=== PATIENT | male | born 1945 | race Hispanic/Latino ===

== ENCOUNTER 2022-02-17 22:56 | Inpatient (IN) | payer MEDICARE ==
[2022-02-17] MEDS ORDERED: SODIUM CHLORIDE 0.9% 1000 ML 2,500 ML IV ONE (23:25)
[2022-02-17] MEDS ORDERED: MINERAL OIL/PETROLATUM, WHITE OPHTH OINT 3.5 GM OU PRN (23:25)
[2022-02-17] MEDS ORDERED: VANCOMYCIN 1,500 MG in SODIUM CHLORIDE 0.9% 500 ML 500 ML IV ONE (23:25)
[2022-02-17] MEDS ORDERED: CEFEPIME/NS 2 GM/100 ML 2 GM/100 ML BAG IV ONE (23:25)
[2022-02-17] MEDS ORDERED: LIP THERAPY VASELINE TP PRN (23:25)
--- NOTE | 2022-02-17 23:29 | Emergency Department Report ---
ED General Adult HPI - General Chief complaint: Altered Mental Status Stated complaint: RESP DISTRESS Time Seen by Provider: 02/17/22 23:11 Source: EMS (Verbal report received from emergency medical services. EMS documentation not available at time of chart dictation ), RN notes reviewed Mode of arrival: Stretcher Limitations: Altered Mental Status, Physical Limitation, Other (care home re cords reviewed) - History of Present Illness Initial comments: Primary CARE doctor: Dr. Ramos This is a 76-year-old gentleman who was brought to the hospital by emergency medical services, as an [id number] respiratory distress with altered mental status. Patient is acutely altered and obtunded, and history is obtained from EMS. EMS reports that patient was either found, will became unresponsive at 9:30 PM on February 27, 2022. The patient is not accompanied by friends or family at this time for collateral information or additional information. 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 fib, chronic, CKD stage III, and he is currently a full code. EMS reports that the patient is altered, and requires assisted ventilation. EMS reports normal Accu-Chek in the field. Upon arrival to this emergency room, the patient is breathing agonal he, not protecting his airway, and requires [id number] assisted ventilation. Patient is intubated emergently by myself for acute respiratory failure. He is intubated with rapid sequence induction techniques. Shortly after intubation, the patient lost pulses, and received aggressive high- quality CPR for approximately 2 minutes. Then, pulses are regained. Patient remains comatose, with a GCS of essentially 3T. This hospital does not have a postarrest hypothermia protocol. Given post intubation cardiac arrest with return of spontaneous circulation, concern for sepsis, and hemodynamic instability, a sterile central line is placed with maximum barrier precautions with real-time ultrasound guidance in the right internal jugular vein. At the moment, no additional history is available at this time. Rectal temperature 98 degrees, brown stool on rectal exam. -: unknown - Related Data Allergies Allergy/AdvReac Type Severity Reaction Status Date / Time No Known Allergies Allergy Verified 02/17/22 23:39 ED Review of Systems ROS: Stated complaint: RESP DISTRESS Other details as noted in HPI Comment: Unobtainable due to pts medical conditions ED Physical Exam - General Limitations: Physical Limitation General appearance: obtunded - Head Head exam: Present: atraumatic, normocephalic - Eye Eye exam: Present: normal appearance - ENT ENT exam: Present: mucous membranes dry - Neck Neck exam: Present: normal inspection, full ROM - Respiratory Respiratory exam: Present: respiratory distress, rhonchi - Cardiovascular Cardiovascular Exam: Present: irregular rhythm. Absent: bradycardia, systolic murmur, diastolic murmur, rubs, gallop - GI/Abdominal GI/Abdominal exam: Present: soft. Absent: distended, tenderness, guarding, rebound, rigid, pulsatile mass - Rectal Rectal exam: Present: normal inspection, other (No obvious blood is noted) - exam: Present: normal inspection External exam: Present: normal external exam - Extremities Exam Extremities exam: Present: other (1+ radial pulses noted bilaterally. 1+ femoral pulses noted bilaterally). Absent: normal inspection (Mottled extremit ies) - Back Exam Back exam: Present: normal inspection - Neurological Exam Neurological exam: Present: altered, other (Patient nonverbal. Patient not moving extremities.) - Skin Skin exam: Present: warm, other (Dry mottled extremities) ED Course Vital Signs 02/17/22 02/18/22 02/18/22 23:20 00:40 02:20 Pulse Rate 85 76 Respiratory 0 L 0 L Rate Blood Pressure 85/50 70/43 O2 Sat by Pulse 97 98 87 Oximetry 02/18/22 02/18/22 02/18/22 04:22 04:31 04:53 Pulse Rate 78 78 80 Respiratory 25 H 25 H 0 L Rate Blood Pressure 88/52 89/55 O2 Sat by Pulse 100 100 100 Oximetry - Reevaluation(s) Reevaluation #1: 02/18/22 01:15 Differential diagnosis, including not limited to: Bacteremia, intracranial hemorrhage, pneumonia, UTI, sepsis Assessment and plan: 76-year-old gentleman with acute encephalopathy and respiratory failure, requiring intubation, complicated by cardiac arrest, now with return of spontaneous circulation, intubated, hypotensive, will likely require vasopressor therapy. IV fluids ordered, broad-spectrum antibiotics ordered. X-ray of the chest and appropriate laboratory studies ordered, noncontrast CT scan of the brain ordered. Elevated troponin noted on laboratory studies is likely a type II troponin leak. Have contacted critical care physician on-call, Dr. Fry. Discussed the patient's history, physical and clinical impression. His group will follow in consultation in the intensive care unit. Start patient on fluids and aggressive antibiotics. Currently, blood pressure 87/52, up from 75/50. Should patient not have adequate mean arterial pressure after vigorous fluid resuscitation, start vasopressor therapy. Have verbally communicated to nursing staff that I require a weight, and height, to properly dose this patient's medications 02/18/22 01:19 02/18/22 02:[address] scan of the brain appears to be negative for acute findings on my examination. I do not appreciate a bleed. Still hypotensive. Norepinephrine/Levophed drip ordered. Hospital physician, Dr. Lucia to admit patient to the intensive care unit. Prognosis is poor - Central Line Placement Right IJ Consent Obtained: emergent situation Time Out Performed: Yes Patient Placed on Monitor/Pulse Ox: Yes MD Prep: mask, gown, gloves Central Line Prep: Chlorhexidine scrub, sterile drapes applied Local Anesthesia Used: Lidocaine 1% Amount of Anesthesia Used (mls): 5 Ultrasound Used for Placement: Yes Central Line Lumen Inserted: triple Reason for Insertion: Emergency Venous Access Bloods Obtained for Lab: Yes Central Line Position: good blood return, all ports aspirated, flus, sutured in place with 2-0 Dressing Applied: Tegaderm Post Procedure X-Ray: tip of catheter in good p Patient Tolerated Procedure: well Complications: none Additional Comments: Patient prepped and draped in typical maximal sterile fashion. Using ultrasound guidance, right-sided internal jugular vein is cannulated with an 18-gauge needle, with 3 inch plastic catheter, guidewire, 0.032 x 60 cm, J-tip with a 3 mm radius is then inserted into the guiding catheter, and appropriate luminal placement is confirmed with real-time [id number] ultrasound guidance. A stab incision is made with an 11-gauge blade, and then incision is dilated. The 7 Hungarian triple-lumen catheter has each of the 3 ports flushed with sterile saline in advance of placement. Then, a 7 Hungarian triple-lumen catheter is inserted over the guidewire, and sutured to the skin. Real-time ultrasound guidance confirms appropriate luminal placement. Ports are aspirated easily, and flushed easily. Blue Biopatch is then affixed to the skin, and Tegaderm is applied to the skin. This patient tolerated the procedure well, and without obvious complication. Blood loss estimated at less than 50 cc. - Intubation Time Out Performed: No (Emergency situation) Sedative: Etomidate Mg Given: 20 Paralytic: Rocuronium (100) Mg Given: 100 Laryngoscope: fiberoptic video scope Size: 4 ET Tube Size: 7.5 Tube Secured Depth (cm): 24 Tube Secured Location: teeth Tube Placement Confirmation: visualized tube passing t, equal breath sounds fiona at, no breath sounds over epi Patient Tolerated Procedure: well Intubation Complications: none ED Medical Decision Making - Lab Data Result diagrams: 02/18/22 00:21 02/18/22 00:21 Vital Signs 02/17/22 23:20 Pulse Rate 85 Respiratory 0 L Rate Blood Pressure 85/50 O2 Sat by Pulse 97 Oximetry Lab Results 02/18/22 02/18/22 02/18/22 Range/Units 00:20 00:21 00:21 WBC 6.2 (4.5-11.0) K/mm3 RBC 3.15 L (3.65-5.03) M/mm3 Hgb 9.0 L (11.8-15.2) gm/dl Hct 28.0 L (35.5-45.6) % MCV 89 (84-94) fl MCH 29 (28-32) pg MCHC 32 (32-34) % RDW 20.4 H (13.2-15.2) % Plt Count 233 (140-440) K/mm3 Lymph % (Auto) 19.8 (13.4-35.0) % Noble % (Auto) 5.3 (0.0-7.3) % Eos % (Auto) 2.0 (0.0-4.3) % Baso % (Auto) 1.1 (0.0-1.8) % Lymph # (Auto) 1.2 (1.2-5.4) K/mm3 Noble # (Auto) 0.3 (0.0-0.8) K/mm3 Eos # (Auto) 0.1 (0.0-0.4) K/mm3 Baso # (Auto) 0.1 (0.0-0.1) K/mm3 Seg Neutrophils % 71.8 H (40.0-70.0) % Seg Neutrophils # 4.5 (1.8-7.7) K/mm3 PT 29.4 H (12.2-14.9) Sec. INR 2.41 H (0.87-1.13) APTT 38.3 H (24.2-36.6) Sec. ABG pH 7.148 L (7.320-7.450) POC ABG pCO2 60.4 H (32.0-48.0) mmHg POC ABG pO2 93.0 (83-108) mmHg POC ABG HCO3 20.5 ABG O2 Saturation 96.0 (0-100) POC ABG Base Excess -8.2 ABG Hemoglobin 8.69 L (12.0-17.5) ABG Oxyhemoglobin 93.7 L (94-98) ABG Methemoglobin 0.4 (0.0-1.5) Carboxyhemoglobin 2.1 H (0.5-1.5) FiO2 % 100 Sodium (137-145) mmol/L Potassium (3.6-5.0) mmol/L Chloride (98-107) mmol/L Carbon Dioxide (22-30) mmol/L Anion Gap mmol/L BUN (9-20) mg/dL Creatinine (0.8-1.3) mg/dL Estimated GFR ml/min BUN/Creatinine Ratio % Glucose (75-100) mg/dL Lactic Acid (0.7-2.0) mmol/L Calcium (8.4-10.2) mg/dL Total Bilirubin (0.1-1.2) mg/dL AST (5-40) units/L ALT (7-56) units/L Alkaline Phosphatase (35-129) units/L Total Creatine Kinase (55-170) units/L Troponin T (0.00-0.029) ng/mL Total Protein (6.3-8.2) g/dL Albumin (3.9-5) g/dL Albumin/Globulin Ratio % TSH (0.270-4.200) mlU/mL Urine Color (Yellow) Urine Turbidity (Clear) Urine pH (5.0-7.0) Ur Specific Marcus (1.003-1.030) Urine Protein (Negative) mg/dL Urine Glucose (UA) (Negative) mg/dL Urine Ketones (Negative) mg/dL Urine Blood (Negative) Urine Nitrite (Negative) Urine Bilirubin (Negative) Urine Urobilinogen (<2.0) mg/dL Ur Leukocyte Esterase (Negative) Urine WBC (Auto) (0.0-6.0) /HPF Urine RBC (Auto) (0.0-6.0) /HPF U Epithel Cells (Auto) (0-13.0) /HPF Urine Bacteria (Auto) (Negative) /HPF Urine Mucus /HPF Urine Yeast (Budding) /HPF Salicylates (2.8-20.0) mg/dL Acetaminophen (10.0-30.0) ug/mL Plasma/Serum Alcohol (0-0.07) % Blood Type 02/18/22 02/18/22 02/18/22 Range/Units 00:21 00:21 00:21 WBC (4.5-11.0) K/mm3 RBC (3.65-5.03) M/mm3 Hgb (11.8-15.2) gm/dl Hct (35.5-45.6) % MCV (84-94) fl MCH (28-32) pg MCHC (32-34) % RDW (13.2-15.2) % Plt Count (140-440) K/mm3 Lymph % (Auto) (13.4-35.0) % Noble % (Auto) (0.0-7.3) % Eos % (Auto) (0.0-4.3) % Baso % (Auto) (0.0-1.8) % Lymph # (Auto) (1.2-5.4) K/mm3 Noble # (Auto) (0.0-0.8) K/mm3 Eos # (Auto) (0.0-0.4) K/mm3 Baso # (Auto) (0.0-0.1) K/mm3 Seg Neutrophils % (40.0-70.0) % Seg Neutrophils # (1.8-7.7) K/mm3 PT (12.2-14.9) Sec. INR (0.87-1.13) APTT (24.2-36.6) Sec. ABG pH (7.320-7.450) POC ABG pCO2 (32.0-48.0) mmHg POC ABG pO2 (83-108) mmHg POC ABG HCO3 ABG O2 Saturation (0-100) POC ABG Base Excess ABG Hemoglobin (12.0-17.5) ABG Oxyhemoglobin (94-98) ABG Methemoglobin (0.0-1.5) Carboxyhemoglobin (0.5-1.5) FiO2 % Sodium 144 (137-145) mmol/L Potassium 4.5 (3.6-5.0) mmol/L Chloride 112.6 H (98-107) mmol/L Carbon Dioxide 19 L (22-30) mmol/L Anion Gap 17 mmol/L BUN 55 H (9-20) mg/dL Creatinine 3.0 H (0.8-1.3) mg/dL Estimated GFR 21 ml/min BUN/Creatinine Ratio 18 % Glucose 152 H (75-100) mg/dL Lactic Acid 1.10 (0.7-2.0) mmol/L Calcium 7.4 L (8.4-10.2) mg/dL Total Bilirubin 0.80 (0.1-1.2) mg/dL AST 56 H (5-40) units/L ALT 45 (7-56) units/L Alkaline Phosphatase 268 H (35-129) units/L Total Creatine Kinase 233 H (55-170) units/L Troponin T 0.073 H (0.00-0.029) ng/mL Total Protein 6.5 (6.3-8.2) g/dL Albumin 2.2 L (3.9-5) g/dL Albumin/Globulin Ratio 0.5 % TSH 5.100 H (0.270-4.200) mlU/mL Urine Color (Yellow) Urine Turbidity (Clear) Urine pH (5.0-7.0) Ur Specific Marcus (1.003-1.030) Urine Protein (Negative) mg/dL Urine Glucose (UA) (Negative) mg/dL Urine Ketones (Negative) mg/dL Urine Blood (Negative) Urine Nitrite (Negative) Urine Bilirubin (Negative) Urine Urobilinogen (<2.0) mg/dL Ur Leukocyte Esterase (Negative) Urine WBC (Auto) (0.0-6.0) /HPF Urine RBC (Auto) (0.0-6.0) /HPF U Epithel Cells (Auto) (0-13.0) /HPF Urine Bacteria (Auto) (Negative) /HPF Urine Mucus /HPF Urine Yeast (Budding) /HPF Salicylates (2.8-20.0) mg/dL Acetaminophen (10.0-30.0) ug/mL Plasma/Serum Alcohol (0-0.07) % Blood Type 02/18/22 02/18/22 02/18/22 Range/Units 00:21 00:21 00:21 WBC (4.5-11.0) K/mm3 RBC (3.65-5.03) M/mm3 Hgb (11.8-15.2) gm/dl Hct (35.5-45.6) % MCV (84-94) fl MCH (28-32) pg MCHC (32-34) % RDW (13.2-15.2) % Plt Count (140-440) K/mm3 Lymph % (Auto) (13.4-35.0) % Noble % (Auto) (0.0-7.3) % Eos % (Auto) (0.0-4.3) % Baso % (Auto) (0.0-1.8) % Lymph # (Auto) (1.2-5.4) K/mm3 Noble # (Auto) (0.0-0.8) K/mm3 Eos # (Auto) (0.0-0.4) K/mm3 Baso # (Auto) (0.0-0.1) K/mm3 Seg Neutrophils % (40.0-70.0) % Seg Neutrophils # (1.8-7.7) K/mm3 PT (12.2-14.9) Sec. INR (0.87-1.13) APTT (24.2-36.6) Sec. ABG pH (7.320-7.450) POC ABG pCO2 (32.0-48.0) mmHg POC ABG pO2 (83-108) mmHg POC ABG HCO3 ABG O2 Saturation (0-100) POC ABG Base Excess ABG Hemoglobin (12.0-17.5) ABG Oxyhemoglobin (94-98) ABG Methemoglobin (0.0-1.5) Carboxyhemoglobin (0.5-1.5) FiO2 % Sodium (137-145) mmol/L Potassium (3.6-5.0) mmol/L Chloride (98-107) mmol/L Carbon Dioxide (22-30) mmol/L Anion Gap mmol/L BUN (9-20) mg/dL Creatinine (0.8-1.3) mg/dL Estimated GFR ml/min BUN/Creatinine Ratio % Glucose (75-100) mg/dL Lactic Acid (0.7-2.0) mmol/L Calcium (8.4-10.2) mg/dL Total Bilirubin (0.1-1.2) mg/dL AST (5-40) units/L ALT (7-56) units/L Alkaline Phosphatase (35-129) units/L Total Creatine Kinase (55-170) units/L Troponin T (0.00-0.029) ng/mL Total Protein (6.3-8.2) g/dL Albumin (3.9-5) g/dL Albumin/Globulin Ratio % TSH (0.270-4.200) mlU/mL Urine Color (Yellow) Urine Turbidity (Clear) Urine pH (5.0-7.0) Ur Specific Marcus (1.003-1.030) Urine Protein (Negative) mg/dL Urine Glucose (UA) (Negative) mg/dL Urine Ketones (Negative) mg/dL Urine Blood (Negative) Urine Nitrite (Negative) Urine Bilirubin (Negative) Urine Urobilinogen (<2.0) mg/dL Ur Leukocyte Esterase (Negative) Urine WBC (Auto) (0.0-6.0) /HPF Urine RBC (Auto) (0.0-6.0) /HPF U Epithel Cells (Auto) (0-13.0) /HPF Urine Bacteria (Auto) (Negative) /HPF Urine Mucus /HPF Urine Yeast (Budding) /HPF Salicylates < 0.3 L (2.8-20.0) mg/dL Acetaminophen 5.0 L (10.0-30.0) ug/mL Plasma/Serum Alcohol < 0.01 (0-0.07) % Blood Type 02/18/22 02/18/22 Range/Units 00:21 00:54 WBC (4.5-11.0) K/mm3 RBC (3.65-5.03) M/mm3 Hgb (11.8-15.2) gm/dl Hct (35.5-45.6) % MCV (84-94) fl MCH (28-32) pg MCHC (32-34) % RDW (13.2-15.2) % Plt Count (140-440) K/mm3 Lymph % (Auto) (13.4-35.0) % Noble % (Auto) (0.0-7.3) % Eos % (Auto) (0.0-4.3) % Baso % (Auto) (0.0-1.8) % Lymph # (Auto) (1.2-5.4) K/mm3 Noble # (Auto) (0.0-0.8) K/mm3 Eos # (Auto) (0.0-0.4) K/mm3 Baso # (Auto) (0.0-0.1) K/mm3 Seg Neutrophils % (40.0-70.0) % Seg Neutrophils # (1.8-7.7) K/mm3 PT (12.2-14.9) Sec. INR (0.87-1.13) APTT (24.2-36.6) Sec. ABG pH (7.320-7.450) POC ABG pCO2 (32.0-48.0) mmHg POC ABG pO2 (83-108) mmHg POC ABG HCO3 ABG O2 Saturation (0-100) POC ABG Base Excess ABG Hemoglobin (12.0-17.5) ABG Oxyhemoglobin (94-98) ABG Methemoglobin (0.0-1.5) Carboxyhemoglobin (0.5-1.5) FiO2 % Sodium (137-145) mmol/L Potassium (3.6-5.0) mmol/L Chloride (98-107) mmol/L Carbon Dioxide (22-30) mmol/L Anion Gap mmol/L BUN (9-20) mg/dL Creatinine (0.8-1.3) mg/dL Estimated GFR ml/min BUN/Creatinine Ratio % Glucose (75-100) mg/dL Lactic Acid (0.7-2.0) mmol/L Calcium (8.4-10.2) mg/dL Total Bilirubin (0.1-1.2) mg/dL AST (5-40) units/L ALT (7-56) units/L Alkaline Phosphatase (35-129) units/L Total Creatine Kinase (55-170) units/L Troponin T (0.00-0.029) ng/mL Total Protein (6.3-8.2) g/dL Albumin (3.9-5) g/dL Albumin/Globulin Ratio % TSH (0.270-4.200) mlU/mL Urine Color Yellow (Yellow) Urine Turbidity Slightly-cloudy (Clear) Urine pH 5.0 (5.0-7.0) Ur Specific Marcus 1.016 (1.003-1.030) Urine Protein 100 mg/dl (Negative) mg/dL Urine Glucose (UA) Neg (Negative) mg/dL Urine Ketones Neg (Negative) mg/dL Urine Blood Mod (Negative) Urine Nitrite Neg (Negative) Urine Bilirubin Neg (Negative) Urine Urobilinogen 4.0 (<2.0) mg/dL Ur Leukocyte Esterase Neg (Negative) Urine WBC (Auto) 4.0 (0.0-6.0) /HPF Urine RBC (Auto) 1.0 (0.0-6.0) /HPF U Epithel Cells (Auto) 1.0 (0-13.0) /HPF Urine Bacteria (Auto) 1+ (Negative) /HPF Urine Mucus Few /HPF Urine Yeast (Budding) 1+ /HPF Salicylates (2.8-20.0) mg/dL Acetaminophen (10.0-30.0) ug/mL Plasma/Serum Alcohol (0-0.07) % Blood Type A POSITIVE - EKG Data -: EKG Interpreted by Ut - EKG Data 02/18/22 01:09 The EKG is interpreted at 12: 22 AM A. fib, 85 bpm. Left axis deviation. QTc 501 ms. Intraventricular conduction delay. Motion artifact. Abnormal EKG. Not a STEMI - Radiology Data Radiology results: pending, report reviewed, image reviewed CHEST 1 VIEW INDICATION / CLINICAL INFORMATION: follow up respiratory failure. COMPARISON: None available. FINDINGS: SUPPORT DEVICES: Endotracheal tube is in satisfactory position. Right IJ central venous catheter is overshadowed by posterior fusion hardware not well-visualized. HEART / MEDIASTINUM: Normal size of the cardiomediastinal silhouette. Additional postoperative findings from sternotomy. LUNGS / PLEURA: Scattered opacities mid-lower left lung and right lung base are present. Small left pleural effusion is suggested possibly minimally loculated. BONES: No significant osseous abnormality. ADDITIONAL FINDINGS: No significant additional findings. IMPRESSION: 1. Satisfactory position of endotracheal tube. Right IJ central venous catheter not well-visualized secondary to posterior fusion hardware. 2. Bilateral lung opacities differential considerations to include sequelae of infection and/or possibly asymmetric pulmonary edema. 3. Small dependent left pleural effusion. Signer Name: Tristan Mcmahon II, MD Signed: 02/18/2022 12:10 AM Workstation Name: [facility] CT HEAD WITHOUT CONTRAST INDICATION / CLINICAL INFORMATION: Altered Mental Status. TECHNIQUE: CT head was performed without administration of intravenous contrast. All CT scans at this location are performed using CT dose reduction for ALARA by means of automated exposure control. COMPARISON: None available. FINDINGS: CEREBRAL PARENCHYMA: Generalized cortical and central atrophy. Periventricular regions of white matter hypoattenuation compatible with m icrovascular ischemia. HEMORRHAGE: None. EXTRA-AXIAL SPACES: Normal in size and morphology for the patient's age. VENTRICULAR SYSTEM: Normal in size and morphology for the patient's age. MIDLINE SHIFT / HERNIATION: None. CEREBELLUM / BRAINSTEM: No significant abnormality. ORBITS: Partially calcified small left globe with prosthesis. Right globe demonstrates evidence of prior cataract surgery. SOFT TISSUES: No significant abnormality. SKULL: No significant abnormality. PARANASAL SINUSES / MASTOID AIR CELLS: Mucous retention cyst right maxillary sinus. ADDITIONAL FINDINGS: Mild elongation of the styloid processes bilaterally is not excluded. IMPRESSION: 1. No acute intracranial abnormality. Signer Name: Tristan Mcmahon II, MD Signed: 02/18/2022 1:18 AM Workstation Name: [id number] Critical Care Time: Yes Critical care time in (mins) excluding proc time.: 45 Critical care attestation.: If time is entered above; I have spent that time in minutes in the direct care of this critically ill patient, excluding procedure time. ED Disposition Clinical Impression: Acute respiratory failure, Cardiac arrest, Acute encephalopathy, Renal insufficiency, Atrial fibrillation, Respiratory acidosis Disposition: 09 ADMITTED INPATIENT Is pt being admited?: Yes Condition: Critical
[2022-02-17] MEDS ORDERED: VANCOMYCIN PHARMACY TO DOSE IV SCH (23:45)
[2022-02-17] MEDS ORDERED: fentaNYL DRIP Premix 2,000 MCG/100 ML BAG IV SCH (23:45)
[2022-02-18 00:36] LABS: Basophils # (Auto) 0.1 K/mm3 (0.0-0.1); Basophils % (Auto) 1.1 % (0.0-1.8); Eosinophils # (Auto) 0.1 K/mm3 (0.0-0.4); Lymphocytes # (Auto) 1.2 K/mm3 (1.2-5.4); Lymphocytes % (Auto) 19.8 % (13.4-35.0); Mean Corpuscular HGB Conc 32 % (32-34); Mean Corpuscular Volume 89 fl (84-94); Monocytes # (Auto) 0.3 K/mm3 (0.0-0.8); Monocytes % (Auto) 5.3 % (0.0-7.3); Platelet Count 233 K/mm3 (140-440); Red Blood Count 3.15 M/mm3 (3.65-5.03)
[2022-02-18 00:44] LABS: Red Cell Distribution Width 20.4 % (13.2-15.2)
[2022-02-18 00:47] LABS: INR 2.41 (0.87-1.13)
[2022-02-18 00:48] LABS: Partial Thromboplastin Time 38.3 Sec. (24.2-36.6)
[2022-02-18 00:57] LABS: Albumin 2.2 g/dL (3.9-5); Calcium 7.4 mg/dL (8.4-10.2)
[2022-02-18 01:03] LABS: Bacteria,Urine 1+ /HPF (Negative); Bilirubin,Urine NEG (Negative); Blood,Urine MOD (Negative); Color,Urine Yellow (Yellow); Mucus,Urine FEW /HPF
[2022-02-18 01:34] LABS: Chol/HDL Ratio 3.73 %
--- NOTE | 2022-02-18 02:23 | Cat Scan Report ---
CT HEAD WITHOUT CONTRAST INDICATION / CLINICAL INFORMATION: Altered Mental Status. TECHNIQUE: CT head was performed without administration of intravenous contrast. All CT scans at this location are performed using CT dose reduction for ALARA by means of automated exposure control. COMPARISON: None available. FINDINGS: CEREBRAL PARENCHYMA: Generalized cortical and central atrophy. Periventricular regions of white matte r hypoattenuation compatible with microvascular ischemia. HEMORRHAGE: None. EXTRA-AXIAL SPACES: Normal in size and morphology for the patient's age. VENTRICULAR SYSTEM: Normal in size and morphology for the patient's age. MIDLINE SHIFT / HERNIATION: None. CEREBELLUM / BRAINSTEM: No significant abnormality. ORBITS: Partially calcified small left globe with prosthesis. Right globe demonstrates evidence of pr ior cataract surgery. SOFT TISSUES: No significant abnormality. SKULL: No significant abnormality. PARANASAL SINUSES / MASTOID AIR CELLS: Mucous retention cyst right maxillary sinus. ADDITIONAL FINDINGS: Mild elongation of the styloid processes bilaterally is not excluded. IMPRESSION: 1. No acute intracranial abnormality. Signer Name: Tristan Mcmahon II, MD Signed: 02/18/2022 2:18 AM Workstation Name: [id number]
[2022-02-18] MEDS ORDERED: SODIUM CHLORIDE 0.9% 1000 ML 1,000 ML IV ONE (02:38)
[2022-02-18] MEDS ORDERED: VANCOMYCIN 2,000 MG in SODIUM CHLORIDE 0.9% 500 ML 500 ML IV ONE (03:00)
[2022-02-18] MEDS: fentaNYL 100 MCG/2 ML INJ IV PRN ×2 (03:01→10:37)
[2022-02-18] MEDS ORDERED: traMADol 50 MG TAB PO PRN (03:18)
[2022-02-18] MEDS ORDERED: ACETAMINOPHEN 325 MG TAB PO PRN (03:18)
[2022-02-18] MEDS ORDERED: HYDROmorphone 1 MG/1 ML INJ IV PRN (03:18)
[2022-02-18] MEDS ORDERED: NITROGLYCERIN 0.4 MG TAB SUBL SL PRN (03:18)
[2022-02-18] MEDS ORDERED: ONDANSETRON 4 MG/2 ML INJ IV PRN (03:18)
[2022-02-18] MEDS ORDERED: ALBUTEROL 2.5 MG/3 ML NEBU IH PRN (03:18)
[2022-02-18] MEDS ORDERED: MORPHINE 2 MG/1 ML INJ IV PRN (03:18)
--- NOTE | 2022-02-18 03:28 | History and Physical Report ---
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 fib, chronic, CKD stage III was brought to the hospital by emergency medical services, as an [id number] respiratory distress with altered mental status. Patient is acutely altered and obtunded, and history is obtained from EMS. EMS reports that patient was either found, will became unresponsive at 9:30 PM on February 27, 2022. The patient is not accompanied by friends or family at this time for collateral information or additional information. EMS reports that the patient is altered, and requires assisted ventilation. EMS reports normal Accu-Chek in the field. Upon arrival to this emergency room, the patient is breathing agonal he, not protecting his airway, and requires [id number] assisted ventilation. Patient is intubated emergently by emergency room physician for acute respiratory failure. Shortly after intubation, the patient lost pulses, and received aggressive high-quality CPR for approximately 2 minutes. Then, pulses are regained. Patient remains comatose. In the emergency room patient is found to have acute respiratory failure, cardiac arrest also chest x-ray compatible with pneumonia as per the ER physicians were going to admit the patient. We will put the patient on IV antibiotic week. 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 fib, chronic, CKD stage III, ), renal failure Past Surgical History: Other (Unknown) Social history: other (Unknown) Family history: hypertension Medications and Allergies Allergies Allergy/AdvReac Type Severity Reaction Status Date / Time No Known Allergies Allergy Verified 02/17/22 23:39 Active Meds: Active Medications Famotidine (Famotidine 20 Mg/2 Ml Inj) 20 mg IV DAILY KARAN Fentanyl (Fentanyl 100 Mcg/2 Ml Inj) 50 mcg IV Q10MIN PRN PRN Reason: ANALGESIA Last Admin: 02/18/22 03:01 Dose: 50 mcg Hydrophilic Ointment (Lip Therapy Vaseline) 1 applic TP Q2HR PRN PRN Reason: Dry Lips Fentanyl Citrate (Fentanyl Drip Premix) 2,000 mcg in 100 mls @ 6.849 mls/hr IV TITR KARAN; Protocol Last Admin: 02/18/22 02:50 Dose: 1 mcg/kg/hr, 6.849 mls/hr NORepinephrine/NS 8 MG-250 ML (Norepinephrine/Ns 8 Mg-250 Ml (Double Conc)) 8 mg in 250 mls @ 3.75 mls/hr IV TITRATE KARAN; Protocol Vancomycin HCl 2,000 mg/ (Sodium Chloride) 540 mls @ 250 mls/hr IV ONCE ONE Stop: 02/18/22 05:09 Sodium Chloride (Nacl 0.9% 1000 Ml) 1,000 mls @ 999 mls/hr IV BOLUS ONE Stop: 02/18/22 03:38 Last Admin: 02/18/22 02:49 Dose: 999 mls/hr Multi-Ingred Cream/Lotion/Oil/Oint (Mineral Oil/Petrolatum, White Ophth Oint 3.5 Gm) 1 applic OU Q4HR PRN PRN Reason: Dry Eye(s) Senna/Docusate Sodium (Sennosides/Docusate Sodium 8.6/50 Mg Tab) 1 tab FEEDTUBE BID KARAN Review of Systems All systems: negative Constitutional: malaise, lethargy, other (Unresponsive) Cardiovascular: shortness of breath, dyspnea on exertion Respiratory: shortness of breath, dyspnea on exertion Neurological: change in mentation Exam - Constitutional Vitals: Temp Pulse Resp BP Pulse Ox 76 0 L 70/43 87 02/18/22 02:20 02/18/22 02:20 02/18/22 02:20 02/18/22 02:20 General appearance: Present: severe distress - EENT Eyes: Present: PERRL ENT: hearing intact, clear oral mucosa - Neck Neck: Present: supple, normal ROM - Respiratory Respiratory effort: normal Respiratory: bilateral: diminished - Cardiovascular Heart Sounds: Present: S1 & S2. Absent: rub, click - Extremities Extremities: pulses symmetrical, No edema Peripheral Pulses: within normal limits - Abdominal General gastrointestinal: Present: soft, non-tender, non-distended, normal bowel sounds Male genitourinary: Present: normal - Integumentary Integumentary: Present: clear, warm, dry - Musculoskeletal Musculoskeletal: gait normal, strength equal bilaterally - Psychiatric Psychiatric: other (Patient is unresponsive and patient is on vent) - Neurologic Neurologic: CNII-XII intact, moves all extremities, other (Patient is unresponsive and patient is on vent) HEART Score - HEART Score Troponin: Troponin T 0.073 ng/mL (0.00-0.029) H 02/18/22 00:21 Results - Labs CBC & Chem 7: 02/18/22 00:21 02/18/22 00:21 Labs: Laboratory Last Values WBC 6.2 K/mm3 (4.5-11.0) 02/18/22 00:21 RBC 3.15 M/mm3 (3.65-5.03) L 02/18/22 00:21 Hgb 9.0 gm/dl (11.8-15.2) L 02/18/22 00:21 Hct 28.0 % (35.5-45.6) L 02/18/22 00:21 MCV 89 fl (84-94) 02/18/22 00: MCH 29 pg (28-32) 02/18/22 00: MCHC 32 % (32-34) 02/18/22 00:21 RDW 20.4 % (13.2-15.2) H 02/18/22 00:21 Plt Count 233 K/mm3 (140-440) 02/18/22 00: Lymph % (Auto) 19.8 % (13.4-35.0) 02/18/22 00:21 [place] % (Auto) 5.3 % (0.0-7.3) 02/18/22 00: Eos % (Auto) 2.0 % (0.0-4.3) 02/18/22 00: Baso % (Auto) 1.1 % (0.0-1.8) 02/18/22 00:21 Lymph # (Auto) 1.2 K/mm3 (1.2-5.4) 02/18/22 00: [place] # (Auto) 0.3 K/mm3 (0.0-0.8) 02/18/22 00:21 Eos # (Auto) 0.1 K/mm3 (0.0-0.4) 02/18/22 00:21 Baso # (Auto) 0.1 K/mm3 (0.0-0.1) 02/18/22 00: Seg Neutrophils % 71.8 % (40.0-70.0) H 02/18/22 00: Seg Neutrophils # 4.5 K/mm3 (1.8-7.7) 02/18/22 00: PT 29.4 Sec. (12.2-14.9) H 02/18/22 00: INR 2.41 (0.87-1.13) H 02/18/22 00: APTT 38.3 Sec. (24.2-36.6) H 02/18/22 00:21 ABG pH 7.148 (7.320-7.450) L 02/18/22 00:20 POC ABG pCO2 60.4 mmHg (32.0-48.0) H 02/18/22 00:20 POC ABG pO2 93.0 mmHg (83-108) 02/18/22 00: POC ABG HCO3 20.5 02/18/22 00: ABG O2 Saturation 96.0 (0-100) 02/18/22 00:20 POC ABG Base Excess -8.2 02/18/22 00:20 ABG Hemoglobin 8.69 (12.0-17.5) L 02/18/22 00:20 ABG Oxyhemoglobin 93.7 (94-98) L 02/18/22 00:20 ABG Methemoglobin 0.4 (0.0-1.5) 02/18/22 00: Carboxyhemoglobin 2.1 (0.5-1.5) H 02/18/22 00: FiO2 % 100 02/18/22 00:20 Sodium 144 mmol/L (137-145) 02/18/22 00:21 Potassium 4.5 mmol/L (3.6-5.0) 02/18/22 00: Chloride 112.6 mmol/L (98-107) H 02/18/22 00: Carbon Dioxide 19 mmol/L (22-30) L 02/18/22 00:21 Anion Gap 17 mmol/L 02/18/22 00:21 BUN 55 mg/dL (9-20) H 02/18/22 00:21 Creatinine 3.0 mg/dL (0.8-1.3) H 02/18/22 00:21 Estimated GFR 21 ml/min 02/18/22 00:21 BUN/Creatinine Ratio 18 % 02/18/22 00:21 Glucose 152 mg/dL (75-100) H 02/18/22 00:21 Lactic Acid 0.90 mmol/L (0.7-2.0) 02/18/22 02:18 Calcium 7.4 mg/dL (8.4-10.2) L 02/18/22 00:21 Total Bilirubin 0.80 mg/dL (0.1-1.2) 02/18/22 00:21 AST 56 units/L (5-40) H 02/18/22 00:21 ALT 45 units/L (7-56) 02/18/22 00:21 Alkaline Phosphatase 268 units/L (35-129) H 02/18/22 00:21 Ammonia 38.0 umol/L (25-60) 02/18/22 00:21 Total Creatine Kinase 233 units/L (55-170) H 02/18/22 00:21 Troponin T 0.073 ng/mL (0.00-0.029) H 02/18/22 00:21 Total Protein 6.5 g/dL (6.3-8.2) 02/18/22 00:21 Albumin 2.2 g/dL (3.9-5) L 02/18/22 00: Albumin/Globulin Ratio 0.5 % 02/18/22 00:21 Triglycerides 107 mg/dL (2-149) 02/18/22 00:21 Cholesterol 71 mg/dL (50-199) 02/18/22 00:21 LDL Cholesterol Direct 30 mg/dL (50-130) L 02/18/22 00:21 HDL Cholesterol 19 mg/dL (40-59) L 02/18/22 00:21 Cholesterol/HDL Ratio 3.73 % 02/18/22 00:21 TSH 5.100 mlU/mL (0.270-4.200) H 02/18/22 00:21 Urine Color Yellow (Yellow) 02/18/22 00:54 Urine Turbidity Slightly-cloudy (Clear) 02/18/22 00:54 Urine pH 5.0 (5.0-7.0) 02/18/22 00:54 Ur Specific [place] 1.016 (1.003-1.030) 02/18/22 00:54 Urine Protein 100 mg/dl mg/dL (Negative) 02/18/22 00:54 Urine Glucose (UA) Neg mg/dL (Negative) 02/18/22 00:54 Urine Ketones Neg mg/dL (Negative) 02/18/22 00:54 Urine Blood Mod (Negative) 02/18/22 00:54 Urine Nitrite Neg (Negative) 02/18/22 00:54 Urine Bilirubin Neg (Negative) 02/18/22 00:54 Urine Urobilinogen 4.0 mg/dL (<2.0) 02/18/22 00:54 Ur Leukocyte Esterase Neg (Negative) 02/18/22 00:54 Urine WBC (Auto) 4.0 /HPF (0.0-6.0) 02/18/22 00:54 Urine RBC (Auto) 1.0 /HPF (0.0-6.0) 02/18/22 00:54 U Epithel Cells (Auto) 1.0 /HPF (0-13.0) 02/18/22 00:54 Urine Bacteria (Auto) 1+ /HPF (Negative) 02/18/22 00:54 Urine Mucus Few /HPF 02/18/22 00:54 Urine Yeast (Budding) 1+ /HPF 02/18/22 00:54 Salicylates < 0.3 mg/dL (2.8-20.0) L 02/18/22 00:21 Acetaminophen 5.0 ug/mL (10.0-30.0) L 02/18/22 00:21 Plasma/Serum Alcohol < 0.01 % (0-0.07) 02/18/22 00:21 Blood Type A POSITIVE 02/18/22 00:21 Antibody Screen Negative 02/18/22 00:21 - Imaging and Cardiology Chest x-ray: report reviewed CT Scan - head: report reviewed Assessment and Plan VTE prophylaxis?: Chemical Plan of care discussed with patient/family: Yes - Patient Problems (1) Acute respiratory failure Current Visit: Yes Status: Acute Plan to address problem: Admit the patient to the ICU. Patient is on vent. DuoNeb by nebulizer every 4 hours. Albuterol via nebulizer every 4 hours as needed. Reconsult critical care evaluation. (2) Cardiac arrest Current Visit: Yes Status: Acute Plan to address problem: Aspirin 325 mg p.o. daily. Lipitor 40 mg p.o. daily. Serial cardiac enzymes. Echocardiogram. Cardiology evaluation (3) Acute encephalopathy Current Visit: Yes Status: Acute Plan to address problem: Acute metabolic encephalopathy secondary to acute respiratory failure, cardiac arrest and IGGY and pneumonia. Patient is on vent. DuoNeb by nebulizer every 4 hours. Albuterol via nebulizer every 4 hours as needed. Rocephin 2 g IV daily. Zithromax 500 mg IV daily. Reconsult critical care evaluation. (4) Hypertension Current Visit: Yes Status: Acute Plan to address problem: Hydralazine 10 mg IV every 6 hours as needed. We will continue the home medication (5) Atrial fibrillation Current Visit: Yes Status: Acute Plan to address problem: Stable. We will continue the home medication. Echocardiogram. Cardiology consult (6) Renal insufficiency Current Visit: Yes Status: Acute Plan to address problem: Avoid nephrotoxic drugs. Renally dose medication. D5 half-normal saline at the rate of 100 cc/h. Nephrology consult. Recheck CBC BMP in the morning (7) Respiratory acidosis Current Visit: Yes Status: Acute Plan to address problem: Patient is on vent. DuoNeb by nebulizer every 4 hours. Albuterol via nebulizer every 4 hours as needed. Reconsult critical care evaluation. (8) DVT prophylaxis Current Visit: Yes Status: Acute Plan to address problem: Heparin 5000 units SQ every 12 hours for DVT prophylaxis. Pepcid 20 mg IV every 12 hours for GI prophylaxis. Patient is a full code
[2022-02-18] MEDS ORDERED: hydrALAZINE 20 MG/1 ML INJ IV PRN (03:33)
[2022-02-18] MEDS: NORepinephrine/NS 8 MG-250 ML 8 MG/250 ML INFUS..BTL IV SCH ×4 (03:48→22:19)
[2022-02-18] MEDS ORDERED: D5W/0.45% NACL 1,000 ML IV SCH (04:00)
[2022-02-18] MEDS ORDERED: cefTRIAXone/NS 2 GM/100 ML 2 GM/100 ML BAG IV SCH (04:00)
[2022-02-18 05:19] LABS: ABG Base Excess -11.2 mmol/L (-2.0-3.0); ABG HCO3 17.6 mmol/L (20.0-26.0); ABG Methemoglobin 0.6 % (0.0-1.5); ABG Oxygen Saturation 96.8 % (95.0-99.0); ABG PCO2 53.9 mm Hg; ABG PO2 93.2 mm Hg (80.0-90.0)
[2022-02-18 05:28] LABS: ABG PH 7.131 pH Units (7.350-7.450)
[2022-02-18] MEDS: VASOPRESSIN 20 UNIT in SODIUM CHLORIDE 0.9% 100 ML IV SCH ×2 (06:16→16:58)
[2022-02-18] MEDS: SODIUM BICARBONATE 150 MEQ in DEXTROSE 5% IN WATER 1,000 ML IV SCH ×3 (06:42→22:11)
--- NOTE | 2022-02-18 07:54 | XRay Report ---
CHEST 1 VIEW INDICATION / CLINICAL INFORMATION: follow up respiratory failure. COMPARISON: None available. FINDINGS: SUPPORT DEVICES: Endotracheal tube is in satisfactory position. Right IJ central venous catheter is o vershadowed by posterior fusion hardware not well-visualized. HEART / MEDIASTINUM: Normal size of the cardiomediastinal silhouette. Additional postoperative findin gs from sternotomy. LUNGS / PLEURA: Scattered opacities mid-lower left lung and right lung base are present. Small left p leural effusion is suggested possibly minimally loculated. BONES: No significant osseous abnormality. ADDITIONAL FINDINGS: No significant additional findings. IMPRESSION: 1. Satisfactory position of endotracheal tube. Right IJ central venous catheter not well-visualized s econdary to posterior fusion hardware. 2. Bilateral lung opacities differential considerations to include sequelae of infection and/or possi steven asymmetric pulmonary edema. 3. Small dependent left pleural effusion. Signer Name: Tristan Mcmahon II, MD Signed: 02/18/2022 1:10 AM Workstation Name: [id number]
[2022-02-18] MEDS: IPRATROPIUM/ALBUTEROL SULFATE 3 ML AMPUL.NEB IH SCH ×3 (08:30→20:34)
--- NOTE | 2022-02-18 09:30 | Consultation ---
History of Present Illness - Reason for Consult Consult date: 02/18/22 acute renal failure, chronic renal failure - History of Present Illness The patient is a 76 year old male was admitted for worsening altered mental status, he was found to have hypoxic respiratory failure and underwent intub ation and started on mechanical ventilation. 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 fib, chronic, CKD stage III, ), renal failure Past Surgical History: Other (Unknown) Social history: other (Unknown) Family history: hypertension Medications and Allergies Allergies Allergy/AdvReac Type Severity Reaction Status Date / Time No Known Allergies Allergy Verified 02/17/22 23:39 Active Meds: Active Medications Acetaminophen (Acetaminophen 325 Mg Tab) 650 mg PO Q4H PRN PRN Reason: Pain MILD(1-3)/Fever >100.5/NICOLE Albuterol (Albuterol 2.5 Mg/3 Ml Nebu) 2.5 mg IH Q3HRT PRN PRN Reason: Shortness Of Breath Albuterol/Ipratropium (Ipratropium/Albuterol Sulfate 3 Ml Ampul.Neb) 1 ampul IH Q6HRT KARAN Last Admin: 02/18/22 08:30 Dose: 1 ampul Aspirin (Aspirin 325 Mg Tab) 325 mg PO QDAY [facility] Atorvastatin Calcium (Atorvastatin 40 Mg Tab) 40 mg PO QHS [facility] Azithromycin (Azithromycin 250 Mg Tab) 500 mg PO QDAY [facility]; Protocol Famotidine (Famotidine 20 Mg/2 Ml Inj) 20 mg IV DAILY [facility] Fentanyl (Fentanyl 100 Mcg/2 Ml Inj) 50 mcg IV Q10MIN PRN PRN Reason: ANALGESIA Last Admin: 02/18/22 03:01 Dose: 50 mcg Heparin Sodium (Porcine) (Heparin 5,000 Unit/1 Ml Vial) 5,000 unit SUB-Q Q12HR [facility] Hydralazine HCl (Hydralazine 20 Mg/1 Ml Inj) 10 mg IV Q6H PRN PRN Reason: SBP >/=160; DBP >/=100 Hydrophilic Ointment (Lip Therapy Vaseline) 1 applic TP Q2HR PRN PRN Reason: Dry Lips Fentanyl Citrate (Fentanyl Drip Premix) 2,000 mcg in 100 mls @ 6.849 mls/hr IV TITR KARAN; Protocol Last Titration: 02/18/22 06:00 Dose: 0 mcg/kg/hr, 0 mls/hr NORepinephrine/NS 8 MG-250 ML (Norepinephrine/Ns 8 Mg-250 Ml (Double Conc)) 8 mg in 250 mls @ 3.75 mls/hr IV TITRATE KARAN; Protocol Last Titration: 02/18/22 09:01 Dose: 17 mcg/min, 31.875 mls/hr Dextrose/Sodium Chloride (D5/0.45ns) 1,000 mls @ 100 mls/hr IV DIRECT KARAN Last Admin: 02/18/22 06:17 Dose: 100 mls/hr Ceftriaxone Sodium (Rocephin/Ns 2 Gm/100 Ml) 2 gm in 100 mls @ 200 mls/hr IV Q24H KARAN; Protocol Propofol (Diprivan 10 Mg/Ml) 1,000 mg in 100 mls @ 4.11 mls/hr IV TITR KARAN; Protocol Vasopressin 20 unit/ Sodium (Chloride) 101 mls @ 9.09 mls/hr IV TITR KARAN; Protocol Last Admin: 02/18/22 06:16 Dose: 0.03 units/min, 9.09 mls/hr Sodium Bicarbonate 150 meq/ (Dextrose) 1,150 mls @ 150 mls/hr IV DIRECT KARAN Last Admin: 02/18/22 06:42 Dose: 150 mls/hr Multi-Ingred Cream/Lotion/Oil/Oint (Mineral Oil/Petrolatum, White Ophth Oint 3.5 Gm) 1 applic OU Q4HR PRN PRN Reason: Dry Eye(s) Nitroglycerin (Nitroglycerin 0.4 Mg Tab Subl) 0.4 mg SL Q5M PRN PRN Reason: Chest Pain Ondansetron HCl (Ondansetron 4 Mg/2 Ml Inj) 4 mg IV Q8H PRN PRN Reason: Nausea And Vomiting Senna/Docusate Sodium (Sennosides/Docusate Sodium 8.6/50 Mg Tab) 1 tab FEEDTUBE BID KARAN Sodium Chloride (Sodium Chloride 0.9% 10 Ml Flush Syringe) 10 ml IV BID KARAN Sodium Chloride (Sodium Chloride 0.9% 10 Ml Flush Syringe) 10 ml IV PRN PRN PRN Reason: LINE FLUSH Review of Systems ROS unobtainable: due to endotracheal tube Exam - Vital Signs Vital signs: Vital Signs Pulse Resp BP Pulse Ox 85 0 L 85/50 97 02/17/22 23:20 02/17/22 23:20 02/17/22 23:20 02/17/22 23:20 - General Appearance General appearance: sedated on ventilator, intubated EENT: mucous membranes dry Neck: Present: neck supple Respiratory: Decreased Breath Sounds Heart: tachycardia Gastrointestinal: Absent: tenderness, distended, masses Integumentary: no rash, warm and dry Musculoskeletal: Present: other (no edema in BLE) Results - Lab Results 02/18/22 00:21 02/18/22 00:21 Most recent lab results ABG pH 7.131 pH Units (7.350-7.450) L* 02/18/22 05:02 ABG pCO2 53.9 mm Hg 02/18/22 05:02 ABG pO2 93.2 mm Hg (80.0-90.0) H 02/18/22 05:02 ABG HCO3 17.6 mmol/L (20.0-26.0) L 02/18/22 05:02 ABG O2 Saturation 96.8 % (95.0-99.0) 02/18/22 05:02 Calcium 7.4 mg/dL (8.4-10.2) L 02/18/22 00:21 Assessment and Plan patient with h/o CKD but no available baseline Cr is available IGGY likely 2/2 ATN will check renal US will check UA and urine lytes daily BMP renally dose meds strict I&O daily weight no indication 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
[2022-02-18] MEDS ORDERED: AZITHROMYCIN/NS 500 MG/250 ML 500 MG/250 ML BAG IV SCH (10:00)
[2022-02-18] MEDS ORDERED: FAMOTIDINE 20 MG/2 ML INJ IV SCH ×3 (10:00)
[2022-02-18] MEDS ORDERED: AZITHROMYCIN 250 MG TAB PO SCH (10:00)
[2022-02-18] MEDS ORDERED: ASPIRIN 325 MG TAB PO SCH (10:00)
[2022-02-18] MEDS ORDERED: LACTATED RINGERS 1,000 ML IV SCH (10:15)
[2022-02-18] MEDS ORDERED: VANCOMYCIN 1,500 MG in SODIUM CHLORIDE 0.9% 500 ML 500 ML IV SCH (11:00)
--- NOTE | 2022-02-18 11:22 | XRay Report ---
ABDOMEN 1 VIEW(S) INDICATION / CLINICAL INFORMATION: OG tube placement. COMPARISON: None available. FINDINGS: TUBES / LINES: Esophagogastric tube sidehole projects over the stomach. BOWEL GAS PATTERN: Bowel gas pattern is nonobstructive. Cholecystectomy clips are noted. ADDITIONAL FINDINGS: Fusion hardware of the thoracic spine. IMPRESSION: 1. Esophagogastric tube projects over the stomach. Signer Name: Neri Daniels MD Signed: 02/18/2022 11:17 AM Workstation Name: [id number]
--- NOTE | 2022-02-18 11:34 | Electrocardiograph Report ---
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
[2022-02-18] MEDS: HEPARIN 5,000 UNIT/1 ML VIAL SUB-Q SCH ×2 (11:35→22:09)
[2022-02-18] MEDS: FAMOTIDINE 20 MG/2 ML INJ IV SCH (11:35)
--- NOTE | 2022-02-18 11:35 | Electrocardiograph Report ---
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
--- NOTE | 2022-02-18 11:35 | Electrocardiograph Report ---
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
[2022-02-18] MEDS: ASPIRIN 325 MG TAB FEEDTUBE SCH (11:36)
[2022-02-18] MEDS: SENNOSIDES/DOCUSATE SODIUM 8.6/50 MG TAB FEEDTUBE SCH ×2 (11:36→22:17)
--- NOTE | 2022-02-18 11:59 | Consultation ---
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 REquired intubation in the ED and subsequently coded but achieved rosc after 2 minutes. IN the ICU, sedation has now been turned off and patient is following commands and will nod his head at times. and sister are at bedside who provided Advance directives which state patient to be an AND. ER did not have this information. He is currently on Levophed and vasopressin as well as a bicarb drip. 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 fib, chronic, CKD stage III, ), renal failure Past Surgical History: Other (Unknown) Social history: other (Unknown) Family history: hypertension Medications and Allergies Allergies Allergy/AdvReac Type Severity Reaction Status Date / Time No Known Allergies Allergy Verified 02/17/22 23:39 Active Meds: Active Medications Acetaminophen (Acetaminophen 325 Mg Tab) 650 mg PO Q4H PRN PRN Reason: Pain MILD(1-3)/Fever >100.5/NICOLE Albuterol (Albuterol 2.5 Mg/3 Ml Nebu) 2.5 mg IH Q3HRT PRN PRN Reason: Shortness Of Breath Albuterol/Ipratropium (Ipratropium/Albuterol Sulfate 3 Ml Ampul.Neb) 1 ampul IH Q6HRT [facility] Last Admin: 02/18/22 08:30 Dose: 1 ampul Aspirin (Aspirin 325 Mg Tab) 325 mg FEEDTUBE QDAY [facility] Last Admin: 02/18/22 11:36 Dose: 325 mg Atorvastatin Calcium (Atorvastatin 40 Mg Tab) 40 mg PO QHS [facility] Famotidine (Famotidine 20 Mg/2 Ml Inj) 20 mg IV DAILY [facility] Last Admin: 02/18/22 11:35 Dose: 20 mg Fentanyl (Fentanyl 100 Mcg/2 Ml Inj) 50 mcg IV Q10MIN PRN PRN Reason: ANALGESIA Last Admin: 02/18/22 10:37 Dose: 50 mcg Heparin Sodium (Porcine) (Heparin 5,000 Unit/1 Ml Vial) 5,000 unit SUB-Q Q12HR [facility] Last Admin: 02/18/22 11:35 Dose: 5,000 unit Hydralazine HCl (Hydralazine 20 Mg/1 Ml Inj) 10 mg IV Q6H PRN PRN Reason: SBP >/=160; DBP >/=100 Hydrophilic Ointment (Lip Therapy Vaseline) 1 applic TP Q2HR PRN PRN Reason: Dry Lips Fentanyl Citrate (Fentanyl Drip Premix) 2,000 mcg in 100 mls @ 6.849 mls/hr IV TITR [facility]; Protocol Last Titration: 02/18/22 06:00 Dose: 0 mcg/kg/hr, 0 mls/hr NORepinephrine/NS 8 MG-250 ML (Norepinephrine/Ns 8 Mg-250 Ml (Double Conc)) 8 mg in 250 mls @ 3.75 mls/hr IV TITRATE [facility]; Protocol Last Titration: 02/18/22 11:47 Dose: 10.13 mcg/min, 19 mls/hr Propofol (Diprivan 10 Mg/Ml) 1,000 mg in 100 mls @ 4.11 mls/hr IV TITR [facility]; Protocol Vasopressin 20 unit/ Sodium (Chloride) 101 mls @ 9.09 mls/hr IV TITR [facility]; Protocol Last Admin: 02/18/22 06:16 Dose: 0.03 units/min, 9.09 mls/hr Sodium Bicarbonate 150 meq/ (Dextrose) 1,150 mls @ 150 mls/hr IV DIRECT [facility] Last Admin: 02/18/22 06:42 Dose: 150 mls/hr Cefepime HCl (Cefepime/Ns 2 Gm/100 Ml) 2 gm in 100 mls @ 200 mls/hr IV Q24H [facility]; Protocol Multi-Ingred Cream/Lotion/Oil/Oint (Mineral Oil/Petrolatum, White Ophth Oint 3.5 Gm) 1 applic OU Q4HR PRN PRN Reason: Dry Eye(s) Nitroglycerin (Nitroglycerin 0.4 Mg Tab Subl) 0.4 mg SL Q5M PRN PRN Reason: Chest Pain Ondansetron HCl (Ondansetron 4 Mg/2 Ml Inj) 4 mg IV Q8H PRN PRN Reason: Nausea And Vomiting Senna/Docusate Sodium (Sennosides/Docusate Sodium 8.6/50 Mg Tab) 1 tab FEEDTUBE BID [facility] Last Admin: 02/18/22 11:36 Dose: 1 tab Sodium Chloride (Sodium Chloride 0.9% 10 Ml Flush Syringe) 10 ml IV BID [facility] Last Admin: 02/18/22 11:37 Dose: 10 ml Sodium Chloride (Sodium Chloride 0.9% 10 Ml Flush Syringe) 10 ml IV PRN PRN PRN Reason: LINE FLUSH Review of Systems ROS unobtainable: due to endotracheal tube Physical Examination Vital signs: Vital Signs Pulse Resp BP Pulse Ox 85 0 L 85/50 97 02/17/22 23:20 02/17/22 23:20 02/17/22 23:20 02/17/22 23:20 General appearance: alert, appears uncomfortable Eyes: other (has only one eye, right eye) ENT: other (orally intubated, not on sedation) Neck: supple Effort: mildly labored Ascultation: Bilateral: rhonchi Percussion: Bilateral: not dull Cardiovascular: regular rate and rhythm Gastrointestinal: normoactive bowel sounds, soft Results - Laboratory Findings CBC and BMP: 02/18/22 00:21 02/18/22 00:21 ABG ABG pH 7.131 pH Units (7.350-7.450) L* 02/18/22 05:02 POC ABG pCO2 60.4 mmHg (32.0-48.0) H 02/18/22 00:20 ABG pCO2 53.9 mm Hg 02/18/22 05:02 POC ABG pO2 93.0 mmHg (83-108) 02/18/22 00:20 ABG pO2 93.2 mm Hg (80.0-90.0) H 02/18/22 05:02 POC ABG HCO3 20.5 02/18/22 00:20 ABG O2 Saturation 96.8 % (95.0-99.0) 02/18/22 05:02 PT/INR, D-dimer PT 29.4 Sec. (12.2-14.9) H 02/18/22 00:21 INR 2.41 (0.87-1.13) H 02/18/22 00:21 Abnormal lab findings: Abnormal Labs 02/18/22 02/18/22 02/18/22 00:20 00:21 00:21 RBC 3.15 L Hgb 9.0 L Hct 28.0 L RDW 20.4 H Seg Neutrophils % 71.8 H PT 29.4 H INR 2.41 H APTT 38.3 H ABG pH 7.148 L POC ABG pCO2 60.4 H ABG pO2 ABG HCO3 ABG Base Excess ABG Hemoglobin 8.69 L ABG Oxyhemoglobin 93.7 L Oxyhemoglobin Carboxyhemoglobin 2.1 H Chloride Carbon Dioxide BUN Creatinine Glucose POC Glucose Calcium AST Alkaline Phosphatase Total Creatine Kinase Troponin T Albumin LDL Cholesterol Direct HDL Cholesterol TSH Salicylates Acetaminophen 02/18/22 02/18/22 02/18/22 00:21 00:21 00:21 RBC Hgb Hct RDW Seg Neutrophils % PT INR APTT ABG pH POC ABG pCO2 ABG pO2 ABG HCO3 ABG Base Excess ABG Hemoglobin ABG Oxyhemoglobin Oxyhemoglobin Carboxyhemoglobin Chloride 112.6 H Carbon Dioxide 19 L BUN 55 H Creatinine 3.0 H Glucose 152 H POC Glucose Calcium 7.4 L AST 56 H Alkaline Phosphatase 268 H Total Creatine Kinase 233 H Troponin T 0.073 H Albumin 2.2 L LDL Cholesterol Direct 30 L HDL Cholesterol 19 L TSH 5.100 H Salicylates < 0.3 L Acetaminophen 02/18/22 02/18/22 02/18/22 00:21 05:02 06:22 RBC Hgb Hct RDW Seg Neutrophils % PT INR APTT ABG pH 7.131 L* POC ABG pCO2 ABG pO2 93.2 H ABG HCO3 17.6 L ABG Base Excess -11.2 L ABG Hemoglobin 9.1 L ABG Oxyhemoglobin Oxyhemoglobin 94.6 L Carboxyhemoglobin Chloride Carbon Dioxide BUN Creatinine Glucose POC Glucose 125 H Calcium AST Alkaline Phosphatase Total Creatine Kinase Troponin T Albumin LDL Cholesterol Direct HDL Cholesterol TSH Salicylates Acetaminophen 5.0 L 02/18/22 09:21 RBC Hgb Hct RDW Seg Neutrophils % PT INR APTT ABG pH POC ABG pCO2 ABG pO2 ABG HCO3 ABG Base Excess ABG Hemoglobin ABG Oxyhemoglobin Oxyhemoglobin Carboxyhemoglobin Chloride Carbon Dioxide BUN Creatinine Glucose POC Glucose Calcium AST Alkaline Phosphatase Total Creatine Kinase Troponin T 0.076 H Albumin LDL Cholesterol Direct HDL Cholesterol TSH Salicylates Acetaminophen - Diagnostic Findings Chest x-ray: report reviewed (for some reason, images are not able to be loaded into [employer]) Assessment and Plan 76 y/o male with stage IV adenocarcinoma of lung with mets to spine and one extrathoracic lymph node per admitted with acute respiratory failure and in house cardiac arrest with normal mental state as of right now. Long discussion at bedside with and sister and daughter over the phone. Very good questions asked by them. Daughter mentions patient may have been in contact with COVID 19. Also concerns about code status now. Discussed with them the clinical situation and they will make decisions. 1. Wean fIo2 for sats >88% 2. Leave of continuous sedation, ok with PRN pushes if needed 3. OG tube placement 4. Wean Vasopressors for MAPS >88% 5. broaden abx therapy given immunocompromised state and last place of residence. 6. Family wishes to try to treat through this to see if patient can be ext ubated which is not unreasonable. However he is an AND and they want to stick with this. 7. Guarded to poor prognosis. Patient was in rehab attempting to get stronger to get Palliative chemo therapy. CCT 31 minutes.
[2022-02-18] MEDS ORDERED: HYDROCORTISONE SOD SUCC 100 MG/2 ML VIAL IV SCH (13:00)
[2022-02-18] MEDS ORDERED: SODIUM CHLORIDE 0.9% 1000 ML 1,000 ML IV PRN (13:21)
[2022-02-18] MEDS ORDERED: PHENYLEPHRINE 100 MG in SODIUM CHLORIDE 0.9% 90 ML IV SCH (13:30)
[2022-02-18] MEDS ORDERED: LACTATED RINGERS 1,000 ML IV ONE (15:53)
--- NOTE | 2022-02-18 16:17 | Consultation ---
History of Present Illness Consult date: 02/18/22 Requesting physician: JENNY MCKEON Consult reason: cardiac arrest History of present illness: This is a 76-year-old male, unknown to our practice, but does follow with Dr. 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 fib, CKD stage III, who was brought to [facility] emergency room in severe respiratory distress and altered mental status. He subsequently required intubation for airway protection and soon after, he lost his pulse. ROSC was obtained after approximately 2 minutes. In the emergency room patient was found to have CXR compatible with pneumonia. Family at bedside stated that they notic ed a cough over the last few days prior to this event but no other noticeable symptoms. All information was obtained via review of records and family at bedside. Cardiology was consulted for cardiac arrest. 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 fib, chronic, CKD stage III, ), renal failure Past Surgical History: Other (Unknown) Social history: other (Unknown) Family history: hypertension Medications and Allergies Allergies Allergy/AdvReac Type Severity Reaction Status Date / Time No Known Allergies Allergy Verified 02/17/22 23:39 Active Meds: Active Medications Acetaminophen (Acetaminophen 325 Mg Tab) 650 mg PO Q4H PRN PRN Reason: Pain MILD(1-3)/Fever >100.5/NICOLE Albuterol (Albuterol 2.5 Mg/3 Ml Nebu) 2.5 mg IH Q3HRT PRN PRN Reason: Shortness Of Breath Albuterol/Ipratropium (Ipratropium/Albuterol Sulfate 3 Ml Ampul.Neb) 1 ampul IH Q6HRT [facility] Last Admin: 02/18/22 08:30 Dose: 1 ampul Aspirin (Aspirin 325 Mg Tab) 325 mg FEEDTUBE QDAY [facility] Last Admin: 02/18/22 11:36 Dose: 325 mg Atorvastatin Calcium (Atorvastatin 40 Mg Tab) 40 mg PO QHS [facility] Famotidine (Famotidine 20 Mg/2 Ml Inj) 20 mg IV DAILY [facility] Last Admin: 02/18/22 11:35 Dose: 20 mg Fentanyl (Fentanyl 100 Mcg/2 Ml Inj) 50 mcg IV Q10MIN PRN PRN Reason: ANALGESIA Last Admin: 02/18/22 10:37 Dose: 50 mcg Heparin Sodium (Porcine) (Heparin 5,000 Unit/1 Ml Vial) 5,000 unit SUB-Q Q12HR [facility] Last Admin: 02/18/22 11:35 Dose: 5,000 unit Hydralazine HCl (Hydralazine 20 Mg/1 Ml Inj) 10 mg IV Q6H PRN PRN Reason: SBP >/=160; DBP >/=100 Hydrocortisone Sodium Succinate (Hydrocortisone Sod Succ 100 Mg/2 Ml Vial) 100 mg IV Q8HR [facility] Hydrophilic Ointment (Lip Therapy Vaseline) 1 applic TP Q2HR PRN PRN Reason: Dry Lips Fentanyl Citrate (Fentanyl Drip Premix) 2,000 mcg in 100 mls @ 6.849 mls/hr IV TITR [facility]; Protocol Last Titration: 02/18/22 06:00 Dose: 0 mcg/kg/hr, 0 mls/hr NORepinephrine/NS 8 MG-250 ML (Norepinephrine/Ns 8 Mg-250 Ml (Double Conc)) 8 mg in 250 mls @ 3.75 mls/hr IV TITRATE [facility]; Protocol Last Titration: 02/18/22 14:52 Dose: 16 mcg/min, 30 mls/hr Propofol (Diprivan 10 Mg/Ml) 1,000 mg in 100 mls @ 4.11 mls/hr IV TITR [facility]; Protocol Vasopressin 20 unit/ Sodium (Chloride) 101 mls @ 9.09 mls/hr IV TITR [facility]; Protocol Last Titration: 02/18/22 12:48 Dose: 0.03 units/min, 9.09 mls/hr Sodium Bicarbonate 150 meq/ (Dextrose) 1,150 mls @ 150 mls/hr IV DIRECT [facility] Last Admin: 02/18/22 14:41 Dose: 150 mls/hr Cefepime HCl (Cefepime/Ns 2 Gm/100 Ml) 2 gm in 100 mls @ 200 mls/hr IV Q24H [facility]; Protocol Phenylephrine HCl 100 mg/ (Sodium Chloride) 100 mls @ 3 mls/hr IV TITR [facility]; Protocol Last Titration: 02/18/22 15:41 Dose: 60 mcg/min, 3.6 mls/hr Sodium Chloride (Nacl 0.9% 1000 Ml) 1,000 mls @ 1 mls/hr IV DIRECT PRN PRN Reason: ARTERIAL LINE FLUSH Lactated Ringer's (Lactated Ringers) 1,000 mls @ 999 mls/hr IV BOLUS ONE Stop: 02/18/22 16:53 Lactated Ringer's (Lactated Ringers 1000 Ml Iv Soln) 1,000 ml IV DIRECT [facility] Stop: 02/18/22 17:01 Multi-Ingred Cream/Lotion/Oil/Oint (Mineral Oil/Petrolatum, White Ophth Oint 3.5 Gm) 1 applic OU Q4HR PRN PRN Reason: Dry Eye(s) Nitroglycerin (Nitroglycerin 0.4 Mg Tab Subl) 0.4 mg SL Q5M PRN PRN Reason: Chest Pain Ondansetron HCl (Ondansetron 4 Mg/2 Ml Inj) 4 mg IV Q8H PRN PRN Reason: Nausea And Vomiting Senna/Docusate Sodium (Sennosides/Docusate Sodium 8.6/50 Mg Tab) 1 tab FEEDTUBE BID [facility] Last Admin: 02/18/22 11:36 Dose: 1 tab Sodium Chloride (Sodium Chloride 0.9% 10 Ml Flush Syringe) 10 ml IV BID [facility] Last Admin: 02/18/22 11:37 Dose: 10 ml Sodium Chloride (Sodium Chloride 0.9% 10 Ml Flush Syringe) 10 ml IV PRN PRN PRN Reason: LINE FLUSH Review of Systems ROS unobtainable: due to endotracheal tube, due to mental status Physical Examination Vital Signs Pulse Resp BP Pulse Ox 85 0 L 85/50 97 02/17/22 23:20 02/17/22 23:20 02/17/22 23:20 02/17/22 23:20 General appearance: mild distress HEENT: Positive: Normocephaly, Mucus Membranes Dry Neck: Positive: trachea midline Cardiac: Positive: irregularly irregular Lungs: Positive: Rhonchi, Ventilated Respirations Neuro: Positive: Other (unable to assess) Abdomen: Positive: Active Bowel Sounds Male genitourinary: Positive: deferred Skin: Negative: Rash Extremities: Present: upper extr. pulses (1+), +2 Edema (BLE edema), warm Results 02/18/22 00:21 04/19/22 00:21 Cardiac Enzymes 02/18/22 Range/Units 00:21 AST 56 H (5-40) units/L Coagulation 02/18/22 Range/Units 00:21 PT 29.4 H (12.2-14.9) Sec. INR 2.41 H (0.87-1.13) APTT 38.3 H (24.2-36.6) Sec. Lipids 02/18/22 Range/Units 00:21 Triglycerides 107 (2-149) mg/dL Cholesterol 71 (50-199) mg/dL HDL Cholesterol 19 L (40-59) mg/dL Cholesterol/HDL Ratio 3.73 % CBC 02/18/22 Range/Units 00:21 WBC 6.2 (4.5-11.0) K/mm3 RBC 3.15 L (3.65-5.03) M/mm3 Hgb 9.0 L (11.8-15.2) gm/dl Hct 28.0 L (35.5-45.6) % Plt Count 233 (140-440) K/mm3 Lymph # (Auto) 1.2 (1.2-5.4) K/mm3 Thomas # (Auto) 0.3 (0.0-0.8) K/mm3 Eos # (Auto) 0.1 (0.0-0.4) K/mm3 Baso # (Auto) 0.1 (0.0-0.1) K/mm3 Comprehensive Metabolic Panel 02/18/22 Range/Units 00:21 Sodium 144 (137-145) mmol/L Potassium 4.5 (3.6-5.0) mmol/L Chloride 112.6 H (98-107) mmol/L Carbon Dioxide 19 L (22-30) mmol/L BUN 55 H (9-20) mg/dL Creatinine 3.0 H (0.8-1.3) mg/dL Glucose 152 H (75-100) mg/dL Calcium 7.4 L (8.4-10.2) mg/dL AST 56 H (5-40) units/L ALT 45 (7-56) units/L Alkaline Phosphatase 268 H (35-129) units/L Total Protein 6.5 (6.3-8.2) g/dL Albumin 2.2 L (3.9-5) g/dL - Imaging and Cardiology Echo: pending EKG: image reviewed EKG interpretations - EKG Supraventricular dysrhythmia: atrial fibrillation Ventricular dysrhythmias: ventricular premature com Assessment and Plan Assessment Cardiopulmonary arrest Acute respiratory failure Acute encephalopathy IGGY History of hypertension Pneumonia Malignant neoplasm of lower respiratory tract Malignant neoplasm of vertebral column Chronic A. fib (on Eliquis) Hyperlipidemia History of CABG x2 History venous insufficiency Sleep apnea Cardiographics EKG-atrial fibrillation rate 71, nonspecific ST- t wave changes. No acute ischemia Chest x-ray 02/17/22-bilateral lung opacities differential considerations to include sequelae of infection and/or possibly asymmetric pulmonary edema. Small dependent left pleural effusion Echocardiogram-report pending. previous echo 09/2019- EF 55-60% Recommendations/plan Echocardiogram pending Etiology of cardiopulmonary arrest unknown. However, given severe respiratory distress and malignant neoplasm of lower respiratory tract, cardiac arrest likely secondary to respiratory etiology. Patient requiring multiple pressors, and ventilatory support in the intensive care unit. Wean pressors as tolerated. Continue Eliquis for A. fib Unable to add beta-idalia in the setting of hemodynamic instability No ALEXEY/ARB/ARNI in the setting of IGGY and hemodynamic instability Prognosis is extremely poor/guarded. Recommend strict I&O, daily weights. Fluid and electrolyte management per nephrology in setting of IGGY. We will continue to follow. Patient seen in conjunction with Dr. Hicks who agrees with the assessment and management of this patient. - Patient Problems (1) H/O two vessel coronary artery bypass graft Current Visit: Yes Status: Acute (2) Sleep apnea Current Visit: Yes Status: Acute (3) Acute encephalopathy Current Visit: Yes Status: Acute (4) Acute respiratory failure Current Visit: Yes Status: Acute (5) Atrial fibrillation Current Visit: Yes Status: Acute (6) Cardiac arrest Current Visit: Yes Status: Acute (7) Renal insufficiency Current Visit: Yes Status: Acute (8) Malignant neoplasm Current Visit: Yes Status: Acute
[2022-02-18] MEDS ORDERED: LACTATED RINGERS 1000 ML IV SOLN IV SCH (17:00)
--- NOTE | 2022-02-18 17:28 | Event Note ---
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 fib, HTN, CABG x2, hyperlipidemia, CKD stage III who presented to the hospital on 02/08 with altered mental status and acute respiratory failure via EMS. Upon arrival to the emergency department patient was having agonal breathing and hypotension his airway and required bag valve mask ventilation and was intubated by ED physician. After intubation patient went into cardiac arrest with ROSC achievement in 2 minutes. Patient was admitted to the hospitalist service with consults to CCM, cardiology and nephrology. Hospital course to date: 02/18: Patient was sedated on fentanyl on arrival to ICU which was weaned off, patient was able to follow simple commands. This morning patient was on Levophed and vasopressin and bicarbonate drip. Phenyl epinephrine was added later this afternoon. This evening patient received an roya and was persistently hypotensive. He received 1 L bolus this morning however given persistent hypotension with decreased urine output patient was given additional 1 L of LR. COVID-19 PCR negative. Patient's CODE STATUS changed to AND. 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 fib, CKD stage III admitted with acute hypoxic respiratory failure s/p cardiac arrest. Neuro: Acute metabolic encephalopathy -IV push fentanyl -Avoid delirium -Reorientation as needed -Maintain sleep-wake cycle -As needed analgesia -CT head with no acute intracranial abnormality Cardiac: S/p cardiac arrest, h/o HTN, chronic afib, CABG x2, venous insufficiency -Cardiology consulted, appreciate recommendations -Blood pressure monitoring per protocol -Vasopressor support with Levophed, vasopressin, Tripp-Synephrine -MAP goal greater than 65 -Echocardiogram pending -Cardiology 09/2019 echocardiogram with EF of 55 to 60% -s/p 1L fluid bolus in the a.m. -Repeat 1 LR this pm -May repeat LR bolus overnight if map > 65 after with increasing vasopressor requirements Respiratory: Acute hypoxic respiratory failure -Intubated in the emergency department with 8.00 ETT at 24 the lips on 02/17 -CCM consulted, appreciate recommendations -A.m. vent settings: Assist-control/PRVC rate 25, tidal volume 500, PEEP 8, FiO2 100% -See RT notes for titration -Wean FiO2 as tolerated -A.m. ABG and CXR noted -VAP bundle -SPO2 monitoring GI: Protein calorie malnutrition -PPI -N.p.o. till vasopressor requirements decrease -BR: senakot : Acute kidney injury secondary to acute tubular necrosis, rhabdomyolysis, h/o CKD stage III per family -Nephrology consulted, appreciate recommendations -Strict intake and output -Renally dose medications -Avoid nephrotoxic medications -Daily weights -Urine lites pending -Renal ultrasound pending -Trend BMP -D5 sodium bicarb gtt ID: Possible postobstructive pneumonia, sepsis (POA) -Infectious disease consulted, appreciate recommendation -Antibiotic therapy with vancomycin and cefepime -MRSA PCR negative -Stress dose steroids -Vasopressor support with Levophed, vasopressin and Tripp-Synephrine -COVID-19 PCR negative -f/u blood culture -Monitor WBC and temperature curve Endo: NAD -Avoid hypoglycemia -SSI -Accu-Cheks q6 hr Heme: NAD -Trend CBC -Transfuse hemoglobin less than 7 -Monitor for signs of bleeding -heparin subq -SCDs to BLE while in bed Oncology: Stage IV adenocarcinoma of the lung with mets to spine -Per family patient recently suffered a stress fracture to T7-T8 and was currently in rehab to get stronger to withstand palliative treatment -Continue supportive care The high probability of a clinically significant, sudden or life threatening deterioration of the [multi] system(s) required my full and direct attention, intervention and personal management. The aggregate critical care time was [60] minutes. This time is in addition to time spent performing reported procedures but includes the following: [x] Data Review and interpretation [x] Patient assessment and monitoring of vital signs [x] Documentation [x] Medication orders and management
--- NOTE | 2022-02-18 17:30 | Procedure Note ---
Date of procedure: 02/18/22 Pre-op diagnosis: Septic shock, acute hypoxic respiratory failure,Pna Post-op diagnosis: same Procedure: Harsha test completed. Ulnar pulse intact. Left radial roya inserted using sterile technique. Area prepped with chlorhexidine and the site was infiltrated with 1ml 1% lidocaine. Arterial line was placed using ultrasound; catheter advanced without difficulty. Line was sutured and tegaderm dressing applied. Arm board placed. Arterial waveform observed on bedside monitor. Line flushed and zeroed. RN at bedside. Pt tolerated procedure well. VS remained stable throughout procedure. (time spent placing line not included in daily critical care time) CCT: 60 mins Anesthesia: local Surgeon: GONZALO MCKINNON Estimated blood loss: minimal Condition: critical Disposition: ICU
[2022-02-18] MEDS: D5W/0.45% NACL 1,000 ML IV SCH (19:09)
[2022-02-18] MEDS: HYDROCORTISONE SOD SUCC 100 MG/2 ML VIAL IV SCH (22:09)
[2022-02-18] MEDS: CEFEPIME/NS 2 GM/100 ML 2 GM/100 ML BAG IV SCH (22:15)
[2022-02-19 00:20] LABS: Bilirubin,Urine NEG (Negative); Blood,Urine MOD (Negative); Color,Urine Amber (Yellow); Mucus,Urine FEW /HPF
[2022-02-19 00:43] LABS: Creatinine,Urine 180.9 mg/dL (0.1-20.0)
[2022-02-19 00:57] LABS: Protein/Creatinine Ratio,Urine 2.53
[2022-02-19] MEDS: NORepinephrine/NS 8 MG-250 ML 8 MG/250 ML INFUS..BTL IV SCH ×3 (02:34→18:56)
--- NOTE | 2022-02-19 03:30 | XRay Report ---
CHEST 1 VIEW INDICATION / CLINICAL INFORMATION: follow up respiratory failure. COMPARISON: Chest x-ray 02/18/2022 FINDINGS: SUPPORT DEVICES: Existing tubes and lines demonstrate satisfactory positioning. HEART / MEDIASTINUM: Stable interval appearance of the cardiomediastinal silhouette. Unchanged postop erative findings from sternotomy. LUNGS / PLEURA: No significant interval change. Left pleural effusion has slightly decreased in size. BONES: No significant osseous abnormality. ADDITIONAL FINDINGS: No significant additional findings. IMPRESSION: 1. Decreased size of left pleural effusion. Otherwise no significant change in the chest. Signer Name: Tristan Mcmahon II, MD Signed: 02/19/2022 3:25 AM Workstation Name: [id number]
[2022-02-19] MEDS: VASOPRESSIN 20 UNIT in SODIUM CHLORIDE 0.9% 100 ML IV SCH ×2 (03:36→15:06)
[2022-02-19 04:33] LABS: Hematocrit 27.6 % (35.5-45.6); Hemoglobin 8.9 gm/dl (11.8-15.2); Mean Corpuscular HGB Conc 32 % (32-34); Mean Corpuscular Volume 88 fl (84-94); Platelet Count 242 K/mm3 (140-440); Red Blood Count 3.14 M/mm3 (3.65-5.03); Red Cell Distribution Width 19.6 % (13.2-15.2)
[2022-02-19 04:36] LABS: ABG Base Excess -6.2 mmol/L (-2.0-3.0); ABG HCO3 21.8 mmol/L (20.0-26.0); ABG Methemoglobin 0.7 % (0.0-1.5); ABG Oxygen Saturation 98.5 % (95.0-99.0); ABG PCO2 57.3 mm Hg
[2022-02-19 04:51] LABS: Calcium 6.1 mg/dL (8.4-10.2)
[2022-02-19 05:04] LABS: ABG PH 7.199 pH Units (7.350-7.450)
[2022-02-19] MEDS: SODIUM BICARBONATE 150 MEQ in DEXTROSE 5% IN WATER 1,000 ML IV SCH (05:04)
[2022-02-19 05:36] LABS: Anisocytosis 1+; Basophils % (Manual) 0 % (0.0-1.8); Eosinophils % (Manual) 0 % (0.0-4.3); Total Cells Counted 100
[2022-02-19 05:37] LABS: Ovalocytes 1+; Platelet Estimate Consistent w Auto
[2022-02-19] MEDS: HYDROCORTISONE SOD SUCC 100 MG/2 ML VIAL IV SCH ×3 (05:38→21:59)
[2022-02-19] MEDS: D5W/0.45% NACL 1,000 ML IV SCH (07:34)
[2022-02-19] MEDS: IPRATROPIUM/ALBUTEROL SULFATE 3 ML AMPUL.NEB IH SCH ×3 (08:50→19:55)
[2022-02-19] MEDS: HEPARIN 5,000 UNIT/1 ML VIAL SUB-Q SCH (09:14)
[2022-02-19] MEDS: SENNOSIDES/DOCUSATE SODIUM 8.6/50 MG TAB FEEDTUBE SCH ×2 (09:14→21:59)
[2022-02-19] MEDS: FAMOTIDINE 20 MG/2 ML INJ IV SCH (09:14)
[2022-02-19] MEDS: ASPIRIN 325 MG TAB FEEDTUBE SCH (09:14)
--- NOTE | 2022-02-19 10:52 | Progress Note ---
Assessment and Plan Assessment: Acute Renal Failure on Chronic Kidney Disease Hypotension Afib Cardiac Arrest Acute Respiratory failure Acidosis Hyperkalemia, Mild Anemia Lung cancer with stage IV metastasis Plan: Renal labs reviewed. Serum creatinine 3.5 today, yesterday's was 3.0, UOP recorded 75 ml Acute Renal Failure likely 2/2 ATN Patient has history of CKD but no baseline serum creatinine available On D5 1/2NS@ 75 ml/hr, will stop as patient has edema and Pleural Effusion- can use Lasix as needed CXR- shows decreasing left Pleural Effusion Hypotension-on Levophed drip Renal ultrasound-pending Urine lytes reviewed, has proteinuria Obtain SPEP, SYMONE, ANCA, C3, C4, Hep panel, Anti-GBM Avoid nephrotoxic agents Renally dose medications Strict I&O's daily Obtain daily weights Spoke to in room at bedside and daughter over the phone who is a nurse practitioner in [place]. Discussed with both that since patient's renal function is worsening and he is not producing much urine he may require hemodialysis. Daughter states that the family will have a discussion on if they would want patient to receive hemodialysis. No urgent indication for COOK NIGHT today but may need it soon Monitor renal function closely Plan of care reviewed by Dr. Huynh Subjective Date of service: 02/19/22 Principal diagnosis: ARF Interval history: Patient intubated. at bedside. Spoke to daughter on the phone who is a nurse practitioner in [place]. Objective - Vital Signs Vital signs: Vital Signs - 12hr 02/18/22 02/18/22 02/18/22 23:00 23:16 23:30 Temperature Pulse Rate 83 82 85 Pulse Rate [ Bilateral] Pulse Rate [ From Monitor] Respiratory 25 H 16 19 Rate Respiratory Rate [Bilateral ] Blood Pressure 112/69 98/74 O2 Sat by Pulse 95 95 94 Oximetry 02/18/22 02/18/22 02/19/22 23:45 23:50 00:00 Temperature Pulse Rate 89 82 85 Pulse Rate [ Bilateral] Pulse Rate [ 83 From Monitor] Respiratory 17 26 H Rate Respiratory Rate [Bilateral ] Blood Pressure 120/62 120/62 129/72 O2 Sat by Pulse 97 97 Oximetry 02/19/22 02/19/22 02/19/22 00:06 00:15 00:30 Temperature Pulse Rate 84 89 91 H Pulse Rate [ Bilateral] Pulse Rate [ From Monitor] Respiratory 25 H 25 H 25 H Rate Respiratory Rate [Bilateral ] Blood Pressure 129/72 121/62 107/50 O2 Sat by Pulse 96 96 96 Oximetry 02/19/22 02/19/22 02/19/22 00:45 01:00 01:15 Temperature Pulse Rate 85 88 84 Pulse Rate [ Bilateral] Pulse Rate [ From Monitor] Respiratory 26 H 24 26 H Rate Respiratory Rate [Bilateral ] Blood Pressure 124/37 116/68 117/59 O2 Sat by Pulse 96 96 96 Oximetry 02/19/22 02/19/22 02/19/22 01:30 01:45 02:00 Temperature Pulse Rate 89 86 90 Pulse Rate [ Bilateral] Pulse Rate [ 83 From Monitor] Respiratory 25 H 25 H 25 H Rate Respiratory Rate [Bilateral ] Blood Pressure 112/62 106/55 99/61 O2 Sat by Pulse 97 97 97 Oximetry 02/19/22 02/19/22 02/19/22 02:15 02:30 02:45 Temperature Pulse Rate 85 87 78 Pulse Rate [ Bilateral] Pulse Rate [ From Monitor] Respiratory 18 25 H 24 Rate Respiratory Rate [Bilateral ] Blood Pressure 108/72 102/69 118/66 O2 Sat by Pulse 96 96 97 Oximetry 02/19/22 02/19/22 02/19/22 03:00 03:15 03:30 Temperature Pulse Rate 84 84 84 Pulse Rate [ Bilateral] Pulse Rate [ From Monitor] Respiratory 22 25 H 25 H Rate Respiratory Rate [Bilateral ] Blood Pressure 98/75 99/71 100/64 O2 Sat by Pulse 98 98 97 Oximetry 02/19/22 02/19/22 02/19/22 03:45 03:58 04:00 Temperature Pulse Rate 74 72 84 Pulse Rate [ Bilateral] Pulse Rate [ 83 From Monitor] Respiratory 24 26 H Rate Respiratory Rate [Bilateral ] Blood Pressure 100/50 92/49 92/49 O2 Sat by Pulse 98 99 98 Oximetry 02/19/22 02/19/22 02/19/22 04:15 04:30 04:45 Temperature Pulse Rate 74 87 81 Pulse Rate [ Bilateral] Pulse Rate [ From Monitor] Respiratory 25 H 23 25 H Rate Respiratory Rate [Bilateral ] Blood Pressure 102/54 102/54 99/45 O2 Sat by Pulse 99 91 98 Oximetry 02/19/22 02/19/22 02/19/22 05:00 05:15 05:30 Temperature Pulse Rate 74 81 81 Pulse Rate [ Bilateral] Pulse Rate [ From Monitor] Respiratory 25 H 25 H 24 Rate Respiratory Rate [Bilateral ] Blood Pressure 99/57 95/52 95/52 O2 Sat by Pulse 99 99 94 Oximetry 02/19/22 02/19/22 02/19/22 05:31 05:45 06:00 Temperature Pulse Rate 80 83 Pulse Rate [ Bilateral] Pulse Rate [ 77 From Monitor] Respiratory 25 H 22 Rate Respiratory Rate [Bilateral ] Blood Pressure 106/34 87/58 O2 Sat by Pulse 94 99 100 Oximetry 02/19/22 02/19/22 02/19/22 06:15 06:30 06:46 Temperature Pulse Rate 84 77 79 Pulse Rate [ Bilateral] Pulse Rate [ From Monitor] Respiratory 22 20 23 Rate Respiratory Rate [Bilateral ] Blood Pressure 101/48 101/48 104/54 O2 Sat by Pulse 99 97 98 Oximetry 02/19/22 02/19/22 02/19/22 07:00 07:15 07:30 Temperature 97.9 F Pulse Rate 87 87 81 Pulse Rate [ Bilateral] Pulse Rate [ From Monitor] Respiratory 13 19 12 Rate Respiratory Rate [Bilateral ] Blood Pressure 108/50 90/60 90/60 O2 Sat by Pulse 100 98 98 Oximetry 02/19/22 02/19/22 02/19/22 07:45 08:00 08:15 Temperature Pulse Rate 84 81 76 Pulse Rate [ Bilateral] Pulse Rate [ 75 From Monitor] Respiratory 15 24 Rate Respiratory Rate [Bilateral ] Blood Pressure 102/58 89/54 94/61 O2 Sat by Pulse 100 98 98 Oximetry 02/19/22 02/19/22 02/19/22 08:30 08:45 08:50 Temperature Pulse Rate 79 82 Pulse Rate [ 82 Bilateral] Pulse Rate [ From Monitor] Respiratory 25 H 20 Rate Respiratory 28 H Rate [Bilateral ] Blood Pressure 101/63 87/63 O2 Sat by Pulse 99 97 Oximetry 02/19/22 02/19/22 02/19/22 09:00 09:15 09:30 Temperature Pulse Rate 76 79 81 Pulse Rate [ Bilateral] Pulse Rate [ From Monitor] Respiratory 28 H 22 26 H Rate Respiratory Rate [Bilateral ] Blood Pressure 93/62 91/61 88/70 O2 Sat by Pulse 100 98 99 Oximetry 02/19/22 02/19/22 09:45 10:00 Temperature Pulse Rate 80 75 Pulse Rate [ Bilateral] Pulse Rate [ From Monitor] Respiratory 28 H 25 H Rate Respiratory Rate [Bilateral ] Blood Pressure 102/52 81/56 O2 Sat by Pulse 99 100 Oximetry - General Appearance General appearance: well-developed, intubated EENT: ATNC Neck: no JVD Respiratory: Present: Decreased Breath Sounds, Other (Intubated) Cardiology: S1S2 Gastrointestinal: normoactive bowel sounds Integumentary: warm and dry Neurologic: other (Unresponsive, intubated) Musculoskeletal: joint swelling - Lab 02/19/22 04:12 02/19/22 Unknown Most recent lab results ABG pH 7.199 pH Units (7.350-7.450) L* 02/19/22 04:20 ABG pCO2 57.3 mm Hg 02/19/22 04:20 ABG pO2 147.0 mm Hg (80.0-90.0) H 02/19/22 04:20 ABG HCO3 21.8 mmol/L (20.0-26.0) 02/19/22 04:20 ABG O2 Saturation 98.5 % (95.0-99.0) 02/19/22 04:20 Calcium 6.0 mg/dL (8.4-10.2) L 02/19/22 Unknown Phosphorus 6.70 mg/dL (2.5-4.5) H 02/19/22 Unknown Urine Creatinine 180.0 mg/dL (0.1-20.0) H 02/18/22 23:44 Urine Creatinine 180.9 mg/dL (0.1-20.0) H 02/18/22 23:44 Urine Sodium 30 mmol/L 02/18/22 23:44 Urine Total Protein 457 mg/dL (5-11.8) H 02/18/22 23:44 Medications & Allergies - Medications Allergies/Adverse Reactions: Allergies No Known Allergies Allergy (Verified 02/17/22 23:39) Home Medications: Home Medications Medication Instructions Recorded Confirmed Last Taken Type Apixaban [Eliquis] 5 mg PO BID 02/18/22 02/18/22 Unknown History Crestor 40 mg PO DAILY 02/18/22 02/18/22 Unknown History Irbesartan/Hydrochlorothiazide 1 each PO HS 02/18/22 02/18/22 Unknown History [Irbesartan-Hctz 150-12.5 mg Tb] Loratadine [Claritin] 10 mg PO DAILY 02/18/22 02/18/22 Unknown History Oxycodone HCl [oxyCODONE] 10 mg PO BID 02/18/22 02/18/22 Unknown History Pantoprazole [Protonix] 40 mg PO QDAY 02/18/22 02/18/22 Unknown History Pramipexole [Mirapex] 0.5 mg PO TID 02/18/22 02/18/22 Unknown History Tamsulosin [Flomax] 0.4 mg PO DAILY 02/18/22 02/18/22 Unknown History Torsemide [Demadex] 20 mg PO BID 02/18/22 02/18/22 Unknown History allopurinoL [Zyloprim] 100 mg PO QDAY 02/18/22 02/18/22 Unknown History carvediloL [Coreg] 12.5 mg PO BID 02/18/22 02/18/22 Unknown History Active Medications: Generic Name Dose Route Start Last Admin Trade Name Freq PRN Reason Stop Dose Admin Acetaminophen 650 mg 02/18/22 03:18 Acetaminophen 325 Mg Tab PO Q4H PRN Pain MILD(1-3)/Fever >100.5/NICOLE Albuterol 2.5 mg 02/18/22 03:18 Albuterol 2.5 Mg/3 Ml Nebu IH Q3HRT PRN Shortness Of Breath Albuterol/Ipratropium 1 ampul 02/18/22 20:00 02/19/22 08:50 Ipratropium/Albuterol Sulfate 3 Ml Ampul.Neb IH 1 ampul TIDRT KARAN Administration Aspirin 325 mg 02/18/22 10:00 02/19/22 09:14 Aspirin 325 Mg Tab FEEDTUBE 325 mg QDAY KAARN Administration Atorvastatin Calcium 40 mg 02/18/22 22:00 02/18/22 22:09 Atorvastatin 40 Mg Tab PO 40 mg QHS KARAN Administration Famotidine 20 mg 02/18/22 10:00 02/19/22 09:14 Famotidine 20 Mg/2 Ml Inj IV 20 mg DAILY KARAN Administration Fentanyl 50 mcg 02/17/22 23:25 02/18/22 10:37 Fentanyl 100 Mcg/2 Ml Inj IV 50 mcg Q10MIN PRN Administration ANALGESIA Heparin Sodium (Porcine) 5,000 unit 02/18/22 10:00 02/19/22 09:14 Heparin 5,000 Unit/1 Ml Vial SUB-Q 5,000 unit Q12HR KARAN Administration Hydralazine HCl 10 mg 02/18/22 03:33 Hydralazine 20 Mg/1 Ml Inj IV Q6H PRN SBP >/=160; DBP >/=100 Hydrocortisone Sodium Succinate 100 mg 02/18/22 22:00 02/19/22 05:38 Hydrocortisone Sod Succ 100 Mg/2 Ml Vial IV 100 mg Q8HR KARAN Administration Hydrophilic Ointment 1 applic 02/17/22 23:25 Lip Therapy Vaseline TP Q2HR PRN Dry Lips Fentanyl Citrate 2,000 mcg in 100 mls @ 6.849 mls/hr 02/17/22 23:45 02/18/22 17:06 Fentanyl Drip Premix IV 0 mcg/kg/hr TITR KARAN 0 mls/hr Titration Protocol 1 MCG/KG/HR NORepinephrine/NS 8 MG-250 ML 8 mg in 250 mls @ 3.75 mls/hr 02/18/22 03:00 02/19/22 10:44 Norepinephrine/Ns 8 Mg-250 Ml (Double Conc) IV 12 mcg/min TITRATE KARAN 22.5 mls/hr Titration Protocol 2 MCG/MIN Propofol 1,000 mg in 100 mls @ 4.11 mls/hr 02/18/22 06:00 Diprivan 10 Mg/Ml IV TITR KARAN Protocol 5 MCG/KG/MIN Vasopressin 20 unit/ Sodium 101 mls @ 9.09 mls/hr 02/18/22 06:00 02/19/22 10:48 Chloride IV 0.03 units/min TITR KARAN 9.09 mls/hr Titration Protocol 0.03 UNITS/MIN Cefepime HCl 2 gm in 100 mls @ 200 mls/hr 02/18/22 22:00 02/18/22 22:15 Cefepime/Ns 2 Gm/100 Ml IV 200 mls/hr Q24H KARAN Administration Protocol Phenylephrine HCl 100 mg/ 100 mls @ 3 mls/hr 02/18/22 13:30 02/19/22 02:31 Sodium Chloride IV 0 mcg/min TITR KARAN 0 mls/hr Titration Protocol 50 MCG/MIN Sodium Chloride 1,000 mls @ 1 mls/hr 02/18/22 13:21 Nacl 0.9% 1000 Ml IV DIRECT PRN ARTERIAL LINE FLUSH Dextrose/Sodium Chloride 1,000 mls @ 75 mls/hr 02/18/22 19:00 02/19/22 07:34 D5/0.45ns IV 75 mls/hr DIRECT KARAN Administration Insulin Human Lispro 0 unit 02/19/22 12:00 Insulin Lispro 100 Unit/Ml SUB-Q Q6HR KARAN Protocol Multi-Ingred Cream/Lotion/Oil/Oint 1 applic 02/17/22 23:25 Mineral Oil/Petrolatum, White Ophth Oint 3.5 Gm OU Q4HR PRN Dry Eye(s) Nitroglycerin 0.4 mg 02/18/22 03:18 Nitroglycerin 0.4 Mg Tab Subl SL Q5M PRN Chest Pain Ondansetron HCl 4 mg 02/18/22 03:18 Ondansetron 4 Mg/2 Ml Inj IV Q8H PRN Nausea And Vomiting Senna/Docusate Sodium 1 tab 02/18/22 10:00 02/19/22 09:14 Sennosides/Docusate Sodium 8.6/50 Mg Tab FEEDTUBE 1 tab BID KARAN Administration Sodium Chloride 10 ml 02/18/22 10:00 02/19/22 09:15 Sodium Chloride 0.9% 10 Ml Flush Syringe IV 10 ml BID KARAN Administration Sodium Chloride 10 ml 02/18/22 03:18 Sodium Chloride 0.9% 10 Ml Flush Syringe IV PRN PRN LINE FLUSH
--- NOTE | 2022-02-19 11:15 | Progress Note ---
Assessment and Plan Status post cardiac arrest * Cardiac arrest rhythm was PEA: Atrial fib no shock was required * Currently requiring multiple pressors, remains intubated and sedated Atrial fibrillation with CVR * Recommend continuing home Eliquis * Continue athletic monitor Acute kidney injury * Avoid ALEXEY/ARB in setting of IGGY. Nephrology is following Heart failure reduced ejection fraction * Echocardiogram 02/18/2022: LVEF 40 to 45%. RV SF mildly decreased. RV SF mildly reduced. Right ventricle is dilated. Left atrium moderately dilated. Right atrium dilated. Moderate MR. Moderate TR. RVSP 48 mmHg. * Goal-directed medical therapy as tolerated. No beta-blockers due to soft blood pressure requiring hemodynamic support. No ALEXEY/ARB in setting of IGGY. Continue aspirin, statin. Malignant neoplasm * Patient has known lung cancer with stage IV metastasis. Pulmonology is following Pt is DNR/DNI. We will continue to follow. Patient seen in conjunction with Dr. Hicks who agrees with the assessment and management of this patient. - Patient Problems (1) H/O two vessel coronary artery bypass graft Current Visit: Yes Status: Acute (2) Sleep apnea Current Visit: Yes Status: Acute (3) Acute encephalopathy Current Visit: Yes Status: Acute (4) Acute respiratory failure Current Visit: Yes Status: Acute (5) Atrial fibrillation Current Visit: Yes Status: Acute (6) Cardiac arrest Current Visit: Yes Status: Acute (7) Renal insufficiency Current Visit: Yes Status: Acute (8) Malignant neoplasm Current Visit: Yes Status: Acute Subjective Date of service: 02/19/22 Principal diagnosis: s/p Cardiac Arrest Interval history: Patient is currently intubated and sedated. No change overnight. satellite project site monitor shows atrial fibrillation with CVR heart rate 70s. No events overnight. Objective Last Vital Signs Temp 97.9 F 02/19/22 07:30 Pulse 74 02/19/22 11:00 Resp 25 H 02/19/22 11:00 BP 91/50 02/19/22 11:00 Pulse Ox 99 02/19/22 11:00 - Physical Examination General: Other HEENT: Positive: Normocephaly, Mucus Membranes Dry Neck: Positive: trachea midline Cardiac: Positive: irregularly irregular Lungs: Positive: Other (Coarse breath sounds) Neuro: Positive: Other (unable to assess) Abdomen: Positive: Active Bowel Sounds Skin: Negative: Rash Extremities: Present: upper extr. pulses (1+), +2 Edema (BLE edema), warm - Labs and Meds CBC 02/19/22 Range/Units 04:12 WBC 9.9 (4.5-11.0) K/mm3 RBC 3.14 L (3.65-5.03) M/mm3 Hgb 8.9 L (11.8-15.2) gm/dl Hct 27.6 L (35.5-45.6) % Plt Count 242 (140-440) K/mm3 Comprehensive Metabolic Panel 02/19/22 02/19/22 Range/Units 04:00 Unknown Sodium 141 140 (137-145) mmol/L Potassium 5.0 5.1 H (3.6-5.0) mmol/L Chloride 106.8 106.3 (98-107) mmol/L Carbon Dioxide 21 L 20 L (22-30) mmol/L BUN 56 H 55 H (9-20) mg/dL Creatinine 3.5 H 3.5 H (0.8-1.3) mg/dL Glucose 224 H 221 H (75-100) mg/dL Calcium 6.1 L D 6.0 L (8.4-10.2) mg/dL - Imaging and Cardiology EKG: image reviewed Echo: report reviewed (Echocardiogram 02/18/2022: LVEF 40 to 45%. RV SF mildly decreased. RV SF mildly reduced. Right ventricle is dilated. Left atrium moderately dilated. Right atrium dilated. Moderate MR. Moderate TR. RVSP 48 mmHg.) - Telemetry EKG Rhythm: Atrial Fibrillation - EKG Supraventricular dysrhythmia: atrial fibrillation Ventricular dysrhythmias: ventricular premature com
[2022-02-19] MEDS: INSULIN LISPRO 100 UNIT/ML SUB-Q SCH ×2 (13:14→18:29)
[2022-02-19 13:15] LABS: Hematocrit 25.9 % (35.5-45.6); Hemoglobin 8.4 gm/dl (11.8-15.2); Mean Corpuscular HGB Conc 32 % (32-34); Mean Corpuscular Volume 87 fl (84-94); Platelet Count 239 K/mm3 (140-440); Red Blood Count 2.97 M/mm3 (3.65-5.03); Red Cell Distribution Width 19.7 % (13.2-15.2)
[2022-02-19 13:25] LABS: INR 2.24 (0.87-1.13)
[2022-02-19 13:26] LABS: Partial Thromboplastin Time 46.4 Sec. (24.2-36.6)
--- NOTE | 2022-02-19 14:09 | Progress Note ---
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 02/19/22: Another discussion with , sister and daughter over the phone again today. Explained that he has not improved since admission and has actually gotten worse. Now dealing with multisystem organ failure. Family is now debating on how long to continue and they are going to discuss if they want to pursue dialysis. Will continue supportive measures. Guarded to poor prognosis now with multisystem failure. Long discussion at bedside with and sister and daughter over the phone. Very good questions asked by them. Daughter mentions patient may have been in contact with COVID 19. Also concerns about code status now. Discussed with them the clinical situation and they will make decisions. 1. Wean fIo2 for sats >88% 2. Leave of continuous sedation, ok with PRN pushes if needed 3. OG tube placement 4. Wean Vasopressors for MAPS >88% 5. broaden abx therapy given immunocompromised state and last place of residence. 6. Family wishes to try to treat through this to see if patient can be extubated which is not unreasonable. However he is an AND and they want to stick with this. 7. Guarded to poor prognosis. Patient was in rehab attempting to get stronger to get Palliative chemo therapy. CCT 31 minutes. Subjective Date of service: 02/19/22 Principal diagnosis: ARF Interval history: Had to go up to 3 pressors yesterday but now weaned back to 2. Family elected t o continue AND status. Echo shows an EF of 40%. Now with worsening renal failure and minimal urine output. Objective Vital Signs - 12hr 02/19/22 02/19/22 02/19/22 02:15 02:30 02:45 Temperature Pulse Rate 85 87 78 Pulse Rate [ Bilateral] Pulse Rate [ From Monitor] Respiratory 18 25 H 24 Rate Respiratory Rate [Bilateral ] Blood Pressure 108/72 102/69 118/66 O2 Sat by Pulse 96 96 97 Oximetry 02/19/22 02/19/22 02/19/22 03:00 03:15 03:30 Temperature Pulse Rate 84 84 84 Pulse Rate [ Bilateral] Pulse Rate [ From Monitor] Respiratory 22 25 H 25 H Rate Respiratory Rate [Bilateral ] Blood Pressure 98/75 99/71 100/64 O2 Sat by Pulse 98 98 97 Oximetry 02/19/22 02/19/22 02/19/22 03:45 03:58 04:00 Temperature Pulse Rate 74 72 84 Pulse Rate [ Bilateral] Pulse Rate [ 83 From Monitor] Respiratory 24 26 H Rate Respiratory Rate [Bilateral ] Blood Pressure 100/50 92/49 92/49 O2 Sat by Pulse 98 99 98 Oximetry 02/19/22 02/19/22 02/19/22 04:15 04:30 04:45 Temperature Pulse Rate 74 87 81 Pulse Rate [ Bilateral] Pulse Rate [ From Monitor] Respiratory 25 H 23 25 H Rate Respiratory Rate [Bilateral ] Blood Pressure 102/54 102/54 99/45 O2 Sat by Pulse 99 91 98 Oximetry 02/19/22 02/19/22 02/19/22 05:00 05:15 05:30 Temperature Pulse Rate 74 81 81 Pulse Rate [ Bilateral] Pulse Rate [ From Monitor] Respiratory 25 H 25 H 24 Rate Respiratory Rate [Bilateral ] Blood Pressure 99/57 95/52 95/52 O2 Sat by Pulse 99 99 94 Oximetry 02/19/22 02/19/22 02/19/22 05:31 05:45 06:00 Temperature Pulse Rate 80 83 Pulse Rate [ Bilateral] Pulse Rate [ 77 From Monitor] Respiratory 25 H 22 Rate Respiratory Rate [Bilateral ] Blood Pressure 106/34 87/58 O2 Sat by Pulse 94 99 100 Oximetry 02/19/22 02/19/22 02/19/22 06:15 06:30 06:46 Temperature Pulse Rate 84 77 79 Pulse Rate [ Bilateral] Pulse Rate [ From Monitor] Respiratory 23 Rate Respiratory Rate [Bilateral ] Blood Pressure 101/48 101/48 104/54 O2 Sat by Pulse 99 97 98 Oximetry 02/19/22 02/19/22 02/19/22 07:00 07:15 07:30 Temperature 97.9 F Pulse Rate 87 87 81 Pulse Rate [ Bilateral] Pulse Rate [ From Monitor] Respiratory 13 19 12 Rate Respiratory Rate [Bilateral ] Blood Pressure 108/50 90/60 90/60 O2 Sat by Pulse 100 98 98 Oximetry 02/19/22 02/19/22 02/19/22 07:45 08:00 08:15 Temperature Pulse Rate 84 81 76 Pulse Rate [ Bilateral] Pulse Rate [ 75 From Monitor] Respiratory 15 24 Rate Respiratory Rate [Bilateral ] Blood Pressure 102/58 89/54 94/61 O2 Sat by Pulse 100 98 98 Oximetry 02/19/22 02/19/22 02/19/22 08:30 08:45 08:50 Temperature Pulse Rate 79 82 Pulse Rate [ 82 Bilateral] Pulse Rate [ From Monitor] Respiratory H 20 Rate Respiratory 28 H Rate [Bilateral ] Blood Pressure 101/63 87/63 O2 Sat by Pulse 99 97 Oximetry 02/19/22 02/19/22 02/19/22 09:00 09:15 09:30 Temperature Pulse Rate 76 79 81 Pulse Rate [ Bilateral] Pulse Rate [ From Monitor] Respiratory H 22 26 H Rate Respiratory Rate [Bilateral ] Blood Pressure 93/62 91/61 88/70 O2 Sat by Pulse 100 98 99 Oximetry 02/19/22 02/19/22 02/19/22 09:45 10:00 10:16 Temperature Pulse Rate 80 75 77 Pulse Rate [ Bilateral] Pulse Rate [ From Monitor] Respiratory 28 H 25 H 17 Rate Respiratory Rate [Bilateral ] Blood Pressure 102/52 81/56 94/61 O2 Sat by Pulse 99 100 97 Oximetry 02/19/22 02/19/22 02/19/22 10:30 10:46 11:00 Temperature Pulse Rate 82 86 74 Pulse Rate [ Bilateral] Pulse Rate [ From Monitor] Respiratory 16 27 H 25 H Rate Respiratory Rate [Bilateral ] Blood Pressure 107/76 77/47 91/50 O2 Sat by Pulse 98 98 99 Oximetry 02/19/22 02/19/22 02/19/22 11:15 11:30 11:34 Temperature 96.5 F L Pulse Rate 75 78 Pulse Rate [ Bilateral] Pulse Rate [ From Monitor] Respiratory H 21 Rate Respiratory Rate [Bilateral ] Blood Pressure 85/51 87/61 O2 Sat by Pulse 99 97 Oximetry 02/19/22 02/19/22 02/19/22 11:45 12:00 12:15 Temperature Pulse Rate 81 76 78 Pulse Rate [ Bilateral] Pulse Rate [ 73 From Monitor] Respiratory 28 H 26 H 25 H Rate Respiratory Rate [Bilateral ] Blood Pressure 78/57 78/57 105/57 O2 Sat by Pulse 98 100 97 Oximetry 02/19/22 02/19/22 02/19/22 12:30 12:45 13:00 Temperature Pulse Rate 80 83 80 Pulse Rate [ Bilateral] Pulse Rate [ From Monitor] Respiratory 27 H 21 24 Rate Respiratory Rate [Bilateral ] Blood Pressure 96/54 103/57 100/70 O2 Sat by Pulse 98 99 95 Oximetry Constitutional: alert, appears uncomfortable Eyes: other (has only one eye, right eye) ENT: other (orally intubated, not on sedation) Neck: supple Effort: mildly labored Ascultation: Bilateral: rhonchi Percussion: Bilateral: not dull Cardiovascular: regular rate and rhythm Gastrointestinal: normoactive bowel sounds, soft CBC and BMP: 02/19/22 12:48 02/19/22 Unknown ABG, PT/INR, D-dimer: ABG ABG pH 7.199 pH Units (7.350-7.450) L* 02/19/22 04:20 POC ABG pCO2 60.4 mmHg (32.0-48.0) H 02/18/22 00:20 ABG pCO2 57.3 mm Hg 02/19/22 04:20 POC ABG pO2 93.0 mmHg (83-108) 02/18/22 00:20 ABG pO2 147.0 mm Hg (80.0-90.0) H 02/19/22 04:20 POC ABG HCO3 20.5 02/18/22 00:20 ABG O2 Saturation 98.5 % (95.0-99.0) 02/19/22 04:20 PT/INR, D-dimer PT 27.7 Sec. (12.2-14.9) H 02/19/22 Unknown INR 2.24 (0.87-1.13) H 02/19/22 Unknown Abnormal lab findings: Abnormal Labs 02/18/22 02/18/22 02/18/22 00:20 00:21 00:21 RBC 3.15 L Hgb 9.0 L Hct 28.0 L RDW 20.4 H Seg Neutrophils % 71.8 H Seg Neuts % (Manual) Lymphocytes % (Manual) Seg Neutrophils # Man Lymphocytes # (Manual) PT 29.4 H INR 2.41 H APTT 38.3 H ABG pH 7.148 L POC ABG pCO2 60.4 H ABG pO2 ABG HCO3 ABG Base Excess ABG Hemoglobin 8.69 L ABG Oxyhemoglobin 93.7 L Oxyhemoglobin Carboxyhemoglobin 2.1 H Potassium Chloride Carbon Dioxide BUN Creatinine Glucose POC Glucose Calcium Phosphorus AST Alkaline Phosphatase Total Creatine Kinase Troponin T Albumin LDL Cholesterol Direct HDL Cholesterol TSH Urine Creatinine Urine Total Protein Salicylates Acetaminophen 02/18/22 02/18/22 02/18/22 00:21 00:21 00:21 RBC Hgb Hct RDW Seg Neutrophils % Seg Neuts % (Manual) Lymphocytes % (Manual) Seg Neutrophils # Man Lymphocytes # (Manual) PT INR APTT ABG pH POC ABG pCO2 ABG pO2 ABG HCO3 ABG Base Excess ABG Hemoglobin ABG Oxyhemoglobin Oxyhemoglobin Carboxyhemoglobin Potassium Chloride 112.6 H Carbon Dioxide 19 L BUN 55 H Creatinine 3.0 H Glucose 152 H POC Glucose Calcium 7.4 L Phosphorus AST 56 H Alkaline Phosphatase 268 H Total Creatine Kinase 233 H Troponin T 0.073 H Albumin 2.2 L LDL Cholesterol Direct 30 L HDL Cholesterol 19 L TSH 5.100 H Urine Creatinine Urine Total Protein Salicylates < 0.3 L Acetaminophen 02/18/22 02/18/22 02/18/22 00:21 05:02 06:22 RBC Hgb Hct RDW Seg Neutrophils % Seg Neuts % (Manual) Lymphocytes % (Manual) Seg Neutrophils # Man Lymphocytes # (Manual) PT INR APTT ABG pH 7.131 L* POC ABG pCO2 ABG pO2 93.2 H ABG HCO3 17.6 L ABG Base Excess -11.2 L ABG Hemoglobin 9.1 L ABG Oxyhemoglobin Oxyhemoglobin 94.6 L Carboxyhemoglobin Potassium Chloride Carbon Dioxide BUN Creatinine Glucose POC Glucose 125 H Calcium Phosphorus AST Alkaline Phosphatase Total Creatine Kinase Troponin T Albumin LDL Cholesterol Direct HDL Cholesterol TSH Urine Creatinine Urine Total Protein Salicylates Acetaminophen 5.0 L 02/18/22 02/18/22 02/18/22 09:21 11:30 17:14 RBC Hgb Hct RDW Seg Neutrophils % Seg Neuts % (Manual) Lymphocytes % (Manual) Seg Neutrophils # Man Lymphocytes # (Manual) PT INR APTT ABG pH POC ABG pCO2 ABG pO2 ABG HCO3 ABG Base Excess ABG Hemoglobin ABG Oxyhemoglobin Oxyhemoglobin Carboxyhemoglobin Potassium Chloride Carbon Dioxide BUN Creatinine Glucose POC Glucose 127 H 126 H Calcium Phosphorus AST Alkaline Phosphatase Total Creatine Kinase Troponin T 0.076 H Albumin LDL Cholesterol Direct HDL Cholesterol TSH Urine Creatinine Urine Total Protein Salicylates Acetaminophen 02/18/22 02/18/22 02/19/22 23:44 23:44 04:00 RBC Hgb Hct RDW Seg Neutrophils % Seg Neuts % (Manual) Lymphocytes % (Manual) Seg Neutrophils # Man Lymphocytes # (Manual) PT INR APTT ABG pH POC ABG pCO2 ABG pO2 ABG HCO3 ABG Base Excess ABG Hemoglobin ABG Oxyhemoglobin Oxyhemoglobin Carboxyhemoglobin Potassium Chloride Carbon Dioxide 21 L BUN 56 H Creatinine 3.5 H Glucose 224 H POC Glucose Calcium 6.1 L D Phosphorus AST Alkaline Phosphatase Total Creatine Kinase Troponin T Albumin LDL Cholesterol Direct HDL Cholesterol TSH Urine Creatinine 180.0 H 180.9 H Urine Total Protein 457 H Salicylates Acetaminophen 02/19/22 02/19/22 02/19/22 04:12 04:20 12:48 RBC 3.14 L 2.97 L Hgb 8.9 L 8.4 L Hct 27.6 L 25.9 L RDW 19.6 H 19.7 H Seg Neutrophils % Seg Neuts % (Manual) 96.0 H Lymphocytes % (Manual) 2.0 L Seg Neutrophils # Man 9.5 H Lymphocytes # (Manual) 0.2 L PT INR APTT ABG pH 7.199 L* POC ABG pCO2 ABG pO2 147.0 H ABG HCO3 ABG Base Excess -6.2 L ABG Hemoglobin 9.1 L ABG Oxyhemoglobin Oxyhemoglobin Carboxyhemoglobin Potassium Chloride Carbon Dioxide BUN Creatinine Glucose POC Glucose Calcium Phosphorus AST Alkaline Phosphatase Total Creatine Kinase Troponin T Albumin LDL Cholesterol Direct HDL Cholesterol TSH Urine Creatinine Urine Total Protein Salicylates Acetaminophen 02/19/22 02/19/22 02/19/22 Unknown Unknown Unknown RBC Hgb Hct RDW Seg Neutrophils % Seg Neuts % (Manual) Lymphocytes % (Manual) Seg Neutrophils # Man Lymphocytes # (Manual) PT 27.7 H INR 2.24 H APTT 46.4 H ABG pH POC ABG pCO2 ABG pO2 ABG HCO3 ABG Base Excess ABG Hemoglobin ABG Oxyhemoglobin Oxyhemoglobin Carboxyhemoglobin Potassium 5.1 H Chloride Carbon Dioxide 20 L BUN 55 H Creatinine 3.5 H 4.0 H Glucose 221 H POC Glucose Calcium 6.0 L Phosphorus 6.70 H AST Alkaline Phosphatase Total Creatine Kinase Troponin T Albumin LDL Cholesterol Direct HDL Cholesterol TSH Urine Creatinine Urine Total Protein Salicylates Acetaminophen
--- NOTE | 2022-02-19 14:57 | Progress Note ---
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 fib, CKD stage III admitted with acute hypoxic respiratory failure s/p cardiac arrest. Neuro: Acute metabolic encephalopathy -IV push fentanyl prn -Avoid delirium -Reorientation as needed -Maintain sleep-wake cycle -As needed analgesia -CT head with no acute intracranial abnormality Cardiac: S/p cardiac arrest, h/o HTN, chronic afib, CABG x2, venous insufficiency -Cardiology consulted, appreciate recommendations -Blood pressure monitoring per protocol -Vasopressor support with Levophed, vasopressin -off Tripp-Synephrine -MAP goal greater than 65 -Echocardiogram shows EF 40% -Cardiology 09/2019 echocardiogram with EF of 55 to 60% Respiratory: Acute hypoxic respiratory failure -Intubated in the emergency department with 8.00 ETT at 24 the lips on 02/17 -CCM consulted, appreciate recommendations -A.m. vent settings: Assist-control/PRVC rate 25, tidal volume 500, PEEP 8, FiO2 75% -See RT notes for titration -Wean FiO2 as tolerated and rate increased d/t abg -A.m. ABG and CXR noted -VAP bundle -SPO2 monitoring GI: Protein calorie malnutrition -PPI -Ntr consult for TF -start trickle feeds -BR: [place] : Acute kidney injury secondary to acute tubular necrosis, rhabdomyolysis, h/o CKD stage III per family -Nephrology consulted, appreciate recommendations -awaiting family decision re HD initiation -Strict intake and output -Renally dose medications -Avoid nephrotoxic medications -Daily weights -FeNa 0.35% indicating prerenal cause for renal failure -Renal ultrasound pending -Trend BMP -s/p D5 sodium bicarb gtt -s/p 2L fluid bolus ID: Possible postobstructive pneumonia, sepsis (POA) -Infectious disease consulted, appreciate recommendation -Antibiotic therapy with cefepime -MRSA PCR negative -stopped vanco -Stress dose steroids -Vasopressor support with Levophed, vasopressin -COVID-19 PCR negative -f/u blood culture -Monitor WBC and temperature curve Endo: NAD -Avoid hypoglycemia -SSI -Accu-Cheks q6 hr Heme: NAD -Trend CBC -Transfuse hemoglobin less than 7 -Monitor for signs of bleeding -heparin subq -restart home eliqius for afib -SCDs to BLE while in bed Oncology: Stage IV adenocarcinoma of the lung with mets to spine -Per family patient recently suffered a stress fracture to T7-T8 and was currently in rehab to get stronger to withstand palliative treatment -Continue supportive care The high probability of a clinically significant, sudden or life threatening deterioration of the [multi] system(s) required my full and direct attention, intervention and personal management. The aggregate critical care time was [60] minutes. 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 fib, HTN, CABG x2, hyperlipidemia, CKD stage III who presented to the hospital on 02/08 with altered mental status and acute respi ratory failure via EMS. Upon arrival to the emergency department patient was having agonal breathing and hypotension his airway and required bag valve mask ventilation and was intubated by ED physician. After intubation patient went into cardiac arrest with ROSC achievement in 2 minutes. Patient was admitted to the hospitalist service with consults to [facility], cardiology and nephrology. Hospital course to date: 02/18: Patient was sedated on fentanyl on arrival to ICU which was weaned off, patient was able to follow simple commands. This morning patient was on Levophe d and vasopressin and bicarbonate drip. Phenyl epinephrine was added later this afternoon. This evening patient received an roya and was persistently hypotensive. He received 1 L bolus this morning however given persistent hypotension with decreased urine output patient was given additional 1 L of LR. COVID-19 PCR negative. Patient's CODE STATUS changed to AND. 02/19: Patient has been weaned off of the norepinephrine and remains on vasopressin and Levophed. Renal function worsened. Bicarbonate drip discontinued and nephrology discontinued IVF. Hemodialysis discussed with nephrology. Dr. Fry also had a discussion with family, prognosis of care and goals of care. Patient family will let us know about dialysis. Corrected Ca 7.8 Hospitalist Physical - Constitutional Vitals: Temp Pulse Resp BP Pulse Ox 96.5 F L 78 21 99/63 94 02/19/22 11:34 02/19/22 14:15 02/19/22 14:15 02/19/22 14:15 02/19/22 14:15 General appearance: Present: no acute distress - EENT Eyes: Present: PERRL ENT: hearing intact, clear oral mucosa, dentition normal - Neck Neck: Present: supple - Respiratory Respiratory effort: normal Respiratory: bilateral: CTA, diminished - Cardiovascular Rhythm: regular Heart Sounds: Present: S1 & S2. Absent: systolic murmur, diastolic murmur - Extremities Extremities: no ischemia, pulses intact, pulses symmetrical, No edema, normal temperature, normal color Peripheral Pulses: within normal limits - Abdominal General gastrointestinal: soft, non-tender, non-distended, normal bowel sounds - Integumentary Integumentary: Present: warm, dry - Psychiatric Psychiatric: cooperative - Neurologic Neurologic: no focal deficits, moves all extremities - Allied Health Allied health notes reviewed: nursing, RT, social work HEART Score - HEART Score Troponin: Troponin T 0.076 ng/mL (0.00-0.029) H 02/18/22 09:21 Results - Labs CBC & Chem 7: 02/19/22 12:48 02/19/22 Unknown Labs: Laboratory Last Values WBC 9.4 K/mm3 (4.5-11.0) 02/19/22 12:48 RBC 2.97 M/mm3 (3.65-5.03) L 02/19/22 12:48 Hgb 8.4 gm/dl (11.8-15.2) L 02/19/22 12:48 Hct 25.9 % (35.5-45.6) L 02/19/22 12:48 MCV 87 fl (84-94) 02/19/22 12:48 MCH 28 pg (28-32) 02/19/22 12:48 MCHC 32 % (32-34) 02/19/22 12:48 RDW 19.7 % (13.2-15.2) H 02/19/22 12:48 Plt Count 239 K/mm3 (140-440) 02/19/22 12:48 Lymph % (Auto) 19.8 % (13.4-35.0) 02/18/22 00:21 [place] % (Auto) 5.3 % (0.0-7.3) 02/18/22 00:21 Eos % (Auto) 2.0 % (0.0-4.3) 02/18/22 00:21 Baso % (Auto) 1.1 % (0.0-1.8) 02/18/22 00:21 Lymph # (Auto) 1.2 K/mm3 (1.2-5.4) 02/18/22 00:21 [place] # (Auto) 0.3 K/mm3 (0.0-0.8) 02/18/22 00:21 Eos # (Auto) 0.1 K/mm3 (0.0-0.4) 02/18/22 00:21 Baso # (Auto) 0.1 K/mm3 (0.0-0.1) 02/18/22 00:21 Add Manual Diff Complete 02/19/22 04:12 Total Counted 100 02/19/22 04:12 Seg Neutrophils % 71.8 % (40.0-70.0) H 02/18/22 00:21 Seg Neuts % (Manual) 96.0 % (40.0-70.0) H 02/19/22 04:12 Band Neutrophils % 0 % 02/19/22 04:12 Lymphocytes % (Manual) 2.0 % (13.4-35.0) L 02/19/22 04:12 Reactive Lymphs % (Man) 0 % 02/19/22 04:12 Monocytes % (Manual) 2.0 % (0.0-7.3) 02/19/22 04:12 Eosinophils % (Manual) 0 % (0.0-4.3) 02/19/22 04:12 Basophils % (Manual) 0 % (0.0-1.8) 02/19/22 04:12 Metamyelocytes % 0 % 02/19/22 04:12 Myelocytes % 0 % 02/19/22 04:12 Promyelocytes % 0 % 02/19/22 04:12 Blast Cells % 0 % 02/19/22 04:12 Nucleated RBC % Not Reportable 02/19/22 04:12 Seg Neutrophils # 4.5 K/mm3 (1.8-7.7) 02/18/22 00:21 Seg Neutrophils # Man 9.5 K/mm3 (1.8-7.7) H 02/19/22 04:12 Band Neutrophils # 0.0 K/mm3 02/19/22 04:12 Lymphocytes # (Manual) 0.2 K/mm3 (1.2-5.4) L 02/19/22 04:12 Abs React Lymphs (Man) 0.0 K/mm3 02/19/22 04:12 Monocytes # (Manual) 0.2 K/mm3 (0.0-0.8) 02/19/22 04:12 Eosinophils # (Manual) 0.0 K/mm3 (0.0-0.4) 02/19/22 04:12 Basophils # (Manual) 0.0 K/mm3 (0.0-0.1) 02/19/22 04:12 Metamyelocytes # 0.0 K/mm3 02/19/22 04:12 Myelocytes # 0.0 K/mm3 02/19/22 04:12 Promyelocytes # 0.0 K/mm3 02/19/22 04:12 Blast Cells # 0.0 K/mm3 02/19/22 04:12 WBC Morphology Not Reportable 02/19/22 04:12 Hypersegmented Neuts Not Reportable 02/19/22 04:12 Hyposegmented Neuts Not Reportable 02/19/22 04:12 Hypogranular Neuts Not Reportable 02/19/22 04:12 Smudge Cells Not Reportable 02/19/22 04:12 Toxic Granulation Not Reportable 02/19/22 04:12 Toxic Vacuolation Not Reportable 02/19/22 04:12 Dohle Bodies Not Reportable 02/19/22 04:12 Pelger-Huet Anomaly Not Reportable 02/19/22 04:12 Jensen Rods Not Reportable 02/19/22 04:12 Platelet Estimate Consistent w auto 02/19/22 04:12 Clumped Platelets Not Reportable 02/19/22 04:12 Plt Clumps, EDTA Not Reportable 02/19/22 04:12 Large Platelets Not Reportable 02/19/22 04:12 Giant Platelets Not Reportable 02/19/22 04:12 Platelet Satelliting Not Reportable 02/19/22 04:12 Plt Morphology Comment Not Reportable 02/19/22 04:12 RBC Morphology Not Reportable 02/19/22 04:12 Dimorphic RBCs Not Reportable 02/19/22 04:12 Polychromasia Not Reportable 02/19/22 04:12 Hypochromasia Not Reportable 02/19/22 04:12 Poikilocytosis Not Reportable 02/19/22 04:12 Anisocytosis 1+ 02/19/22 04:12 Microcytosis Not Reportable 02/19/22 04:12 Macrocytosis Not Reportable 02/19/22 04:12 Spherocytes Not Reportable 02/19/22 04:12 Pappenheimer Bodies Not Reportable 02/19/22 04:12 Sickle Cells Not Reportable 02/19/22 04:12 Target Cells Not Reportable 02/19/22 04:12 Tear Drop Cells Not Reportable 02/19/22 04:12 Ovalocytes 1+ 02/19/22 04:12 Helmet Cells Not Reportable 02/19/22 04:12 Pierre-Twin Bodies Not Reportable 02/19/22 04:12 [place] Rings Not Reportable 02/19/22 04:12 [place] Cells Not Reportable 02/19/22 04:12 Bite Cells Not Reportable 02/19/22 04:12 Crenated Cell Not Reportable 02/19/22 04:12 Elliptocytes Not Reportable 02/19/22 04:12 Acanthocytes (Spur) Not Reportable 02/19/22 04:12 Rouleaux Not Reportable 02/19/22 04:12 Hemoglobin C Crystals Not Reportable 02/19/22 04:12 Schistocytes Not Reportable 02/19/22 04:12 Malaria parasites Not Reportable 02/19/22 04:12 [place] Bodies Not Reportable 02/19/22 04:12 Hem Pathologist Commnt No 02/19/22 04:12 PT 27.7 Sec. (12.2-14.9) H 02/19/22 Unknown INR 2.24 (0.87-1.13) H 02/19/22 Unknown APTT 46.4 Sec. (24.2-36.6) H 02/19/22 Unknown ABG pH 7.199 pH Units (7.350-7.450) L* 02/19/22 04:20 POC ABG pCO2 60.4 mmHg (32.0-48.0) H 02/18/22 00:20 ABG pCO2 57.3 mm Hg 02/19/22 04:20 POC ABG pO2 93.0 mmHg (83-108) 02/18/22 00:20 ABG pO2 147.0 mm Hg (80.0-90.0) H 02/19/22 04:20 POC ABG HCO3 20.5 02/18/22 00:20 ABG HCO3 21.8 mmol/L (20.0-26.0) 02/19/22 04:20 ABG O2 Saturation 98.5 % (95.0-99.0) 02/19/22 04:20 ABG O2 Content 12.6 (0.0-44) 02/19/22 04:20 POC ABG Base Excess -8.2 02/18/22 00:20 ABG Base Excess -6.2 mmol/L (-2.0-3.0) L 02/19/22 04:20 ABG Hemoglobin 9.1 gm/dl (14.0-18.0) L 02/19/22 04:20 ABG Oxyhemoglobin 93.7 (94-98) L 02/18/22 00:20 ABG Carboxyhemoglobin 1.1 % (0.0-5.0) 02/19/22 04:20 ABG Methemoglobin 0.7 % (0.0-1.5) 02/19/22 04:20 Oxyhemoglobin 96.7 % (95.0-99.0) 02/19/22 04:20 Carboxyhemoglobin 2.1 (0.5-1.5) H 02/18/22 00:20 FiO2 85 % 02/19/22 04:20 FiO2 % 100 02/18/22 00:20 Sodium 140 mmol/L (137-145) 02/19/22 Unknown Potassium 5.1 mmol/L (3.6-5.0) H 02/19/22 Unknown Chloride 106.3 mmol/L (98-107) 02/19/22 Unknown Carbon Dioxide 20 mmol/L (22-30) L 02/19/22 Unknown Anion Gap 19 mmol/L 02/19/22 Unknown BUN 55 mg/dL (9-20) H 02/19/22 Unknown Creatinine 3.5 mg/dL (0.8-1.3) H 02/19/22 Unknown Creatinine 4.0 mg/dL (0.8-1.3) H 02/19/22 Unknown Estimated GFR 15 ml/min 02/19/22 Unknown Estimated GFR 17 ml/min 02/19/22 Unknown BUN/Creatinine Ratio 16 % 02/19/22 Unknown Glucose 221 mg/dL (75-100) H 02/19/22 Unknown POC Glucose 126 mg/dL (70-105) H 02/18/22 17:14 Lactic Acid 0.90 mmol/L (0.7-2.0) 02/18/22 02:18 Calcium 6.0 mg/dL (8.4-10.2) L 02/19/22 Unknown Phosphorus 6.70 mg/dL (2.5-4.5) H 02/19/22 Unknown Magnesium 1.80 mg/dL (1.7-2.3) 02/19/22 Unknown Total Bilirubin 0.80 mg/dL (0.1-1.2) 02/18/22 00:21 AST 56 units/L (5-40) H 02/18/22 00:21 ALT 45 units/L (7-56) 02/18/22 00:21 Alkaline Phosphatase 268 units/L (35-129) H 02/18/22 00:21 Ammonia 38.0 umol/L (25-60) 02/18/22 00:21 Total Creatine Kinase 233 units/L (55-170) H 02/18/22 00:21 Troponin T 0.076 ng/mL (0.00-0.029) H 02/18/22 09:21 Total Protein 6.5 g/dL (6.3-8.2) 02/18/22 00:21 Albumin 2.2 g/dL (3.9-5) L 02/18/22 00:21 Albumin/Globulin Ratio 0.5 % 02/18/22 00:21 Triglycerides 107 mg/dL (2-149) 02/18/22 00:21 Cholesterol 71 mg/dL (50-199) 02/18/22 00:21 LDL Cholesterol Direct 30 mg/dL (50-130) L 02/18/22 00:21 HDL Cholesterol 19 mg/dL (40-59) L 02/18/22 00:21 Cholesterol/HDL Ratio 3.73 % 02/18/22 00:21 Procalcitonin 2.73 ng/mL (<0.15) 02/18/22 12:48 TSH 5.100 mlU/mL (0.270-4.200) H 02/18/22 00:21 Urine Color Heidi (Yellow) 02/18/22 23:44 Urine Turbidity Slightly-cloudy (Clear) 02/18/22 23:44 Urine pH 5.0 (5.0-7.0) 02/18/22 23:44 Ur Specific [place] 1.020 (1.003-1.030) 02/18/22 23:44 Urine Protein 100 mg/dl mg/dL (Negative) 02/18/22 23:44 Urine Glucose (UA) 50 mg/dL (Negative) 02/18/22 23:44 Urine Ketones Neg mg/dL (Negative) 02/18/22 23:44 Urine Blood Mod (Negative) 02/18/22 23:44 Urine Nitrite Neg (Negative) 02/18/22 23:44 Urine Bilirubin Neg (Negative) 02/18/22 23:44 Urine Urobilinogen 4.0 mg/dL (<2.0) 02/18/22 23:44 Ur Leukocyte Esterase Neg (Negative) 02/18/22 23:44 Urine WBC (Auto) 1.0 /HPF (0.0-6.0) 02/18/22 23:44 Urine RBC (Auto) 4.0 /HPF (0.0-6.0) 02/18/22 23:44 U Epithel Cells (Auto) < 1.0 /HPF (0-13.0) 02/18/22 23:44 Urine Bacteria (Auto) 1+ /HPF (Negative) 02/18/22 00:54 Urine Mucus Few /HPF 02/18/22 23:44 Urine Yeast (Budding) 1+ /HPF 02/18/22 00:54 Urine Creatinine 180.0 mg/dL (0.1-20.0) H 02/18/22 23:44 Urine Creatinine 180.9 mg/dL (0.1-20.0) H 02/18/22 23:44 Protein/Creatinin Ratio 2.53 02/18/22 23:44 Urine Sodium 30 mmol/L 02/18/22 23:44 Urine Total Protein 457 mg/dL (5-11.8) H 04/19/22 23:44 Nasal Screen MRSA (PCR) Negative (Negative) 02/18/22 11:05 Salicylates < 0.3 mg/dL (2.8-20.0) L 02/18/22 00:21 Acetaminophen 5.0 ug/mL (10.0-30.0) L 02/18/22 00:21 Plasma/Serum Alcohol < 0.01 % (0-0.07) 02/18/22 00:21 SARS-CoV-2 (PCR) Negative (Negative) 02/18/22 11:33 Blood Type A POSITIVE 02/18/22 00:21 Antibody Screen Negative 02/18/22 00:21 Microbiology: Microbiology 02/18/22 00:42 Peripheral/Venous Blood Culture - Preliminary NO GROWTH AFTER 24 HOURS 02/18/22 00:21 Peripheral/Venous Blood Culture - Preliminary NO GROWTH AFTER 24 HOURS Cabezas/IV: Voiding Method Indwelling Catheter Active Medications - Current Medications Current Medications: Generic Name Dose Route Start Last Admin Trade Name Freq PRN Reason Stop Dose Admin Acetaminophen 650 mg 02/18/22 03:18 Acetaminophen 325 Mg Tab PO Q4H PRN Pain MILD(1-3)/Fever >100.5/NICOLE Albuterol 2.5 mg 02/18/22 03:18 Albuterol 2.5 Mg/3 Ml Nebu IH Q3HRT PRN Shortness Of Breath Albuterol/Ipratropium 1 ampul 02/18/22 20:00 02/19/22 08:50 Ipratropium/Albuterol Sulfate 3 Ml Ampul.Neb IH 1 ampul TIDRT KARAN Administration Apixaban 2.5 mg 02/19/22 22:00 Apixaban 2.5 Mg Tab FEEDTUBE Q12HR [facility] Protocol Aspirin 325 mg 02/18/22 10:00 02/19/22 09:14 Aspirin 325 Mg Tab FEEDTUBE 325 mg QDAY KARAN Administration Atorvastatin Calcium 40 mg 02/18/22 22:00 02/18/22 22:09 Atorvastatin 40 Mg Tab PO 40 mg QHS KARAN Administration Famotidine 20 mg 02/18/22 10:00 02/19/22 09:14 Famotidine 20 Mg/2 Ml Inj IV 20 mg DAILY KARAN Administration Fentanyl 50 mcg 02/17/22 23:25 02/18/22 10:37 Fentanyl 100 Mcg/2 Ml Inj IV 50 mcg Q10MIN PRN Administration ANALGESIA Hydralazine HCl 10 mg 02/18/22 03:33 Hydralazine 20 Mg/1 Ml Inj IV Q6H PRN SBP >/=160; DBP >/=100 Hydrocortisone Sodium Succinate 100 mg 02/18/22 22:00 02/19/22 13:14 Hydrocortisone Sod Succ 100 Mg/2 Ml Vial IV 100 mg Q8HR KARAN Administration Hydrophilic Ointment 1 applic 02/17/22 23:25 Lip Therapy Vaseline TP Q2HR PRN Dry Lips Fentanyl Citrate 2,000 mcg in 100 mls @ 6.849 mls/hr 02/17/22 23:45 02/18/22 17:06 Fentanyl Drip Premix IV 0 mcg/kg/hr TITR KARAN 0 mls/hr Titration Protocol 1 MCG/KG/HR NORepinephrine/NS 8 MG-250 ML 8 mg in 250 mls @ 3.75 mls/hr 02/18/22 03:00 02/19/22 14:15 Norepinephrine/Ns 8 Mg-250 Ml (Double Conc) IV 10 mcg/min TITRATE KARAN 18.75 mls/hr Titration Protocol 2 MCG/MIN Propofol 1,000 mg in 100 mls @ 4.11 mls/hr 02/18/22 06:00 Diprivan 10 Mg/Ml IV TITR KARAN Protocol 5 MCG/KG/MIN Vasopressin 20 unit/ Sodium 101 mls @ 9.09 mls/hr 02/18/22 06:00 02/19/22 10:48 Chloride IV 0.03 units/min TITR KARAN 9.09 mls/hr Titration Protocol 0.03 UNITS/MIN Cefepime HCl 2 gm in 100 mls @ 200 mls/hr 02/18/22 22:00 02/18/22 22:15 Cefepime/Ns 2 Gm/100 Ml IV 200 mls/hr Q24H KARAN Administration Protocol Phenylephrine HCl 100 mg/ 100 mls @ 3 mls/hr 02/18/22 13:30 02/19/22 02:31 Sodium Chloride IV 0 mcg/min TITR KARAN 0 mls/hr Titration Protocol 50 MCG/MIN Sodium Chloride 1,000 mls @ 1 mls/hr 02/18/22 13:21 Nacl 0.9% 1000 Ml IV DIRECT PRN ARTERIAL LINE FLUSH Insulin Human Lispro 0 unit 02/19/22 12:00 02/19/22 13:14 Insulin Lispro 100 Unit/Ml SUB-Q 2 unit Q6HR KARAN Administration Protocol Multi-Ingred Cream/Lotion/Oil/Oint 1 applic 02/17/22 23:25 Mineral Oil/Petrolatum, White Ophth Oint 3.5 Gm OU Q4HR PRN Dry Eye(s) Nitroglycerin 0.4 mg 02/18/22 03:18 Nitroglycerin 0.4 Mg Tab Subl SL Q5M PRN Chest Pain Ondansetron HCl 4 mg 02/18/22 03:18 Ondansetron 4 Mg/2 Ml Inj IV Q8H PRN Nausea And Vomiting Senna/Docusate Sodium 1 tab 02/18/22 10:00 02/19/22 09:14 Sennosides/Docusate Sodium 8.6/50 Mg Tab FEEDTUBE 1 tab BID KARAN Administration Sodium Chloride 10 ml 02/18/22 10:00 02/19/22 09:15 Sodium Chloride 0.9% 10 Ml Flush Syringe IV 10 ml BID KARAN Administration Sodium Chloride 10 ml 02/18/22 03:18 Sodium Chloride 0.9% 10 Ml Flush Syringe IV PRN PRN LINE FLUSH Nutrition/Malnutrition Assess - Dietary Evaluation Nutrition/Malnutrition Findings: Nutrition Notes Start: 02/18/22 11:48 Freq: Status: Active Protocol: Document 02/19/22 11:05 HILARIA (Rec: 02/19/22 11:40 HILARIA [id number]) Nutrition Notes Initial or Follow up Brief Note Current Diet TF-Nepro w/CARBSTEADY @ 50 ml/ hr (since L 02/19). Height 5 ft 11 in Weight 143.8 kg [place] Body Weight (kg) 78.18 BMI 44.1 Weight change and time frame Discrepancy of 19.3 Kg gain in 1 day reported (136.3 Kg). I spoke over the phone and RN corroborate actual Body Weight , and yet another discrepancy found; 143.8 Kg. I will update all calculations to this Body Weight. Weight Status Morbidly Obese Subjective/Other Information RD consult for write/manage TF . TF adjusted to new Body Weight , prescribed and ordered. Pt continues on Mechanical Ventilation, O2 saturation @ 98%, according to Physical Assessment History notes. Percent of energy/protein needs met: Prescribed TF-Nepro w/ CARBSTEADY @ 50 ml/hr provides for energy/protein needs (2, 157 Kcal/97 g) during LOS, 100 % Kcal; 100% AA. #1 Nutrition Diagnosis Inadequate oral intake Diagnosis Progress(for reassessment Continues documentation) Is patient on ventilator? Yes Is Patient Ambulatory and/or Out of Bed No REE-([place]-confined to bed) 2645.532 Kcal/Kg value to use for calculation 15 Approximate Energy Requirements Using 2157 kcal/Kg Calculation Used for Recommendations Kcal/kg Additional Notes Protein: 0.8-1.2 g/Kg AdjBW; 89-133 g/day. Fluids: 1 ml/Kcal, or as per MD. Nutrition Intervention Nutrition Support: Start Nepro w/CARBSTEADY @ 50 ml/hr. Flush: 200 ml water Q 4 hr, or as per MD. Kcal 2,157 Protein (gm) 97 Carbohydrates (gm) 193 Fat (gm) 115 Fluid (mL) 871 Fiber (gm) 15 % RDI: 100% Kcal; 100% AA. Goal #1 Provide at least 75% of energy /protein needs through Enteral Feeding during LOS. Goal #2 Maintain body weight within +/ -3% of admission body weight during LOS. Follow-Up By: 02/21/22 Additional Comments Start monitoring TF tolerance and BM.
[2022-02-19] MEDS: fentaNYL 100 MCG/2 ML INJ IV PRN (21:58)
[2022-02-19] MEDS: APIXABAN 2.5 MG TAB FEEDTUBE SCH (21:59)
[2022-02-19] MEDS: CEFEPIME/NS 2 GM/100 ML 2 GM/100 ML BAG IV SCH (22:00)
[2022-02-20] MEDS: INSULIN LISPRO 100 UNIT/ML SUB-Q SCH ×4 (00:05→18:23)
[2022-02-20] MEDS: VASOPRESSIN 20 UNIT in SODIUM CHLORIDE 0.9% 100 ML IV SCH (03:35)
--- NOTE | 2022-02-20 04:57 | XRay Report ---
CHEST 1 VIEW INDICATION / CLINICAL INFORMATION: follow up respiratory failure. COMPARISON: Chest x-ray 02/20/2020 FINDINGS: SUPPORT DEVICES: Existing tubes and lines demonstrate satisfactory positioning. HEART / MEDIASTINUM: Stable interval appearance of the cardiomediastinal silhouette. LUNGS / PLEURA: Bilateral perihilar opacities and multifocal airspace opacities left lung base. BONES: No significant osseous abnormality. ADDITIONAL FINDINGS: Stable thoracic fusion hardware. IMPRESSION: 1. Stable bilateral lung opacities remain more prevalent within the lung base on the left. 2. Stable tubes and lines. Signer Name: Tristan Mcmahon II, MD Signed: 02/20/2022 4:53 AM Workstation Name: [email or web address][id number]
[2022-02-20 05:33] LABS: Hematocrit 22.8 % (35.5-45.6); Hemoglobin 7.5 gm/dl (11.8-15.2); Mean Corpuscular HGB Conc 33 % (32-34); Mean Corpuscular Volume 87 fl (84-94); Platelet Count 196 K/mm3 (140-440); Red Blood Count 2.62 M/mm3 (3.65-5.03); Red Cell Distribution Width 19.9 % (13.2-15.2)
[2022-02-20 05:47] LABS: ABG Base Excess -5.8 mmol/L (-2.0-3.0); ABG HCO3 19.8 mmol/L (20.0-26.0); ABG Methemoglobin 0.4 % (0.0-1.5); ABG Oxygen Saturation 98.8 % (95.0-99.0); ABG PCO2 39.3 mm Hg; ABG PH 7.319 pH Units (7.350-7.450); ABG PO2 149.9 mm Hg (80.0-90.0)
[2022-02-20] MEDS: HYDROCORTISONE SOD SUCC 100 MG/2 ML VIAL IV SCH ×3 (06:06→21:13)
[2022-02-20 06:09] LABS: Hepatitis B Surface Antigen Non-Reactive (Negative); Hepatitis C Virus Antibody Non-Reactive (NonReactive)
[2022-02-20 06:18] LABS: Calcium 5.9 mg/dL (8.4-10.2)
--- NOTE | 2022-02-20 07:14 | Ultrasound Report ---
ULTRASOUND RENAL INDICATION / CLINICAL INFORMATION: renal failure. COMPARISON: None available. FINDINGS: RIGHT KIDNEY: Length = 11.4 cm. - Echogenicity: Increased echotexture. - Cortical Thickness: 1.4 cm - Hydronephrosis: None. - Cyst / Mass: Multiple hypoechoic cortical lesions. Reflects cyst. The largest measuring 2.2 x 2.2 x 2.2 cm mid to lower renal cortex. - Stones: None seen. LEFT KIDNEY: Length = 11.1 cm. - Echogenicity: Increased - Cortical Thickness: 1.6 cm - Hydronephrosis: None. - Cyst / Mass: Complex cyst mid to lower left kidney measures 1.7 x 1.6 x 1.9 cm. Internal septation is present possible calcification. - Stones: None seen. URINARY BLADDER: Decompressed by Cabezas catheter. FREE FLUID: None. ADDITIONAL FINDINGS: None. IMPRESSION: 1. Complex cyst mid to lower left kidney as detailed. Bosniak IIF cystic renal mass(es). The large ma jority of Bosniak IIF masses are benign. When malignant, nearly all are indolent. Generally, Bosniak IIF masses are followed by imaging at 6 months and 12 months, then annually for a total of 5 years to assess for morphologic change. 2. Additional bilateral renal cysts. 3. Hyperechoic appearance of the kidneys. This finding is nonspecific and may reflect sequelae of med ical renal disease. Signer Name: Tristan Mcmahon II, MD Signed: 02/20/2022 7:10 AM Workstation Name: [id number]
--- NOTE | 2022-02-20 09:02 | Progress Note ---
Assessment and Plan Acute Renal Failure on Chronic Kidney Disease Hypotension Afib Cardiac Arrest Acute Respiratory failure Acidosis Hyperkalemia, Mild Anemia Lung cancer with stage IV metastasis Plan: within rising Cr and BUN, minimal UOP no indication for HD today, very likely tomorrow if cont to get worse Acute Renal Failure likely 2/2 ATN Patient has history of CKD but no baseline serum creatinine available can use Lasix as needed CXR- shows decreasing left Pleural Effusion Avoid nephrotoxic agents Renally dose medications Strict I&O's daily Obtain daily weights Daughter stated that the family will have a discussion on if they would want patient to receive hemodialysis. Monitor renal function closely Subjective Date of service: 02/20/22 Principal diagnosis: ARF Interval history: In ICU, minimal UOP Objective - Vital Signs Vital signs: Vital Signs - 12hr 02/19/22 02/19/22 02/19/22 21:15 21:30 21:45 Temperature Pulse Rate 86 86 77 Pulse Rate [ From Monitor] Respiratory 24 12 11 L Rate Blood Pressure 106/85 98/56 93/56 O2 Sat by Pulse 99 100 100 Oximetry 02/19/22 02/19/22 02/19/22 22:00 22:15 22:30 Temperature Pulse Rate 80 82 82 Pulse Rate [ From Monitor] Respiratory 25 H 25 H 24 Rate Blood Pressure 102/59 103/60 112/64 O2 Sat by Pulse 100 100 99 Oximetry 02/19/22 02/19/22 02/19/22 22:45 23:00 23:15 Temperature Pulse Rate 84 86 83 Pulse Rate [ From Monitor] Respiratory 29 H 28 H 26 H Rate Blood Pressure 102/69 109/68 108/67 O2 Sat by Pulse 98 97 100 Oximetry 02/19/22 02/19/22 02/19/22 23:31 23:39 23:45 Temperature Pulse Rate 86 85 88 Pulse Rate [ From Monitor] Respiratory 23 20 Rate Blood Pressure O2 Sat by Pulse 100 99 99 Oximetry 02/20/22 02/20/22 02/20/22 00:00 00:01 00:15 Temperature Pulse Rate 77 87 84 Pulse Rate [ 80 From Monitor] Respiratory 32 H 22 24 Rate Blood Pressure 119/52 O2 Sat by Pulse 90 99 100 Oximetry 02/20/22 02/20/22 02/20/22 00:30 00:45 01:01 Temperature Pulse Rate 85 84 87 Pulse Rate [ From Monitor] Respiratory 27 H 22 23 Rate Blood Pressure 118/67 127/67 64/39 O2 Sat by Pulse 100 100 100 Oximetry 02/20/22 02/20/22 02/20/22 01:15 01:31 01:45 Temperature Pulse Rate 79 82 85 Pulse Rate [ From Monitor] Respiratory 18 14 28 H Rate Blood Pressure 64/39 122/77 120/100 O2 Sat by Pulse 100 100 100 Oximetry 02/20/22 02/20/22 02/20/22 02:00 02:15 02:30 Temperature Pulse Rate 81 86 77 Pulse Rate [ From Monitor] Respiratory 28 H 28 H 22 Rate Blood Pressure 115/72 123/77 110/69 O2 Sat by Pulse 100 100 100 Oximetry 02/20/22 02/20/22 02/20/22 02:45 03:00 03:15 Temperature Pulse Rate 81 84 81 Pulse Rate [ From Monitor] Respiratory 12 21 28 H Rate Blood Pressure 122/75 125/65 116/68 O2 Sat by Pulse 100 97 99 Oximetry 02/20/22 02/20/22 02/20/22 03:30 03:45 04:00 Temperature Pulse Rate 83 84 76 Pulse Rate [ 80 From Monitor] Respiratory 22 23 32 H Rate Blood Pressure 105/78 116/73 107/71 O2 Sat by Pulse 97 100 100 Oximetry 02/20/22 02/20/22 02/20/22 04:01 04:15 04:31 Temperature Pulse Rate 78 82 87 Pulse Rate [ From Monitor] Respiratory 27 H 21 28 H Rate Blood Pressure 116/73 116/73 107/64 O2 Sat by Pulse 99 99 99 Oximetry 02/20/22 02/20/22 02/20/22 04:45 05:00 05:15 Temperature Pulse Rate 78 89 75 Pulse Rate [ From Monitor] Respiratory 28 H 22 29 H Rate Blood Pressure 110/62 123/74 107/71 O2 Sat by Pulse 100 97 100 Oximetry 02/20/22 02/20/22 02/20/22 05:30 05:45 06:00 Temperature Pulse Rate 78 85 85 Pulse Rate [ From Monitor] Respiratory 28 H 25 H 23 Rate Blood Pressure 104/65 99/75 115/59 O2 Sat by Pulse 100 100 99 Oximetry 02/20/22 08:00 Temperature 97.3 F L Pulse Rate Pulse Rate [ From Monitor] Respiratory Rate Blood Pressure O2 Sat by Pulse Oximetry - Lab 02/20/22 04:30 04/21/22 04:30 Most recent lab results ABG pH 7.319 pH Units (7.350-7.450) L 02/20/22 05:03 ABG pCO2 39.3 mm Hg 02/20/22 05:03 ABG pO2 149.9 mm Hg (80.0-90.0) H 02/20/22 05:03 ABG HCO3 19.8 mmol/L (20.0-26.0) L 02/20/22 05:03 ABG O2 Saturation 98.8 % (95.0-99.0) 02/20/22 05:03 Calcium 5.9 mg/dL (8.4-10.2) L* 02/20/22 04:30 Phosphorus 6.70 mg/dL (2.5-4.5) H 02/19/22 Unknown Magnesium 1.80 mg/dL (1.7-2.3) 02/19/22 Unknown Urine Creatinine 180.0 mg/dL (0.1-20.0) H 02/18/22 23:44 Urine Creatinine 180.9 mg/dL (0.1-20.0) H 02/18/22 23:44 Urine Sodium 30 mmol/L 02/18/22 23:44 Urine Total Protein 457 mg/dL (5-11.8) H 02/18/22 23:44 Medications & Allergies - Medications Allergies/Adverse Reactions: Allergies No Known Allergies Allergy (Verified 02/17/22 23:39) Home Medications: Home Medications Medication Instructions Recorded Confirmed Last Taken Type Apixaban [Eliquis] 5 mg PO BID 02/18/22 02/18/22 Unknown History Crestor 40 mg PO DAILY 02/18/22 02/18/22 Unknown History Irbesartan/Hydrochlorothiazide 1 each PO HS 02/18/22 02/18/22 Unknown History [Irbesartan-Hctz 150-12.5 mg Tb] Loratadine [Claritin] 10 mg PO DAILY 02/18/22 02/18/22 Unknown History Oxycodone HCl [oxyCODONE] 10 mg PO BID 02/18/22 02/18/22 Unknown History Pantoprazole [Protonix] 40 mg PO QDAY 02/18/22 02/18/22 Unknown History Pramipexole [Mirapex] 0.5 mg PO TID 02/18/22 02/18/22 Unknown History Tamsulosin [Flomax] 0.4 mg PO DAILY 02/18/22 02/18/22 Unknown History Torsemide [Demadex] 20 mg PO BID 02/18/22 02/18/22 Unknown History allopurinoL [Zyloprim] 100 mg PO QDAY 02/18/22 02/18/22 Unknown History carvediloL [Coreg] 12.5 mg PO BID 02/18/22 02/18/22 Unknown History Active Medications: Generic Name Dose Route Start Last Admin Trade Name Freq PRN Reason Stop Dose Admin Acetaminophen 650 mg 02/18/22 03:18 Acetaminophen 325 Mg Tab PO Q4H PRN Pain MILD(1-3)/Fever >100.5/NICOLE Albuterol 2.5 mg 02/18/22 03:18 Albuterol 2.5 Mg/3 Ml Nebu IH Q3HRT PRN Shortness Of Breath Albuterol/Ipratropium 1 ampul 02/18/22 20:00 02/19/22 19:55 Ipratropium/Albuterol Sulfate 3 Ml Ampul.Neb IH 1 ampul TIDRT KARAN Administration Apixaban 2.5 mg 02/19/22 22:00 02/19/22 21:59 Apixaban 2.5 Mg Tab FEEDTUBE 2.5 mg Q12HR KARAN Administration Protocol Aspirin 325 mg 02/18/22 10:00 02/19/22 09:14 Aspirin 325 Mg Tab FEEDTUBE 325 mg QDAY KARAN Administration Atorvastatin Calcium 40 mg 02/18/22 22:00 02/19/22 21:59 Atorvastatin 40 Mg Tab PO 40 mg QHS KARAN Administration Famotidine 20 mg 02/18/22 10:00 02/19/22 09:14 Famotidine 20 Mg/2 Ml Inj IV 20 mg DAILY KARAN Administration Fentanyl 50 mcg 02/17/22 23:25 02/19/22 21:58 Fentanyl 100 Mcg/2 Ml Inj IV 50 mcg Q10MIN PRN Administration ANALGESIA Hydralazine HCl 10 mg 02/18/22 03:33 Hydralazine 20 Mg/1 Ml Inj IV Q6H PRN SBP >/=160; DBP >/=100 Hydrocortisone Sodium Succinate 100 mg 02/18/22 22:00 02/20/22 06:06 Hydrocortisone Sod Succ 100 Mg/2 Ml Vial IV 100 mg Q8HR KARAN Administration Hydrophilic Ointment 1 applic 02/17/22 23:25 Lip Therapy Vaseline TP Q2HR PRN Dry Lips Fentanyl Citrate 2,000 mcg in 100 mls @ 6.849 mls/hr 02/17/22 23:45 02/18/22 17:06 Fentanyl Drip Premix IV 0 mcg/kg/hr TITR KARAN 0 mls/hr Titration Protocol 1 MCG/KG/HR NORepinephrine/NS 8 MG-250 ML 8 mg in 250 mls @ 3.75 mls/hr 02/18/22 03:00 02/19/22 18:56 Norepinephrine/Ns 8 Mg-250 Ml (Double Conc) IV 4 mcg/min TITRATE KARAN 7.5 mls/hr Administration Protocol 2 MCG/MIN Propofol 1,000 mg in 100 mls @ 4.11 mls/hr 02/18/22 06:00 Diprivan 10 Mg/Ml IV TITR KARAN Protocol 5 MCG/KG/MIN Vasopressin 20 unit/ Sodium 101 mls @ 9.09 mls/hr 02/18/22 06:00 02/20/22 03:35 Chloride IV 0.03 units/min TITR KARAN 9.09 mls/hr Administration Protocol 0.03 UNITS/MIN Cefepime HCl 2 gm in 100 mls @ 200 mls/hr 02/18/22 22:00 02/19/22 22:00 Cefepime/Ns 2 Gm/100 Ml IV 200 mls/hr Q24H KARAN Administration Protocol Phenylephrine HCl 100 mg/ 100 mls @ 3 mls/hr 02/18/22 13:30 02/19/22 02:31 Sodium Chloride IV 0 mcg/min TITR KARAN 0 mls/hr Titration Protocol 50 MCG/MIN Sodium Chloride 1,000 mls @ 1 mls/hr 02/18/22 13:21 Nacl 0.9% 1000 Ml IV DIRECT PRN ARTERIAL LINE FLUSH Insulin Human Lispro 0 unit 02/19/22 12:00 02/20/22 06:06 Insulin Lispro 100 Unit/Ml SUB-Q Not Given Q6HR KARAN Protocol Multi-Ingred Cream/Lotion/Oil/Oint 1 applic 02/17/22 23:25 Mineral Oil/Petrolatum, White Ophth Oint 3.5 Gm OU Q4HR PRN Dry Eye(s) Nitroglycerin 0.4 mg 02/18/22 03:18 Nitroglycerin 0.4 Mg Tab Subl SL Q5M PRN Chest Pain Ondansetron HCl 4 mg 02/18/22 03:18 Ondansetron 4 Mg/2 Ml Inj IV Q8H PRN Nausea And Vomiting Senna/Docusate Sodium 1 tab 02/18/22 10:00 02/19/22 21:59 Sennosides/Docusate Sodium 8.6/50 Mg Tab FEEDTUBE 1 tab BID KARAN Administration Sodium Chloride 10 ml 02/18/22 10:00 02/19/22 22:00 Sodium Chloride 0.9% 10 Ml Flush Syringe IV 10 ml BID KARAN Administration Sodium Chloride 10 ml 02/18/22 03:18 Sodium Chloride 0.9% 10 Ml Flush Syringe IV PRN PRN LINE FLUSH
[2022-02-20 09:35] LABS: Band Neutrophils # (Manual) 0.9 K/mm3; Basophils % (Manual) 0 % (0.0-1.8); Monocytes % (Manual) 0 % (0.0-7.3); Myelocytes # (Manual) 0.2 K/mm3; Total Cells Counted 100
[2022-02-20 09:36] LABS: Poikilocytosis 1+
[2022-02-20 09:37] LABS: Hypochromasia 1+; Ovalocytes 1+; Platelet Estimate Consistent w Auto; Spherocytes Few
[2022-02-20] MEDS: IPRATROPIUM/ALBUTEROL SULFATE 3 ML AMPUL.NEB IH SCH ×3 (09:45→20:13)
[2022-02-20] MEDS: SENNOSIDES/DOCUSATE SODIUM 8.6/50 MG TAB FEEDTUBE SCH ×2 (09:46→21:13)
[2022-02-20] MEDS: fentaNYL 100 MCG/2 ML INJ IV PRN ×2 (09:46→22:40)
[2022-02-20] MEDS: APIXABAN 2.5 MG TAB FEEDTUBE SCH ×2 (09:46→21:13)
[2022-02-20] MEDS: ASPIRIN 325 MG TAB FEEDTUBE SCH (09:46)
[2022-02-20] MEDS: FAMOTIDINE 20 MG/2 ML INJ IV SCH (09:46)
--- NOTE | 2022-02-20 10:23 | Progress Note ---
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 02/20/22: Continue to wean Vasopression for MAPs 65 and greater. Wean FiO2 for sats >88%. Hopeful PSV and possible extubation soon. Will continue cefepime for 7 days. Await speciation of Staph. Random vanc level checked. Guarded to poor prognosis as urine output continues to dwindle. Family has not made a dec ision about HD yet. 02/19/22: Another discussion with , sister and daughter over the phone again today. Explained that he has not improved since admission and has actually gotten worse. Now dealing with multisystem organ failure. Family is now debating on how long to continue and they are going to discuss if they want to pursue dialysis. Will continue supportive measures. Guarded to poor prognosis now with multisystem failure. Long discussion at bedside with and sister and daughter over the phone. Very good questions asked by them. Daughter mentions patient may have been in c ontact with COVID 19. Also concerns about code status now. Discussed with them the clinical situation and they will make decisions. 1. Wean fIo2 for sats >88% 2. Leave off continuous sedation, ok with PRN pushes if needed 3. OG tube placement 4. Wean Vasopressors for MAPS >88% 5. broaden abx therapy given immunocompromised state and last place of residence. 6. Family wishes to try to treat through this to see if patient can be extubated which is not unreasonable. However he is an AND and they want to stick with this. 7. Guarded to poor prognosis. Patient was in rehab attempting to get stronger to get Palliative chemo therapy. CCT 31 minutes. Subjective Date of service: 02/20/22 Principal diagnosis: ARF Interval history: Down to 45%. Sat is 99%. Down to levophed of 4. Family not at bedside today. Objective Vital Signs - 12hr 02/19/22 02/19/22 02/19/22 22:30 22:45 23:00 Temperature Pulse Rate 82 84 86 Pulse Rate [ Bilateral] Pulse Rate [ From Monitor] Respiratory 24 29 H 28 H Rate Respiratory Rate [Bilateral ] Blood Pressure 112/64 102/69 109/68 O2 Sat by Pulse 99 98 97 Oximetry 02/19/22 02/19/22 02/19/22 23:15 23:31 23:39 Temperature Pulse Rate 83 86 85 Pulse Rate [ Bilateral] Pulse Rate [ From Monitor] Respiratory 26 H 23 Rate Respiratory Rate [Bilateral ] Blood Pressure 108/67 O2 Sat by Pulse 100 100 99 Oximetry 02/19/22 02/20/22 02/20/22 23:45 00:00 00:01 Temperature Pulse Rate 88 77 87 Pulse Rate [ Bilateral] Pulse Rate [ 80 From Monitor] Respiratory 20 32 H 22 Rate Respiratory Rate [Bilateral ] Blood Pressure O2 Sat by Pulse 99 90 99 Oximetry 02/20/22 02/20/22 02/20/22 00:15 00:30 00:45 Temperature Pulse Rate 84 85 84 Pulse Rate [ Bilateral] Pulse Rate [ From Monitor] Respiratory 24 27 H 22 Rate Respiratory Rate [Bilateral ] Blood Pressure 119/52 118/67 127/67 O2 Sat by Pulse 100 100 100 Oximetry 02/20/22 02/20/22 02/20/22 01:01 01:15 01:31 Temperature Pulse Rate 87 79 82 Pulse Rate [ Bilateral] Pulse Rate [ From Monitor] Respiratory 23 18 14 Rate Respiratory Rate [Bilateral ] Blood Pressure 64/39 64/39 122/77 O2 Sat by Pulse 100 100 100 Oximetry 02/20/22 02/20/22 02/20/22 01:45 02:00 02:15 Temperature Pulse Rate 85 81 86 Pulse Rate [ Bilateral] Pulse Rate [ From Monitor] Respiratory 28 H 28 H 28 H Rate Respiratory Rate [Bilateral ] Blood Pressure 120/100 115/72 123/77 O2 Sat by Pulse 100 100 100 Oximetry 02/20/22 02/20/22 02/20/22 02:30 02:45 03:00 Temperature Pulse Rate 77 81 84 Pulse Rate [ Bilateral] Pulse Rate [ From Monitor] Respiratory 22 12 21 Rate Respiratory Rate [Bilateral ] Blood Pressure 110/69 122/75 125/65 O2 Sat by Pulse 100 100 97 Oximetry 02/20/22 02/20/22 02/20/22 03:15 03:30 03:45 Temperature Pulse Rate 81 83 84 Pulse Rate [ Bilateral] Pulse Rate [ From Monitor] Respiratory 28 H 22 23 Rate Respiratory Rate [Bilateral ] Blood Pressure 116/68 105/78 116/73 O2 Sat by Pulse 99 97 100 Oximetry 02/20/22 02/20/2202/20/22 04:00 04:01 04:15 Temperature Pulse Rate 76 78 82 Pulse Rate [ Bilateral] Pulse Rate [ 80 From Monitor] Respiratory 32 H 27 H 21 Rate Respiratory Rate [Bilateral ] Blood Pressure 107/71 116/73 116/73 O2 Sat by Pulse 100 99 99 Oximetry 02/20/22 02/20/22 02/20/22 04:31 04:45 05:00 Temperature Pulse Rate 87 78 89 Pulse Rate [ Bilateral] Pulse Rate [ From Monitor] Respiratory 28 H 28 H 22 Rate Respiratory Rate [Bilateral ] Blood Pressure 107/64 110/62 123/74 O2 Sat by Pulse 99 100 97 Oximetry 02/20/22 02/20/22 02/20/22 05:15 05:30 05:45 Temperature Pulse Rate 75 78 85 Pulse Rate [ Bilateral] Pulse Rate [ From Monitor] Respiratory 29 H 28 H 25 H Rate Respiratory Rate [Bilateral ] Blood Pressure 107/71 104/65 99/75 O2 Sat by Pulse 100 100 100 Oximetry 02/20/22 02/20/22 02/20/22 06:00 08:00 09:45 Temperature 97.3 F L Pulse Rate 85 77 Pulse Rate [ Bilateral] Pulse Rate [ From Monitor] Respiratory 23 Rate Respiratory Rate [Bilateral ] Blood Pressure 115/59 117/73 O2 Sat by Pulse 99 100 Oximetry 02/20/22 09:50 Temperature Pulse Rate Pulse Rate [ 80 Bilateral] Pulse Rate [ From Monitor] Respiratory Rate Respiratory 28 H Rate [Bilateral ] Blood Pressure O2 Sat by Pulse Oximetry Constitutional: alert, appears uncomfortable Eyes: other (has only one eye, right eye) ENT: other (orally intubated, not on sedation) Neck: supple Effort: mildly labored Ascultation: Bilateral: rhonchi Percussion: Bilateral: not dull Cardiovascular: regular rate and rhythm Gastrointestinal: normoactive bowel sounds, soft CBC and BMP: 02/20/22 04:30 02/20/22 04:30 ABG, PT/INR, D-dimer: ABG ABG pH 7.319 pH Units (7.350-7.450) L 02/20/22 05:03 POC ABG pCO2 60.4 mmHg (32.0-48.0) H 02/18/22 00:20 ABG pCO2 39.3 mm Hg 02/20/22 05:03 POC ABG pO2 93.0 mmHg (83-108) 02/18/22 00:20 ABG pO2 149.9 mm Hg (80.0-90.0) H 02/20/22 05:03 POC ABG HCO3 20.5 02/18/22 00:20 ABG O2 Saturation 98.8 % (95.0-99.0) 02/20/22 05:03 PT/INR, D-dimer PT 27.7 Sec. (12.2-14.9) H 02/19/22 Unknown INR 2.24 (0.87-1.13) H 02/19/22 Unknown Abnormal lab findings: Abnormal Labs 02/18/22 02/18/22 02/18/22 00:20 00:21 00:21 RBC 3.15 L Hgb 9.0 L Hct 28.0 L RDW 20.4 H Seg Neutrophils % 71.8 H Seg Neuts % (Manual) Lymphocytes % (Manual) Nucleated RBC % Seg Neutrophils # Man Lymphocytes # (Manual) PT 29.4 H INR 2.41 H APTT 38.3 H ABG pH 7.148 L POC ABG pCO2 60.4 H ABG pO2 ABG HCO3 ABG Base Excess ABG Hemoglobin 8.69 L ABG Oxyhemoglobin 93.7 L Oxyhemoglobin Carboxyhemoglobin 2.1 H Sodium Potassium Chloride Carbon Dioxide BUN Creatinine Glucose POC Glucose Calcium Phosphorus AST Alkaline Phosphatase Total Creatine Kinase Troponin T Albumin LDL Cholesterol Direct HDL Cholesterol TSH Urine Creatinine Urine Total Protein Salicylates Acetaminophen 02/18/22 02/18/22 02/18/22 00:21 00:21 00:21 RBC Hgb Hct RDW Seg Neutrophils % Seg Neuts % (Manual) Lymphocytes % (Manual) Nucleated RBC % Seg Neutrophils # Man Lymphocytes # (Manual) PT INR APTT ABG pH POC ABG pCO2 ABG pO2 ABG HCO3 ABG Base Excess ABG Hemoglobin ABG Oxyhemoglobin Oxyhemoglobin Carboxyhemoglobin Sodium Potassium Chloride 112.6 H Carbon Dioxide 19 L BUN 55 H Creatinine 3.0 H Glucose 152 H POC Glucose Calcium 7.4 L Phosphorus AST 56 H Alkaline Phosphatase 268 H Total Creatine Kinase 233 H Troponin T 0.073 H Albumin 2.2 L LDL Cholesterol Direct 30 L HDL Cholesterol 19 L TSH 5.100 H Urine Creatinine Urine Total Protein Salicylates < 0.3 L Acetaminophen 0402/18/22 02/18/22 00:21 05:02 06:22 RBC Hgb Hct RDW Seg Neutrophils % Seg Neuts % (Manual) Lymphocytes % (Manual) Nucleated RBC % Seg Neutrophils # Man Lymphocytes # (Manual) PT INR APTT ABG pH 7.131 L* POC ABG pCO2 ABG pO2 93.2 H ABG HCO3 17.6 L ABG Base Excess -11.2 L ABG Hemoglobin 9.1 L ABG Oxyhemoglobin Oxyhemoglobin 94.6 L Carboxyhemoglobin Sodium Potassium Chloride Carbon Dioxide BUN Creatinine Glucose POC Glucose 125 H Calcium Phosphorus AST Alkaline Phosphatase Total Creatine Kinase Troponin T Albumin LDL Cholesterol Direct HDL Cholesterol TSH Urine Creatinine Urine Total Protein Salicylates Acetaminophen 5.0 L 02/18/22 02/18/22 02/18/22 09:21 11:30 17:14 RBC Hgb Hct RDW Seg Neutrophils % Seg Neuts % (Manual) Lymphocytes % (Manual) Nucleated RBC % Seg Neutrophils # Man Lymphocytes # (Manual) PT INR APTT ABG pH POC ABG pCO2 ABG pO2 ABG HCO3 ABG Base Excess ABG Hemoglobin ABG Oxyhemoglobin Oxyhemoglobin Carboxyhemoglobin Sodium Potassium Chloride Carbon Dioxide BUN Creatinine Glucose POC Glucose 127 H 126 H Calcium Phosphorus AST Alkaline Phosphatase Total Creatine Kinase Troponin T 0.076 H Albumin LDL Cholesterol Direct HDL Cholesterol TSH Urine Creatinine Urine Total Protein Salicylates Acetaminophen 02/18/22 02/18/22 02/19/22 23:44 23:44 04:00 RBC Hgb Hct RDW Seg Neutrophils % Seg Neuts % (Manual) Lymphocytes % (Manual) Nucleated RBC % Seg Neutrophils # Man Lymphocytes # (Manual) PT INR APTT ABG pH POC ABG pCO2 ABG pO2 ABG HCO3 ABG Base Excess ABG Hemoglobin ABG Oxyhemoglobin Oxyhemoglobin Carboxyhemoglobin Sodium Potassium Chloride Carbon Dioxide 21 L BUN 56 H Creatinine 3.5 H Glucose 224 H POC Glucose Calcium 6.1 L D Phosphorus AST Alkaline Phosphatase Total Creatine Kinase Troponin T Albumin LDL Cholesterol Direct HDL Cholesterol TSH Urine Creatinine 180.0 H 180.9 H Urine Total Protein 457 H Salicylates Acetaminophen 02/19/22 02/19/22 02/19/22 04:12 04:20 11:46 RBC 3.14 L Hgb 8.9 L Hct 27.6 L RDW 19.6 H Seg Neutrophils % Seg Neuts % (Manual) 96.0 H Lymphocytes % (Manual) 2.0 L Nucleated RBC % Seg Neutrophils # Man 9.5 H Lymphocytes # (Manual) 0.2 L PT INR APTT ABG pH 7.199 L* POC ABG pCO2 ABG pO2 147.0 H ABG HCO3 ABG Base Excess -6.2 L ABG Hemoglobin 9.1 L ABG Oxyhemoglobin Oxyhemoglobin Carboxyhemoglobin Sodium Potassium Chloride Carbon Dioxide BUN Creatinine Glucose POC Glucose 152 H Calcium Phosphorus AST Alkaline Phosphatase Total Creatine Kinase Troponin T Albumin LDL Cholesterol Direct HDL Cholesterol TSH Urine Creatinine Urine Total Protein Salicylates Acetaminophen 02/19/22 02/19/22 02/19/22 12:48 18:29 Unknown RBC 2.97 L Hgb 8.4 L Hct 25.9 L RDW 19.7 H Seg Neutrophils % Seg Neuts % (Manual) Lymphocytes % (Manual) Nucleated RBC % Seg Neutrophils # Man Lymphocytes # (Manual) PT INR APTT ABG pH POC ABG pCO2 ABG pO2 ABG HCO3 ABG Base Excess ABG Hemoglobin ABG Oxyhemoglobin Oxyhemoglobin Carboxyhemoglobin Sodium Potassium 5.1 H Chloride Carbon Dioxide 20 L BUN 55 H Creatinine 3.5 H Glucose 221 H POC Glucose 126 H Calcium 6.0 L Phosphorus 6.70 H AST Alkaline Phosphatase Total Creatine Kinase Troponin T Albumin LDL Cholesterol Direct HDL Cholesterol TSH Urine Creatinine Urine Total Protein Salicylates Acetaminophen 02/19/22 02/19/22 02/20/22 Unknown Unknown 00:29 RBC Hgb Hct RDW Seg Neutrophils % Seg Neuts % (Manual) Lymphocytes % (Manual) Nucleated RBC % Seg Neutrophils # Man Lymphocytes # (Manual) PT 27.7 H INR 2.24 H APTT 46.4 H ABG pH POC ABG pCO2 ABG pO2 ABG HCO3 ABG Base Excess ABG Hemoglobin ABG Oxyhemoglobin Oxyhemoglobin Carboxyhemoglobin Sodium Potassium Chloride Carbon Dioxide BUN Creatinine 4.0 H Glucose POC Glucose 129 H Calcium Phosphorus AST Alkaline Phosphatase Total Creatine Kinase Troponin T Albumin LDL Cholesterol Direct HDL Cholesterol TSH Urine Creatinine Urine Total Protein Salicylates Acetaminophen 02/20/22 02/20/22 02/20/22 04:30 04:30 05:03 RBC 2.62 L Hgb 7.5 L Hct 22.8 L RDW 19.9 H Seg Neutrophils % Seg Neuts % (Manual) 79.0 H Lymphocytes % (Manual) 5.0 L Nucleated RBC % 1.0 H Seg Neutrophils # Man Lymphocytes # (Manual) 0.4 L PT INR APTT ABG pH 7.319 L POC ABG pCO2 ABG pO2 149.9 H ABG HCO3 19.8 L ABG Base Excess -5.8 L ABG Hemoglobin 7.3 L ABG Oxyhemoglobin Oxyhemoglobin Carboxyhemoglobin Sodium 136 L Potassium Chloride Carbon Dioxide 19 L BUN 70 H Creatinine 4.4 H Glucose 148 H POC Glucose Calcium 5.9 L* Phosphorus AST Alkaline Phosphatase Total Creatine Kinase Troponin T Albumin LDL Cholesterol Direct HDL Cholesterol TSH Urine Creatinine Urine Total Protein Salicylates Acetaminophen
--- NOTE | 2022-02-20 11:30 | Progress Note ---
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 fib (on Eliquis) Hyperlipidemia History of CABG x2 History venous insufficiency Sleep apnea Cardiographics EKG-atrial fibrillation rate 71, nonspecific ST- t wave changes. No acute ischemia Chest x-ray 02/17/22-bilateral lung opacities differential considerations to include sequelae of infection and/or possibly asymmetric pulmonary edema. Small dependent left pleural effusion Echocardiogram-02/18/2022: LVEF 40 to 45%. RV SF mildly decreased. RV SF mildly reduced. Right ventricle is dilated. Left atrium moderately dilated. Right atrium dilated. Moderate MR. Moderate TR. RVSP 48 mmHg. Recommendations/plan S/p Cardiac arrest. Etiology unclear. Malignant neoplasm of lower respiratory tract. - Pulmonology following Patient still requiring multiple pressors, and ventilatory support Continue Eliquis for A. fib Goal-directed medical therapy as tolerated. No beta-blockers due to soft blood pressure requiring hemodynamic support. No ALEXEY/ARB in setting of IGGY. Continue aspirin, statin Fluid and electrolyte management per nephrology Prognosis is extremely poor/guarded. Patient seen in conjunction with Dr. Hicks who agrees with the assessment and management of this patient. - Patient Problems (1) H/O two vessel coronary artery bypass graft Current Visit: Yes Status: Acute (2) Sleep apnea Current Visit: Yes Status: Acute (3) Acute encephalopathy Current Visit: Yes Status: Acute (4) Acute respiratory failure Current Visit: Yes Status: Acute (5) Atrial fibrillation Current Visit: Yes Status: Acute (6) Cardiac arrest Current Visit: Yes Status: Acute (7) Renal insufficiency Current Visit: Yes Status: Acute (8) Malignant neoplasm Current Visit: Yes Status: Acute Subjective Date of service: 02/20/22 Principal diagnosis: ARF Interval history: Patient seen and examined today in the intensive care unit. He is still intubated requiring pressor support. Telemetry: Atrial fibrillation Intake & Output 02/19/22 02/20/22 02/20/22 23:59 07:59 15:59 Intake Total 41.875 101 Output Total 15 15 25 Balance 26.875 86 -25 Objective Vital Signs Temp Pulse Pulse Pulse Resp Resp BP 02/20/22 10:15 72 28 H 101/66 02/20/22 10:00 78 28 H 101/64 02/20/22 09:50 80 28 H 02/20/22 09:45 90 21 118/69 02/20/22 09:30 84 14 118/69 02/20/22 09:15 87 23 113/69 02/20/22 09:00 88 28 H 111/72 02/20/22 08:45 78 28 H 118/73 02/20/22 08:30 80 29 H 100/70 02/20/22 08:15 88 19 113/74 02/20/22 08:00 97.3 F L 85 73 24 117/67 02/20/22 07:45 80 13 112/55 02/20/22 07:30 85 21 119/72 02/20/22 07:15 85 16 129/66 02/20/22 07:01 83 28 H 119/40 02/20/22 06:45 84 22 53/26 02/20/22 06:31 82 22 125/99 02/20/22 06:15 79 14 115/59 02/20/22 06:00 85 23 115/59 02/20/22 05:45 85 25 H 99/75 02/20/22 05:30 78 28 H 104/65 02/20/22 05:15 75 29 H 107/71 02/20/22 05:00 89 22 123/74 02/20/22 04:45 78 28 H 110/62 02/20/22 04:31 87 28 H 107/64 02/20/22 04:15 82 21 116/73 02/20/22 04:01 78 27 H 116/73 02/20/22 04:00 76 80 32 H 107/71 02/20/22 03:45 84 23 116/73 02/20/22 03:30 83 22 105/78 02/20/22 03:15 81 28 H 116/68 02/20/22 03:00 84 21 125/65 02/20/22 02:45 81 12 122/75 02/20/22 02:30 77 22 110/69 02/20/22 02:15 86 28 H 123/77 02/20/22 02:00 81 28 H 115/72 02/20/22 01:45 85 28 H 120/100 02/20/22 01:31 82 14 122/77 02/20/22 01:15 79 18 64/39 02/20/22 01:01 87 23 64/39 02/20/22 00:45 84 22 127/67 02/20/22 00:30 85 27 H 118/67 02/20/22 00:15 84 24 119/52 02/20/22 00:01 87 22 02/20/22 00:00 77 80 32 H 02/19/22 23:45 88 20 02/19/22 23:39 85 02/19/22 23:31 86 23 02/19/22 23:15 83 26 H 108/67 02/19/22 23:00 86 28 H 109/68 02/19/22 22:45 84 29 H 102/69 02/19/22 22:30 82 24 112/64 02/19/22 22:15 82 25 H 103/60 02/19/22 22:00 80 25 H 102/59 02/19/22 21:45 77 11 L 93/56 02/19/22 21:30 86 12 98/56 02/19/22 21:15 86 24 106/85 02/19/22 21:01 93 H 22 101/84 02/19/22 20:45 87 26 H 105/58 02/19/22 20:30 74 22 105/58 02/19/22 20:15 84 28 H 100/60 02/19/22 20:01 81 24 106/59 02/19/22 20:00 76 88 80 32 H 228 H 02/19/22 19:57 84 21 97/64 02/19/22 19:55 83 97/64 02/19/22 19:45 79 21 97/64 02/19/22 19:31 83 27 H 90/60 02/19/22 19:16 77 29 H 90/63 02/19/22 19:00 86 14 114/94 02/19/22 18:46 81 16 114/94 02/19/22 18:39 99.5 F 02/19/22 18:30 84 19 82/64 02/19/22 18:16 84 28 H 82/64 02/19/22 18:00 81 24 88/67 02/19/22 17:45 81 31 H 93/65 02/19/22 17:30 79 20 101/46 02/19/22 17:16 82 16 102/59 02/19/22 17:00 82 28 H 99/55 04/20/22 16:45 76 27 H 99/55 02/19/22 16:30 80 30 H 116/55 02/19/22 16:15 80 28 H 97/64 02/19/22 16:00 87 80 25 H 98/62 02/19/22 15:46 79 21 86/68 02/19/22 15:30 80 20 96/72 02/19/22 15:16 79 23 136/105 02/19/22 15:00 86 30 H 117/64 02/19/22 14:46 74 26 H 117/64 02/19/22 14:30 68 28 H 92/53 02/19/22 14:15 78 87 21 30 H 99/63 02/19/22 14:00 81 29 H 80/53 02/19/22 13:46 80 25 H 80/53 02/19/22 13:30 85 20 91/69 02/19/22 13:16 82 18 91/69 02/19/22 13:00 80 24 100/70 02/19/22 12:45 83 21 103/57 02/19/22 12:30 80 27 H 96/54 02/19/22 12:15 78 25 H 105/57 02/19/22 12:10 77 96/54 02/19/22 12:00 76 73 26 H 78/57 02/19/22 11:45 81 28 H 78/57 02/19/22 11:34 96.5 F L 02/19/22 11:30 78 21 87/61 Pulse Ox 02/20/22 10:15 97 02/20/22 10:00 99 02/20/22 09:50 02/20/22 09:45 96 02/20/22 09:30 94 02/20/22 09:15 100 02/20/22 09:00 100 02/20/22 08:45 100 02/20/22 08:30 100 02/20/22 08:15 95 02/20/22 08:00 100 02/20/22 07:45 100 02/20/22 07:30 100 02/20/22 07:15 94 02/20/22 07:01 100 02/20/22 06:45 95 02/20/22 06:31 98 02/20/22 06:15 95 02/20/22 06:00 99 02/20/22 05:45 100 02/20/22 05:30 100 02/20/22 05:15 100 02/20/22 05:00 97 02/20/22 04:45 100 02/20/22 04:31 99 02/20/22 04:15 99 02/20/22 04:01 99 02/20/22 04:00 100 02/20/22 03:45 100 02/20/22 03:30 97 02/20/22 03:15 99 02/20/22 03:00 97 02/20/22 02:45 100 02/20/22 02:30 100 02/20/22 02:15 100 02/20/22 02:00 100 02/20/22 01:45 100 02/20/22 01:31 100 02/20/22 01:15 100 02/20/22 01:01 100 02/20/22 00:45 100 02/20/22 00:30 100 02/20/22 00:15 100 02/20/22 00:01 99 02/20/22 00:00 90 02/19/22 23:45 99 02/19/22 23:39 99 02/19/22 23:31 100 02/19/22 23:15 100 02/19/22 23:00 97 02/19/22 22:45 98 02/19/22 22:30 99 02/19/22 22:15 100 02/19/22 22:00 100 02/19/22 21:45 100 02/19/22 21:30 100 02/19/22 21:15 99 02/19/22 21:01 93 02/19/22 20:45 91 02/19/22 20:30 100 02/19/22 20:15 100 02/19/22 20:01 02/19/22 20:00 90 02/19/22 19:57 02/19/22 19:55 94 02/19/22 19:45 02/19/22 19:31 100 02/19/22 19:16 02/19/22 19:00 02/19/22 18:46 02/19/22 18:39 02/19/22 18:30 80 L 02/19/22 18:16 100 02/19/22 18:00 95 02/19/22 17:45 88 02/19/22 17:30 93 02/19/22 17:16 88 02/19/22 17:00 91 02/19/22 16:45 89 02/19/22 16:30 91 02/19/22 16:15 02/19/22 16:00 90 02/19/22 15:46 95 02/19/22 15:30 89 02/19/22 15:16 84 02/19/22 15:00 86 02/19/22 14:46 90 02/19/22 14:30 100 02/19/22 14:15 94 02/19/22 14:00 90 02/19/22 13:46 100 02/19/22 13:30 95 02/19/22 13:16 95 02/19/22 13:00 95 02/19/22 12:45 99 02/19/22 12:30 98 02/19/22 12:15 97 02/19/22 12:10 99 02/19/22 12:00 100 02/19/22 11:45 98 02/19/22 11:34 02/19/22 11:30 97 - Physical Examination General: No Apparent Distress, Other (Intubated sedated) HEENT: Positive: Normocephaly, Mucus Membranes Dry Neck: Positive: trachea midline Cardiac: Positive: irregularly irregular, S1/S2 Lungs: Positive: Rhonchi, Ventilated Respirations Neuro: Positive: Other (unable to assess) Abdomen: Positive: Active Bowel Sounds Skin: Negative: Rash Extremities: Present: upper extr. pulses (1+), +2 Edema (BLE edema), warm - Labs and Meds Coagulation 02/19/22 Range/Units Unknown PT 27.7 H (12.2-14.9) Sec. INR 2.24 H (0.87-1.13) APTT 46.4 H (24.2-36.6) Sec. CBC 02/19/22 02/20/22 Range/Units 12:48 04:30 WBC 9.4 7.5 (4.5-11.0) K/mm3 RBC 2.97 L 2.62 L (3.65-5.03) M/mm3 Hgb 8.4 L 7.5 L (11.8-15.2) gm/dl Hct 25.9 L 22.8 L (35.5-45.6) % Plt Count 239 196 (140-440) K/mm3 Comprehensive Metabolic Panel 02/19/22 02/20/22 Range/Units Unknown 04:30 Sodium 136 L (137-145) mmol/L Potassium 4.8 (3.6-5.0) mmol/L Chloride 102.0 (98-107) mmol/L Carbon Dioxide 19 L (22-30) mmol/L BUN 70 H (9-20) mg/dL Creatinine 4.0 H 4.4 H (0.8-1.3) mg/dL Glucose 148 H (75-100) mg/dL Calcium 5.9 L* (8.4-10.2) mg/dL - Imaging and Cardiology EKG: image reviewed Echo: report reviewed (Echocardiogram 02/18/2022: LVEF 40 to 45%. RV SF mildly decreased. RV SF mildly reduced. Right ventricle is dilated. Left atrium moderately dilated. Right atrium dilated. Moderate MR. Moderate TR. RVSP 48 mmHg.) - Telemetry EKG Rhythm: Atrial Fibrillation - EKG Ventricular dysrhythmias: ventricular premature com
--- NOTE | 2022-02-20 15:10 | Progress Note ---
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 fib, CKD stage III admitted with acute hypoxic respiratory failure s/p cardiac arrest. Neuro: Acute metabolic encephalopathy -IV push fentanyl prn -Avoid delirium -Reorientation as needed -Maintain sleep-wake cycle -As needed analgesia -CT head with no acute intracranial abnormality Cardiac: S/p cardiac arrest, h/o HTN, chronic afib, CABG x2, venous insufficiency -Cardiology consulted, appreciate recommendations -Blood pressure monitoring per protocol -Vasopressor support with Levophed, vasopressin -s/p Tripp-Synephrine -MAP goal greater than 65 -Echocardiogram shows EF 40% -Cardiology 09/2019 echocardiogram with EF of 55 to 60% Respiratory: Acute hypoxic respiratory failure -Intubated in the emergency department with 8.00 ETT at 24 the lips on 02/17 -CCM consulted, appreciate recommendations -A.m. vent settings: Assist-control/PRVC rate 28, tidal volume 500, PEEP 8, FiO2 45% -See RT notes for titration -A.m. ABG and CXR noted -VAP bundle -SPO2 monitoring GI: Protein calorie malnutrition -PPI -Ntr consult for TF -24-hour +3800 mL -BR: [place]ot : Acute kidney injury secondary to acute tubular necrosis, rhabdomyolysis, h/o CKD stage III per family -Nephrology consulted, appreciate recommendations -Family would like to proceed with hemodialysis -Per nephrology no acute indication, can hold off till tomorrow if renal function worsens -Strict intake and output -Renally dose medications -Avoid nephrotoxic medications -Daily weights -FeNa 0.35% indicating prerenal cause for renal failure -Renal ultrasound shows complex cyst in the mid to lower left kidney, additional bilateral renal cysts, hyperechogenic appearance of kidneys which may reflect sequelae of medical renal disease -Trend BMP -s/p D5 sodium bicarb gtt -s/p 2L fluid bolus ID: Possible postobstructive pneumonia, sepsis (POA) -Infectious disease consulted, appreciate recommendation -Antibiotic therapy with cefepime -MRSA PCR negative -stopped vanco -Stress dose steroids -Vasopressor support with Levophed, vasopressin -COVID-19 PCR negative -f/u blood culture -Monitor WBC and temperature curve Endo: NAD -Avoid hypoglycemia -SSI -Accu-Cheks q6 hr Heme: NAD -Trend CBC -Transfuse hemoglobin less than 7 -Monitor for signs of bleeding -heparin subq -restart home eliqius for afib -SCDs to BLE while in bed Oncology: Stage IV adenocarcinoma of the lung with mets to spine -Per family patient recently suffered a stress fracture to T7-T8 and was currently in rehab to get stronger to withstand palliative treatment -Continue supportive care The high probability of a clinically significant, sudden or life threatening det erioration of the [multi] system(s) required my full and direct attention, intervention and personal management. The aggregate critical care time was [60] minutes. 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 fib, HTN, CABG x2, hyperlipidemia, CKD stage III who presented to the hospital on 02/08 with altered mental status and acute respiratory failure via EMS. Upon arrival to the emergency department patient was having agonal breathing and hypotension his airway and required bag valve mask ventilation and was intubated by ED physician. After intubation patient went into cardiac arrest with ROSC achievement in 2 minutes. Patient was admitted to the hospitalist service with consults to [facility], cardiology and nephrology. Hospital course to date: 02/18: Patient was sedated on fentanyl on arrival to ICU which was weaned off, patient was able to follow simple commands. This morning patient was on Le vophed and vasopressin and bicarbonate drip. Phenyl epinephrine was added later this afternoon. This evening patient received an roya and was persistently hypotensive. He received 1 L bolus this morning however given persistent hypotension with decreased urine output patient was given additional 1 L of LR. COVID-19 PCR negative. Patient's CODE STATUS changed to AND. 02/19: Patient has been weaned off of the norepinephrine and remains on vasopressin and Levophed. Renal function worsened. Bicarbonate drip discontinued and nephrology discontinued IVF. Hemodialysis discussed with nephrology. Dr. Fry also had a discussion with family, prognosis of care and goals of care. Patient family will let us know about dialysis. Corrected Ca 7.8 02/20: Family would like to proceed with hemodialysis however renal will need to assess for 1 more day. Still remains on vasopressors however they are being weaned. Patient is edematous. Weaning FiO2 as tolerated. Possible PSV in the a.m. And will continue cefepime for 7 days. Discontinue vancomycin as MRSA is negative Hospitalist Physical - Constitutional Vitals: Temp Pulse Resp BP Pulse Ox 97.3 F L 79 28 H 120/63 100 02/20/22 08:00 02/20/22 14:10 02/20/22 14:10 02/20/22 13:00 02/20/22 13:00 General appearance: Present: no acute distress - EENT Eyes: Present: EOM intact. Absent: PERRL (left eye enucleation) ENT: clear oral mucosa, dentition normal - Neck Neck: Present: normal ROM - Respiratory Respiratory effort: normal Respiratory: bilateral: diminished - Cardiovascular Rhythm: regular Heart Sounds: Present: S1 & S2. Absent: systolic murmur, diastolic murmur - Extremities Extremities: no ischemia, pulses intact, pulses symmetrical, No edema, normal temperature, normal color Peripheral Pulses: within normal limits - Abdominal General gastrointestinal: soft, non-tender, non-distended, normal bowel sounds - Integumentary Integumentary: Present: warm, dry - Psychiatric Psychiatric: cooperative - Neurologic Neurologic: CNII-XII intact, moves all extremities - Allied Health Allied health notes reviewed: nursing, RT, social work HEART Score - HEART Score Troponin: Troponin T 0.076 ng/mL (0.00-0.029) H 02/18/22 09:21 Results - Labs CBC & Chem 7: 02/20/22 04:30 02/20/22 04:30 Labs: Laboratory Last Values WBC 7.5 K/mm3 (4.5-11.0) 02/20/22 04:30 RBC 2.62 M/mm3 (3.65-5.03) L 02/20/22 04:30 Hgb 7.5 gm/dl (11.8-15.2) L 02/20/22 04:30 Hct 22.8 % (35.5-45.6) L 02/20/22 04:30 MCV 87 fl (84-94) 02/20/22 04:30 MCH 29 pg (28-32) 02/20/22 04:30 MCHC 33 % (32-34) 02/20/22 04:30 RDW 19.9 % (13.2-15.2) H 02/20/22 04:30 Plt Count 196 K/mm3 (140-440) 02/20/22 04:30 Lymph % (Auto) 19.8 % (13.4-35.0) 02/18/22 00:21 [place] % (Auto) 5.3 % (0.0-7.3) 02/18/22 00:21 Eos % (Auto) 2.0 % (0.0-4.3) 02/18/22 00:21 Baso % (Auto) 1.1 % (0.0-1.8) 02/18/22 00:21 Lymph # (Auto) 1.2 K/mm3 (1.2-5.4) 02/18/22 00:21 [place] # (Auto) 0.3 K/mm3 (0.0-0.8) 02/18/22 00:21 Eos # (Auto) 0.1 K/mm3 (0.0-0.4) 02/18/22 00:21 Baso # (Auto) 0.1 K/mm3 (0.0-0.1) 02/18/22 00:21 Add Manual Diff Complete 02/20/22 04:30 Total Counted 100 02/20/22 04:30 Seg Neutrophils % 71.8 % (40.0-70.0) H 02/18/22 00:21 Seg Neuts % (Manual) 79.0 % (40.0-70.0) H 02/20/22 04:30 Band Neutrophils % 12.0 % 02/20/22 04:30 Lymphocytes % (Manual) 5.0 % (13.4-35.0) L 02/20/22 04:30 Reactive Lymphs % (Man) 0 % 02/20/22 04:30 Monocytes % (Manual) 0 % (0.0-7.3) 02/20/22 04:30 Eosinophils % (Manual) 1.0 % (0.0-4.3) 02/20/22 04:30 Basophils % (Manual) 0 % (0.0-1.8) 02/20/22 04:30 Metamyelocytes % 0 % 02/20/22 04:30 Myelocytes % 3.0 % 02/20/22 04:30 Promyelocytes % 0 % 02/20/22 04:30 Blast Cells % 0 % 02/20/22 04:30 Nucleated RBC % 1.0 % (0.0-0.9) H 02/20/22 04:30 Seg Neutrophils # 4.5 K/mm3 (1.8-7.7) 02/18/22 00:21 Seg Neutrophils # Man 5.9 K/mm3 (1.8-7.7) 02/20/22 04:30 Band Neutrophils # 0.9 K/mm3 02/20/22 04:30 Lymphocytes # (Manual) 0.4 K/mm3 (1.2-5.4) L 02/20/22 04:30 Abs React Lymphs (Man) 0.0 K/mm3 02/20/22 04:30 Monocytes # (Manual) 0.0 K/mm3 (0.0-0.8) 02/20/22 04:30 Eosinophils # (Manual) 0.1 K/mm3 (0.0-0.4) 02/20/22 04:30 Basophils # (Manual) 0.0 K/mm3 (0.0-0.1) 02/20/22 04:30 Metamyelocytes # 0.0 K/mm3 02/20/22 04:30 Myelocytes # 0.2 K/mm3 02/20/22 04:30 Promyelocytes # 0.0 K/mm3 02/20/22 04:30 Blast Cells # 0.0 K/mm3 02/20/22 04:30 WBC Morphology Not Reportable 02/20/22 04:30 Hypersegmented Neuts Not Reportable 02/20/22 04:30 Hyposegmented Neuts Not Reportable 02/20/22 04:30 Hypogranular Neuts Not Reportable 02/20/22 04:30 Smudge Cells Not Reportable 02/20/22 04:30 Toxic Granulation Not Reportable 02/20/22 04:30 Toxic Vacuolation Not Reportable 02/20/22 04:30 Dohle Bodies Not Reportable 02/20/22 04:30 Pelger-Huet Anomaly Not Reportable 02/20/22 04:30 Jensen Rods Not Reportable 02/20/22 04:30 Platelet Estimate Consistent w auto 02/20/22 04:30 Clumped Platelets Not Reportable 02/20/22 04:30 Plt Clumps, EDTA Not Reportable 02/20/22 04:30 Large Platelets Not Reportable 02/20/22 04:30 Giant Platelets Not Reportable 02/20/22 04:30 Platelet Satelliting Not Reportable 02/20/22 04:30 Plt Morphology Comment Not Reportable 02/20/22 04:30 RBC Morphology Not Reportable 02/20/22 04:30 Dimorphic RBCs Not Reportable 02/20/22 04:30 Polychromasia Not Reportable 02/20/22 04:30 Hypochromasia 1+ 02/20/22 04:30 Poikilocytosis 1+ 02/20/22 04:30 Anisocytosis Not Reportable 02/20/22 04:30 Microcytosis Not Reportable 02/20/22 04:30 Macrocytosis Not Reportable 02/20/22 04:30 Spherocytes Few 02/20/22 04:30 Pappenheimer Bodies Not Reportable 02/20/22 04:30 Sickle Cells Not Reportable 02/20/22 04:30 Target Cells Not Reportable 02/20/22 04:30 Tear Drop Cells Not Reportable 02/20/22 04:30 Ovalocytes 1+ 02/20/22 04:30 Helmet Cells Not Reportable 02/20/22 04:30 [place] Bodies Not Reportable 02/20/22 04:30 [place] Rings Not Reportable 02/20/22 04:30 [place] Cells Not Reportable 02/20/22 04:30 Bite Cells Not Reportable 02/20/22 04:30 Crenated Cell Not Reportable 02/20/22 04:30 Elliptocytes Not Reportable 02/20/22 04:30 Acanthocytes (Spur) Not Reportable 02/20/22 04:30 Rouleaux Not Reportable 02/20/22 04:30 Hemoglobin C Crystals Not Reportable 02/20/22 04:30 Schistocytes Not Reportable 02/20/22 04:30 Malaria parasites Not Reportable 02/20/22 04:30 [place] Bodies Not Reportable 02/20/22 04:30 Hem Pathologist Commnt No 02/20/22 04:30 PT 27.7 Sec. (12.2-14.9) H 02/19/22 Unknown INR 2.24 (0.87-1.13) H 02/19/22 Unknown APTT 46.4 Sec. (24.2-36.6) H 02/19/22 Unknown ABG pH 7.319 pH Units (7.350-7.450) L 02/20/22 05:03 POC ABG pCO2 60.4 mmHg (32.0-48.0) H 02/18/22 00:20 ABG pCO2 39.3 mm Hg 02/20/22 05:03 POC ABG pO2 93.0 mmHg (83-108) 02/18/22 00:20 ABG pO2 149.9 mm Hg (80.0-90.0) H 02/20/22 05:03 POC ABG HCO3 20.5 02/18/22 00:20 ABG HCO3 19.8 mmol/L (20.0-26.0) L 02/20/22 05:03 ABG O2 Saturation 98.8 % (95.0-99.0) 02/20/22 05:03 ABG O2 Content 10.4 (0.0-44) 02/20/22 05:03 POC ABG Base Excess -8.2 02/18/22 00:20 ABG Base Excess -5.8 mmol/L (-2.0-3.0) L 02/20/22 05:03 ABG Hemoglobin 7.3 gm/dl (14.0-18.0) L 02/20/22 05:03 ABG Oxyhemoglobin 93.7 (94-98) L 02/18/22 00:20 ABG Carboxyhemoglobin 1.2 % (0.0-5.0) 02/20/22 05:03 ABG Methemoglobin 0.4 % (0.0-1.5) 02/20/22 05:03 Oxyhemoglobin 97.1 % (95.0-99.0) 02/20/22 05:03 Carboxyhemoglobin 2.1 (0.5-1.5) H 02/18/22 00:20 FiO2 65 % 02/20/22 05:03 FiO2 % 100 02/18/22 00:20 Sodium 136 mmol/L (137-145) L 02/20/22 04:30 Potassium 4.8 mmol/L (3.6-5.0) 02/20/22 04:30 Chloride 102.0 mmol/L (98-107) 02/20/22 04:30 Carbon Dioxide 19 mmol/L (22-30) L 02/20/22 04:30 Anion Gap 20 mmol/L 02/20/22 04:30 BUN 70 mg/dL (9-20) H 02/20/22 04:30 Creatinine 4.4 mg/dL (0.8-1.3) H 02/20/22 04:30 Estimated GFR 13 ml/min 02/20/22 04:30 BUN/Creatinine Ratio 16 % 02/20/22 04:30 Glucose 148 mg/dL (75-100) H 02/20/22 04:30 POC Glucose 129 mg/dL (70-105) H 02/20/22 00:29 Lactic Acid 0.90 mmol/L (0.7-2.0) 02/18/22 02:18 Calcium 5.9 mg/dL (8.4-10.2) L* 02/20/22 04:30 Phosphorus 6.70 mg/dL (2.5-4.5) H 02/19/22 Unknown Magnesium 1.80 mg/dL (1.7-2.3) 02/19/22 Unknown Total Bilirubin 0.80 mg/dL (0.1-1.2) 02/18/22 00:21 AST 56 units/L (5-40) H 02/18/22 00:21 ALT 45 units/L (7-56) 02/18/22 00:21 Alkaline Phosphatase 268 units/L (35-129) H 02/18/22 00:21 Ammonia 38.0 umol/L (25-60) 02/18/22 00:21 Total Creatine Kinase 233 units/L (55-170) H 02/18/22 00:21 Troponin T 0.076 ng/mL (0.00-0.029) H 02/18/22 09:21 Total Protein 6.5 g/dL (6.3-8.2) 02/18/22 00:21 Albumin 2.2 g/dL (3.9-5) L 02/18/22 00:21 Albumin/Globulin Ratio 0.5 % 02/18/22 00:21 Triglycerides 107 mg/dL (2-149) 02/18/22 00:21 Cholesterol 71 mg/dL (50-199) 02/18/22 00:21 LDL Cholesterol Direct 30 mg/dL (50-130) L 02/18/22 00:21 HDL Cholesterol 19 mg/dL (40-59) L 02/18/22 00:21 Cholesterol/HDL Ratio 3.73 % 02/18/22 00:21 Procalcitonin 2.73 ng/mL (<0.15) 02/18/22 12:48 TSH 5.100 mlU/mL (0.270-4.200) H 02/18/22 00:21 Urine Color Heidi (Yellow) 02/18/22 23:44 Urine Turbidity Slightly-cloudy (Clear) 02/18/22 23:44 Urine pH 5.0 (5.0-7.0) 02/18/22 23:44 Ur Specific [place] 1.020 (1.003-1.030) 02/18/22 23:44 Urine Protein 100 mg/dl mg/dL (Negative) 02/18/22 23:44 Urine Glucose (UA) 50 mg/dL (Negative) 02/18/22 23:44 Urine Ketones Neg mg/dL (Negative) 02/18/22 23:44 Urine Blood Mod (Negative) 02/18/22 23:44 Urine Nitrite Neg (Negative) 02/18/22 23:44 Urine Bilirubin Neg (Negative) 02/18/22 23:44 Urine Urobilinogen 4.0 mg/dL (<2.0) 02/18/22 23:44 Ur Leukocyte Esterase Neg (Negative) 02/18/22 23:44 Urine WBC (Auto) 1.0 /HPF (0.0-6.0) 02/18/22 23:44 Urine RBC (Auto) 4.0 /HPF (0.0-6.0) 02/18/22 23:44 U Epithel Cells (Auto) < 1.0 /HPF (0-13.0) 02/18/22 23:44 Urine Bacteria (Auto) 1+ /HPF (Negative) 02/18/22 00:54 Urine Mucus Few /HPF 02/18/22 23:44 Urine Yeast (Budding) 1+ /HPF 02/18/22 00:54 Urine Creatinine 180.0 mg/dL (0.1-20.0) H 02/18/22 23:44 Urine Creatinine 180.9 mg/dL (0.1-20.0) H 02/18/22 23:44 Protein/Creatinin Ratio 2.53 02/18/22 23:44 Urine Sodium 30 mmol/L 02/18/22 23:44 Urine Total Protein 457 mg/dL (5-11.8) H 02/18/22 23:44 Nasal Screen MRSA (PCR) Negative (Negative) 02/18/22 11:05 Random Vancomycin 10.6 ug/mL (0-40.0) 02/20/22 07:51 Salicylates < 0.3 mg/dL (2.8-20.0) L 02/18/22 00:21 Acetaminophen 5.0 ug/mL (10.0-30.0) L 02/18/22 00:21 Plasma/Serum Alcohol < 0.01 % (0-0.07) 02/18/22 00:21 SARS-CoV-2 (PCR) Negative (Negative) 02/18/22 11:33 Hepatitis A IgM Ab Non-reactive (NonReactive) 02/20/22 04:30 Hep Bs Antigen Non-reactive (Negative) 02/20/22 04:30 Hep B Core IgM Ab Non-reactive (NonReactive) 02/20/22 04:30 Hepatitis C Antibody Non-reactive (NonReactive) 02/20/22 04:30 Blood Type A POSITIVE 02/18/22 00:21 Antibody Screen Negative 02/18/22 00:21 Microbiology: Microbiology 02/18/22 05:30 Tracheal Aspirate Sputum Culture - Preliminary Staphylococcus Aureus 02/17/22 Unknown Urine,Catheterized - Straight Catheter Urine Culture - Preliminary NO GROWTH AFTER 24 HOURS 02/18/22 00:42 Peripheral/Venous Blood Culture - Preliminary NO GROWTH AFTER 48 HOURS 02/18/22 00:21 Peripheral/Venous Blood Culture - Preliminary NO GROWTH AFTER 48 HOURS Cabezas/IV: Voiding Method Indwelling Catheter Active Medications - Current Medications Current Medications: Generic Name Dose Route Start Last Admin Trade Name Freq PRN Reason Stop Dose Admin Acetaminophen 650 mg 02/18/22 03:18 Acetaminophen 325 Mg Tab PO Q4H PRN Pain MILD(1-3)/Fever >100.5/NICOLE Albuterol 2.5 mg 02/18/22 03:18 Albuterol 2.5 Mg/3 Ml Nebu IH Q3HRT PRN Shortness Of Breath Albuterol/Ipratropium 1 ampul 02/18/22 20:00 02/20/22 14:10 Ipratropium/Albuterol Sulfate 3 Ml Ampul.Neb IH 1 ampul TIDRT KARAN Administration Apixaban 2.5 mg 02/19/22 22:00 02/20/22 09:46 Apixaban 2.5 Mg Tab FEEDTUBE 2.5 mg Q12HR KARAN Administration Protocol Aspirin 325 mg 02/18/22 10:00 02/20/22 09:46 Aspirin 325 Mg Tab FEEDTUBE 325 mg QDAY KARAN Administration Atorvastatin Calcium 40 mg 02/18/22 22:00 02/19/22 21:59 Atorvastatin 40 Mg Tab PO 40 mg QHS KARAN Administration Famotidine 20 mg 02/18/22 10:00 02/20/22 09:46 Famotidine 20 Mg/2 Ml Inj IV 20 mg DAILY KARAN Administration Fentanyl 50 mcg 02/17/22 23:25 02/20/22 09:46 Fentanyl 100 Mcg/2 Ml Inj IV 50 mcg Q10MIN PRN Administration ANALGESIA Hydralazine HCl 10 mg 02/18/22 03:33 Hydralazine 20 Mg/1 Ml Inj IV Q6H PRN SBP >/=160; DBP >/=100 Hydrocortisone Sodium Succinate 100 mg 02/18/22 22:00 02/20/22 06:06 Hydrocortisone Sod Succ 100 Mg/2 Ml Vial IV 100 mg Q8HR KARAN Administration Hydrophilic Ointment 1 applic 02/17/22 23:25 Lip Therapy Vaseline TP Q2HR PRN Dry Lips Fentanyl Citrate 2,000 mcg in 100 mls @ 6.849 mls/hr 02/17/22 23:45 02/18/22 17:06 Fentanyl Drip Premix IV 0 mcg/kg/hr TITR KARAN 0 mls/hr Titration Protocol 1 MCG/KG/HR NORepinephrine/NS 8 MG-250 ML 8 mg in 250 mls @ 3.75 mls/hr 02/18/22 03:00 02/20/22 14:35 Norepinephrine/Ns 8 Mg-250 Ml (Double Conc) IV 5 mcg/min TITRATE KARAN 9.375 mls/hr Titration Protocol 2 MCG/MIN Propofol 1,000 mg in 100 mls @ 4.11 mls/hr 02/18/22 06:00 Diprivan 10 Mg/Ml IV TITR KARAN Protocol 5 MCG/KG/MIN Vasopressin 20 unit/ Sodium 101 mls @ 9.09 mls/hr 02/18/22 06:00 02/20/22 11:54 Chloride IV 0 units/min TITR KARAN 0 mls/hr Titration Protocol 0.03 UNITS/MIN Cefepime HCl 2 gm in 100 mls @ 200 mls/hr 02/18/22 22:00 02/19/22 22:00 Cefepime/Ns 2 Gm/100 Ml IV 02/24/22 22:29 200 mls/hr Q24H KARAN Administration Protocol Phenylephrine HCl 100 mg/ 100 mls @ 3 mls/hr 02/18/22 13:30 02/19/22 02:31 Sodium Chloride IV 0 mcg/min TITR KARAN 0 mls/hr Titration Protocol 50 MCG/MIN Sodium Chloride 1,000 mls @ 1 mls/hr 02/18/22 13:21 Nacl 0.9% 1000 Ml IV DIRECT PRN ARTERIAL LINE FLUSH Insulin Human Lispro 0 unit 02/19/22 12:00 02/20/22 13:06 Insulin Lispro 100 Unit/Ml SUB-Q 2 unit Q6HR KARAN Administration Protocol Multi-Ingred Cream/Lotion/Oil/Oint 1 applic 02/17/22 23:25 Mineral Oil/Petrolatum, White Ophth Oint 3.5 Gm OU Q4HR PRN Dry Eye(s) Nitroglycerin 0.4 mg 02/18/22 03:18 Nitroglycerin 0.4 Mg Tab Subl SL Q5M PRN Chest Pain Ondansetron HCl 4 mg 02/18/22 03:18 Ondansetron 4 Mg/2 Ml Inj IV Q8H PRN Nausea And Vomiting Senna/Docusate Sodium 1 tab 02/18/22 10:00 02/20/22 09:46 Sennosides/Docusate Sodium 8.6/50 Mg Tab FEEDTUBE 1 tab BID KARAN Administration Sodium Chloride 10 ml 02/18/22 10:00 02/20/22 09:46 Sodium Chloride 0.9% 10 Ml Flush Syringe IV 10 ml BID KARAN Administration Sodium Chloride 10 ml 02/18/22 03:18 Sodium Chloride 0.9% 10 Ml Flush Syringe IV PRN PRN LINE FLUSH Nutrition/Malnutrition Assess - Dietary Evaluation Nutrition/Malnutrition Findings: Nutrition Notes Start: 02/18/22 11:48 Freq: Status: Active Protocol: Document 02/19/22 11:05 HILARIA (Rec: 02/19/22 11:40 HILARIA [id number]) Nutrition Notes Initial or Follow up Brief Note Current Diet TF-Nepro w/CARBSTEADY @ 50 ml/ hr (since L 02/19). Height 5 ft 11 in Weight 143.8 kg [place] Body Weight (kg) 78.18 BMI 44.1 Weight change and time frame Discrepancy of 19.3 Kg gain in 1 day reported (136.3 Kg). I spoke over the phone and RN corroborate actual Body Weight , and yet another discrepancy found; 143.8 Kg. I will update all calculations to this Body Weight. Weight Status Morbidly Obese Subjective/Other Information RD consult for write/manage TF . TF adjusted to new Body Weight , prescribed and ordered. Pt continues on Mechanical Ventilation, O2 saturation @ 98%, according to Physical Assessment History notes. Percent of energy/protein needs met: Prescribed TF-Nepro w/ CARBSTEADY @ 50 ml/hr provides for energy/protein needs (2, 157 Kcal/97 g) during LOS, 100 % Kcal; 100% AA. #1 Nutrition Diagnosis Inadequate oral intake Diagnosis Progress(for reassessment Continues documentation) Is patient on ventilator? Yes Is Patient Ambulatory and/or Out of Bed No REE-([facility] [place]-confined to bed) 2645.532 Kcal/Kg value to use for calculation 15 Approximate Energy Requirements Using 2157 kcal/Kg Calculation Used for Recommendations Kcal/kg Additional Notes Protein: 0.8-1.2 g/Kg AdjBW; 89-133 g/day. Fluids: 1 ml/Kcal, or as per MD. Nutrition Intervention Nutrition Support: Start Nepro w/CARBSTEADY @ 50 ml/hr. Flush: 200 ml water Q 4 hr, or as per MD. Kcal 2,157 Protein (gm) 97 Carbohydrates (gm) 193 Fat (gm) 115 Fluid (mL) 871 Fiber (gm) 15 % RDI: 100% Kcal; 100% AA. Goal #1 Provide at least 75% of energy /protein needs through Enteral Feeding during LOS. Goal #2 Maintain body weight within +/ -3% of admission body weight during LOS. Follow-Up By: 02/21/22 Additional Comments Start monitoring TF tolerance and BM.
[2022-02-20] MEDS: CEFEPIME/NS 2 GM/100 ML 2 GM/100 ML BAG IV SCH (21:14)
[2022-02-21] MEDS: INSULIN LISPRO 100 UNIT/ML SUB-Q SCH ×4 (00:30→17:20)
--- NOTE | 2022-02-21 04:14 | XRay Report ---
CHEST 1 VIEW INDICATION / CLINICAL INFORMATION: follow up respiratory failure. COMPARISON: Chest x-ray 02/20/2022 FINDINGS: SUPPORT DEVICES: Existing tubes and lines demonstrate satisfactory positioning. HEART / MEDIASTINUM: Stable interval appearance of the cardiomediastinal silhouette. Unchanged postop erative findings from sternotomy. LUNGS / PLEURA: Lungs bilaterally demonstrate improved lung volumes. Improving lung opacities noted b ilaterally. BONES: Spinal hardware stable. ADDITIONAL FINDINGS: No significant additional findings. IMPRESSION: 1. Improving lung volumes and interval partial clearing of lung opacities. Signer Name: Tristan Mcmahon II, MD Signed: 02/21/2022 4:09 AM Workstation Name: [email or web address][id number]
[2022-02-21 04:57] LABS: ABG Base Excess -7.9 mmol/L (-2.0-3.0); ABG Methemoglobin 0.5 % (0.0-1.5); ABG Oxygen Saturation 99.1 % (95.0-99.0); ABG PCO2 37.9 mm Hg; ABG PH 7.293 pH Units (7.350-7.450); ABG PO2 180.1 mm Hg (80.0-90.0)
[2022-02-21] MEDS: HYDROCORTISONE SOD SUCC 100 MG/2 ML VIAL IV SCH (05:45)
[2022-02-21 06:53] LABS: Hematocrit 23.1 % (35.5-45.6); Hemoglobin 7.5 gm/dl (11.8-15.2); Mean Corpuscular HGB Conc 32 % (32-34); Mean Corpuscular Volume 87 fl (84-94); Platelet Count 232 K/mm3 (140-440); Red Blood Count 2.64 M/mm3 (3.65-5.03)
[2022-02-21 06:56] LABS: Red Cell Distribution Width 20.3 % (13.2-15.2)
[2022-02-21 07:42] LABS: Calcium 5.7 mg/dL (8.4-10.2)
[2022-02-21] MEDS: IPRATROPIUM/ALBUTEROL SULFATE 3 ML AMPUL.NEB IH SCH ×3 (07:56→19:52)
--- NOTE | 2022-02-21 09:38 | Progress Note ---
Assessment and Plan Acute Renal Failure on Chronic Kidney Disease Hypotension Afib Cardiac Arrest Acute Respiratory failure Acidosis Hyperkalemia, Mild Anemia Lung cancer with stage IV metastasis Plan: remains to have worsening kidney function and anuria Discussed with ICU team, family are agreeable with HD, he is on Eliquis, vascath to be placed to day or tomorrow HD ordered after vascath placement Acute Renal Failure likely 2/2 ATN Patient has history of CKD but no baseline serum creatinine available CXR- shows decreasing left Pleural Effusion Avoid nephrotoxic agents Renally dose medications Strict I&O's daily Obtain daily weights Monitor renal function closely Subjective Date of service: 02/21/22 Principal diagnosis: ARF Interval history: in ICU, off levo Objective - Vital Signs Vital signs: Vital Signs - 12hr 02/20/22 02/20/22 02/20/22 21:46 22:00 22:15 Temperature Pulse Rate 89 84 88 Pulse Rate [ Bilateral] Pulse Rate [ From Monitor] Respiratory 23 25 H 28 H Rate Respiratory Rate [Bilateral ] Blood Pressure 142/71 142/71 152/71 O2 Sat by Pulse 94 94 93 Oximetry 02/20/22 02/20/22 02/20/22 22:30 22:40 22:45 Temperature Pulse Rate 92 H 86 Pulse Rate [ Bilateral] Pulse Rate [ From Monitor] Respiratory 28 H 31 H 28 H Rate Respiratory Rate [Bilateral ] Blood Pressure 138/68 144/63 O2 Sat by Pulse 92 100 Oximetry 02/20/22 02/20/22 02/20/22 23:00 23:15 23:24 Temperature Pulse Rate 86 79 81 Pulse Rate [ Bilateral] Pulse Rate [ From Monitor] Respiratory 25 H 28 H 21 Rate Respiratory Rate [Bilateral ] Blood Pressure 144/63 132/52 132/52 O2 Sat by Pulse 100 100 100 Oximetry 02/20/22 02/20/22 02/20/22 23:30 23:40 23:45 Temperature Pulse Rate 79 88 Pulse Rate [ Bilateral] Pulse Rate [ From Monitor] Respiratory 28 H 28 H 26 H Rate Respiratory Rate [Bilateral ] Blood Pressure 112/55 104/57 O2 Sat by Pulse 100 100 Oximetry 02/21/22 02/21/22 02/21/22 00:00 00:07 00:16 Temperature Pulse Rate 85 82 86 Pulse Rate [ Bilateral] Pulse Rate [ 85 From Monitor] Respiratory 29 H 19 Rate Respiratory Rate [Bilateral ] Blood Pressure 124/70 112/55 132/70 O2 Sat by Pulse 100 100 100 Oximetry 02/21/22 02/21/22 02/21/22 00:30 00:45 01:00 Temperature Pulse Rate 87 84 80 Pulse Rate [ Bilateral] Pulse Rate [ From Monitor] Respiratory 29 H 28 H 28 H Rate Respiratory Rate [Bilateral ] Blood Pressure 132/69 137/66 150/60 O2 Sat by Pulse 100 100 100 Oximetry 02/21/22 02/21/22 02/21/22 01:15 01:30 01:45 Temperature Pulse Rate 83 84 89 Pulse Rate [ Bilateral] Pulse Rate [ From Monitor] Respiratory 24 28 H 28 H Rate Respiratory Rate [Bilateral ] Blood Pressure 141/68 127/69 141/74 O2 Sat by Pulse 100 100 100 Oximetry 02/21/22 02/21/22 02/21/22 02:00 02:15 02:30 Temperature Pulse Rate 86 78 77 Pulse Rate [ Bilateral] Pulse Rate [ From Monitor] Respiratory 28 H 28 H 11 L Rate Respiratory Rate [Bilateral ] Blood Pressure 128/68 126/65 126/74 O2 Sat by Pulse 100 100 94 Oximetry 02/21/22 02/21/22 02/21/22 02:45 03:00 03:15 Temperature Pulse Rate 89 89 84 Pulse Rate [ Bilateral] Pulse Rate [ From Monitor] Respiratory 27 H 28 H 28 H Rate Respiratory Rate [Bilateral ] Blood Pressure 114/69 132/65 120/57 O2 Sat by Pulse 100 100 100 Oximetry 02/21/22 02/21/22 02/21/22 03:30 03:45 04:00 Temperature Pulse Rate 76 81 Pulse Rate [ Bilateral] Pulse Rate [ 81 From Monitor] Respiratory 28 H 27 H Rate Respiratory Rate [Bilateral ] Blood Pressure 124/62 129/57 123/58 O2 Sat by Pulse 100 98 100 Oximetry 02/21/22 02/21/22 02/21/22 04:15 04:19 04:30 Temperature Pulse Rate 76 81 89 Pulse Rate [ Bilateral] Pulse Rate [ From Monitor] Respiratory 16 28 H Rate Respiratory Rate [Bilateral ] Blood Pressure 139/61 139/61 141/56 O2 Sat by Pulse 100 100 100 Oximetry 02/21/22 02/21/22 02/21/22 04:46 05:00 05:15 Temperature Pulse Rate 83 85 89 Pulse Rate [ Bilateral] Pulse Rate [ From Monitor] Respiratory 16 10 L 24 Rate Respiratory Rate [Bilateral ] Blood Pressure 137/58 119/71 123/73 O2 Sat by Pulse 100 100 100 Oximetry 02/21/22 02/21/22 02/21/22 05:30 05:45 06:00 Temperature Pulse Rate 88 79 87 Pulse Rate [ Bilateral] Pulse Rate [ From Monitor] Respiratory 19 13 24 Rate Respiratory Rate [Bilateral ] Blood Pressure 123/73 128/57 137/70 O2 Sat by Pulse 94 98 93 Oximetry 02/21/22 02/21/22 02/21/22 06:15 06:30 06:45 Temperature Pulse Rate 89 89 81 Pulse Rate [ Bilateral] Pulse Rate [ From Monitor] Respiratory 28 H 28 H 27 H Rate Respiratory Rate [Bilateral ] Blood Pressure 124/66 134/59 128/79 O2 Sat by Pulse 94 96 95 Oximetry 02/21/22 02/21/22 02/21/22 07:00 07:15 07:30 Temperature Pulse Rate 86 81 87 Pulse Rate [ Bilateral] Pulse Rate [ From Monitor] Respiratory 29 H 29 H 29 H Rate Respiratory Rate [Bilateral ] Blood Pressure 148/65 139/74 136/77 O2 Sat by Pulse 95 94 95 Oximetry 02/21/22 02/21/22 02/21/22 07:45 07:52 07:56 Temperature 98.5 F Pulse Rate 89 81 Pulse Rate [ 81 Bilateral] Pulse Rate [ From Monitor] Respiratory 30 H Rate Respiratory 28 H Rate [Bilateral ] Blood Pressure 150/85 159/71 O2 Sat by Pulse 95 95 Oximetry 02/21/22 02/21/22 02/21/22 08:00 08:15 08:28 Temperature Pulse Rate 86 93 H 79 Pulse Rate [ Bilateral] Pulse Rate [ 85 From Monitor] Respiratory 28 H 26 H 33 H Rate Respiratory Rate [Bilateral ] Blood Pressure 159/71 143/87 140/75 O2 Sat by Pulse 96 95 98 Oximetry 02/21/22 02/21/22 02/21/22 08:30 08:46 09:00 Temperature Pulse Rate 94 H 92 H 86 Pulse Rate [ Bilateral] Pulse Rate [ From Monitor] Respiratory 32 H 32 H 34 H Rate Respiratory Rate [Bilateral ] Blood Pressure 148/71 140/75 140/75 O2 Sat by Pulse 98 98 95 Oximetry - Lab 02/21/22 06:45 02/21/22 06:45 Most recent lab results ABG pH 7.293 pH Units (7.350-7.450) L 02/21/22 04:20 ABG pCO2 37.9 mm Hg 02/21/22 04:20 ABG pO2 180.1 mm Hg (80.0-90.0) H 02/21/22 04:20 ABG HCO3 18.0 mmol/L (20.0-26.0) L 02/21/22 04:20 ABG O2 Saturation 99.1 % (95.0-99.0) H 02/21/22 04:20 Calcium 5.7 mg/dL (8.4-10.2) L* 02/21/22 06:45 Phosphorus 5.70 mg/dL (2.5-4.5) H 02/21/22 06:45 Magnesium 2.10 mg/dL (1.7-2.3) 02/21/22 06:45 Urine Creatinine 180.0 mg/dL (0.1-20.0) H 02/18/22 23:44 Urine Creatinine 180.9 mg/dL (0.1-20.0) H 02/18/22 23:44 Urine Sodium 30 mmol/L 02/18/22 23:44 Urine Total Protein 457 mg/dL (5-11.8) H 02/18/22 23:44 Medications & Allergies - Medications Allergies/Adverse Reactions: Allergies No Known Allergies Allergy (Verified 02/17/22 23:39) Home Medications: Home Medications Medication Instructions Recorded Confirmed Last Taken Type Apixaban [Eliquis] 5 mg PO BID 02/18/22 02/18/22 Unknown History Crestor 40 mg PO DAILY 02/18/22 02/18/22 Unknown History Irbesartan/Hydrochlorothiazide 1 each PO HS 02/18/22 02/18/22 Unknown History [Irbesartan-Hctz 150-12.5 mg Tb] Loratadine [Claritin] 10 mg PO DAILY 02/18/22 02/18/22 Unknown History Oxycodone HCl [oxyCODONE] 10 mg PO BID 02/18/22 02/18/22 Unknown History Pantoprazole [Protonix] 40 mg PO QDAY 02/18/22 02/18/22 Unknown History Pramipexole [Mirapex] 0.5 mg PO TID 02/18/22 02/18/22 Unknown History Tamsulosin [Flomax] 0.4 mg PO DAILY 02/18/22 02/18/22 Unknown History Torsemide [Demadex] 20 mg PO BID 02/18/22 02/18/22 Unknown History allopurinoL [Zyloprim] 100 mg PO QDAY 02/18/22 02/18/22 Unknown History carvediloL [Coreg] 12.5 mg PO BID 02/18/22 02/18/22 Unknown History Active Medications: Generic Name Dose Route Start Last Admin Trade Name Freq PRN Reason Stop Dose Admin Acetaminophen 650 mg 02/18/22 03:18 Acetaminophen 325 Mg Tab PO Q4H PRN Pain MILD(1-3)/Fever >100.5/NICOLE Albuterol 2.5 mg 02/18/22 03:18 Albuterol 2.5 Mg/3 Ml Nebu IH Q3HRT PRN Shortness Of Breath Albuterol/Ipratropium 1 ampul 02/18/22 20:00 02/21/22 07:56 Ipratropium/Albuterol Sulfate 3 Ml Ampul.Neb IH 1 ampul TIDRT KARAN Administration Aspirin 325 mg 02/18/22 10:00 02/20/22 09:46 Aspirin 325 Mg Tab FEEDTUBE 325 mg QDAY KARAN Administration Atorvastatin Calcium 40 mg 02/18/22 22:00 02/20/22 21:13 Atorvastatin 40 Mg Tab PO 40 mg QHS KARAN Administration Famotidine 20 mg 02/18/22 10:00 02/20/22 09:46 Famotidine 20 Mg/2 Ml Inj IV 20 mg DAILY KARAN Administration Hydralazine HCl 10 mg 02/18/22 03:33 Hydralazine 20 Mg/1 Ml Inj IV Q6H PRN SBP >/=160; DBP >/=100 Hydrocortisone Sodium Succinate 100 mg 02/18/22 22:00 02/21/22 05:45 Hydrocortisone Sod Succ 100 Mg/2 Ml Vial IV 100 mg Q8HR KARAN Administration Hydrophilic Ointment 1 applic 02/17/22 23:25 Lip Therapy Vaseline TP Q2HR PRN Dry Lips Fentanyl Citrate 2,000 mcg in 100 mls @ 6.849 mls/hr 02/17/22 23:45 02/18/22 17:06 Fentanyl Drip Premix IV 0 mcg/kg/hr TITR KARAN 0 mls/hr Titration Protocol 1 MCG/KG/HR NORepinephrine/NS 8 MG-250 ML 8 mg in 250 mls @ 3.75 mls/hr 02/18/22 03:00 02/20/22 22:21 Norepinephrine/Ns 8 Mg-250 Ml (Double Conc) IV 0 mcg/min TITRATE KARAN 0 mls/hr Titration Protocol 2 MCG/MIN Propofol 1,000 mg in 100 mls @ 4.11 mls/hr 02/18/22 06:00 Diprivan 10 Mg/Ml IV TITR KARAN Protocol 5 MCG/KG/MIN Vasopressin 20 unit/ Sodium 101 mls @ 9.09 mls/hr 02/18/22 06:00 02/20/22 11:54 Chloride IV 0 units/min TITR KARAN 0 mls/hr Titration Protocol 0.03 UNITS/MIN Cefepime HCl 2 gm in 100 mls @ 200 mls/hr 02/18/22 22:00 02/20/22 21:14 Cefepime/Ns 2 Gm/100 Ml IV 02/24/22 22:29 200 mls/hr Q24H KARAN Administration Protocol Phenylephrine HCl 100 mg/ 100 mls @ 3 mls/hr 02/18/22 13:30 02/19/22 02:31 Sodium Chloride IV 0 mcg/min TITR KRAAN 0 mls/hr Titration Protocol 50 MCG/MIN Sodium Chloride 1,000 mls @ 1 mls/hr 02/18/22 13:21 Nacl 0.9% 1000 Ml IV DIRECT PRN ARTERIAL LINE FLUSH Insulin Human Lispro 0 unit 02/19/22 12:00 02/21/22 05:46 Insulin Lispro 100 Unit/Ml SUB-Q 2 unit Q6HR KARAN Administration Protocol Multi-Ingred Cream/Lotion/Oil/Oint 1 applic 02/17/22 23:25 Mineral Oil/Petrolatum, White Ophth Oint 3.5 Gm OU Q4HR PRN Dry Eye(s) Nitroglycerin 0.4 mg 02/18/22 03:18 Nitroglycerin 0.4 Mg Tab Subl SL Q5M PRN Chest Pain Ondansetron HCl 4 mg 02/18/22 03:18 Ondansetron 4 Mg/2 Ml Inj IV Q8H PRN Nausea And Vomiting Senna/Docusate Sodium 1 tab 02/18/22 10:00 02/20/22 21:13 Sennosides/Docusate Sodium 8.6/50 Mg Tab FEEDTUBE 1 tab BID KARAN Administration Sodium Chloride 10 ml 02/18/22 10:00 02/20/22 21:14 Sodium Chloride 0.9% 10 Ml Flush Syringe IV 10 ml BID KARAN Administration Sodium Chloride 10 ml 02/18/22 03:18 Sodium Chloride 0.9% 10 Ml Flush Syringe IV PRN PRN LINE FLUSH
[2022-02-21] MEDS: SENNOSIDES/DOCUSATE SODIUM 8.6/50 MG TAB FEEDTUBE SCH ×2 (10:01→21:09)
[2022-02-21] MEDS: FAMOTIDINE 20 MG TAB FEEDTUBE SCH (10:01)
[2022-02-21] MEDS: ASPIRIN 325 MG TAB FEEDTUBE SCH (10:01)
[2022-02-21 11:42] LABS: Band Neutrophils # (Manual) 0.1 K/mm3; Basophils % (Manual) 0 % (0.0-1.8); Eosinophils % (Manual) 0 % (0.0-4.3); Total Cells Counted 100
[2022-02-21 11:43] LABS: Anisocytosis 1+; Ovalocytes 1+; Platelet Estimate Consistent w Auto; Poikilocytosis 1+; Spherocytes Few; Target Cells Few
--- NOTE | 2022-02-21 11:43 | Progress Note ---
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 02/21/22: Unable to extubate today. Worsening renal function. stopped oral anticoagulation in preparation for placement of vascath. 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 Precedex for the times when he does become uncomfortable and tachypnic but hold on narcs. Very very guarded to poor prognosis. This has been discussed with the family. Changed Cefepime to Ancef given MSSA. Stopping steroids. 02/20/22: Continue to wean Vasopression for MAPs 65 and greater. Wean FiO2 for sats >88%. Hopeful PSV and possible extubation soon. Will continue cefepime for 7 days. Await speciation of Staph. Random vanc level checked. Guarded to poor prognosis as urine output continues to dwindle. Family has not made a decision about HD yet. 02/19/22: Another discussion with , sister and daughter over the phone again today. Explained that he has not improved since admission and has actually gotten worse. Now dealing with multisystem organ failure. Family is now debating on how long to continue and they are going to discuss if they want to pursue dialysis. Will continue supportive measures. Guarded to poor prognosis now with multisystem failure. Long discussion at bedside with and sister and daughter over the phone. Very good questions asked by them. Daughter mentions patient may have been in contact with COVID 19. Also concerns about code status now. Discussed with them the clinical situation and they will make decisions. 1. Wean fIo2 for sats >88% 2. Leave off continuous sedation, ok with PRN pushes if needed 3. OG tube placement 4. Wean Vasopressors for MAPS >88% 5. broaden abx therapy given immunocompromised state and last place of residence. 6. Family wishes to try to treat through this to see if patient can be extubated which is not unreasonable. However he is an AND and they want to stick with this. 7. Guarded to poor prognosis. Patient was in rehab attempting to get stronger to get Palliative chemo therapy. CCT 31 minutes. Subjective Date of service: 02/21/22 Principal diagnosis: ARF Interval history: No acute events. Mental status is worse today compared to yesterday. Off all pressors but failed PSV this am. Urine output is worse and so is renal function. decided on yesterday to do HD. Objective Vital Signs - 12hr 02/20/22 02/21/22 02/21/22 23:45 00:00 00:07 Temperature Pulse Rate 88 85 82 Pulse Rate [ Bilateral] Pulse Rate [ 85 From Monitor] Respiratory 26 H 29 H Rate Respiratory Rate [Bilateral ] Blood Pressure 104/57 124/70 112/55 O2 Sat by Pulse 100 100 100 Oximetry 02/21/22 02/21/22 02/21/22 00:16 00:30 00:45 Temperature Pulse Rate 86 87 84 Pulse Rate [ Bilateral] Pulse Rate [ From Monitor] Respiratory 19 29 H 28 H Rate Respiratory Rate [Bilateral ] Blood Pressure 132/70 132/69 137/66 O2 Sat by Pulse 100 100 100 Oximetry 02/21/22 02/21/22 02/21/22 01:00 01:15 01:30 Temperature Pulse Rate 80 83 84 Pulse Rate [ Bilateral] Pulse Rate [ From Monitor] Respiratory 28 H 24 28 H Rate Respiratory Rate [Bilateral ] Blood Pressure 150/60 141/68 127/69 O2 Sat by Pulse 100 100 100 Oximetry 02/21/22 02/21/22 02/21/22 01:45 02:00 02:15 Temperature Pulse Rate 89 86 78 Pulse Rate [ Bilateral] Pulse Rate [ From Monitor] Respiratory 28 H 28 H 28 H Rate Respiratory Rate [Bilateral ] Blood Pressure 141/74 128/68 126/65 O2 Sat by Pulse 100 100 100 Oximetry 02/21/22 02/21/22 02/21/22 02:30 02:45 03:00 Temperature Pulse Rate 77 89 89 Pulse Rate [ Bilateral] Pulse Rate [ From Monitor] Respiratory 11 L 27 H 28 H Rate Respiratory Rate [Bilateral ] Blood Pressure 126/74 114/69 132/65 O2 Sat by Pulse 94 100 100 Oximetry 02/21/22 02/21/22 02/21/22 03:15 03:30 03:45 Temperature Pulse Rate 84 76 Pulse Rate [ Bilateral] Pulse Rate [ From Monitor] Respiratory 28 H 28 H Rate Respiratory Rate [Bilateral ] Blood Pressure 120/57 124/62 129/57 O2 Sat by Pulse 100 100 98 Oximetry 02/21/22 02/21/22 02/21/22 04:00 04:15 04:19 Temperature Pulse Rate 81 76 81 Pulse Rate [ Bilateral] Pulse Rate [ 81 From Monitor] Respiratory 27 H 16 Rate Respiratory Rate [Bilateral ] Blood Pressure 123/58 139/61 139/61 O2 Sat by Pulse 100 100 100 Oximetry 02/21/22 02/21/22 02/21/22 04:30 04:46 05:00 Temperature Pulse Rate 89 83 85 Pulse Rate [ Bilateral] Pulse Rate [ From Monitor] Respiratory 28 H 16 10 L Rate Respiratory Rate [Bilateral ] Blood Pressure 141/56 137/58 119/71 O2 Sat by Pulse 100 100 100 Oximetry 02/21/22 02/21/22 02/21/22 05:15 05:30 05:45 Temperature Pulse Rate 89 88 79 Pulse Rate [ Bilateral] Pulse Rate [ From Monitor] Respiratory 24 19 13 Rate Respiratory Rate [Bilateral ] Blood Pressure 123/73 123/73 128/57 O2 Sat by Pulse 100 94 98 Oximetry 02/21/22 02/21/22 02/21/22 06:00 06:15 06:30 Temperature Pulse Rate 87 89 89 Pulse Rate [ Bilateral] Pulse Rate [ From Monitor] Respiratory 24 28 H 28 H Rate Respiratory Rate [Bilateral ] Blood Pressure 137/70 124/66 134/59 O2 Sat by Pulse 93 94 96 Oximetry 02/21/22 02/21/22 02/21/22 06:45 07:00 07:15 Temperature Pulse Rate 81 86 81 Pulse Rate [ Bilateral] Pulse Rate [ From Monitor] Respiratory 27 H 29 H 29 H Rate Respiratory Rate [Bilateral ] Blood Pressure 128/79 148/65 139/74 O2 Sat by Pulse 95 95 94 Oximetry 02/21/22 02/21/22 02/21/22 07:30 07:45 07:52 Temperature 98.5 F Pulse Rate 87 89 Pulse Rate [ Bilateral] Pulse Rate [ From Monitor] Respiratory 29 H 30 H Rate Respiratory Rate [Bilateral ] Blood Pressure 136/77 150/85 O2 Sat by Pulse 95 95 Oximetry 02/21/22 02/21/22 02/21/22 07:56 08:00 08:15 Temperature Pulse Rate 81 86 93 H Pulse Rate [ 81 Bilateral] Pulse Rate [ 85 From Monitor] Respiratory 28 H 26 H Rate Respiratory 28 H Rate [Bilateral ] Blood Pressure 159/71 159/71 143/87 O2 Sat by Pulse 95 96 95 Oximetry 02/21/22 02/21/22 02/21/22 08:28 08:30 08:46 Temperature Pulse Rate 79 94 H 92 H Pulse Rate [ Bilateral] Pulse Rate [ From Monitor] Respiratory 33 H 32 H 32 H Rate Respiratory Rate [Bilateral ] Blood Pressure 140/75 148/71 140/75 O2 Sat by Pulse 98 98 98 Oximetry 02/21/22 02/21/22 02/21/22 09:00 09:15 09:30 Temperature Pulse Rate 86 89 92 H Pulse Rate [ Bilateral] Pulse Rate [ From Monitor] Respiratory 34 H 32 H 27 H Rate Respiratory Rate [Bilateral ] Blood Pressure 140/75 146/76 139/82 O2 Sat by Pulse 95 94 95 Oximetry 02/21/22 02/21/22 02/21/22 09:45 10:00 10:15 Temperature Pulse Rate 87 89 83 Pulse Rate [ Bilateral] Pulse Rate [ From Monitor] Respiratory 31 H 27 H 28 H Rate Respiratory Rate [Bilateral ] Blood Pressure 145/76 133/73 149/71 O2 Sat by Pulse 94 94 95 Oximetry 02/21/22 02/21/22 02/21/22 10:30 10:46 11:00 Temperature Pulse Rate 90 89 87 Pulse Rate [ Bilateral] Pulse Rate [ From Monitor] Respiratory 32 H 31 H 27 H Rate Respiratory Rate [Bilateral ] Blood Pressure 157/55 149/57 153/66 O2 Sat by Pulse 94 94 94 Oximetry 02/21/22 02/21/22 11:31 11:32 Temperature Pulse Rate 86 Pulse Rate [ Bilateral] Pulse Rate [ 86 From Monitor] Respiratory 26 H Rate Respiratory Rate [Bilateral ] Blood Pressure O2 Sat by Pulse 94 Oximetry Constitutional: alert, appears uncomfortable Eyes: other (has only one eye, right eye) ENT: other (orally intubated, not on sedation) Neck: supple Effort: mildly labored Ascultation: Bilateral: rhonchi Percussion: Bilateral: not dull Cardiovascular: regular rate and rhythm Gastrointestinal: normoactive bowel sounds, soft CBC and BMP: 02/21/22 06:45 02/21/22 06:45 ABG, PT/INR, D-dimer: ABG ABG pH 7.293 pH Units (7.350-7.450) L 02/21/22 04:20 POC ABG pCO2 60.4 mmHg (32.0-48.0) H 02/18/22 00:20 ABG pCO2 37.9 mm Hg 02/21/22 04:20 POC ABG pO2 93.0 mmHg (83-108) 02/18/22 00:20 ABG pO2 180.1 mm Hg (80.0-90.0) H 02/21/22 04:20 POC ABG HCO3 20.5 02/18/22 00:20 ABG O2 Saturation 99.1 % (95.0-99.0) H 02/21/22 04:20 PT/INR, D-dimer PT 27.7 Sec. (12.2-14.9) H 02/19/22 Unknown INR 2.24 (0.87-1.13) H 02/19/22 Unknown Abnormal lab findings: Abnormal Labs 02/18/22 02/18/22 02/18/22 00:20 00:21 00:21 RBC 3.15 L Hgb 9.0 L Hct 28.0 L RDW 20.4 H Seg Neutrophils % 71.8 H Seg Neuts % (Manual) Lymphocytes % (Manual) Nucleated RBC % Seg Neutrophils # Man Lymphocytes # (Manual) PT 29.4 H INR 2.41 H APTT 38.3 H ABG pH 7.148 L POC ABG pCO2 60.4 H ABG pO2 ABG HCO3 ABG O2 Saturation ABG Base Excess ABG Hemoglobin 8.69 L ABG Oxyhemoglobin 93.7 L Oxyhemoglobin Carboxyhemoglobin 2.1 H Sodium Potassium Chloride Carbon Dioxide BUN Creatinine Glucose POC Glucose Calcium Phosphorus AST Alkaline Phosphatase Total Creatine Kinase Troponin T Albumin LDL Cholesterol Direct HDL Cholesterol TSH Urine Creatinine Urine Total Protein Salicylates Acetaminophen 02/18/22 02/18/22 02/18/22 00:21 00:21 00:21 RBC Hgb Hct RDW Seg Neutrophils % Seg Neuts % (Manual) Lymphocytes % (Manual) Nucleated RBC % Seg Neutrophils # Man Lymphocytes # (Manual) PT INR APTT ABG pH POC ABG pCO2 ABG pO2 ABG HCO3 ABG O2 Saturation ABG Base Excess ABG Hemoglobin ABG Oxyhemoglobin Oxyhemoglobin Carboxyhemoglobin Sodium Potassium Chloride 112.6 H Carbon Dioxide 19 L BUN 55 H Creatinine 3.0 H Glucose 152 H POC Glucose Calcium 7.4 L Phosphorus AST 56 H Alkaline Phosphatase 268 H Total Creatine Kinase 233 H Troponin T 0.073 H Albumin 2.2 L LDL Cholesterol Direct 30 L HDL Cholesterol 19 L TSH 5.100 H Urine Creatinine Urine Total Protein Salicylates < 0.3 L Acetaminophen 02/18/22 02/18/22 02/18/22 00:21 05:02 06:22 RBC Hgb Hct RDW Seg Neutrophils % Seg Neuts % (Manual) Lymphocytes % (Manual) Nucleated RBC % Seg Neutrophils # Man Lymphocytes # (Manual) PT INR APTT ABG pH 7.131 L* POC ABG pCO2 ABG pO2 93.2 H ABG HCO3 17.6 L ABG O2 Saturation ABG Base Excess -11.2 L ABG Hemoglobin 9.1 L ABG Oxyhemoglobin Oxyhemoglobin 94.6 L Carboxyhemoglobin Sodium Potassium Chloride Carbon Dioxide BUN Creatinine Glucose POC Glucose 125 H Calcium Phosphorus AST Alkaline Phosphatase Total Creatine Kinase Troponin T Albumin LDL Cholesterol Direct HDL Cholesterol TSH Urine Creatinine Urine Total Protein Salicylates Acetaminophen 5.0 L 02/18/22 02/18/22 02/18/22 09:21 11:30 17:14 RBC Hgb Hct RDW Seg Neutrophils % Seg Neuts % (Manual) Lymphocytes % (Manual) Nucleated RBC % Seg Neutrophils # Man Lymphocytes # (Manual) PT INR APTT ABG pH POC ABG pCO2 ABG pO2 ABG HCO3 ABG O2 Saturation ABG Base Excess ABG Hemoglobin ABG Oxyhemoglobin Oxyhemoglobin Carboxyhemoglobin Sodium Potassium Chloride Carbon Dioxide BUN Creatinine Glucose POC Glucose 127 H 126 H Calcium Phosphorus AST Alkaline Phosphatase Total Creatine Kinase Troponin T 0.076 H Albumin LDL Cholesterol Direct HDL Cholesterol TSH Urine Creatinine Urine Total Protein Salicylates Acetaminophen 02/18/22 02/18/22 02/19/22 23:44 23:44 04:00 RBC Hgb Hct RDW Seg Neutrophils % Seg Neuts % (Manual) Lymphocytes % (Manual) Nucleated RBC % Seg Neutrophils # Man Lymphocytes # (Manual) PT INR APTT ABG pH POC ABG pCO2 ABG pO2 ABG HCO3 ABG O2 Saturation ABG Base Excess ABG Hemoglobin ABG Oxyhemoglobin Oxyhemoglobin Carboxyhemoglobin Sodium Potassium Chloride Carbon Dioxide 21 L BUN 56 H Creatinine 3.5 H Glucose 224 H POC Glucose Calcium 6.1 L D Phosphorus AST Alkaline Phosphatase Total Creatine Kinase Troponin T Albumin LDL Cholesterol Direct HDL Cholesterol TSH Urine Creatinine 180.0 H 180.9 H Urine Total Protein 457 H Salicylates Acetaminophen 02/19/22 02/19/22 02/19/22 04:12 04:20 11:46 RBC 3.14 L Hgb 8.9 L Hct 27.6 L RDW 19.6 H Seg Neutrophils % Seg Neuts % (Manual) 96.0 H Lymphocytes % (Manual) 2.0 L Nucleated RBC % Seg Neutrophils # Man 9.5 H Lymphocytes # (Manual) 0.2 L PT INR APTT ABG pH 7.199 L* POC ABG pCO2 ABG pO2 147.0 H ABG HCO3 ABG O2 Saturation ABG Base Excess -6.2 L ABG Hemoglobin 9.1 L ABG Oxyhemoglobin Oxyhemoglobin Carboxyhemoglobin Sodium Potassium Chloride Carbon Dioxide BUN Creatinine Glucose POC Glucose 152 H Calcium Phosphorus AST Alkaline Phosphatase Total Creatine Kinase Troponin T Albumin LDL Cholesterol Direct HDL Cholesterol TSH Urine Creatinine Urine Total Protein Salicylates Acetaminophen 02/19/22 02/19/22 02/19/22 12:48 18:29 Unknown RBC 2.97 L Hgb 8.4 L Hct 25.9 L RDW 19.7 H Seg Neutrophils % Seg Neuts % (Manual) Lymphocytes % (Manual) Nucleated RBC % Seg Neutrophils # Man Lymphocytes # (Manual) PT INR APTT ABG pH POC ABG pCO2 ABG pO2 ABG HCO3 ABG O2 Saturation ABG Base Excess ABG Hemoglobin ABG Oxyhemoglobin Oxyhemoglobin Carboxyhemoglobin Sodium Potassium 5.1 H Chloride Carbon Dioxide 20 L BUN 55 H Creatinine 3.5 H Glucose 221 H POC Glucose 126 H Calcium 6.0 L Phosphorus 6.70 H AST Alkaline Phosphatase Total Creatine Kinase Troponin T Albumin LDL Cholesterol Direct HDL Cholesterol TSH Urine Creatinine Urine Total Protein Salicylates Acetaminophen 02/19/22 02/19/22 02/20/22 Unknown Unknown 00:29 RBC Hgb Hct RDW Seg Neutrophils % Seg Neuts % (Manual) Lymphocytes % (Manual) Nucleated RBC % Seg Neutrophils # Man Lymphocytes # (Manual) PT 27.7 H INR 2.24 H APTT 46.4 H ABG pH POC ABG pCO2 ABG pO2 ABG HCO3 ABG O2 Saturation ABG Base Excess ABG Hemoglobin ABG Oxyhemoglobin Oxyhemoglobin Carboxyhemoglobin Sodium Potassium Chloride Carbon Dioxide BUN Creatinine 4.0 H Glucose POC Glucose 129 H Calcium Phosphorus AST Alkaline Phosphatase Total Creatine Kinase Troponin T Albumin LDL Cholesterol Direct HDL Cholesterol TSH Urine Creatinine Urine Total Protein Salicylates Acetaminophen 02/20/22 02/20/22 02/20/22 04:30 04:30 05:03 RBC 2.62 L Hgb 7.5 L Hct 22.8 L RDW 19.9 H Seg Neutrophils % Seg Neuts % (Manual) 79.0 H Lymphocytes % (Manual) 5.0 L Nucleated RBC % 1.0 H Seg Neutrophils # Man Lymphocytes # (Manual) 0.4 L PT INR APTT ABG pH 7.319 L POC ABG pCO2 ABG pO2 149.9 H ABG HCO3 19.8 L ABG O2 Saturation ABG Base Excess -5.8 L ABG Hemoglobin 7.3 L ABG Oxyhemoglobin Oxyhemoglobin Carboxyhemoglobin Sodium 136 L Potassium Chloride Carbon Dioxide 19 L BUN 70 H Creatinine 4.4 H Glucose 148 H POC Glucose Calcium 5.9 L* Phosphorus AST Alkaline Phosphatase Total Creatine Kinase Troponin T Albumin LDL Cholesterol Direct HDL Cholesterol TSH Urine Creatinine Urine Total Protein Salicylates Acetaminophen 02/20/22 02/20/22 02/21/22 13:03 17:31 04:20 RBC Hgb Hct RDW Seg Neutrophils % Seg Neuts % (Manual) Lymphocytes % (Manual) Nucleated RBC % Seg Neutrophils # Man Lymphocytes # (Manual) PT INR APTT ABG pH 7.293 L POC ABG pCO2 ABG pO2 180.1 H ABG HCO3 18.0 L ABG O2 Saturation 99.1 H ABG Base Excess -7.9 L ABG Hemoglobin 7.0 L ABG Oxyhemoglobin Oxyhemoglobin Carboxyhemoglobin Sodium Potassium Chloride Carbon Dioxide BUN Creatinine Glucose POC Glucose 151 H 138 H Calcium Phosphorus AST Alkaline Phosphatase Total Creatine Kinase Troponin T Albumin LDL Cholesterol Direct HDL Cholesterol TSH Urine Creatinine Urine Total Protein Salicylates Acetaminophen 02/21/22 02/21/22 06:45 06:45 RBC 2.64 L Hgb 7.5 L Hct 23.1 L RDW 20.3 H Seg Neutrophils % Seg Neuts % (Manual) Lymphocytes % (Manual) Nucleated RBC % Seg Neutrophils # Man Lymphocytes # (Manual) PT INR APTT ABG pH POC ABG pCO2 ABG pO2 ABG HCO3 ABG O2 Saturation ABG Base Excess ABG Hemoglobin ABG Oxyhemoglobin Oxyhemoglobin Carboxyhemoglobin Sodium Potassium Chloride Carbon Dioxide 17 L BUN 89 H Creatinine 5.4 H Glucose 164 H POC Glucose Calcium 5.7 L* Phosphorus 5.70 H AST Alkaline Phosphatase Total Creatine Kinase Troponin T Albumin LDL Cholesterol Direct HDL Cholesterol TSH Urine Creatinine Urine Total Protein Salicylates Acetaminophen
--- NOTE | 2022-02-21 11:44 | Progress Note ---
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 fib (on Eliquis) Hyperlipidemia History of CABG x2 History venous insufficiency Sleep apnea Cardiographics EKG-atrial fibrillation rate 71, nonspecific ST- t wave changes. No acute ischemia Chest x-ray 02/17/22-bilateral lung opacities differential considerations to include sequelae of infection and/or possibly asymmetric pulmonary edema. Small dependent left pleural effusion Echocardiogram-02/18/2022: LVEF 40 to 45%. RV SF mildly decreased. RV SF mildly reduced. Right ventricle is dilated. Left atrium moderately dilated. Right atrium dilated. Moderate MR. Moderate TR. RVSP 48 mmHg. Recommendations/plan S/p Cardiac arrest. Etiology unclear. Malignant neoplasm of lower respiratory tract. - Pulm following Patient now off pressor support. Worsening kidney function today. Family agreed to HD. -- Nephrology Following Continue Eliquis for A. fib after vascath placement. (on hold for procedure). Up-titrate GDMT as tolerated by kidney function and hemodynamic status On Metoprolol 5mg IV Q6h. No ALEXEY/ARB in setting of IGGY. Continue aspirin, statin Fluid and electrolyte management per nephrology Prognosis is poor to very guarded. Patient is AND/DNR Will see 1x over weekend. Please call if needed. Patient seen in conjunction with Dr. Hicks who agrees with the assessment and management of this patient. - Patient Problems (1) H/O two vessel coronary artery bypass graft Current Visit: Yes Status: Acute (2) Sleep apnea Current Visit: Yes Status: Acute (3) Acute encephalopathy Current Visit: Yes Status: Acute (4) Acute respiratory failure Current Visit: Yes Status: Acute (5) Atrial fibrillation Current Visit: Yes Status: Acute (6) Cardiac arrest Current Visit: Yes Status: Acute (7) Renal insufficiency Current Visit: Yes Status: Acute (8) Malignant neoplasm Current Visit: Yes Status: Acute Subjective Date of service: 02/21/22 Principal diagnosis: ARF Interval history: Patient seen and examined today in the intensive care unit. He is still intubated. Pressor support currently off. Patient opening eyes to verbal commands. Telemetry: Atrial fibrillation Intake & Output 02/20/22 02/21/22 02/21/22 23:59 07:59 15:59 Intake Total 910.812 800 400 Output Total 85 65 15 Balance 825.812 735 385 Weight 139.8 kg Objective Vital Signs Temp Pulse Pulse Pulse Resp Resp BP 02/21/22 11:32 86 26 H 02/21/22 11:31 86 02/21/22 11:00 87 27 H 153/66 02/21/22 10:46 89 31 H 149/57 02/21/22 10:30 90 32 H 157/55 02/21/22 10:15 83 28 H 149/71 02/21/22 10:00 89 27 H 133/73 02/21/22 09:45 87 31 H 145/76 02/21/22 09:30 92 H 27 H 139/82 02/21/22 09:15 89 32 H 146/76 02/21/22 09:00 86 34 H 140/75 02/21/22 08:46 92 H 32 H 140/75 02/21/22 08:30 94 H 32 H 148/71 02/21/22 08:28 79 33 H 140/75 02/21/22 08:15 93 H 26 H 143/87 02/21/22 08:00 86 85 28 H 159/71 02/21/22 07:56 81 81 28 H 159/71 02/21/22 07:52 98.5 F 02/21/22 07:45 89 30 H 150/85 02/21/22 07:30 87 29 H 136/77 02/21/22 07:15 81 29 H 139/74 02/21/22 07:00 86 29 H 148/65 02/21/22 06:45 81 27 H 128/79 02/21/22 06:30 89 28 H 134/59 02/21/22 06:15 89 28 H 124/66 02/21/22 06:00 87 24 137/70 02/21/22 05:45 79 13 128/57 02/21/22 05:30 88 19 123/73 02/21/22 05:15 89 24 123/73 02/21/22 05:00 85 10 L 119/71 02/21/22 04:46 83 16 137/58 02/21/22 04:30 89 28 H 141/56 02/21/22 04:19 81 139/61 02/21/22 04:15 76 16 139/61 02/21/22 04:00 81 81 27 H 123/58 02/21/22 03:45 129/57 02/21/22 03:30 76 28 H 124/62 02/21/22 03:15 84 28 H 120/57 02/21/22 03:00 89 28 H 132/65 02/21/22 02:45 89 27 H 114/69 02/21/22 02:30 77 11 L 126/74 02/21/22 02:15 78 28 H 126/65 02/21/22 02:00 86 28 H 128/68 02/21/22 01:45 89 28 H 141/74 02/21/22 01:30 84 28 H 127/69 02/21/22 01:15 83 24 141/68 02/21/22 01:00 80 28 H 150/60 02/21/22 00:45 84 28 H 137/66 02/21/22 00:30 87 29 H 132/69 02/21/22 00:16 86 19 132/70 02/21/22 00:07 82 112/55 02/21/22 00:00 85 85 29 H 124/70 02/20/22 23:45 88 26 H 104/57 02/20/22 23:40 28 H 02/20/22 23:30 79 28 H 112/55 02/20/22 23:24 81 21 132/52 02/20/22 23:15 79 28 H 132/52 02/20/22 23:00 86 25 H 144/63 02/20/22 22:45 86 28 H 144/63 02/20/22 22:40 31 H 02/20/22 22:30 92 H 28 H 138/68 02/20/22 22:15 88 28 H 152/71 02/20/22 22:00 84 25 H 142/71 02/20/22 21:46 89 23 142/71 02/20/22 21:30 93 H 25 H 138/113 02/20/22 21:16 92 H 28 H 138/78 02/20/22 21:00 86 29 H 142/78 02/20/22 20:45 85 29 H 120/69 02/20/22 20:30 81 28 H 124/54 02/20/22 20:17 90 28 H 02/20/22 20:15 84 20 155/71 02/20/22 20:13 88 138/51 02/20/22 20:00 92 H 92 H 28 H 143/75 02/20/22 19:45 86 30 H 143/75 02/20/22 19:30 86 28 H 140/66 02/20/22 19:15 92 H 29 H 155/72 02/20/22 19:00 90 28 H 155/66 02/20/22 18:48 96 H 30 H 02/20/22 18:30 84 28 H 158/69 02/20/22 18:15 85 21 161/62 02/20/22 18:00 97 H 16 140/67 02/20/22 17:45 88 17 123/70 02/20/22 17:31 90 16 132/85 02/20/22 17:15 87 20 118/73 02/20/22 17:00 88 24 133/66 02/20/22 16:45 87 13 111/89 02/20/22 16:30 84 20 111/89 02/20/22 16:25 88 02/20/22 16:15 87 15 123/66 02/20/22 16:00 90 91 H 10 L 139/61 02/20/22 15:45 91 H 16 133/52 02/20/22 15:31 88 18 133/52 02/20/22 15:15 90 14 135/58 02/20/22 15:00 98.9 F 94 H 18 125/57 02/20/22 14:45 94 H 12 144/65 02/20/22 14:31 96 H 15 70/46 02/20/22 14:15 89 27 H 103/61 02/20/22 14:10 79 28 H 02/20/22 14:01 84 25 H 65/43 02/20/22 13:45 87 25 H 118/67 02/20/22 13:30 83 29 H 128/64 02/20/22 13:15 90 26 H 119/69 02/20/22 13:00 95 H 30 H 120/63 02/20/22 12:45 90 28 H 106/67 02/20/22 12:30 91 H 28 H 106/67 02/20/22 12:25 92 H 103/61 02/20/22 12:15 88 27 H 115/76 02/20/22 12:01 91 H 30 H 114/76 02/20/22 12:00 92 H 93 H 22 02/20/22 11:45 87 22 126/77 Pulse Ox 02/21/22 11:32 94 02/21/22 11:31 02/21/22 11:00 94 02/21/22 10:46 94 02/21/22 10:30 94 02/21/22 10:15 95 02/21/22 10:00 94 02/21/22 09:45 94 02/21/22 09:30 95 02/21/22 09:15 94 02/21/22 09:00 95 02/21/22 08:46 98 02/21/22 08:30 98 02/21/22 08:28 98 02/21/22 08:15 95 02/21/22 08:00 96 02/21/22 07:56 95 02/21/22 07:52 02/21/22 07:45 95 02/21/22 07:30 95 02/21/22 07:15 94 02/21/22 07:00 95 02/21/22 06:45 95 02/21/22 06:30 96 02/21/22 06:15 94 02/21/22 06:00 93 02/21/22 05:45 98 02/21/22 05:30 94 02/21/22 05:15 100 02/21/22 05:00 100 02/21/22 04:46 100 02/21/22 04:30 100 02/21/22 04:19 100 02/21/22 04:15 100 02/21/22 04:00 100 02/21/22 03:45 98 02/21/22 03:30 100 02/21/22 03:15 100 02/21/22 03:00 100 02/21/22 02:45 100 02/21/22 02:30 94 02/21/22 02:15 100 02/21/22 02:00 100 02/21/22 01:45 100 02/21/22 01:30 100 02/21/22 01:15 100 02/21/22 01:00 100 02/21/22 00:45 100 02/21/22 00:30 100 02/21/22 00:16 100 02/21/22 00:07 100 02/21/22 00:00 100 02/20/22 23:45 100 02/20/22 23:40 02/20/22 23:30 100 02/20/22 23:24 100 02/20/22 23:15 100 02/20/22 23:00 100 02/20/22 22:45 100 02/20/22 22:40 02/20/22 22:30 92 02/20/22 22:15 93 02/20/22 22:00 94 02/20/22 21:46 94 02/20/22 21:30 90 02/20/22 21:16 95 02/20/22 21:00 99 02/20/22 20:45 98 02/20/22 20:30 99 02/20/22 20:17 02/20/22 20:15 97 02/20/22 20:13 99 02/20/22 20:00 89 02/20/22 19:45 93 02/20/22 19:30 98 02/20/22 19:15 99 02/20/22 19:00 98 02/20/22 18:48 93 02/20/22 18:30 98 02/20/22 18:15 100 02/20/22 18:00 97 02/20/22 17:45 98 02/20/22 17:31 98 02/20/22 17:15 99 02/20/22 17:00 98 02/20/22 16:45 98 02/20/22 16:30 100 02/20/22 16:25 99 02/20/22 16:15 100 02/20/22 16:00 99 02/20/22 15:45 99 02/20/22 15:31 100 02/20/22 15:15 99 02/20/22 15:00 98 02/20/22 14:45 97 02/20/22 14:31 99 02/20/22 14:15 100 02/20/22 14:10 02/20/22 14:01 99 02/20/22 13:45 100 02/20/22 13:30 100 02/20/22 13:15 99 02/20/22 13:00 100 02/20/22 12:45 99 02/20/22 12:30 100 02/20/22 12:25 98 02/20/22 12:15 97 02/20/22 12:01 93 02/20/22 12:00 90 02/20/22 11:45 90 - Physical Examination General: No Apparent Distress, Other (Intubated) HEENT: Positive: Normocephaly, Mucus Membranes Dry Neck: Positive: trachea midline Cardiac: Positive: irregularly irregular, S1/S2 Lungs: Positive: Rhonchi, Ventilated Respirations Neuro: Positive: Other (opening eyes to verbal commands) Abdomen: Positive: Active Bowel Sounds Skin: Negative: Rash Extremities: Present: upper extr. pulses (1+), +2 Edema (BLE edema), warm - Labs and Meds CBC 02/21/22 Range/Units 06:45 WBC 10.9 (4.5-11.0) K/mm3 RBC 2.64 L (3.65-5.03) M/mm3 Hgb 7.5 L (11.8-15.2) gm/dl Hct 23.1 L (35.5-45.6) % Plt Count 232 (140-440) K/mm3 Comprehensive Metabolic Panel 02/21/22 Range/Units 06:45 Sodium 137 (137-145) mmol/L Potassium 4.5 (3.6-5.0) mmol/L Chloride 103.0 (98-107) mmol/L Carbon Dioxide 17 L (22-30) mmol/L BUN 89 H (9-20) mg/dL Creatinine 5.4 H (0.8-1.3) mg/dL Glucose 164 H (75-100) mg/dL Calcium 5.7 L* (8.4-10.2) mg/dL - Imaging and Cardiology EKG: image reviewed Echo: report reviewed (Echocardiogram 02/18/2022: LVEF 40 to 45%. RV SF mildly decreased. RV SF mildly reduced. Right ventricle is dilated. Left atrium moderately dilated. Right atrium dilated. Moderate MR. Moderate TR. RVSP 48 mmHg.) - Telemetry EKG Rhythm: Atrial Fibrillation - EKG Ventricular dysrhythmias: ventricular premature com
[2022-02-21] MEDS: METOPROLOL TARTRATE 5 MG/5 ML INJ IV SCH ×3 (11:54→23:56)
--- NOTE | 2022-02-21 14:12 | Progress Note ---
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 fib, CKD stage III admitted with acute hypoxic respiratory failure s/p cardiac arrest. Neuro: Acute metabolic encephalopathy -IV push fentanyl prn and precedex gtt -Avoid delirium -Reorientation as needed -Maintain sleep-wake cycle -As needed analgesia -CT head with no acute intracranial abnormality Cardiac: S/p cardiac arrest, h/o HTN, chronic afib, CABG x2, venous insufficiency -Cardiology consulted, appreciate recommendations -Blood pressure monitoring per protocol -Vasopressor support with Levophed, vasopressin -s/p Tripp-Synephrine -MAP goal greater than 65 -low dose BB IV for arrthymia -Echocardiogram shows EF 40% -Cardiology 09/2019 echocardiogram with EF of 55 to 60% Respiratory: Acute hypoxic respiratory failure -Intubated in the emergency department with 8.00 ETT at 24 the lips on 02/17 -CCM consulted, appreciate recommendations -A.m. vent settings: Assist-control/PRVC rate 28, tidal volume 500, PEEP 8, FiO2 28% -See RT notes for titration -A.m. ABG and CXR noted -VAP bundle -SPO2 monitoring GI: Protein calorie malnutrition -PPI -Ntr consult for TF -24-hour +1104 mL -BR: [place] : Acute kidney injury secondary to acute tubular necrosis, rhabdomyolysis, h/o CKD stage III per family -Nephrology consulted, appreciate recommendations -Family would like to proceed with hemodialysis -Per nephrology no acute indication, can hold off till tomorrow -eliquis on hold -Strict intake and output -Renally dose medications -Avoid nephrotoxic medications -Daily weights -FeNa 0.35% indicating prerenal cause for renal failure -Renal ultrasound shows complex cyst in the mid to lower left kidney, additional bilateral renal cysts, hyperechogenic appearance of kidneys which may reflect sequelae of medical renal disease -Trend BMP -s/p D5 sodium bicarb gtt -s/p 2L fluid bolus ID: Possible postobstructive pneumonia, Sepsis (POA), MSSA PNA -Antibiotic therapy with changed to ancef -MRSA PCR negative -stopped vanco -Stress dose steroids -stopped today -s/p vasopressor support with Levophed, vasopressin -COVID-19 PCR negative -f/u blood culture -Monitor WBC and temperature curve Endo: NAD -Avoid hypoglycemia -SSI -Accu-Cheks q6 hr Heme: NAD -Trend CBC -Transfuse hemoglobin less than 7 -Monitor for signs of bleeding -heparin subq -restart home eliqius for afib -on hold for procedure -SCDs to BLE while in bed Oncology: Stage IV adenocarcinoma of the lung with mets to spine -Per family patient recently suffered a stress fracture to T7-T8 and was currently in rehab to get stronger to withstand palliative treatment -Continue supportive care The high probability of a clinically significant, sudden or life threatening deterioration of the [multi] system(s) required my full and direct attention, intervention and personal management. The aggregate critical care time was [60] minutes. 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 fib, HTN, CABG x2, hyperlipidemia, CKD stage III who presented to the hospital on 02/08 with altered mental status and acute respiratory failure via EMS. Upon arrival to the emergency department patient was having agonal breathing and hypotension his airway and required bag valve mask ventilation and was intubated by ED physician. After intubation patient went into cardiac arrest with ROSC achievement in 2 minutes. Patient was admitted to the hospitalist service with consults to [facility], cardiology and nephrology. Hospital course to date: 02/18: Patient was sedated on fentanyl on arrival to ICU which was weaned off, patient was able to follow simple commands. This morning patient was on Levophed and vasopressin and bicarbonate drip. Phenyl epinephrine was added later this afternoon. This evening patient received an roya and was persis tently hypotensive. He received 1 L bolus this morning however given persistent hypotension with decreased urine output patient was given additional 1 L of LR. COVID-19 PCR negative. Patient's CODE STATUS changed to AND. 02/19: Patient has been weaned off of the norepinephrine and remains on vas opressin and Levophed. Renal function worsened. Bicarbonate drip discontinued and nephrology discontinued IVF. Hemodialysis discussed with nephrology. Dr. Fry also had a discussion with family, prognosis of care and goals of care. Patient family will let us know about dialysis. Corrected Ca 7.8 02/20: Family would like to proceed with hemodialysis however renal will need to assess for 1 more day. Still remains on vasopressors however they are being weaned. Patient is edematous. Weaning FiO2 as tolerated. Possible PSV in the a.m. And will continue cefepime for 7 days. Discontinue vancomycin as MRSA is negative 02/21: Eliquis on hold for pending procedure, metoprolol 5 mg IV every 6 started due to brief period of V. tach. Will hold off extubation and Precedex ordered for tachypnea. Cefepime changed to Ancef for MSSA and will stop stress dose steroids. Awaiting family decision regarding hemodialysis. Hospitalist Physical - Constitutional Vitals: Temp Pulse Resp BP Pulse Ox 99.4 F 78 30 H 115/58 95 02/21/22 12:24 02/21/22 13:09 02/21/22 13:09 02/21/22 13:00 02/21/22 13:00 General appearance: Present: no acute distress - EENT Eyes: Absent: PERRL ENT: dentition normal, hearing decreased - Neck Neck: Present: normal ROM - Respiratory Respiratory effort: normal Respiratory: bilateral: diminished - Cardiovascular Rhythm: regular Heart Sounds: Present: S1 & S2. Absent: systolic murmur, diastolic murmur - Extremities Extremities: no ischemia, pulses intact, pulses symmetrical, normal temperature, normal color Extremity abnormal: edema Peripheral Pulses: within normal limits - Abdominal General gastrointestinal: soft, non-tender, non-distended, normal bowel sounds - Integumentary Integumentary: Present: warm, dry - Psychiatric Psychiatric: cooperative - Neurologic Neurologic: CNII-XII intact, no focal deficits, moves all extremities - Allied Health Allied health notes reviewed: nursing, RT, social work HEART Score - HEART Score Troponin: Troponin T 0.076 ng/mL (0.00-0.029) H 02/18/22 09:21 Results - Labs CBC & Chem 7: 02/21/22 06:45 02/21/22 06:45 Labs: Laboratory Last Values WBC 10.9 K/mm3 (4.5-11.0) 02/21/22 06:45 RBC 2.64 M/mm3 (3.65-5.03) L 02/21/22 06:45 Hgb 7.5 gm/dl (11.8-15.2) L 02/21/22 06:45 Hct 23.1 % (35.5-45.6) L 02/21/22 06:45 MCV 87 fl (84-94) 02/21/22 06:45 MCH 28 pg (28-32) 02/21/22 06:45 MCHC 32 % (32-34) 02/21/22 06:45 RDW 20.3 % (13.2-15.2) H 02/21/22 06:45 Plt Count 232 K/mm3 (140-440) 02/21/22 06:45 Lymph % (Auto) 19.8 % (13.4-35.0) 02/18/22 00:21 [place] % (Auto) 5.3 % (0.0-7.3) 02/18/22 00:21 Eos % (Auto) 2.0 % (0.0-4.3) 02/18/22 00:21 Baso % (Auto) 1.1 % (0.0-1.8) 02/18/22 00:21 Lymph # (Auto) 1.2 K/mm3 (1.2-5.4) 02/18/22 00:21 [place] # (Auto) 0.3 K/mm3 (0.0-0.8) 02/18/22 00:21 Eos # (Auto) 0.1 K/mm3 (0.0-0.4) 02/18/22 00:21 Baso # (Auto) 0.1 K/mm3 (0.0-0.1) 02/18/22 00:21 Add Manual Diff Complete 02/21/22 06:45 Total Counted 100 02/21/22 06:45 Seg Neutrophils % Customer Care Associate 02/21/22 06:45 Seg Neuts % (Manual) 89.0 % (40.0-70.0) H 02/21/22 06:45 Band Neutrophils % 1.0 % 02/21/22 06:45 Lymphocytes % (Manual) 7.0 % (13.4-35.0) L 02/21/22 06:45 Reactive Lymphs % (Man) 0 % 02/21/22 06:45 Monocytes % (Manual) 2.0 % (0.0-7.3) 02/21/22 06:45 Eosinophils % (Manual) 0 % (0.0-4.3) 02/21/22 06:45 Basophils % (Manual) 0 % (0.0-1.8) 02/21/22 06:45 Metamyelocytes % 1.0 % 02/21/22 06:45 Myelocytes % 0 % 02/21/22 06:45 Promyelocytes % 0 % 02/21/22 06:45 Blast Cells % 0 % 02/21/22 06:45 Nucleated RBC % Not Reportable 02/21/22 06:45 Seg Neutrophils # 4.5 K/mm3 (1.8-7.7) 02/18/22 00:21 Seg Neutrophils # Man 9.7 K/mm3 (1.8-7.7) H 02/21/22 06:45 Band Neutrophils # 0.1 K/mm3 02/21/22 06:45 Lymphocytes # (Manual) 0.8 K/mm3 (1.2-5.4) L 02/21/22 06:45 Abs React Lymphs (Man) 0.0 K/mm3 02/21/22 06:45 Monocytes # (Manual) 0.2 K/mm3 (0.0-0.8) 02/21/22 06:45 Eosinophils # (Manual) 0.0 K/mm3 (0.0-0.4) 02/21/22 06:45 Basophils # (Manual) 0.0 K/mm3 (0.0-0.1) 02/21/22 06:45 Metamyelocytes # 0.1 K/mm3 02/21/22 06:45 Myelocytes # 0.0 K/mm3 02/21/22 06:45 Promyelocytes # 0.0 K/mm3 02/21/22 06:45 Blast Cells # 0.0 K/mm3 02/21/22 06:45 WBC Morphology Not Reportable 02/21/22 06:45 Hypersegmented Neuts Not Reportable 02/21/22 06:45 Hyposegmented Neuts Not Reportable 02/21/22 06:45 Hypogranular Neuts Not Reportable 02/21/22 06:45 Smudge Cells Not Reportable 02/21/22 06:45 Toxic Granulation Not Reportable 02/21/22 06:45 Toxic Vacuolation Not Reportable 02/21/22 06:45 Dohle Bodies Not Reportable 02/21/22 06:45 Pelger-Huet Anomaly Not Reportable 02/21/22 06:45 [place] Rods Not Reportable 02/21/22 06:45 Platelet Estimate Consistent w auto 02/21/22 06:45 Clumped Platelets Not Reportable 02/21/22 06:45 Plt Clumps, EDTA Not Reportable 02/21/22 06:45 Large Platelets Not Reportable 02/21/22 06:45 Giant Platelets Not Reportable 02/21/22 06:45 Platelet Satelliting Not Reportable 02/21/22 06:45 Plt Morphology Comment Not Reportable 02/21/22 06:45 RBC Morphology Not Reportable 02/21/22 06:45 Dimorphic RBCs Not Reportable 02/21/22 06:45 Polychromasia Not Reportable 02/21/22 06:45 Hypochromasia Not Reportable 02/21/22 06:45 Poikilocytosis 1+ 02/21/22 06:45 Anisocytosis 1+ 02/21/22 06:45 Microcytosis Not Reportable 02/21/22 06:45 Macrocytosis Not Reportable 02/21/22 06:45 Spherocytes Few 02/21/22 06:45 Pappenheimer Bodies Not Reportable 02/21/22 06:45 Sickle Cells Not Reportable 02/21/22 06:45 Target Cells Few 02/21/22 06:45 Tear Drop Cells Not Reportable 02/21/22 06:45 Ovalocytes 1+ 02/21/22 06:45 Helmet Cells Not Reportable 02/21/22 06:45 [place] Bodies Not Reportable 02/21/22 06:45 [place] Rings Not Reportable 02/21/22 06:45 [place] Cells Not Reportable 02/21/22 06:45 Bite Cells Not Reportable 02/21/22 06:45 Crenated Cell Not Reportable 02/21/22 06:45 Elliptocytes Not Reportable 02/21/22 06:45 Acanthocytes (Spur) Not Reportable 02/21/22 06:45 Rouleaux Not Reportable 02/21/22 06:45 Hemoglobin C Crystals Not Reportable 02/21/22 06:45 Schistocytes Not Reportable 02/21/22 06:45 Malaria parasites Not Reportable 02/21/22 06:45 [place] Bodies Not Reportable 02/21/22 06:45 Hem Pathologist Commnt No 02/21/22 06:45 PT 27.7 Sec. (12.2-14.9) H 02/19/22 Unknown INR 2.24 (0.87-1.13) H 02/19/22 Unknown APTT 46.4 Sec. (24.2-36.6) H 02/19/22 Unknown ABG pH 7.293 pH Units (7.350-7.450) L 02/21/22 04:20 POC ABG pCO2 60.4 mmHg (32.0-48.0) H 02/18/22 00:20 ABG pCO2 37.9 mm Hg 02/21/22 04:20 POC ABG pO2 93.0 mmHg (83-108) 02/18/22 00:20 ABG pO2 180.1 mm Hg (80.0-90.0) H 02/21/22 04:20 POC ABG HCO3 20.5 02/18/22 00:20 ABG HCO3 18.0 mmol/L (20.0-26.0) L 02/21/22 04:20 ABG O2 Saturation 99.1 % (95.0-99.0) H 02/21/22 04:20 ABG O2 Content 10.1 (0.0-44) 02/21/22 04:20 POC ABG Base Excess -8.2 02/18/22 00:20 ABG Base Excess -7.9 mmol/L (-2.0-3.0) L 02/21/22 04:20 ABG Hemoglobin 7.0 gm/dl (14.0-18.0) L 02/21/22 04:20 ABG Oxyhemoglobin 93.7 (94-98) L 02/18/22 00:20 ABG Carboxyhemoglobin 1.3 % (0.0-5.0) 02/21/22 04:20 ABG Methemoglobin 0.5 % (0.0-1.5) 02/21/22 04:20 Oxyhemoglobin 97.3 % (95.0-99.0) 02/21/22 04:20 Carboxyhemoglobin 2.1 (0.5-1.5) H 02/18/22 00:20 FiO2 40 % 02/21/22 04:20 FiO2 % 100 02/18/22 00:20 Sodium 137 mmol/L (137-145) 02/21/22 06:45 Potassium 4.5 mmol/L (3.6-5.0) 02/21/22 06:45 Chloride 103.0 mmol/L (98-107) 02/21/22 06:45 Carbon Dioxide 17 mmol/L (22-30) L 02/21/22 06:45 Anion Gap 22 mmol/L 02/21/22 06:45 BUN 89 mg/dL (9-20) H 02/21/22 06:45 Creatinine 5.4 mg/dL (0.8-1.3) H 02/21/22 06:45 Estimated GFR 10 ml/min 02/21/22 06:45 BUN/Creatinine Ratio 16 % 02/21/22 06:45 Glucose 164 mg/dL (75-100) H 02/21/22 06:45 POC Glucose 165 mg/dL (70-105) H 02/21/22 11:19 Lactic Acid 0.90 mmol/L (0.7-2.0) 02/18/22 02:18 Calcium 5.7 mg/dL (8.4-10.2) L* 02/21/22 06:45 Phosphorus 5.70 mg/dL (2.5-4.5) H 02/21/22 06:45 Magnesium 2.10 mg/dL (1.7-2.3) 02/21/22 06:45 Total Bilirubin 0.80 mg/dL (0.1-1.2) 02/18/22 00:21 AST 56 units/L (5-40) H 02/18/22 00:21 ALT 45 units/L (7-56) 02/18/22 00:21 Alkaline Phosphatase 268 units/L (35-129) H 02/18/22 00:21 Ammonia 38.0 umol/L (25-60) 02/18/22 00:21 Total Creatine Kinase 233 units/L (55-170) H 02/18/22 00:21 Troponin T 0.076 ng/mL (0.00-0.029) H 02/18/22 09:21 Total Protein 6.5 g/dL (6.3-8.2) 02/18/22 00:21 Albumin 2.2 g/dL (3.9-5) L 02/18/22 00:21 Albumin/Globulin Ratio 0.5 % 02/18/22 00:21 Triglycerides 107 mg/dL (2-149) 02/18/22 00:21 Cholesterol 71 mg/dL (50-199) 02/18/22 00:21 LDL Cholesterol Direct 30 mg/dL (50-130) L 02/18/22 00:21 HDL Cholesterol 19 mg/dL (40-59) L 02/18/22 00:21 Cholesterol/HDL Ratio 3.73 % 02/18/22 00:21 Procalcitonin 2.73 ng/mL (<0.15) 02/18/22 12:48 TSH 5.100 mlU/mL (0.270-4.200) H 02/18/22 00:21 Urine Color Heidi (Yellow) 02/18/22 23:44 Urine Turbidity Slightly-cloudy (Clear) 02/18/22 23:44 Urine pH 5.0 (5.0-7.0) 02/18/22 23:44 Ur Specific [place] 1.020 (1.003-1.030) 02/18/22 23:44 Urine Protein 100 mg/dl mg/dL (Negative) 02/18/22 23:44 Urine Glucose (UA) 50 mg/dL (Negative) 02/18/22 23:44 Urine Ketones Neg mg/dL (Negative) 02/18/22 23:44 Urine Blood Mod (Negative) 02/18/22 23:44 Urine Nitrite Neg (Negative) 02/18/22 23:44 Urine Bilirubin Neg (Negative) 02/18/22 23:44 Urine Urobilinogen 4.0 mg/dL (<2.0) 02/18/22 23:44 Ur Leukocyte Esterase Neg (Negative) 02/18/22 23:44 Urine WBC (Auto) 1.0 /HPF (0.0-6.0) 02/18/22 23:44 Urine RBC (Auto) 4.0 /HPF (0.0-6.0) 02/18/22 23:44 U Epithel Cells (Auto) < 1.0 /HPF (0-13.0) 02/18/22 23:44 Urine Bacteria (Auto) 1+ /HPF (Negative) 02/18/22 00:54 Urine Mucus Few /HPF 02/18/22 23:44 Urine Yeast (Budding) 1+ /HPF 02/18/22 00:54 Urine Creatinine 180.0 mg/dL (0.1-20.0) H 02/18/22 23:44 Urine Creatinine 180.9 mg/dL (0.1-20.0) H 02/18/22 23:44 Protein/Creatinin Ratio 2.53 02/18/22 23:44 Urine Sodium 30 mmol/L 02/18/22 23:44 Urine Total Protein 457 mg/dL (5-11.8) H 02/18/22 23:44 Nasal Screen MRSA (PCR) Negative (Negative) 02/18/22 11:05 Random Vancomycin 10.6 ug/mL (0-40.0) 02/20/22 07:51 Salicylates < 0.3 mg/dL (2.8-20.0) L 02/18/22 00:21 Acetaminophen 5.0 ug/mL (10.0-30.0) L 02/18/22 00:21 Plasma/Serum Alcohol < 0.01 % (0-0.07) 02/18/22 00:21 SARS-CoV-2 (PCR) Negative (Negative) 02/18/22 11:33 Hepatitis A IgM Ab Non-reactive (NonReactive) 02/20/22 04:30 Hep Bs Antigen Non-reactive (Negative) 02/20/22 04:30 Hep B Core IgM Ab Non-reactive (NonReactive) 02/20/22 04:30 Hepatitis C Antibody Non-reactive (NonReactive) 02/20/22 04:30 Blood Type A POSITIVE 02/18/22 00:21 Antibody Screen Negative 02/18/22 00:21 Microbiology: Microbiology 02/17/22 Unknown Urine,Catheterized - Straight Catheter Urine Culture - Final NO GROWTH AFTER 48 HOURS 02/18/22 00:42 Peripheral/Venous Blood Culture - Preliminary NO GROWTH AFTER 72 HOURS 02/18/22 00:21 Peripheral/Venous Blood Culture - Preliminary NO GROWTH AFTER 72 HOURS 02/18/22 05:30 Tracheal Aspirate Sputum Culture - Preliminary Staphylococcus Aureus Cabezas/IV: Voiding Method Indwelling Catheter Active Medications - Current Medications Current Medications: Generic Name Dose Route Start Last Admin Trade Name Freq PRN Reason Stop Dose Admin Acetaminophen 650 mg 02/18/22 03:18 Acetaminophen 325 Mg Tab PO Q4H PRN Pain MILD(1-3)/Fever >100.5/NICOLE Albuterol 2.5 mg 02/18/22 03:18 Albuterol 2.5 Mg/3 Ml Nebu IH Q3HRT PRN Shortness Of Breath Albuterol/Ipratropium 1 ampul 02/18/22 20:00 02/21/22 13:09 Ipratropium/Albuterol Sulfate 3 Ml Ampul.Neb IH 1 ampul TIDRT KARAN Administration Aspirin 325 mg 02/18/22 10:00 02/21/22 10:01 Aspirin 325 Mg Tab FEEDTUBE 325 mg QDAY KARAN Administration Atorvastatin Calcium 40 mg 02/18/22 22:00 02/20/22 21:13 Atorvastatin 40 Mg Tab PO 40 mg QHS KARAN Administration Famotidine 20 mg 02/21/22 10:00 02/21/22 10:01 Famotidine 20 Mg Tab FEEDTUBE 20 mg DAILY KARAN Administration Hydralazine HCl 10 mg 02/18/22 03:33 Hydralazine 20 Mg/1 Ml Inj IV Q6H PRN SBP >/=160; DBP >/=100 Hydrophilic Ointment 1 applic 02/17/22 23:25 Lip Therapy Vaseline TP Q2HR PRN Dry Lips NORepinephrine/NS 8 MG-250 ML 8 mg in 250 mls @ 3.75 mls/hr 02/18/22 03:00 02/20/22 22:21 Norepinephrine/Ns 8 Mg-250 Ml (Double Conc) IV 0 mcg/min TITRATE KARAN 0 mls/hr Titration Protocol 2 MCG/MIN Cefazolin Sodium 2 gm/ Sodium 100 mls @ 200 mls/hr 02/21/22 18:00 Chloride IV 02/28/22 17:59 Q24H KARAN Protocol Dexmedetomidine HCl 200 mcg/ 50 mls @ 6.99 mls/hr 02/21/22 11:00 02/21/22 11:54 Sodium Chloride IV 0.2 mcg/kg/hr TITRATE KARAN 6.99 mls/hr Administration Protocol 0.2 MCG/KG/HR Insulin Human Lispro 0 unit 04/20/22 12:00 02/21/22 11:55 Insulin Lispro 100 Unit/Ml SUB-Q 2 unit Q6HR KARAN Administration Protocol Metoprolol Tartrate 5 mg 02/21/22 12:00 02/21/22 11:54 Metoprolol Tartrate 5 Mg/5 Ml Inj IV 5 mg Q6HR KARAN Administration Multi-Ingred Cream/Lotion/Oil/Oint 1 applic 02/17/22 23:25 Mineral Oil/Petrolatum, White Ophth Oint 3.5 Gm OU Q4HR PRN Dry Eye(s) Nitroglycerin 0.4 mg 02/18/22 03:18 Nitroglycerin 0.4 Mg Tab Subl SL Q5M PRN Chest Pain Ondansetron HCl 4 mg 02/18/22 03:18 Ondansetron 4 Mg/2 Ml Inj IV Q8H PRN Nausea And Vomiting Senna/Docusate Sodium 1 tab 02/18/22 10:00 02/21/22 10:01 Sennosides/Docusate Sodium 8.6/50 Mg Tab FEEDTUBE 1 tab BID KARAN Administration Sodium Chloride 10 ml 02/18/22 10:00 02/21/22 10:01 Sodium Chloride 0.9% 10 Ml Flush Syringe IV 10 ml BID KARAN Administration Sodium Chloride 10 ml 02/18/22 03:18 Sodium Chloride 0.9% 10 Ml Flush Syringe IV PRN PRN LINE FLUSH Nutrition/Malnutrition Assess - Dietary Evaluation Nutrition/Malnutrition Findings: Nutrition Notes Start: 02/18/22 11:48 Freq: Status: Active Protocol: Document 02/19/22 11:05 HILARIA (Rec: 02/19/22 11:40 HILARIA [email or web address]) Nutrition Notes Initial or Follow up Brief Note Current Diet TF-Nepro w/CARBSTEADY @ 50 ml/ hr (since L 02/19). Height 5 ft 11 in Weight 143.8 kg [place] Body Weight (kg) 78.18 BMI 44.1 Weight change and time frame Discrepancy of 19.3 Kg gain in 1 day reported (136.3 Kg). I spoke over the phone and RN corroborate actual Body Weight , and yet another discrepancy found; 143.8 Kg. I will update all calculations to this Body Weight. Weight Status Morbidly Obese Subjective/Other Information RD consult for write/manage TF . TF adjusted to new Body Weight , prescribed and ordered. Pt continues on Mechanical Ventilation, O2 saturation @ 98%, according to Physical Assessment History notes. Percent of energy/protein needs met: Prescribed TF-Nepro w/ CARBSTEADY @ 50 ml/hr provides for energy/protein needs (2, 157 Kcal/97 g) during LOS, 100 % Kcal; 100% AA. #1 Nutrition Diagnosis Inadequate oral intake Diagnosis Progress(for reassessment Continues documentation) Is patient on ventilator? Yes Is Patient Ambulatory and/or Out of Bed No REE-([place]-confined to bed) 2645.532 Kcal/Kg value to use for calculation 15 Approximate Energy Requirements Using 2157 kcal/Kg Calculation Used for Recommendations Kcal/kg Additional Notes Protein: 0.8-1.2 g/Kg AdjBW; 89-133 g/day. Fluids: 1 ml/Kcal, or as per MD. Nutrition Intervention Nutrition Support: Start Nepro w/CARBSTEADY @ 50 ml/hr. Flush: 200 ml water Q 4 hr, or as per MD. Kcal 2,157 Protein (gm) 97 Carbohydrates (gm) 193 Fat (gm) 115 Fluid (mL) 871 Fiber (gm) 15 % RDI: 100% Kcal; 100% AA. Goal #1 Provide at least 75% of energy /protein needs through Enteral Feeding during LOS. Goal #2 Maintain body weight within +/ -3% of admission body weight during LOS. Follow-Up By: 02/21/22 Additional Comments Start monitoring TF tolerance and BM.
[2022-02-21] MEDS: ACETAMINOPHEN 325 MG TAB PO PRN ×2 (17:33→23:55)
--- NOTE | 2022-02-22 04:29 | XRay Report ---
CHEST 1 VIEW 02/22/2022 3:29 AM INDICATION / CLINICAL INFORMATION: follow up respiratory failure. COMPARISON: One view chest from 02/21/2022. FINDINGS: SUPPORT DEVICES: Unchanged. HEART / MEDIASTINUM: Stable. LUNGS / PLEURA: Left pulmonary opacities have worsened. There are similar right basilar opacities. No significant pleural effusion. No pneumothorax. ADDITIONAL FINDINGS: No significant additional findings. IMPRESSION: 1. Interval worsening of left pulmonary opacities, possibly representing atelectasis or other acute i nfectious/inflammatory infiltrates. 2. No other significant interval changes. Signer Name: David Ruiz MD Signed: 02/22/2022 4:24 AM Workstation Name: [id number]
[2022-02-22 04:47] LABS: Hematocrit 23.6 % (35.5-45.6); Hemoglobin 7.4 gm/dl (11.8-15.2); Mean Corpuscular HGB Conc 31 % (32-34); Mean Corpuscular Volume 88 fl (84-94); Platelet Count 239 K/mm3 (140-440); Red Blood Count 2.69 M/mm3 (3.65-5.03)
[2022-02-22 04:51] LABS: Red Cell Distribution Width 20.5 % (13.2-15.2)
[2022-02-22 05:08] LABS: ABG Base Excess -10.3 mmol/L (-2.0-3.0); ABG HCO3 15.9 mmol/L (20.0-26.0); ABG Methemoglobin 0.5 % (0.0-1.5); ABG Oxygen Saturation 80.6 % (95.0-99.0); ABG PCO2 36.1 mm Hg; ABG PH 7.261 pH Units (7.350-7.450); ABG PO2 51.1 mm Hg (80.0-90.0)
[2022-02-22 05:20] LABS: Calcium 5.3 mg/dL (8.4-10.2)
[2022-02-22] MEDS: METOPROLOL TARTRATE 5 MG/5 ML INJ IV SCH ×4 (05:34→23:29)
[2022-02-22 05:37] LABS: ABG Base Excess -10.5 mmol/L (-2.0-3.0); ABG HCO3 15.5 mmol/L (20.0-26.0); ABG Methemoglobin 0.6 % (0.0-1.5); ABG Oxygen Saturation 87.4 % (95.0-99.0); ABG PCO2 34.7 mm Hg; ABG PH 7.268 pH Units (7.350-7.450); ABG PO2 54.8 mm Hg (80.0-90.0)
[2022-02-22 05:46] LABS: Band Neutrophils # (Manual) 0.3 K/mm3; Basophils % (Manual) 0 % (0.0-1.8); Eosinophils % (Manual) 0 % (0.0-4.3); Total Cells Counted 100
[2022-02-22 05:47] LABS: Anisocytosis 1+; Hypochromasia 1+; Ovalocytes 1+; Platelet Clumps Few; Platelet Estimate Consistent w Auto; Poikilocytosis 1+; Spherocytes Few
[2022-02-22] MEDS: INSULIN LISPRO 100 UNIT/ML SUB-Q SCH ×4 (06:19→17:25)
[2022-02-22] MEDS ORDERED: CALCIUM GLUCONATE 1,000 MG/NS 100 ML PREMIX IV STA (06:33)
[2022-02-22] MEDS: IPRATROPIUM/ALBUTEROL SULFATE 3 ML AMPUL.NEB IH SCH ×3 (07:40→19:39)
[2022-02-22] MEDS: FAMOTIDINE 20 MG TAB FEEDTUBE SCH (09:24)
[2022-02-22] MEDS: ASPIRIN 325 MG TAB FEEDTUBE SCH (09:24)
[2022-02-22] MEDS: ACETAMINOPHEN 325 MG TAB PO PRN (09:25)
[2022-02-22] MEDS: SENNOSIDES/DOCUSATE SODIUM 8.6/50 MG TAB FEEDTUBE SCH ×2 (09:31→23:13)
--- NOTE | 2022-02-22 10:37 | Progress Note ---
Assessment and Plan Assessment and Plan Acute Renal Failure on Chronic Kidney Disease Hypotension Afib Cardiac Arrest Acute Respiratory failure Acidosis Hyperkalemia, Mild Anemia Lung cancer with stage IV metastasis Plan: remains to have worsening kidney function and anuria Discussed with ICU team, family are agreeable with HD, s/p vascath today, HD today. Replace Ca Acute Renal Failure likely 2/2 ATN Patient has history of CKD but no baseline serum creatinine available CXR- shows decreasing left Pleural Effusion Intubated on Vent, on levophed. In ICU Avoid nephrotoxic agents Renally dose medications Strict I&O's daily Obtain daily weights Monitor renal function closely Critical Care time: 35 minutes Subjective Date of service: 02/22/22 Principal diagnosis: ARF Interval history: Intubated. On Levophed. Objective - Exam Narrative Exam: l appearance: Present: no acute distress - EENT Eyes: Absent: PERRL, EOM intact (missing left eye) ENT: dentition normal - Neck Neck: Present: normal ROM - Respiratory Respiratory effort: normal Respiratory: bilateral: diminished, rhonchi - Cardiovascular Rhythm: regular Heart Sounds: Present: S1 & S2. Absent: systolic murmur, diastolic murmur - Extremities Extremities: no ischemia, pulses intact, pulses symmetrical, normal temperature, normal color Extremity abnormal: edema Peripheral Pulses: within normal limits - Abdominal General gastrointestinal: soft, non-tender, non-distended, normal bowel sounds - Integumentary Integumentary: Present: warm, dry - Neurologic Neurologic: focal deficits, other (not following commands today, intact cough/gag) - Allied Health Allied health notes reviewed: nursing, RT - Vital Signs Vital signs: Vital Signs - 12hr 02/21/22 02/21/22 02/21/22 22:45 23:00 23:15 Temperature Pulse Rate 77 71 77 Pulse Rate [ Anterior Bilateral Throughout] Pulse Rate [ From Monitor] Respiratory 30 H 30 H 28 H Rate Respiratory Rate [Anterior Bilateral Throughout] Blood Pressure 147/69 143/64 143/64 O2 Sat by Pulse 93 91 94 Oximetry 02/21/22 02/21/22 02/21/22 23:30 23:31 23:45 Temperature Pulse Rate 77 74 69 Pulse Rate [ Anterior Bilateral Throughout] Pulse Rate [ From Monitor] Respiratory 28 H 28 H Rate Respiratory Rate [Anterior Bilateral Throughout] Blood Pressure 143/64 143/64 143/64 O2 Sat by Pulse 95 92 96 Oximetry 02/21/22 02/22/22 02/22/22 23:56 00:00 00:15 Temperature 102 F H Pulse Rate 75 73 77 Pulse Rate [ Anterior Bilateral Throughout] Pulse Rate [ 73 From Monitor] Respiratory 29 H 29 H Rate Respiratory Rate [Anterior Bilateral Throughout] Blood Pressure 143/64 142/74 142/74 O2 Sat by Pulse 95 89 Oximetry 02/22/22 02/22/22 02/22/22 00:31 00:45 01:00 Temperature Pulse Rate 75 75 76 Pulse Rate [ Anterior Bilateral Throughout] Pulse Rate [ From Monitor] Respiratory 24 22 20 Rate Respiratory Rate [Anterior Bilateral Throughout] Blood Pressure 142/74 142/74 140/64 O2 Sat by Pulse 93 92 91 Oximetry 02/22/22 02/22/22 02/22/22 01:15 01:31 01:45 Temperature Pulse Rate 72 67 69 Pulse Rate [ Anterior Bilateral Throughout] Pulse Rate [ From Monitor] Respiratory 28 H 28 H 28 H Rate Respiratory Rate [Anterior Bilateral Throughout] Blood Pressure 140/64 140/64 140/64 O2 Sat by Pulse 91 91 91 Oximetry 02/22/22 02/22/22 02/22/22 02:00 02:15 02:31 Temperature Pulse Rate 74 76 71 Pulse Rate [ Anterior Bilateral Throughout] Pulse Rate [ From Monitor] Respiratory 22 32 H 30 H Rate Respiratory Rate [Anterior Bilateral Throughout] Blood Pressure 151/77 151/77 151/77 O2 Sat by Pulse 91 94 93 Oximetry 02/22/22 02/22/22 02/22/22 02:45 03:00 03:15 Temperature Pulse Rate 75 80 73 Pulse Rate [ Anterior Bilateral Throughout] Pulse Rate [ From Monitor] Respiratory 29 H 36 H 32 H Rate Respiratory Rate [Anterior Bilateral Throughout] Blood Pressure 151/77 144/69 144/69 O2 Sat by Pulse 95 94 95 Oximetry 02/22/22 02/22/22 02/22/22 03:31 03:45 04:00 Temperature 102.6 F H Pulse Rate 77 72 72 Pulse Rate [ Anterior Bilateral Throughout] Pulse Rate [ 69 From Monitor] Respiratory 38 H 33 H 28 H Rate Respiratory Rate [Anterior Bilateral Throughout] Blood Pressure 144/69 144/69 139/78 O2 Sat by Pulse 96 96 100 Oximetry 02/22/22 02/22/22 02/22/22 04:15 04:19 04:31 Temperature Pulse Rate 74 81 74 Pulse Rate [ Anterior Bilateral Throughout] Pulse Rate [ From Monitor] Respiratory 36 H 34 H Rate Respiratory Rate [Anterior Bilateral Throughout] Blood Pressure 139/78 139/78 139/78 O2 Sat by Pulse 88 92 91 Oximetry 02/22/22 02/22/22 02/22/22 04:45 05:01 05:15 Temperature Pulse Rate 69 73 80 Pulse Rate [ Anterior Bilateral Throughout] Pulse Rate [ From Monitor] Respiratory 28 H 12 34 H Rate Respiratory Rate [Anterior Bilateral Throughout] Blood Pressure 139/78 182/41 182/41 O2 Sat by Pulse 93 92 91 Oximetry 02/22/22 02/22/22 02/22/22 05:31 05:34 05:45 Temperature Pulse Rate 76 77 79 Pulse Rate [ Anterior Bilateral Throughout] Pulse Rate [ From Monitor] Respiratory 23 33 H Rate Respiratory Rate [Anterior Bilateral Throughout] Blood Pressure 182/41 182/41 O2 Sat by Pulse 92 92 Oximetry 02/22/22 02/22/22 02/22/22 06:00 06:15 06:31 Temperature Pulse Rate 71 75 74 Pulse Rate [ Anterior Bilateral Throughout] Pulse Rate [ From Monitor] Respiratory 29 H 30 H 32 H Rate Respiratory Rate [Anterior Bilateral Throughout] Blood Pressure 131/55 131/55 131/55 O2 Sat by Pulse 100 100 100 Oximetry 02/22/22 02/22/22 02/22/22 06:45 07:00 07:15 Temperature Pulse Rate 75 68 68 Pulse Rate [ Anterior Bilateral Throughout] Pulse Rate [ From Monitor] Respiratory 31 H 28 H 28 H Rate Respiratory Rate [Anterior Bilateral Throughout] Blood Pressure 131/55 122/63 122/63 O2 Sat by Pulse 100 100 100 Oximetry 02/22/22 02/22/22 02/22/22 07:31 07:40 07:45 Temperature Pulse Rate 68 70 70 Pulse Rate [ 67 Anterior Bilateral Throughout] Pulse Rate [ From Monitor] Respiratory 27 H 29 H Rate Respiratory 28 H Rate [Anterior Bilateral Throughout] Blood Pressure 122/63 122/63 122/63 O2 Sat by Pulse 100 100 100 Oximetry 02/22/22 02/22/22 02/22/22 08:00 08:15 08:31 Temperature 101.8 F H Pulse Rate 72 66 68 Pulse Rate [ Anterior Bilateral Throughout] Pulse Rate [ From Monitor] Respiratory 26 H 20 27 H Rate Respiratory Rate [Anterior Bilateral Throughout] Blood Pressure 130/74 130/74 130/74 O2 Sat by Pulse 100 100 100 Oximetry 02/22/22 02/22/22 02/22/22 08:45 09:00 09:15 Temperature Pulse Rate 69 63 71 Pulse Rate [ Anterior Bilateral Throughout] Pulse Rate [ From Monitor] Respiratory 22 26 H 29 H Rate Respiratory Rate [Anterior Bilateral Throughout] Blood Pressure 130/74 135/64 135/64 O2 Sat by Pulse 100 100 100 Oximetry 02/22/22 02/22/22 02/22/22 09:31 09:45 10:00 Temperature Pulse Rate 71 74 69 Pulse Rate [ Anterior Bilateral Throughout] Pulse Rate [ From Monitor] Respiratory 28 H 31 H 26 H Rate Respiratory Rate [Anterior Bilateral Throughout] Blood Pressure 135/64 135/64 115/50 O2 Sat by Pulse 100 96 100 Oximetry 02/22/22 10:15 Temperature Pulse Rate 69 Pulse Rate [ Anterior Bilateral Throughout] Pulse Rate [ From Monitor] Respiratory 28 H Rate Respiratory Rate [Anterior Bilateral Throughout] Blood Pressure 115/50 O2 Sat by Pulse 100 Oximetry - Lab 02/22/22 04:20 02/22/22 04:20 Most recent lab results ABG pH 7.268 pH Units (7.350-7.450) L 02/22/22 05:27 ABG pCO2 34.7 mm Hg 02/22/22 05:27 ABG pO2 54.8 mm Hg (80.0-90.0) L 02/22/22 05:27 ABG HCO3 15.5 mmol/L (20.0-26.0) L 02/22/22 05:27 ABG O2 Saturation 87.4 % (95.0-99.0) L 02/22/22 05:27 Calcium 5.3 mg/dL (8.4-10.2) L* 02/22/22 04:20 Phosphorus 5.70 mg/dL (2.5-4.5) H 02/21/22 06:45 Magnesium 2.10 mg/dL (1.7-2.3) 02/21/22 06:45 Urine Creatinine 180.0 mg/dL (0.1-20.0) H 02/18/22 23:44 Urine Creatinine 180.9 mg/dL (0.1-20.0) H 02/18/22 23:44 Urine Sodium 30 mmol/L 02/18/22 23:44 Urine Total Protein 457 mg/dL (5-11.8) H 02/18/22 23:44 Medications & Allergies - Medications Allergies/Adverse Reactions: Allergies No Known Allergies Allergy (Verified 02/17/22 23:39) Home Medications: Home Medications Medication Instructions Recorded Confirmed Last Taken Type Apixaban [Eliquis] 5 mg PO BID 02/18/22 02/18/22 Unknown History Crestor 40 mg PO DAILY 02/18/22 02/18/22 Unknown History Irbesartan/Hydrochlorothiazide 1 each PO HS 02/18/22 02/18/22 Unknown History [Irbesartan-Hctz 150-12.5 mg Tb] Loratadine [Claritin] 10 mg PO DAILY 02/18/22 02/18/22 Unknown History Oxycodone HCl [oxyCODONE] 10 mg PO BID 02/18/22 02/18/22 Unknown History Pantoprazole [Protonix] 40 mg PO QDAY 02/18/22 02/18/22 Unknown History Pramipexole [Mirapex] 0.5 mg PO TID 02/18/22 02/18/22 Unknown History Tamsulosin [Flomax] 0.4 mg PO DAILY 02/18/22 02/18/22 Unknown History Torsemide [Demadex] 20 mg PO BID 02/18/22 02/18/22 Unknown History allopurinoL [Zyloprim] 100 mg PO QDAY 02/18/22 02/18/22 Unknown History carvediloL [Coreg] 12.5 mg PO BID 02/18/22 02/18/22 Unknown History Active Medications: Generic Name Dose Route Start Last Admin Trade Name Freq PRN Reason Stop Dose Admin Acetaminophen 650 mg 02/18/22 03:18 02/22/22 09:25 Acetaminophen 325 Mg Tab PO 650 mg Q4H PRN Administration Pain MILD(1-3)/Fever >100.5/NICOLE Albuterol 2.5 mg 02/18/22 03:18 Albuterol 2.5 Mg/3 Ml Nebu IH Q3HRT PRN Shortness Of Breath Albuterol/Ipratropium 1 ampul 02/18/22 20:00 02/22/22 07:40 Ipratropium/Albuterol Sulfate 3 Ml Ampul.Neb IH 1 ampul TIDRT KARAN Administration Aspirin 325 mg 02/18/22 10:00 02/22/22 09:24 Aspirin 325 Mg Tab FEEDTUBE 325 mg QDAY KARAN Administration Atorvastatin Calcium 40 mg 02/18/22 22:00 02/21/22 21:09 Atorvastatin 40 Mg Tab PO 40 mg QHS KARAN Administration Famotidine 20 mg 02/21/22 10:00 02/22/22 09:24 Famotidine 20 Mg Tab FEEDTUBE 20 mg DAILY KARAN Administration Hydralazine HCl 10 mg 02/18/22 03:33 Hydralazine 20 Mg/1 Ml Inj IV Q6H PRN SBP >/=160; DBP >/=100 Hydrophilic Ointment 1 applic 02/17/22 23:25 Lip Therapy Vaseline TP Q2HR PRN Dry Lips NORepinephrine/NS 8 MG-250 ML 8 mg in 250 mls @ 3.75 mls/hr 02/18/22 03:00 02/20/22 22:21 Norepinephrine/Ns 8 Mg-250 Ml (Double Conc) IV 0 mcg/min TITRATE KARAN 0 mls/hr Titration Protocol 2 MCG/MIN Cefazolin Sodium 2 gm/ Sodium 100 mls @ 200 mls/hr 02/21/22 18:00 02/21/22 17:33 Chloride IV 02/28/22 17:59 200 mls/hr Q24H KARAN Administration Protocol Dexmedetomidine HCl 200 mcg/ 50 mls @ 6.99 mls/hr 02/21/22 11:00 02/22/22 09:24 Sodium Chloride IV 0.5 mcg/kg/hr TITRATE KARAN 17.475 mls/hr Administration Protocol 0.2 MCG/KG/HR Insulin Human Lispro 0 unit 02/19/22 12:00 02/22/22 06:19 Insulin Lispro 100 Unit/Ml SUB-Q Not Given Q6HR [facility] Protocol Metoprolol Tartrate 5 mg 02/21/22 12:00 02/22/22 05:34 Metoprolol Tartrate 5 Mg/5 Ml Inj IV 5 mg Q6HR KARAN Administration Multi-Ingred Cream/Lotion/Oil/Oint 1 applic 02/17/22 23:25 Mineral Oil/Petrolatum, White Ophth Oint 3.5 Gm OU Q4HR PRN Dry Eye(s) Nitroglycerin 0.4 mg 02/18/22 03:18 Nitroglycerin 0.4 Mg Tab Subl SL Q5M PRN Chest Pain Ondansetron HCl 4 mg 02/18/22 03:18 Ondansetron 4 Mg/2 Ml Inj IV Q8H PRN Nausea And Vomiting Senna/Docusate Sodium 1 tab 02/18/22 10:00 02/22/22 09:31 Sennosides/Docusate Sodium 8.6/50 Mg Tab FEEDTUBE Not Given BID KARAN Sodium Chloride 10 ml 02/18/22 10:00 02/22/22 09:24 Sodium Chloride 0.9% 10 Ml Flush Syringe IV 10 ml BID KARAN Administration Sodium Chloride 10 ml 02/18/22 03:18 Sodium Chloride 0.9% 10 Ml Flush Syringe IV PRN PRN LINE FLUSH
--- NOTE | 2022-02-22 10:51 | Progress Note ---
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 fib, CKD stage III admitted with acute hypoxic respiratory failure s/p cardiac arrest. Neuro: Acute metabolic encephalopathy -IV push fentanyl prn and precedex gtt -Avoid delirium -Reorientation as needed -Maintain sleep-wake cycle -As needed analgesia -CT head with no acute intracranial abnormality Cardiac: S/p cardiac arrest, h/o HTN, chronic afib, CABG x2, venous insufficiency -Cardiology consulted, appreciate recommendations -Blood pressure monitoring per protocol -s/p Vasopressor support with Levophed, vasopressin and Tripp-Synephrine -MAP goal greater than 65 -low dose BB IV for arrthymia -Echocardiogram shows EF 40% -Cardiology 09/2019 echocardiogram with EF of 55 to 60% Respiratory: Acute hypoxic respiratory failure -Intubated in the emergency department with 8.00 ETT at 24 the lips on 02/17 -CCM consulted, appreciate recommendations -A.m. vent settings: Assist-control/PRVC rate 28, tidal volume 500, PEEP 6, FiO2 45% -See RT notes for titration -A.m. ABG and CXR noted -VAP bundle -SPO2 monitoring GI: Protein calorie malnutrition -PPI -Ntr consult for TF -24-hour +2036 mL -BR: senakot : Acute kidney injury secondary to acute tubular necrosis, rhabdomyolysis, metabolic acidosis, uremia, h/o CKD stage III per family -Nephrology consulted, appreciate recommendations -Family would like to proceed with hemodialysis -Vascath placed 02/22 -HD per Nephro -Strict intake and output -Renally dose medications -Avoid nephrotoxic medications -Daily weights -FeNa 0.35% indicating prerenal cause for renal failure -Renal ultrasound shows complex cyst in the mid to lower left kidney, additional bilateral renal cysts, hyperechogenic appearance of kidneys which may reflect sequelae of medical renal disease -Trend BMP -s/p D5 sodium bicarb gtt -s/p 2L fluid bolus ID: Possible postobstructive pneumonia, Sepsis (POA), MSSA PNA -Antibiotic therapy with changed to ancef -MRSA PCR negative -stopped vanco -s/p Stress dose steroids and vasopressor support with Levophed, vasopressin -COVID-19 PCR negative -f/u blood culture -Monitor WBC and temperature curve Endo: NAD -Avoid hypoglycemia -SSI -Accu-Cheks q6 hr Heme: NAD -Trend CBC -Transfuse hemoglobin less than 7 -Monitor for signs of bleeding -heparin subq -restart 2.5 eliqius BID for afib -SCDs to BLE while in bed Oncology: Stage IV adenocarcinoma of the lung with mets to spine -Per family patient recently suffered a stress fracture to T7-T8 and was currently in rehab to get stronger to withstand palliative treatment -Continue supportive care The high probability of a clinically significant, sudden or life threatening deterioration of the [multi] system(s) required my full and direct attention, intervention and personal management. The aggregate critical care time was [60] minutes. 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 fib, HTN, CABG x2, hyperlipidemia, CKD stage III who presented to the hospital on 02/08 with altered mental status and acute respirato ry failure via EMS. Upon arrival to the emergency department patient was having agonal breathing and hypotension his airway and required bag valve mask ventilation and was intubated by ED physician. After intubation patient went into cardiac arrest with ROSC achievement in 2 minutes. Patient was admitted to the hospitalist service with consults to [facility], cardiology and nephrology. Hospital course to date: 02/18: Patient was sedated on fentanyl on arrival to ICU which was weaned off, patient was able to follow simple commands. This morning patient was on Levophed and vasopressin and bicarbonate drip. Phenyl epinephrine was added later this afternoon. This evening patient received an roya and was persistently hypotensive. He received 1 L bolus this morning however given persistent hypotension with decreased urine output patient was given additional 1 L of LR. COVID-19 PCR negative. Patient's CODE STATUS changed to AND. 02/19: Patient has been weaned off of the norepinephrine and remains on vasopressin and Levophed. Renal function worsened. Bicarbonate drip discontinued and nephrology discontinued IVF. Hemodialysis discussed with nephrology. Dr. Fry also had a discussion with family, prognosis of care and goals of care. Patient family will let us know about dialysis. Corrected Ca 7.8 02/20: Family would like to proceed with hemodialysis however renal will need to assess for 1 more day. Still remains on vasopressors however they are being weaned. Patient is edematous. Weaning FiO2 as tolerated. Possible PSV in the a.m. And will continue cefepime for 7 days. Discontinue vancomycin as MRSA is negative 02/21: Eliquis on hold for pending procedure, metoprolol 5 mg IV every 6 started due to brief period of V. tach. Will hold off extubation and Precedex ordered for tachypnea. Cefepime changed to Ancef for MSSA and will stop stress dose steroids. Awaiting family decision regarding hemodialysis. 02/22: Reviewed patient remains sedated on Precedex, no further episodes of arrhythmia noted, increasing FiO2 repeat ABG, patient is febrile today 202.6 and tracheal aspirate is growing strep various but he is on antibiotics. We will send blood cultures due to spike. Received 1 g of calcium overnight. Renal function worsening. Will change CVL over wire or place Vas-Cath today. Hospitalist Physical - Constitutional Vitals: Temp Pulse Resp BP Pulse Ox 101.8 F H 69 28 H 115/50 100 02/22/22 08:00 02/22/22 10:15 02/22/22 10:15 02/22/22 10:15 02/22/22 10:15 General appearance: Present: no acute distress - EENT Eyes: Absent: PERRL, EOM intact (missing left eye) ENT: dentition normal - Neck Neck: Present: normal ROM - Respiratory Respiratory effort: normal Respiratory: bilateral: diminished, rhonchi - Cardiovascular Rhythm: regular Heart Sounds: Present: S1 & S2. Absent: systolic murmur, diastolic murmur - Extremities Extremities: no ischemia, pulses intact, pulses symmetrical, normal temperature, normal color Extremity abnormal: edema Peripheral Pulses: within normal limits - Abdominal General gastrointestinal: soft, non-tender, non-distended, normal bowel sounds - Integumentary Integumentary: Present: warm, dry - Neurologic Neurologic: focal deficits, other (not following commands today, intact cough/gag) - Allied Health Allied health notes reviewed: nursing, RT HEART Score - HEART Score Troponin: Troponin T 0.076 ng/mL (0.00-0.029) H 02/18/22 09:21 Results - Labs CBC & Chem 7: 02/22/22 04:20 02/22/22 04:20 Labs: Laboratory Last Values WBC 12.9 K/mm3 (4.5-11.0) H 02/22/22 04:20 RBC 2.69 M/mm3 (3.65-5.03) L 02/22/22 04:20 Hgb 7.4 gm/dl (11.8-15.2) L 02/22/22 04:20 Hct 23.6 % (35.5-45.6) L 02/22/22 04:20 MCV 88 fl (84-94) 02/22/22 04:20 MCH 28 pg (28-32) 02/22/22 04:20 MCHC 31 % (32-34) L 02/22/22 04:20 RDW 20.5 % (13.2-15.2) H 02/22/22 04:20 Plt Count 239 K/mm3 (140-440) 02/22/22 04:20 Lymph % (Auto) 19.8 % (13.4-35.0) 02/18/22 00:21 [place] % (Auto) 5.3 % (0.0-7.3) 02/18/22 00:21 Eos % (Auto) 2.0 % (0.0-4.3) 02/18/22 00:21 Baso % (Auto) 1.1 % (0.0-1.8) 02/18/22 00:21 Lymph # (Auto) 1.2 K/mm3 (1.2-5.4) 02/18/22 00:21 [place] # (Auto) 0.3 K/mm3 (0.0-0.8) 02/18/22 00:21 Eos # (Auto) 0.1 K/mm3 (0.0-0.4) 02/18/22 00:21 Baso # (Auto) 0.1 K/mm3 (0.0-0.1) 02/18/22 00:21 Add Manual Diff Complete 02/22/22 04:20 Total Counted 100 02/22/22 04:20 Seg Neutrophils % Chemistry Tutor 02/21/22 06:45 Seg Neuts % (Manual) 89.0 % (40.0-70.0) H 02/22/22 04:20 Band Neutrophils % 2.0 % 02/22/22 04:20 Lymphocytes % (Manual) 6.0 % (13.4-35.0) L 02/22/22 04:20 Reactive Lymphs % (Man) 0 % 02/22/22 04:20 Monocytes % (Manual) 2.0 % (0.0-7.3) 02/22/22 04:20 Eosinophils % (Manual) 0 % (0.0-4.3) 02/22/22 04:20 Basophils % (Manual) 0 % (0.0-1.8) 02/22/22 04:20 Metamyelocytes % 1.0 % 02/22/22 04:20 Myelocytes % 0 % 02/22/22 04:20 Promyelocytes % 0 % 02/22/22 04:20 Blast Cells % 0 % 02/22/22 04:20 Nucleated RBC % Not Reportable 02/22/22 04:20 Seg Neutrophils # 4.5 K/mm3 (1.8-7.7) 02/18/22 00:21 Seg Neutrophils # Man 11.5 K/mm3 (1.8-7.7) H 02/22/22 04:20 Band Neutrophils # 0.3 K/mm3 02/22/22 04:20 Lymphocytes # (Manual) 0.8 K/mm3 (1.2-5.4) L 02/22/22 04:20 Abs React Lymphs (Man) 0.0 K/mm3 02/22/22 04:20 Monocytes # (Manual) 0.3 K/mm3 (0.0-0.8) 02/22/22 04:20 Eosinophils # (Manual) 0.0 K/mm3 (0.0-0.4) 02/22/22 04:20 Basophils # (Manual) 0.0 K/mm3 (0.0-0.1) 02/22/22 04:20 Metamyelocytes # 0.1 K/mm3 02/22/22 04:20 Myelocytes # 0.0 K/mm3 02/22/22 04:20 Promyelocytes # 0.0 K/mm3 02/22/22 04:20 Blast Cells # 0.0 K/mm3 02/22/22 04:20 WBC Morphology Not Reportable 02/22/22 04:20 Hypersegmented Neuts Not Reportable 02/22/22 04:20 Hyposegmented Neuts Not Reportable 02/22/22 04:20 Hypogranular Neuts Not Reportable 02/22/22 04:20 Smudge Cells Not Reportable 02/22/22 04:20 Toxic Granulation Not Reportable 02/22/22 04:20 Toxic Vacuolation Not Reportable 02/22/22 04:20 Dohle Bodies Not Reportable 02/22/22 04:20 Pelger-Huet Anomaly Not Reportable 02/22/22 04:20 Jensen Rods Not Reportable 02/22/22 04:20 Platelet Estimate Consistent w auto 02/22/22 04:20 Clumped Platelets Few 02/22/22 04:20 Plt Clumps, EDTA Not Reportable 02/22/22 04:20 Large Platelets Not Reportable 02/22/22 04:20 Giant Platelets Not Reportable 02/22/22 04:20 Platelet Satelliting Not Reportable 02/22/22 04:20 Plt Morphology Comment Not Reportable 02/22/22 04:20 RBC Morphology Not Reportable 02/22/22 04:20 Dimorphic RBCs Not Reportable 02/22/22 04:20 Polychromasia Not Reportable 02/22/22 04:20 Hypochromasia 1+ 02/22/22 04:20 Poikilocytosis 1+ 02/22/22 04:20 Anisocytosis 1+ 02/22/22 04:20 Microcytosis Not Reportable 02/22/22 04:20 Macrocytosis Not Reportable 02/22/22 04:20 Spherocytes Few 02/22/22 04:20 Pappenheimer Bodies Not Reportable 02/22/22 04:20 Sickle Cells Not Reportable 02/22/22 04:20 Target Cells Not Reportable 02/22/22 04:20 Tear Drop Cells Not Reportable 02/22/22 04:20 Ovalocytes 1+ 02/22/22 04:20 Helmet Cells Not Reportable 02/22/22 04:20 [place] Bodies Not Reportable 02/22/22 04:20 [place] Rings Not Reportable 02/22/22 04:20 Alysha Cells Not Reportable 02/22/22 04:20 Bite Cells Not Reportable 02/22/22 04:20 Crenated Cell Not Reportable 02/22/22 04:20 Elliptocytes Not Reportable 02/22/22 04:20 Acanthocytes (Spur) Not Reportable 02/22/22 04:20 Rouleaux Not Reportable 02/22/22 04:20 Hemoglobin C Crystals Not Reportable 02/22/22 04:20 Schistocytes Not Reportable 02/22/22 04:20 Malaria parasites Not Reportable 02/22/22 04:20 [place] Bodies Not Reportable 02/22/22 04:20 Hem Pathologist Commnt No 02/22/22 04:20 PT 27.7 Sec. (12.2-14.9) H 02/19/22 Unknown INR 2.24 (0.87-1.13) H 02/19/22 Unknown APTT 46.4 Sec. (24.2-36.6) H 02/19/22 Unknown ABG pH 7.268 pH Units (7.350-7.450) L 02/22/22 05:27 POC ABG pCO2 60.4 mmHg (32.0-48.0) H 02/18/22 00:20 ABG pCO2 34.7 mm Hg 02/22/22 05:27 POC ABG pO2 93.0 mmHg (83-108) 02/18/22 00:20 ABG pO2 54.8 mm Hg (80.0-90.0) L 02/22/22 05:27 POC ABG HCO3 20.5 02/18/22 00:20 ABG HCO3 15.5 mmol/L (20.0-26.0) L 02/22/22 05:27 ABG O2 Saturation 87.4 % (95.0-99.0) L 02/22/22 05:27 ABG O2 Content 9.0 (0.0-44) 02/22/22 05:27 POC ABG Base Excess -8.2 02/18/22 00:20 ABG Base Excess -10.5 mmol/L (-2.0-3.0) L 02/22/22 05:27 ABG Hemoglobin 7.4 gm/dl (14.0-18.0) L 02/22/22 05:27 ABG Oxyhemoglobin 93.7 (94-98) L 02/18/22 00:20 ABG Carboxyhemoglobin 1.4 % (0.0-5.0) 02/22/22 05:27 ABG Methemoglobin 0.6 % (0.0-1.5) 02/22/22 05:27 Oxyhemoglobin 85.7 % (95.0-99.0) L 02/22/22 05:27 Carboxyhemoglobin 2.1 (0.5-1.5) H 02/18/22 00:20 FiO2 30 % 02/22/22 05:27 FiO2 % 100 02/18/22 00:20 Sodium 134 mmol/L (137-145) L 02/22/22 04:20 Potassium 5.0 mmol/L (3.6-5.0) 02/22/22 04:20 Chloride 98.6 mmol/L (98-107) 02/22/22 04:20 Carbon Dioxide 15 mmol/L (22-30) L 02/22/22 04:20 Anion Gap 25 mmol/L 02/22/22 04:20 BUN 109 mg/dL (9-20) H 02/22/22 04:20 Creatinine 6.1 mg/dL (0.8-1.3) H 02/22/22 04:20 Estimated GFR 9 ml/min 02/22/22 04:20 BUN/Creatinine Ratio 18 % 02/22/22 04:20 Glucose 142 mg/dL (75-100) H 02/22/22 04:20 POC Glucose 120 mg/dL (70-105) H 02/22/22 09:21 Lactic Acid 0.90 mmol/L (0.7-2.0) 02/18/22 02:18 Calcium 5.3 mg/dL (8.4-10.2) L* 02/22/22 04:20 Phosphorus 5.70 mg/dL (2.5-4.5) H 02/21/22 06:45 Magnesium 2.10 mg/dL (1.7-2.3) 02/21/22 06:45 Total Bilirubin 0.80 mg/dL (0.1-1.2) 02/18/22 00:21 AST 56 units/L (5-40) H 02/18/22 00:21 ALT 45 units/L (7-56) 02/18/22 00:21 Alkaline Phosphatase 268 units/L (35-129) H 02/18/22 00:21 Ammonia 38.0 umol/L (25-60) 02/18/22 00:21 Total Creatine Kinase 233 units/L (55-170) H 02/18/22 00:21 Troponin T 0.076 ng/mL (0.00-0.029) H 02/18/22 09:21 Total Protein 6.5 g/dL (6.3-8.2) 02/18/22 00:21 Albumin 2.2 g/dL (3.9-5) L 02/18/22 00:21 Albumin/Globulin Ratio 0.5 % 02/18/22 00:21 Triglycerides 107 mg/dL (2-149) 02/18/22 00:21 Cholesterol 71 mg/dL (50-199) 02/18/22 00:21 LDL Cholesterol Direct 30 mg/dL (50-130) L 02/18/22 00:21 HDL Cholesterol 19 mg/dL (40-59) L 02/18/22 00:21 Cholesterol/HDL Ratio 3.73 % 02/18/22 00:21 Procalcitonin 2.73 ng/mL (<0.15) 02/18/22 12:48 TSH 5.100 mlU/mL (0.270-4.200) H 02/18/22 00:21 Urine Color Heidi (Yellow) 02/18/22 23:44 Urine Turbidity Slightly-cloudy (Clear) 02/18/22 23:44 Urine pH 5.0 (5.0-7.0) 02/18/22 23:44 Ur Specific [place] 1.020 (1.003-1.030) 02/18/22 23:44 Urine Protein 100 mg/dl mg/dL (Negative) 02/18/22 23:44 Urine Glucose (UA) 50 mg/dL (Negative) 02/18/22 23:44 Urine Ketones Neg mg/dL (Negative) 02/18/22 23:44 Urine Blood Mod (Negative) 02/18/22 23:44 Urine Nitrite Neg (Negative) 02/18/22 23:44 Urine Bilirubin Neg (Negative) 02/18/22 23:44 Urine Urobilinogen 4.0 mg/dL (<2.0) 02/18/22 23:44 Ur Leukocyte Esterase Neg (Negative) 02/18/22 23:44 Urine WBC (Auto) 1.0 /HPF (0.0-6.0) 02/18/22 23:44 Urine RBC (Auto) 4.0 /HPF (0.0-6.0) 02/18/22 23:44 U Epithel Cells (Auto) < 1.0 /HPF (0-13.0) 02/18/22 23:44 Urine Bacteria (Auto) 1+ /HPF (Negative) 02/18/22 00:54 Urine Mucus Few /HPF 02/18/22 23:44 Urine Yeast (Budding) 1+ /HPF 02/18/22 00:54 Urine Creatinine 180.0 mg/dL (0.1-20.0) H 02/18/22 23:44 Urine Creatinine 180.9 mg/dL (0.1-20.0) H 02/18/22 23:44 Protein/Creatinin Ratio 2.53 02/18/22 23:44 Urine Sodium 30 mmol/L 02/18/22 23:44 Urine Total Protein 457 mg/dL (5-11.8) H 02/18/22 23:44 Nasal Screen MRSA (PCR) Negative (Negative) 02/18/22 11:05 Random Vancomycin 10.6 ug/mL (0-40.0) 02/20/22 07:51 Salicylates < 0.3 mg/dL (2.8-20.0) L 02/18/22 00:21 Acetaminophen 5.0 ug/mL (10.0-30.0) L 02/18/22 00:21 Plasma/Serum Alcohol < 0.01 % (0-0.07) 02/18/22 00:21 SARS-CoV-2 (PCR) Negative (Negative) 02/18/22 11:33 Hepatitis A IgM Ab Non-reactive (NonReactive) 02/20/22 04:30 Hep Bs Antigen Non-reactive (Negative) 02/20/22 04:30 Hep B Core IgM Ab Non-reactive (NonReactive) 02/20/22 04:30 Hepatitis C Antibody Non-reactive (NonReactive) 02/20/22 04:30 Blood Type A POSITIVE 02/18/22 00:21 Antibody Screen Negative 02/18/22 00:21 Microbiology: Microbiology 02/18/22 00:42 Peripheral/Venous Blood Culture - Preliminary NO GROWTH AFTER 4 DAYS 02/18/22 00:21 Peripheral/Venous Blood Culture - Preliminary NO GROWTH AFTER 4 DAYS 02/17/22 Unknown Urine,Catheterized - Straight Catheter Urine Culture - Final NO GROWTH AFTER 48 HOURS Cabezas/IV: Voiding Method Indwelling Catheter Active Medications - Current Medications Current Medications: Generic Name Dose Route Start Last Admin Trade Name Freq PRN Reason Stop Dose Admin Acetaminophen 650 mg 02/18/22 03:18 02/22/22 09:25 Acetaminophen 325 Mg Tab PO 650 mg Q4H PRN Administration Pain MILD(1-3)/Fever >100.5/NICOLE Albuterol 2.5 mg 02/18/22 03:18 Albuterol 2.5 Mg/3 Ml Nebu IH Q3HRT PRN Shortness Of Breath Albuterol/Ipratropium 1 ampul 02/18/22 20:00 02/22/22 07:40 Ipratropium/Albuterol Sulfate 3 Ml Ampul.Neb IH 1 ampul TIDRT KARAN Administration Aspirin 325 mg 02/18/22 10:00 02/22/22 09:24 Aspirin 325 Mg Tab FEEDTUBE 325 mg QDAY KARAN Administration Atorvastatin Calcium 40 mg 02/18/22 22:00 02/21/22 21:09 Atorvastatin 40 Mg Tab PO 40 mg QHS KARAN Administration Famotidine 20 mg 02/21/22 10:00 02/22/22 09:24 Famotidine 20 Mg Tab FEEDTUBE 20 mg DAILY KARAN Administration Hydralazine HCl 10 mg 02/18/22 03:33 Hydralazine 20 Mg/1 Ml Inj IV Q6H PRN SBP >/=160; DBP >/=100 Hydrophilic Ointment 1 applic 02/17/22 23:25 Lip Therapy Vaseline TP Q2HR PRN Dry Lips NORepinephrine/NS 8 MG-250 ML 8 mg in 250 mls @ 3.75 mls/hr 02/18/22 03:00 02/20/22 22:21 Norepinephrine/Ns 8 Mg-250 Ml (Double Conc) IV 0 mcg/min TITRATE KARAN 0 mls/hr Titration Protocol 2 MCG/MIN Cefazolin Sodium 2 gm/ Sodium 100 mls @ 200 mls/hr 02/21/22 18:00 02/21/22 17:33 Chloride IV 02/28/22 17:59 200 mls/hr Q24H KARAN Administration Protocol Dexmedetomidine HCl 200 mcg/ 50 mls @ 6.99 mls/hr 02/21/22 11:00 02/22/22 09:24 Sodium Chloride IV 0.5 mcg/kg/hr TITRATE KARAN 17.475 mls/hr Administration Protocol 0.2 MCG/KG/HR Insulin Human Lispro 0 unit 02/19/22 12:00 02/22/22 06:19 Insulin Lispro 100 Unit/Ml SUB-Q Not Given Q6HR [facility] Protocol Metoprolol Tartrate 5 mg 02/21/22 12:00 02/22/22 05:34 Metoprolol Tartrate 5 Mg/5 Ml Inj IV 5 mg Q6HR KARAN Administration Multi-Ingred Cream/Lotion/Oil/Oint 1 applic 02/17/22 23:25 Mineral Oil/Petrolatum, White Ophth Oint 3.5 Gm OU Q4HR PRN Dry Eye(s) Nitroglycerin 0.4 mg 02/18/22 03:18 Nitroglycerin 0.4 Mg Tab Subl SL Q5M PRN Chest Pain Ondansetron HCl 4 mg 02/18/22 03:18 Ondansetron 4 Mg/2 Ml Inj IV Q8H PRN Nausea And Vomiting Senna/Docusate Sodium 1 tab 02/18/22 10:00 02/22/22 09:31 Sennosides/Docusate Sodium 8.6/50 Mg Tab FEEDTUBE Not Given BID KARAN Sodium Chloride 10 ml 02/18/22 10:00 02/22/22 09:24 Sodium Chloride 0.9% 10 Ml Flush Syringe IV 10 ml BID KARAN Administration Sodium Chloride 10 ml 02/18/22 03:18 Sodium Chloride 0.9% 10 Ml Flush Syringe IV PRN PRN LINE FLUSH Nutrition/Malnutrition Assess - Dietary Evaluation Nutrition/Malnutrition Findings: Nutrition Notes Start: 02/18/22 11:48 Freq: Status: Active Protocol: Document 02/21/22 14:31 ADITYA (Rec: 02/21/22 15:27 ADITYA [id number]) Nutrition Notes Initial or Follow up Reassessment Current Diagnosis Hypertension,Respiratory Failure,Hyperlipidemia Other Pertinent Diagnosis s/p cardiac arrest, metastatic lung CA, afib Current Diet TF - Nepro at 50ml/hr Labs/Tests BUN 89 Cr 5.4 BG 164 Ca 5.7 Phos 5.7 Pertinent Medications Solu-Cortef, D5 1/2NS at 5ml/ hr Height 5 ft 11 in Weight 139.8 kg [place] Body Weight (kg) 78.18 BMI 43.0 Weight Status Morbidly Obese Subjective/Other Information Pt tolerating TF at goal rate. Pt no longer on pressor support, but remains on vent support. Pt with worsening renal function and anemia. Possible VasCath placement today; HD to start afterwards. Percent of energy/protein needs met: 83% energy 74% pro Burn Absent Trauma Absent Minimum of two criteria No #1 Nutrition Diagnosis Inadequate oral intake Diagnosis Progress(for reassessment Continues documentation) Is patient on ventilator? Yes Is Patient Ambulatory and/or Out of Bed No REE-([place]-confined to bed) 2597.580 Kcal/Kg value to use for calculation 13 Approximate Energy Requirements Using 1817 kcal/Kg Additional Notes Pro needs >1.2g/kg adjBW: > 131g/day Fluid needs 1-1.5L/day Nutrition Intervention Nutrition Support: Continue Nepro at 50ml/hr with 200ml water flush q4h. Kcal 2,160 Protein (gm) 97 Carbohydrates (gm) 193 Fat (gm) 115 Fluid (mL) 872 Fiber (gm) 15 Goal #1 TF tolerance Goal #2 TF to meet at least 75% energy and pro needs Follow-Up By: 02/28/22 Additional Comments F/U: stable TF, vent status, renal function, wt
[2022-02-22] MEDS: fentaNYL 100 MCG/2 ML INJ IV ONE ×2 (12:06→12:51)
--- NOTE | 2022-02-22 13:33 | XRay Report ---
XR chest 1V ap INDICATION / CLINICAL INFORMATION: AMS with renal failure, right IJ vascath placed. COMPARISON: Radiograph from earlier same day. FINDINGS: SUPPORT DEVICES: Right IJ CVC is kinked in the region of the SVC with distal portion projecting cepha lad along the catheter. Other support devices are stable. HEART /PULMONARY VASCULATURE: Unchanged. LUNGS / PLEURA: Lung parenchyma is not significantly changed. No pneumothorax. IMPRESSION: Right IJ CVC is kinked in the region of the SVC with distal portion projecting cephalad along the pro ximal catheter. Recommend repositioning. Signer Name: Harjeet Wilkinson MD Signed: 02/22/2022 1:29 PM Workstation Name: [id number]
[2022-02-22] MEDS ORDERED: ALTEPLASE 2 MG INJ IV ONE (13:36)
--- NOTE | 2022-02-22 13:52 | Procedure Note ---
<CED LEONG - Last Filed: 02/22/22 15:18> Date of procedure: 02/22/22 Pre-op diagnosis: Acute hypoxic respiratory failure, IGGY requiring HD, sepsis Post-op diagnosis: same Procedure: Verbal consent obtained from Lisa Baird at bedside. Trialysis catheter was placed in right internal jugular. Sterile technique was utilized. Patient prepped and placed in trendelenburg position. Area prepped with chlorhexidine/ full body drape utilized. Target vessel visualized with ultrasound. Using seldinger technique, a finder needle was used to puncture target vessel. Wire was threaded through the needle, skin was nicked and needle was withdrawn over wire. A dilator was passed over the wire and tract was dilated. A trialysis catheter was threaded over a wire. Two HD ports withdrew blood and flushed without difficulty with saline. Pigtail port flushed and was able to draw blood but when reflushed it was difficult and eventually did not draw back or flush forward. Line sutured in place, biopatch not placed (not available) and dressed with tegaderm. Cathflow to pigtail ordered Chest x-ray to confirm placement. CXR read as catheter bent and recommended repositioning. Catheter to be removed by RNDaniel. Femoral vascath placed for immediate HD (see procedure note). Pt tolerated procedure well. VS remained stable throughout procedure. (time spent placing line not included in daily critical care time) CCT: 60 mins Anesthesia: local Surgeon: CED LEONG Estimated blood loss: minimal Pathology: none Condition: critical Disposition: ICU <GONZALO MCKINNON - Last Filed: 02/23/22 09:19> Procedure: I was present during the entirety of this procedure. I saw and evaluated the patient. Discussed with the nurse practitioner and agree with their findings and plan as documented in this note.
[2022-02-22] MEDS: NORepinephrine/NS 8 MG-250 ML 8 MG/250 ML INFUS..BTL IV SCH (14:44)
--- NOTE | 2022-02-22 15:06 | Progress Note ---
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 02/22/22: Clinically, status is worsening. Spoke with family again today. They are still agreement about HD but wanted to know how many treatments to do, or how many treatments would it take to see improvement. Unfortunately, I am not able to answer a question like that. Plan is to do HD today, not sure if he darren l get it again on Thursday. Will add vasopressors as BP is lower today. May not tolerate HD. Guarded prognosis, now with persistent fevers. 02/21/22: Unable to extubate today. Worsening renal function. stopped oral anticoagulation in preparation for placement of vascath. 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 Precedex for the times when he does become uncomfortable and tachypnic but hold on narcs. Very very guarded to poor prognosis. This has been discussed with the family. Changed Cefepime to Ancef given MSSA. Stopping steroids. 02/20/22: Continue to wean Vasopression for MAPs 65 and greater. Wean FiO2 for sats >88%. Hopeful PSV and possible extubation soon. Will continue cefepime for 7 days. Await speciation of Staph. Random vanc level checked. Guarded to poor prognosis as urine output continues to dwindle. Family has not made a decision about HD yet. 02/19/22: Another discussion with , sister and daughter over the phone again today. Explained that he has not improved since admission and has actually gotten worse. Now dealing with multisystem organ failure. Family is now debating on how long to continue and they are going to discuss if they want to pursue dialysis. Will continue supportive measures. Guarded to poor prognosis now with multisystem failure. Long discussion at bedside with and sister and daughter over the phone. Very good questions asked by them. Daughter mentions patient may have been in contact with COVID 19. Also concerns about code status now. Discussed with them the clinical situation and they will make decisions. 1. Wean fIo2 for sats >88% 2. Leave off continuous sedation, ok with PRN pushes if needed 3. OG tube placement 4. Wean Vasopressors for MAPS >88% 5. broaden abx therapy given immunocompromised state and last place of residence. 6. Family wishes to try to treat through this to see if patient can be extubated which is not unreasonable. However he is an AND and they want to stick with this. 7. Guarded to poor prognosis. Patient was in rehab attempting to get stronger to get Palliative chemo therapy. CCT 31 minutes. Subjective Date of service: 02/22/22 Principal diagnosis: ARF Interval history: HD catheter placed Objective Vital Signs - 12hr 02/22/22 02/22/22 02/22/22 03:15 03:31 03:45 Temperature Pulse Rate 73 77 72 Pulse Rate [ Anterior Bilateral Throughout] Pulse Rate [ From Monitor] Respiratory 32 H 38 H 33 H Rate Respiratory Rate [Anterior Bilateral Throughout] Blood Pressure 144/69 144/69 144/69 O2 Sat by Pulse 95 96 96 Oximetry 02/22/22 02/22/22 02/22/22 04:00 04:15 04:19 Temperature 102.6 F H Pulse Rate 72 74 81 Pulse Rate [ Anterior Bilateral Throughout] Pulse Rate [ 69 From Monitor] Respiratory 28 H 36 H Rate Respiratory Rate [Anterior Bilateral Throughout] Blood Pressure 139/78 139/78 139/78 O2 Sat by Pulse 100 88 92 Oximetry 02/22/22 02/22/22 02/22/22 04:31 04:45 05:01 Temperature Pulse Rate 74 69 73 Pulse Rate [ Anterior Bilateral Throughout] Pulse Rate [ From Monitor] Respiratory 34 H 28 H 12 Rate Respiratory Rate [Anterior Bilateral Throughout] Blood Pressure 139/78 139/78 182/41 O2 Sat by Pulse 91 93 92 Oximetry 02/22/22 02/22/22 02/22/22 05:15 05:31 05:34 Temperature Pulse Rate 80 76 77 Pulse Rate [ Anterior Bilateral Throughout] Pulse Rate [ From Monitor] Respiratory 34 H 23 Rate Respiratory Rate [Anterior Bilateral Throughout] Blood Pressure 182/41 182/41 O2 Sat by Pulse 91 92 Oximetry 02/22/22 02/22/22 02/22/22 05:45 06:00 06:15 Temperature Pulse Rate 79 71 75 Pulse Rate [ Anterior Bilateral Throughout] Pulse Rate [ From Monitor] Respiratory 33 H 29 H 30 H Rate Respiratory Rate [Anterior Bilateral Throughout] Blood Pressure 182/41 131/55 131/55 O2 Sat by Pulse 92 100 100 Oximetry 02/22/22 02/22/22 02/22/22 06:31 06:45 07:00 Temperature Pulse Rate 74 75 68 Pulse Rate [ Anterior Bilateral Throughout] Pulse Rate [ From Monitor] Respiratory 32 H 31 H 28 H Rate Respiratory Rate [Anterior Bilateral Throughout] Blood Pressure 131/55 131/55 122/63 O2 Sat by Pulse 100 100 100 Oximetry 02/22/22 02/22/22 02/22/22 07:15 07:31 07:40 Temperature Pulse Rate 68 68 70 Pulse Rate [ 67 Anterior Bilateral Throughout] Pulse Rate [ From Monitor] Respiratory 28 H 27 H Rate Respiratory 28 H Rate [Anterior Bilateral Throughout] Blood Pressure 122/63 122/63 122/63 O2 Sat by Pulse 100 100 100 Oximetry 02/22/22 02/22/22 02/22/22 07:45 08:00 08:15 Temperature 101.8 F H Pulse Rate 70 68 66 Pulse Rate [ Anterior Bilateral Throughout] Pulse Rate [ 68 From Monitor] Respiratory 29 H 31 H 20 Rate Respiratory Rate [Anterior Bilateral Throughout] Blood Pressure 122/63 130/74 130/74 O2 Sat by Pulse 100 100 100 Oximetry 02/22/22 02/22/22 02/22/22 08:31 08:45 09:00 Temperature Pulse Rate 68 69 63 Pulse Rate [ Anterior Bilateral Throughout] Pulse Rate [ From Monitor] Respiratory 27 H 22 26 H Rate Respiratory Rate [Anterior Bilateral Throughout] Blood Pressure 130/74 130/74 135/64 O2 Sat by Pulse 100 100 100 Oximetry 02/22/22 02/22/22 02/22/22 09:15 09:31 09:45 Temperature Pulse Rate 71 71 74 Pulse Rate [ Anterior Bilateral Throughout] Pulse Rate [ From Monitor] Respiratory 29 H 28 H 31 H Rate Respiratory Rate [Anterior Bilateral Throughout] Blood Pressure 135/64 135/64 135/64 O2 Sat by Pulse 100 100 96 Oximetry 02/22/22 02/22/22 02/22/22 10:00 10:15 10:31 Temperature Pulse Rate 69 69 63 Pulse Rate [ Anterior Bilateral Throughout] Pulse Rate [ From Monitor] Respiratory 26 H 28 H 30 H Rate Respiratory Rate [Anterior Bilateral Throughout] Blood Pressure 115/50 115/50 115/50 O2 Sat by Pulse 100 100 100 Oximetry 02/22/22 02/22/22 02/22/22 10:45 10:47 11:00 Temperature 100.8 F H Pulse Rate 65 66 Pulse Rate [ Anterior Bilateral Throughout] Pulse Rate [ From Monitor] Respiratory 34 H 30 H Rate Respiratory Rate [Anterior Bilateral Throughout] Blood Pressure 115/50 113/57 O2 Sat by Pulse 100 99 Oximetry 02/22/22 02/22/22 02/22/22 11:15 11:31 11:45 Temperature Pulse Rate 64 67 67 Pulse Rate [ Anterior Bilateral Throughout] Pulse Rate [ From Monitor] Respiratory 28 H 29 H 19 Rate Respiratory Rate [Anterior Bilateral Throughout] Blood Pressure 113/57 113/57 113/57 O2 Sat by Pulse 99 99 95 Oximetry 02/22/22 02/22/22 02/22/22 12:00 12:01 12:11 Temperature 99.9 F H Pulse Rate 64 66 73 Pulse Rate [ Anterior Bilateral Throughout] Pulse Rate [ 64 From Monitor] Respiratory 25 H 18 Rate Respiratory Rate [Anterior Bilateral Throughout] Blood Pressure 110/58 110/58 O2 Sat by Pulse 100 98 99 Oximetry 02/22/22 02/22/22 02/22/22 12:15 12:31 12:45 Temperature Pulse Rate 66 65 71 Pulse Rate [ Anterior Bilateral Throughout] Pulse Rate [ From Monitor] Respiratory 23 26 H 21 Rate Respiratory Rate [Anterior Bilateral Throughout] Blood Pressure 110/58 110/58 110/58 O2 Sat by Pulse 95 96 94 Oximetry 02/22/22 02/22/22 02/22/22 13:00 13:15 13:31 Temperature Pulse Rate 69 71 71 Pulse Rate [ Anterior Bilateral Throughout] Pulse Rate [ From Monitor] Respiratory 28 H 28 H 25 H Rate Respiratory Rate [Anterior Bilateral Throughout] Blood Pressure 97/53 97/53 97/53 O2 Sat by Pulse 95 97 96 Oximetry 02/22/22 02/22/22 02/22/22 13:45 13:55 14:00 Temperature Pulse Rate 65 70 Pulse Rate [ 73 Anterior Bilateral Throughout] Pulse Rate [ From Monitor] Respiratory 31 H 31 H Rate Respiratory 30 H Rate [Anterior Bilateral Throughout] Blood Pressure 97/53 90/41 O2 Sat by Pulse 98 97 Oximetry 02/22/22 14:15 Temperature Pulse Rate 70 Pulse Rate [ Anterior Bilateral Throughout] Pulse Rate [ From Monitor] Respiratory 16 Rate Respiratory Rate [Anterior Bilateral Throughout] Blood Pressure 90/41 O2 Sat by Pulse 95 Oximetry Constitutional: alert, appears uncomfortable Eyes: other (has only one eye, right eye) ENT: other (orally intubated, not on sedation) Neck: supple Effort: mildly labored Ascultation: Bilateral: rhonchi Percussion: Bilateral: not dull Cardiovascular: regular rate and rhythm Gastrointestinal: normoactive bowel sounds, soft CBC and BMP: 02/22/22 16:22 02/22/22 16:22 ABG, PT/INR, D-dimer: ABG ABG pH 7.268 pH Units (7.350-7.450) L 02/22/22 05:27 POC ABG pCO2 60.4 mmHg (32.0-48.0) H 02/18/22 00:20 ABG pCO2 34.7 mm Hg 02/22/22 05:27 POC ABG pO2 93.0 mmHg (83-108) 02/18/22 00:20 ABG pO2 54.8 mm Hg (80.0-90.0) L 02/22/22 05:27 POC ABG HCO3 20.5 02/18/22 00:20 ABG O2 Saturation 87.4 % (95.0-99.0) L 02/22/22 05:27 PT/INR, D-dimer PT 27.7 Sec. (12.2-14.9) H 02/19/22 Unknown INR 2.24 (0.87-1.13) H 02/19/22 Unknown Abnormal lab findings: Abnormal Labs 02/18/22 02/18/22 02/18/22 00:20 00:21 00:21 WBC RBC 3.15 L Hgb 9.0 L Hct 28.0 L MCHC RDW 20.4 H Seg Neutrophils % 71.8 H Seg Neuts % (Manual) Lymphocytes % (Manual) Nucleated RBC % Seg Neutrophils # Man Lymphocytes # (Manual) PT 29.4 H INR 2.41 H APTT 38.3 H ABG pH 7.148 L POC ABG pCO2 60.4 H ABG pO2 ABG HCO3 ABG O2 Saturation ABG Base Excess ABG Hemoglobin 8.69 L ABG Oxyhemoglobin 93.7 L Oxyhemoglobin Carboxyhemoglobin 2.1 H Sodium Potassium Chloride Carbon Dioxide BUN Creatinine Glucose POC Glucose Calcium Phosphorus AST Alkaline Phosphatase Total Creatine Kinase Troponin T Albumin LDL Cholesterol Direct HDL Cholesterol TSH Urine Creatinine Urine Total Protein Salicylates Acetaminophen 02/18/22 02/18/22 02/18/22 00:21 00:21 00:21 WBC RBC Hgb Hct MCHC RDW Seg Neutrophils % Seg Neuts % (Manual) Lymphocytes % (Manual) Nucleated RBC % Seg Neutrophils # Man Lymphocytes # (Manual) PT INR APTT ABG pH POC ABG pCO2 ABG pO2 ABG HCO3 ABG O2 Saturation ABG Base Excess ABG Hemoglobin ABG Oxyhemoglobin Oxyhemoglobin Carboxyhemoglobin Sodium Potassium Chloride 112.6 H Carbon Dioxide 19 L BUN 55 H Creatinine 3.0 H Glucose 152 H POC Glucose Calcium 7.4 L Phosphorus AST 56 H Alkaline Phosphatase 268 H Total Creatine Kinase 233 H Troponin T 0.073 H Albumin 2.2 L LDL Cholesterol Direct 30 L HDL Cholesterol 19 L TSH 5.100 H Urine Creatinine Urine Total Protein Salicylates < 0.3 L Acetaminophen 02/18/22 02/18/22 02/18/22 00:21 05:02 06:22 WBC RBC Hgb Hct MCHC RDW Seg Neutrophils % Seg Neuts % (Manual) Lymphocytes % (Manual) Nucleated RBC % Seg Neutrophils # Man Lymphocytes # (Manual) PT INR APTT ABG pH 7.131 L* POC ABG pCO2 ABG pO2 93.2 H ABG HCO3 17.6 L ABG O2 Saturation ABG Base Excess -11.2 L ABG Hemoglobin 9.1 L ABG Oxyhemoglobin Oxyhemoglobin 94.6 L Carboxyhemoglobin Sodium Potassium Chloride Carbon Dioxide BUN Creatinine Glucose POC Glucose 125 H Calcium Phosphorus AST Alkaline Phosphatase Total Creatine Kinase Troponin T Albumin LDL Cholesterol Direct HDL Cholesterol TSH Urine Creatinine Urine Total Protein Salicylates Acetaminophen 5.0 L 02/18/22 02/18/22 02/18/22 09:21 11:30 17:14 WBC RBC Hgb Hct MCHC RDW Seg Neutrophils % Seg Neuts % (Manual) Lymphocytes % (Manual) Nucleated RBC % Seg Neutrophils # Man Lymphocytes # (Manual) PT INR APTT ABG pH POC ABG pCO2 ABG pO2 ABG HCO3 ABG O2 Saturation ABG Base Excess ABG Hemoglobin ABG Oxyhemoglobin Oxyhemoglobin Carboxyhemoglobin Sodium Potassium Chloride Carbon Dioxide BUN Creatinine Glucose POC Glucose 127 H 126 H Calcium Phosphorus AST Alkaline Phosphatase Total Creatine Kinase Troponin T 0.076 H Albumin LDL Cholesterol Direct HDL Cholesterol TSH Urine Creatinine Urine Total Protein Salicylates Acetaminophen 02/18/22 02/18/22 02/19/22 23:44 23:44 04:00 WBC RBC Hgb Hct MCHC RDW Seg Neutrophils % Seg Neuts % (Manual) Lymphocytes % (Manual) Nucleated RBC % Seg Neutrophils # Man Lymphocytes # (Manual) PT INR APTT ABG pH POC ABG pCO2 ABG pO2 ABG HCO3 ABG O2 Saturation ABG Base Excess ABG Hemoglobin ABG Oxyhemoglobin Oxyhemoglobin Carboxyhemoglobin Sodium Potassium Chloride Carbon Dioxide 21 L BUN 56 H Creatinine 3.5 H Glucose 224 H POC Glucose Calcium 6.1 L D Phosphorus AST Alkaline Phosphatase Total Creatine Kinase Troponin T Albumin LDL Cholesterol Direct HDL Cholesterol TSH Urine Creatinine 180.0 H 180.9 H Urine Total Protein 457 H Salicylates Acetaminophen 02/19/22 02/19/22 02/19/22 04:12 04:20 11:46 WBC RBC 3.14 L Hgb 8.9 L Hct 27.6 L MCHC RDW 19.6 H Seg Neutrophils % Seg Neuts % (Manual) 96.0 H Lymphocytes % (Manual) 2.0 L Nucleated RBC % Seg Neutrophils # Man 9.5 H Lymphocytes # (Manual) 0.2 L PT INR APTT ABG pH 7.199 L* POC ABG pCO2 ABG pO2 147.0 H ABG HCO3 ABG O2 Saturation ABG Base Excess -6.2 L ABG Hemoglobin 9.1 L ABG Oxyhemoglobin Oxyhemoglobin Carboxyhemoglobin Sodium Potassium Chloride Carbon Dioxide BUN Creatinine Glucose POC Glucose 152 H Calcium Phosphorus AST Alkaline Phosphatase Total Creatine Kinase Troponin T Albumin LDL Cholesterol Direct HDL Cholesterol TSH Urine Creatinine Urine Total Protein Salicylates Acetaminophen 02/19/22 02/19/22 02/19/22 12:48 18:29 Unknown WBC RBC 2.97 L Hgb 8.4 L Hct 25.9 L MCHC RDW 19.7 H Seg Neutrophils % Seg Neuts % (Manual) Lymphocytes % (Manual) Nucleated RBC % Seg Neutrophils # Man Lymphocytes # (Manual) PT INR APTT ABG pH POC ABG pCO2 ABG pO2 ABG HCO3 ABG O2 Saturation ABG Base Excess ABG Hemoglobin ABG Oxyhemoglobin Oxyhemoglobin Carboxyhemoglobin Sodium Potassium 5.1 H Chloride Carbon Dioxide 20 L BUN 55 H Creatinine 3.5 H Glucose 221 H POC Glucose 126 H Calcium 6.0 L Phosphorus 6.70 H AST Alkaline Phosphatase Total Creatine Kinase Troponin T Albumin LDL Cholesterol Direct HDL Cholesterol TSH Urine Creatinine Urine Total Protein Salicylates Acetaminophen 02/19/22 02/19/22 02/20/22 Unknown Unknown 00:29 WBC RBC Hgb Hct MCHC RDW Seg Neutrophils % Seg Neuts % (Manual) Lymphocytes % (Manual) Nucleated RBC % Seg Neutrophils # Man Lymphocytes # (Manual) PT 27.7 H INR 2.24 H APTT 46.4 H ABG pH POC ABG pCO2 ABG pO2 ABG HCO3 ABG O2 Saturation ABG Base Excess ABG Hemoglobin ABG Oxyhemoglobin Oxyhemoglobin Carboxyhemoglobin Sodium Potassium Chloride Carbon Dioxide BUN Creatinine 4.0 H Glucose POC Glucose 129 H Calcium Phosphorus AST Alkaline Phosphatase Total Creatine Kinase Troponin T Albumin LDL Cholesterol Direct HDL Cholesterol TSH Urine Creatinine Urine Total Protein Salicylates Acetaminophen 02/20/22 02/20/22 02/20/22 04:30 04:30 05:03 WBC RBC 2.62 L Hgb 7.5 L Hct 22.8 L MCHC RDW 19.9 H Seg Neutrophils % Seg Neuts % (Manual) 79.0 H Lymphocytes % (Manual) 5.0 L Nucleated RBC % 1.0 H Seg Neutrophils # Man Lymphocytes # (Manual) 0.4 L PT INR APTT ABG pH 7.319 L POC ABG pCO2 ABG pO2 149.9 H ABG HCO3 19.8 L ABG O2 Saturation ABG Base Excess -5.8 L ABG Hemoglobin 7.3 L ABG Oxyhemoglobin Oxyhemoglobin Carboxyhemoglobin Sodium 136 L Potassium Chloride Carbon Dioxide 19 L BUN 70 H Creatinine 4.4 H Glucose 148 H POC Glucose Calcium 5.9 L* Phosphorus AST Alkaline Phosphatase Total Creatine Kinase Troponin T Albumin LDL Cholesterol Direct HDL Cholesterol TSH Urine Creatinine Urine Total Protein Salicylates Acetaminophen 02/20/22 02/20/22 02/20/22 13:03 17:31 23:18 WBC RBC Hgb Hct MCHC RDW Seg Neutrophils % Seg Neuts % (Manual) Lymphocytes % (Manual) Nucleated RBC % Seg Neutrophils # Man Lymphocytes # (Manual) PT INR APTT ABG pH POC ABG pCO2 ABG pO2 ABG HCO3 ABG O2 Saturation ABG Base Excess ABG Hemoglobin ABG Oxyhemoglobin Oxyhemoglobin Carboxyhemoglobin Sodium Potassium Chloride Carbon Dioxide BUN Creatinine Glucose POC Glucose 151 H 138 H 144 H Calcium Phosphorus AST Alkaline Phosphatase Total Creatine Kinase Troponin T Albumin LDL Cholesterol Direct HDL Cholesterol TSH Urine Creatinine Urine Total Protein Salicylates Acetaminophen 02/21/22 02/21/22 02/21/22 04:20 05:44 06:45 WBC RBC 2.64 L Hgb 7.5 L Hct 23.1 L MCHC RDW 20.3 H Seg Neutrophils % Seg Neuts % (Manual) 89.0 H Lymphocytes % (Manual) 7.0 L Nucleated RBC % Seg Neutrophils # Man 9.7 H Lymphocytes # (Manual) 0.8 L PT INR APTT ABG pH 7.293 L POC ABG pCO2 ABG pO2 180.1 H ABG HCO3 18.0 L ABG O2 Saturation 99.1 H ABG Base Excess -7.9 L ABG Hemoglobin 7.0 L ABG Oxyhemoglobin Oxyhemoglobin Carboxyhemoglobin Sodium Potassium Chloride Carbon Dioxide BUN Creatinine Glucose POC Glucose 164 H Calcium Phosphorus AST Alkaline Phosphatase Total Creatine Kinase Troponin T Albumin LDL Cholesterol Direct HDL Cholesterol TSH Urine Creatinine Urine Total Protein Salicylates Acetaminophen 02/21/22 02/21/22 02/21/22 06:45 11:19 17:18 WBC RBC Hgb Hct MCHC RDW Seg Neutrophils % Seg Neuts % (Manual) Lymphocytes % (Manual) Nucleated RBC % Seg Neutrophils # Man Lymphocytes # (Manual) PT INR APTT ABG pH POC ABG pCO2 ABG pO2 ABG HCO3 ABG O2 Saturation ABG Base Excess ABG Hemoglobin ABG Oxyhemoglobin Oxyhemoglobin Carboxyhemoglobin Sodium Potassium Chloride Carbon Dioxide 17 L BUN 89 H Creatinine 5.4 H Glucose 164 H POC Glucose 165 H 129 H Calcium 5.7 L* Phosphorus 5.70 H AST Alkaline Phosphatase Total Creatine Kinase Troponin T Albumin LDL Cholesterol Direct HDL Cholesterol TSH Urine Creatinine Urine Total Protein Salicylates Acetaminophen 02/22/22 02/22/22 02/22/22 04:20 04:20 04:40 WBC 12.9 H RBC 2.69 L Hgb 7.4 L Hct 23.6 L MCHC 31 L RDW 20.5 H Seg Neutrophils % Seg Neuts % (Manual) 89.0 H Lymphocytes % (Manual) 6.0 L Nucleated RBC % Seg Neutrophils # Man 11.5 H Lymphocytes # (Manual) 0.8 L PT INR APTT ABG pH 7.261 L POC ABG pCO2 ABG pO2 51.1 L ABG HCO3 15.9 L ABG O2 Saturation 80.6 L ABG Base Excess -10.3 L ABG Hemoglobin 8.3 L ABG Oxyhemoglobin Oxyhemoglobin 79.1 L Carboxyhemoglobin Sodium 134 L Potassium Chloride Carbon Dioxide 15 L BUN 109 H Creatinine 6.1 H Glucose 142 H POC Glucose Calcium 5.3 L* Phosphorus AST Alkaline Phosphatase Total Creatine Kinase Troponin T Albumin LDL Cholesterol Direct HDL Cholesterol TSH Urine Creatinine Urine Total Protein Salicylates Acetaminophen 02/22/22 02/22/22 02/22/22 05:27 05:30 09:21 WBC RBC Hgb Hct MCHC RDW Seg Neutrophils % Seg Neuts % (Manual) Lymphocytes % (Manual) Nucleated RBC % Seg Neutrophils # Man Lymphocytes # (Manual) PT INR APTT ABG pH 7.268 L POC ABG pCO2 ABG pO2 54.8 L ABG HCO3 15.5 L ABG O2 Saturation 87.4 L ABG Base Excess -10.5 L ABG Hemoglobin 7.4 L ABG Oxyhemoglobin Oxyhemoglobin 85.7 L Carboxyhemoglobin Sodium Potassium Chloride Carbon Dioxide BUN Creatinine Glucose POC Glucose 134 H 120 H Calcium Phosphorus AST Alkaline Phosphatase Total Creatine Kinase Troponin T Albumin LDL Cholesterol Direct HDL Cholesterol TSH Urine Creatinine Urine Total Protein Salicylates Acetaminophen 02/22/22 02/22/22 11:42 11:47 WBC RBC Hgb Hct MCHC RDW Seg Neutrophils % Seg Neuts % (Manual) Lymphocytes % (Manual) Nucleated RBC % Seg Neutrophils # Man Lymphocytes # (Manual) PT INR APTT ABG pH POC ABG pCO2 ABG pO2 ABG HCO3 ABG O2 Saturation ABG Base Excess ABG Hemoglobin ABG Oxyhemoglobin Oxyhemoglobin Carboxyhemoglobin Sodium Potassium Chloride Carbon Dioxide BUN Creatinine Glucose POC Glucose 34 L 110 H Calcium Phosphorus AST Alkaline Phosphatase Total Creatine Kinase Troponin T Albumin LDL Cholesterol Direct HDL Cholesterol TSH Urine Creatinine Urine Total Protein Salicylates Acetaminophen
[2022-02-22] MEDS ORDERED: SODIUM BICARB 8.4% 50 MEQ/50 ML SYRINGE IV ONE (15:14)
--- NOTE | 2022-02-22 15:18 | Procedure Note ---
Date of procedure: 02/22/22 Pre-op diagnosis: acute on chronic renal failure, acute resp failure, sepsis Post-op diagnosis: same Procedure: Emergent procedure; two physician consent, see chart for details, Dr. Mota and Dr. Fry Trialysis catheter was placed in right femoral vein. Sterile technique was utilized. Patient prepped and placed in supine. Area prepped with chlorhexidine/ full body drape utilized. Target vessel visualized with ultrasound. Using seldinger technique, a finder needle was used to puncture target vessel. Wire was threaded through the needle, skin was nicked and needle was withdrawn over wire. A dilator was passed over the wire and tract was dilated. A 13f trialysis catheter was threaded over a wire. All port withdrew blood and flushed without difficulty with saline. Line sutured in place, biopatch not placed (not available) and dressed with tegaderm. Pt tolerated procedure well. VS remained stable throughout procedure. (time spent placing line not included in daily critical care time) Anesthesia: local Surgeon: CED LEONG Estimated blood loss: minimal Condition: critical Disposition: ICU
[2022-02-22] MEDS ORDERED: SODIUM CHLORIDE 0.9% IV ONE ×2 (16:00)
[2022-02-22] MEDS ORDERED: CALCIUM GLUCONATE IV ONE ×2 (16:00)
[2022-02-22] MEDS ORDERED: VASOPRESSIN 20 UNIT in SODIUM CHLORIDE 0.9% 100 ML IV SCH (16:00)
[2022-02-22] MEDS ORDERED: CALCIUM GLUCONATE 2,000 MG in SODIUM CHLORIDE 0.9% 100 ML IV ONE (16:00)
[2022-02-22 16:41] LABS: Hematocrit 24.5 % (35.5-45.6); Hemoglobin 8.1 gm/dl (11.8-15.2); Mean Corpuscular HGB Conc 33 % (32-34); Mean Corpuscular Volume 86 fl (84-94); Platelet Count 270 K/mm3 (140-440); Red Blood Count 2.84 M/mm3 (3.65-5.03)
[2022-02-22 17:07] LABS: INR 1.49 (0.87-1.13)
[2022-02-22 17:08] LABS: Partial Thromboplastin Time 34.3 Sec. (24.2-36.6)
[2022-02-22 17:58] LABS: Bacteria,Urine 1+ /HPF (Negative); Bilirubin,Urine NEG (Negative); Blood,Urine LG (Negative); Color,Urine Amber (Yellow); Granular Casts,Urine 11 /LPF; Mucus,Urine FEW /HPF; Urobilinogen,Urine < 2.0 mg/dL (<2.0)
[2022-02-22 18:01] LABS: Protein,Urine >500 mg/dL (Negative)
[2022-02-22] MEDS ORDERED: NON-FORMULARY EACH (Apixaban 5 MG Tablet) PO SCH (22:00)
[2022-02-22] MEDS ORDERED: APIXABAN 2.5 MG FEEDTUBE SCH (22:00)
[2022-02-22] MEDS: APIXABAN 2.5 MG TAB FEEDTUBE SCH (22:55)
[2022-02-22] MEDS ORDERED: MORPHINE 2 MG/1 ML INJ IM ONE (22:57)
[2022-02-22] MEDS ORDERED: FUROSEMIDE 40 MG/4 ML INJ IV ONE (23:20)
[2022-02-22] MEDS ORDERED: LORazepam 2 MG/ML VIAL IV ONE (23:21)
[2022-02-23 00:23] LABS: ABG Base Excess -3.3 mmol/L (-2.0-3.0); ABG HCO3 21.9 mmol/L (20.0-26.0); ABG Methemoglobin 0.5 % (0.0-1.5); ABG Oxygen Saturation 95.7 % (95.0-99.0); ABG PCO2 39.8 mm Hg; ABG PH 7.358 pH Units (7.350-7.450); ABG PO2 73.5 mm Hg (80.0-90.0)
[2022-02-23] MEDS: NORepinephrine/NS 8 MG-250 ML 8 MG/250 ML INFUS..BTL IV SCH ×3 (01:59→19:07)
--- NOTE | 2022-02-23 02:20 | XRay Report ---
CHEST 1 VIEW 02/23/2022 1:49 AM INDICATION / CLINICAL INFORMATION: follow up respiratory failure. COMPARISON: One view of the chest from 02/22/2022 FINDINGS: SUPPORT DEVICES: Unchanged. HEART / MEDIASTINUM: Stable. LUNGS / PLEURA: Right basilar opacities have improved while opacities involving the majority of the l eft lung have worsened. No significant pleural effusion. No pneumothorax. ADDITIONAL FINDINGS: No significant additional findings. IMPRESSION: 1. Evolving bilateral pulmonary opacities as above, which may represent atelectasis or pneumonia. 2. No other significant interval changes. Signer Name: David Ruiz MD Signed: 02/23/2022 2:16 AM Workstation Name: [id number]
[2022-02-23 05:11] LABS: ABG Base Excess -4.1 mmol/L (-2.0-3.0); ABG HCO3 20.4 mmol/L (20.0-26.0); ABG Methemoglobin 0.5 % (0.0-1.5); ABG Oxygen Saturation 96.7 % (95.0-99.0); ABG PCO2 34.7 mm Hg; ABG PH 7.387 pH Units (7.350-7.450); ABG PO2 80.2 mm Hg (80.0-90.0)
[2022-02-23 07:14] LABS: Hemoglobin 8.6 gm/dl (11.8-15.2); Mean Corpuscular HGB Conc 32 % (32-34); Mean Corpuscular Volume 86 fl (84-94); Platelet Count 287 K/mm3 (140-440); Red Blood Count 3.13 M/mm3 (3.65-5.03); Red Cell Distribution Width 19.8 % (13.2-15.2)
[2022-02-23] MEDS: IPRATROPIUM/ALBUTEROL SULFATE 3 ML AMPUL.NEB IH SCH ×3 (07:38→20:19)
[2022-02-23] MEDS: ACETAMINOPHEN 325 MG TAB PO PRN ×3 (07:43→16:23)
[2022-02-23 07:44] LABS: Calcium 6.1 mg/dL (8.4-10.2)
[2022-02-23 08:03] LABS: Band Neutrophils # (Manual) 0.6 K/mm3; Eosinophils % (Manual) 0 % (0.0-4.3); Total Cells Counted 100
[2022-02-23 08:04] LABS: Anisocytosis 1+; Basophils % (Manual) 0 % (0.0-1.8); Hypochromasia Few; Large Platelets Few; Platelet Estimate Consistent w Auto; Smudge Cells 1+
--- NOTE | 2022-02-23 08:17 | Progress Note ---
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 02/23/22: Overall prognosis remains extremely poor. Not sure when HD will occur again, most likely tomorrow but did not make a large difference in mentation however BUN is still elevated. Remains on pressors and will attempt to wean for MAPs 65 and greater. Fever remains, will discuss with pharmacy but this has osorio ppened since changing cefepime to ancef, may need to go back. Follow up blood cultures. 02/22/22: Clinically, status is worsening. Spoke with family again today. They are still agreement about HD but wanted to know how many treatments to do, or how many treatments would it take to see improvement. Unfortunately, I am not able to answer a question like that. Plan is to do HD today, not sure if he will get it again on Thursday. Will add vasopressors as BP is lower today. May not tolerate HD. Guarded prognosis, now with persistent fevers. 02/21/22: Unable to extubate today. Worsening renal function. stopped oral anticoagulation in preparation for placement of vascath. 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 Precedex for the times when he does become uncomfortable and tachypnic but hold on narcs. Very very guarded to poor prognosis. This has been discussed with the family. Changed Cefepime to Ancef given MSSA. Stopping steroids. 02/20/22: Continue to wean Vasopression for MAPs 65 and greater. Wean FiO2 for sats >88%. Hopeful PSV and possible extubation soon. Will continue cefepime for 7 days. Await speciation of Staph. Random vanc level checked. Guarded to poor prognosis as urine output continues to dwindle. Family has not made a decision about HD yet. 02/19/22: Another discussion with , sister and daughter over the phone again today. Explained that he has not improved since admission and has actually gotten worse. Now dealing with multisystem organ failure. Family is now debating on how long to continue and they are going to discuss if they want to pursue dialysis. Will continue supportive measures. Guarded to poor prognosis now with multisystem failure. Long discussion at bedside with and sister and daughter over the phone. Very good questions asked by them. Daughter mentions patient may have been in contact with COVID 19. Also concerns about code status now. Discussed with them the clinical situation and they will make decisions. 1. Wean fIo2 for sats >88% 2. Leave off continuous sedation, ok with PRN pushes if needed 3. OG tube placement 4. Wean Vasopressors for MAPS >88% 5. broaden abx therapy given immunocompromised state and last place of residence. 6. Family wishes to try to treat through this to see if patient can be extubated which is not unreasonable. However he is an AND and they want to stick with this. 7. Guarded to poor prognosis. Patient was in rehab attempting to get stronger to get Palliative chemo therapy. CCT 31 minutes. Subjective Date of service: 02/23/22 Principal diagnosis: ARF Interval history: Patient remains unresponsive. Had HD yesterday with 2 liters removed. BUn down to 87. WC at 15 and still febrile. Objective Vital Signs - 12hr 02/22/22 02/22/22 02/22/22 21:00 22:00 23:00 Temperature Pulse Rate 84 82 86 Pulse Rate [ Anterior Bilateral Throughout] Pulse Rate [ From Monitor] Respiratory 31 H 21 32 H Rate Respiratory Rate [Anterior Bilateral Throughout] Blood Pressure 112/53 95/48 92/65 O2 Sat by Pulse 96 97 88 Oximetry 02/22/22 02/22/22 02/22/22 23:04 23:29 23:57 Temperature Pulse Rate 86 Pulse Rate [ Anterior Bilateral Throughout] Pulse Rate [ From Monitor] Respiratory 38 H 19 Rate Respiratory Rate [Anterior Bilateral Throughout] Blood Pressure 128/70 111/72 O2 Sat by Pulse 90 Oximetry 02/23/22 02/23/22 02/23/22 00:00 01:00 02:00 Temperature 100.9 F H Pulse Rate 79 80 83 Pulse Rate [ Anterior Bilateral Throughout] Pulse Rate [ 68 From Monitor] Respiratory 27 H 28 H 28 H Rate Respiratory Rate [Anterior Bilateral Throughout] Blood Pressure 128/55 160/78 144/50 O2 Sat by Pulse 88 97 98 Oximetry 02/23/22 02/23/22 02/23/22 03:00 04:00 04:13 Temperature 100.8 F H Pulse Rate 89 83 84 Pulse Rate [ Anterior Bilateral Throughout] Pulse Rate [ 68 From Monitor] Respiratory 31 H 31 H Rate Respiratory Rate [Anterior Bilateral Throughout] Blood Pressure 118/59 126/72 142/72 O2 Sat by Pulse 99 99 98 Oximetry 02/23/22 02/23/22 02/23/22 05:00 06:00 07:00 Temperature Pulse Rate 86 91 H 88 Pulse Rate [ Anterior Bilateral Throughout] Pulse Rate [ From Monitor] Respiratory 22 30 H 22 Rate Respiratory Rate [Anterior Bilateral Throughout] Blood Pressure 145/70 142/74 124/68 O2 Sat by Pulse 98 99 100 Oximetry 02/23/22 02/23/22 07:38 08:00 Temperature Pulse Rate 95 H 91 H Pulse Rate [ 86 Anterior Bilateral Throughout] Pulse Rate [ From Monitor] Respiratory 16 Rate Respiratory 30 H Rate [Anterior Bilateral Throughout] Blood Pressure 145/69 120/72 O2 Sat by Pulse 99 100 Oximetry Constitutional: alert, appears uncomfortable Eyes: other (has only one eye, right eye) ENT: other (orally intubated, not on sedation) Neck: supple Effort: mildly labored Ascultation: Bilateral: rhonchi Percussion: Bilateral: not dull Cardiovascular: regular rate and rhythm Gastrointestinal: normoactive bowel sounds, soft CBC and BMP: 02/23/22 07:00 02/23/22 07:00 ABG, PT/INR, D-dimer: ABG ABG pH 7.387 pH Units (7.350-7.450) 02/23/22 05:00 POC ABG pCO2 60.4 mmHg (32.0-48.0) H 02/18/22 00:20 ABG pCO2 34.7 mm Hg 02/23/22 05:00 POC ABG pO2 93.0 mmHg (83-108) 02/18/22 00:20 ABG pO2 80.2 mm Hg (80.0-90.0) 02/23/22 05:00 POC ABG HCO3 20.5 02/18/22 00:20 ABG O2 Saturation 96.7 % (95.0-99.0) 02/23/22 05:00 PT/INR, D-dimer PT 19.8 Sec. (12.2-14.9) H 02/22/22 16:22 INR 1.49 (0.87-1.13) H 02/22/22 16:22 Abnormal lab findings: Abnormal Labs 02/18/22 02/18/22 02/18/22 00:20 00:21 00:21 WBC RBC 3.15 L Hgb 9.0 L Hct 28.0 L MCH MCHC RDW 20.4 H Seg Neutrophils % 71.8 H Seg Neuts % (Manual) Lymphocytes % (Manual) Nucleated RBC % Seg Neutrophils # Man Lymphocytes # (Manual) PT 29.4 H INR 2.41 H APTT 38.3 H ABG pH 7.148 L POC ABG pCO2 60.4 H ABG pO2 ABG HCO3 ABG O2 Saturation ABG Base Excess ABG Hemoglobin 8.69 L ABG Oxyhemoglobin 93.7 L Oxyhemoglobin Carboxyhemoglobin 2.1 H Sodium Potassium Chloride Carbon Dioxide BUN Creatinine Glucose POC Glucose Calcium Phosphorus AST Alkaline Phosphatase Total Creatine Kinase Troponin T Albumin LDL Cholesterol Direct HDL Cholesterol TSH Urine WBC (Auto) Urine Creatinine Urine Total Protein Salicylates Acetaminophen 02/18/22 02/18/22 02/18/22 00:21 00:21 00:21 WBC RBC Hgb Hct MCH MCHC RDW Seg Neutrophils % Seg Neuts % (Manual) Lymphocytes % (Manual) Nucleated RBC % Seg Neutrophils # Man Lymphocytes # (Manual) PT INR APTT ABG pH POC ABG pCO2 ABG pO2 ABG HCO3 ABG O2 Saturation ABG Base Excess ABG Hemoglobin ABG Oxyhemoglobin Oxyhemoglobin Carboxyhemoglobin Sodium Potassium Chloride 112.6 H Carbon Dioxide 19 L BUN 55 H Creatinine 3.0 H Glucose 152 H POC Glucose Calcium 7.4 L Phosphorus AST 56 H Alkaline Phosphatase 268 H Total Creatine Kinase 233 H Troponin T 0.073 H Albumin 2.2 L LDL Cholesterol Direct 30 L HDL Cholesterol 19 L TSH 5.100 H Urine WBC (Auto) Urine Creatinine Urine Total Protein Salicylates < 0.3 L Acetaminophen 02/18/22 02/18/22 02/18/22 00:21 05:02 06:22 WBC RBC Hgb Hct MCH MCHC RDW Seg Neutrophils % Seg Neuts % (Manual) Lymphocytes % (Manual) Nucleated RBC % Seg Neutrophils # Man Lymphocytes # (Manual) PT INR APTT ABG pH 7.131 L* POC ABG pCO2 ABG pO2 93.2 H ABG HCO3 17.6 L ABG O2 Saturation ABG Base Excess -11.2 L ABG Hemoglobin 9.1 L ABG Oxyhemoglobin Oxyhemoglobin 94.6 L Carboxyhemoglobin Sodium Potassium Chloride Carbon Dioxide BUN Creatinine Glucose POC Glucose 125 H Calcium Phosphorus AST Alkaline Phosphatase Total Creatine Kinase Troponin T Albumin LDL Cholesterol Direct HDL Cholesterol TSH Urine WBC (Auto) Urine Creatinine Urine Total Protein Salicylates Acetaminophen 5.0 L 02/18/22 02/18/22 02/18/22 09:21 11:30 17:14 WBC RBC Hgb Hct MCH MCHC RDW Seg Neutrophils % Seg Neuts % (Manual) Lymphocytes % (Manual) Nucleated RBC % Seg Neutrophils # Man Lymphocytes # (Manual) PT INR APTT ABG pH POC ABG pCO2 ABG pO2 ABG HCO3 ABG O2 Saturation ABG Base Excess ABG Hemoglobin ABG Oxyhemoglobin Oxyhemoglobin Carboxyhemoglobin Sodium Potassium Chloride Carbon Dioxide BUN Creatinine Glucose POC Glucose 127 H 126 H Calcium Phosphorus AST Alkaline Phosphatase Total Creatine Kinase Troponin T 0.076 H Albumin LDL Cholesterol Direct HDL Cholesterol TSH Urine WBC (Auto) Urine Creatinine Urine Total Protein Salicylates Acetaminophen 02/18/22 02/18/22 02/19/22 23:44 23:44 04:00 WBC RBC Hgb Hct MCH MCHC RDW Seg Neutrophils % Seg Neuts % (Manual) Lymphocytes % (Manual) Nucleated RBC % Seg Neutrophils # Man Lymphocytes # (Manual) PT INR APTT ABG pH POC ABG pCO2 ABG pO2 ABG HCO3 ABG O2 Saturation ABG Base Excess ABG Hemoglobin ABG Oxyhemoglobin Oxyhemoglobin Carboxyhemoglobin Sodium Potassium Chloride Carbon Dioxide 21 L BUN 56 H Creatinine 3.5 H Glucose 224 H POC Glucose Calcium 6.1 L D Phosphorus AST Alkaline Phosphatase Total Creatine Kinase Troponin T Albumin LDL Cholesterol Direct HDL Cholesterol TSH Urine WBC (Auto) Urine Creatinine 180.0 H 180.9 H Urine Total Protein 457 H Salicylates Acetaminophen 02/19/22 02/19/22 02/19/22 04:12 04:20 11:46 WBC RBC 3.14 L Hgb 8.9 L Hct 27.6 L MCH MCHC RDW 19.6 H Seg Neutrophils % Seg Neuts % (Manual) 96.0 H Lymphocytes % (Manual) 2.0 L Nucleated RBC % Seg Neutrophils # Man 9.5 H Lymphocytes # (Manual) 0.2 L PT INR APTT ABG pH 7.199 L* POC ABG pCO2 ABG pO2 147.0 H ABG HCO3 ABG O2 Saturation ABG Base Excess -6.2 L ABG Hemoglobin 9.1 L ABG Oxyhemoglobin Oxyhemoglobin Carboxyhemoglobin Sodium Potassium Chloride Carbon Dioxide BUN Creatinine Glucose POC Glucose 152 H Calcium Phosphorus AST Alkaline Phosphatase Total Creatine Kinase Troponin T Albumin LDL Cholesterol Direct HDL Cholesterol TSH Urine WBC (Auto) Urine Creatinine Urine Total Protein Salicylates Acetaminophen 02/19/22 02/19/22 02/19/22 12:48 18:29 Unknown WBC RBC 2.97 L Hgb 8.4 L Hct 25.9 L MCH MCHC RDW 19.7 H Seg Neutrophils % Seg Neuts % (Manual) Lymphocytes % (Manual) Nucleated RBC % Seg Neutrophils # Man Lymphocytes # (Manual) PT INR APTT ABG pH POC ABG pCO2 ABG pO2 ABG HCO3 ABG O2 Saturation ABG Base Excess ABG Hemoglobin ABG Oxyhemoglobin Oxyhemoglobin Carboxyhemoglobin Sodium Potassium 5.1 H Chloride Carbon Dioxide 20 L BUN 55 H Creatinine 3.5 H Glucose 221 H POC Glucose 126 H Calcium 6.0 L Phosphorus 6.70 H AST Alkaline Phosphatase Total Creatine Kinase Troponin T Albumin LDL Cholesterol Direct HDL Cholesterol TSH Urine WBC (Auto) Urine Creatinine Urine Total Protein Salicylates Acetaminophen 02/19/22 02/19/22 02/20/22 Unknown Unknown 00:29 WBC RBC Hgb Hct MCH MCHC RDW Seg Neutrophils % Seg Neuts % (Manual) Lymphocytes % (Manual) Nucleated RBC % Seg Neutrophils # Man Lymphocytes # (Manual) PT 27.7 H INR 2.24 H APTT 46.4 H ABG pH POC ABG pCO2 ABG pO2 ABG HCO3 ABG O2 Saturation ABG Base Excess ABG Hemoglobin ABG Oxyhemoglobin Oxyhemoglobin Carboxyhemoglobin Sodium Potassium Chloride Carbon Dioxide BUN Creatinine 4.0 H Glucose POC Glucose 129 H Calcium Phosphorus AST Alkaline Phosphatase Total Creatine Kinase Troponin T Albumin LDL Cholesterol Direct HDL Cholesterol TSH Urine WBC (Auto) Urine Creatinine Urine Total Protein Salicylates Acetaminophen 02/20/22 02/20/22 02/20/22 04:30 04:30 05:03 WBC RBC 2.62 L Hgb 7.5 L Hct 22.8 L MCH MCHC RDW 19.9 H Seg Neutrophils % Seg Neuts % (Manual) 79.0 H Lymphocytes % (Manual) 5.0 L Nucleated RBC % 1.0 H Seg Neutrophils # Man Lymphocytes # (Manual) 0.4 L PT INR APTT ABG pH 7.319 L POC ABG pCO2 ABG pO2 149.9 H ABG HCO3 19.8 L ABG O2 Saturation ABG Base Excess -5.8 L ABG Hemoglobin 7.3 L ABG Oxyhemoglobin Oxyhemoglobin Carboxyhemoglobin Sodium 136 L Potassium Chloride Carbon Dioxide 19 L BUN 70 H Creatinine 4.4 H Glucose 148 H POC Glucose Calcium 5.9 L* Phosphorus AST Alkaline Phosphatase Total Creatine Kinase Troponin T Albumin LDL Cholesterol Direct HDL Cholesterol TSH Urine WBC (Auto) Urine Creatinine Urine Total Protein Salicylates Acetaminophen 02/20/22 02/20/22 02/20/22 13:03 17:31 23:18 WBC RBC Hgb Hct MCH MCHC RDW Seg Neutrophils % Seg Neuts % (Manual) Lymphocytes % (Manual) Nucleated RBC % Seg Neutrophils # Man Lymphocytes # (Manual) PT INR APTT ABG pH POC ABG pCO2 ABG pO2 ABG HCO3 ABG O2 Saturation ABG Base Excess ABG Hemoglobin ABG Oxyhemoglobin Oxyhemoglobin Carboxyhemoglobin Sodium Potassium Chloride Carbon Dioxide BUN Creatinine Glucose POC Glucose 151 H 138 H 144 H Calcium Phosphorus AST Alkaline Phosphatase Total Creatine Kinase Troponin T Albumin LDL Cholesterol Direct HDL Cholesterol TSH Urine WBC (Auto) Urine Creatinine Urine Total Protein Salicylates Acetaminophen 02/21/22 02/21/22 02/21/22 04:20 05:44 06:45 WBC RBC 2.64 L Hgb 7.5 L Hct 23.1 L MCH MCHC RDW 20.3 H Seg Neutrophils % Seg Neuts % (Manual) 89.0 H Lymphocytes % (Manual) 7.0 L Nucleated RBC % Seg Neutrophils # Man 9.7 H Lymphocytes # (Manual) 0.8 L PT INR APTT ABG pH 7.293 L POC ABG pCO2 ABG pO2 180.1 H ABG HCO3 18.0 L ABG O2 Saturation 99.1 H ABG Base Excess -7.9 L ABG Hemoglobin 7.0 L ABG Oxyhemoglobin Oxyhemoglobin Carboxyhemoglobin Sodium Potassium Chloride Carbon Dioxide BUN Creatinine Glucose POC Glucose 164 H Calcium Phosphorus AST Alkaline Phosphatase Total Creatine Kinase Troponin T Albumin LDL Cholesterol Direct HDL Cholesterol TSH Urine WBC (Auto) Urine Creatinine Urine Total Protein Salicylates Acetaminophen 02/21/22 02/21/22 02/21/22 06:45 11:19 17:18 WBC RBC Hgb Hct MCH MCHC RDW Seg Neutrophils % Seg Neuts % (Manual) Lymphocytes % (Manual) Nucleated RBC % Seg Neutrophils # Man Lymphocytes # (Manual) PT INR APTT ABG pH POC ABG pCO2 ABG pO2 ABG HCO3 ABG O2 Saturation ABG Base Excess ABG Hemoglobin ABG Oxyhemoglobin Oxyhemoglobin Carboxyhemoglobin Sodium Potassium Chloride Carbon Dioxide 17 L BUN 89 H Creatinine 5.4 H Glucose 164 H POC Glucose 165 H 129 H Calcium 5.7 L* Phosphorus 5.70 H AST Alkaline Phosphatase Total Creatine Kinase Troponin T Albumin LDL Cholesterol Direct HDL Cholesterol TSH Urine WBC (Auto) Urine Creatinine Urine Total Protein Salicylates Acetaminophen 02/22/22 02/22/22 02/22/22 04:20 04:20 04:40 WBC 12.9 H RBC 2.69 L Hgb 7.4 L Hct 23.6 L MCH MCHC 31 L RDW 20.5 H Seg Neutrophils % Seg Neuts % (Manual) 89.0 H Lymphocytes % (Manual) 6.0 L Nucleated RBC % Seg Neutrophils # Man 11.5 H Lymphocytes # (Manual) 0.8 L PT INR APTT ABG pH 7.261 L POC ABG pCO2 ABG pO2 51.1 L ABG HCO3 15.9 L ABG O2 Saturation 80.6 L ABG Base Excess -10.3 L ABG Hemoglobin 8.3 L ABG Oxyhemoglobin Oxyhemoglobin 79.1 L Carboxyhemoglobin Sodium 134 L Potassium Chloride Carbon Dioxide 15 L BUN 109 H Creatinine 6.1 H Glucose 142 H POC Glucose Calcium 5.3 L* Phosphorus AST Alkaline Phosphatase Total Creatine Kinase Troponin T Albumin LDL Cholesterol Direct HDL Cholesterol TSH Urine WBC (Auto) Urine Creatinine Urine Total Protein Salicylates Acetaminophen 02/22/22 02/22/22 02/22/22 05:27 05:30 09:21 WBC RBC Hgb Hct MCH MCHC RDW Seg Neutrophils % Seg Neuts % (Manual) Lymphocytes % (Manual) Nucleated RBC % Seg Neutrophils # Man Lymphocytes # (Manual) PT INR APTT ABG pH 7.268 L POC ABG pCO2 ABG pO2 54.8 L ABG HCO3 15.5 L ABG O2 Saturation 87.4 L ABG Base Excess -10.5 L ABG Hemoglobin 7.4 L ABG Oxyhemoglobin Oxyhemoglobin 85.7 L Carboxyhemoglobin Sodium Potassium Chloride Carbon Dioxide BUN Creatinine Glucose POC Glucose 134 H 120 H Calcium Phosphorus AST Alkaline Phosphatase Total Creatine Kinase Troponin T Albumin LDL Cholesterol Direct HDL Cholesterol TSH Urine WBC (Auto) Urine Creatinine Urine Total Protein Salicylates Acetaminophen 02/22/22 02/22/22 02/22/22 11:42 11:47 16:22 WBC 14.0 H RBC 2.84 L Hgb 8.1 L Hct 24.5 L MCH MCHC RDW 20.0 H Seg Neutrophils % Seg Neuts % (Manual) Lymphocytes % (Manual) Nucleated RBC % Seg Neutrophils # Man Lymphocytes # (Manual) PT INR APTT ABG pH POC ABG pCO2 ABG pO2 ABG HCO3 ABG O2 Saturation ABG Base Excess ABG Hemoglobin ABG Oxyhemoglobin Oxyhemoglobin Carboxyhemoglobin Sodium Potassium Chloride Carbon Dioxide BUN Creatinine Glucose POC Glucose 34 L 110 H Calcium Phosphorus AST Alkaline Phosphatase Total Creatine Kinase Troponin T Albumin LDL Cholesterol Direct HDL Cholesterol TSH Urine WBC (Auto) Urine Creatinine Urine Total Protein Salicylates Acetaminophen 02/22/22 02/22/22 02/22/22 16:22 16:22 17:30 WBC RBC Hgb Hct MCH MCHC RDW Seg Neutrophils % Seg Neuts % (Manual) Lymphocytes % (Manual) Nucleated RBC % Seg Neutrophils # Man Lymphocytes # (Manual) PT 19.8 H INR 1.49 H APTT ABG pH POC ABG pCO2 ABG pO2 ABG HCO3 ABG O2 Saturation ABG Base Excess ABG Hemoglobin ABG Oxyhemoglobin Oxyhemoglobin Carboxyhemoglobin Sodium Potassium Chloride Carbon Dioxide BUN Creatinine 4.1 H Glucose POC Glucose Calcium Phosphorus AST Alkaline Phosphatase Total Creatine Kinase Troponin T Albumin LDL Cholesterol Direct HDL Cholesterol TSH Urine WBC (Auto) 57.0 H Urine Creatinine Urine Total Protein Salicylates Acetaminophen 02/22/22 02/23/22 02/23/22 23:07 05:00 07:00 WBC 15.3 H RBC 3.13 L Hgb 8.6 L Hct 27.0 L MCH 27 L MCHC RDW 19.8 H Seg Neutrophils % Seg Neuts % (Manual) 90.0 H Lymphocytes % (Manual) 5.0 L Nucleated RBC % Seg Neutrophils # Man 13.8 H Lymphocytes # (Manual) 0.8 L PT INR APTT ABG pH POC ABG pCO2 ABG pO2 73.5 L ABG HCO3 ABG O2 Saturation ABG Base Excess -3.3 L -4.1 L ABG Hemoglobin 8.5 L 8.5 L ABG Oxyhemoglobin Oxyhemoglobin 93.9 L 94.8 L Carboxyhemoglobin Sodium Potassium Chloride Carbon Dioxide BUN Creatinine Glucose POC Glucose Calcium Phosphorus AST Alkaline Phosphatase Total Creatine Kinase Troponin T Albumin LDL Cholesterol Direct HDL Cholesterol TSH Urine WBC (Auto) Urine Creatinine Urine Total Protein Salicylates Acetaminophen 02/23/22 07:00 WBC RBC Hgb Hct MCH MCHC RDW Seg Neutrophils % Seg Neuts % (Manual) Lymphocytes % (Manual) Nucleated RBC % Seg Neutrophils # Man Lymphocytes # (Manual) PT INR APTT ABG pH POC ABG pCO2 ABG pO2 ABG HCO3 ABG O2 Saturation ABG Base Excess ABG Hemoglobin ABG Oxyhemoglobin Oxyhemoglobin Carboxyhemoglobin Sodium 134 L Potassium Chloride 96.5 L Carbon Dioxide 20 L BUN 87 H Creatinine 5.0 H Glucose 133 H POC Glucose Calcium 6.1 L D Phosphorus 4.60 H AST Alkaline Phosphatase Total Creatine Kinase Troponin T Albumin LDL Cholesterol Direct HDL Cholesterol TSH Urine WBC (Auto) Urine Creatinine Urine Total Protein Salicylates Acetaminophen
[2022-02-23] MEDS: APIXABAN 2.5 MG TAB FEEDTUBE SCH ×2 (09:11→21:16)
[2022-02-23] MEDS: ASPIRIN 325 MG TAB FEEDTUBE SCH (09:11)
[2022-02-23] MEDS: cefTRIAXone/NS 2 GM/100 ML 2 GM/100 ML BAG IV SCH (09:12)
[2022-02-23] MEDS: FAMOTIDINE 20 MG TAB FEEDTUBE SCH (09:12)
[2022-02-23] MEDS: INSULIN LISPRO 100 UNIT/ML SUB-Q SCH ×5 (09:36→23:00)
[2022-02-23] MEDS: METOPROLOL TARTRATE 5 MG/5 ML INJ IV SCH ×4 (09:37→23:01)
--- NOTE | 2022-02-23 10:37 | Progress Note ---
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 fib, CKD stage III admitted with acute hypoxic respiratory failure s/p cardiac arrest. Neuro: Acute metabolic encephalopathy -IV push fentanyl prn and precedex gtt -Avoid delirium -Reorientation as needed -Maintain sleep-wake cycle -As needed analgesia -CT head with no acute intracranial abnormality Cardiac: S/p cardiac arrest, h/o HTN, chronic afib, CABG x2, venous insufficiency -Cardiology consulted, appreciate recommendations -Blood pressure monitoring per protocol -s/p Vasopressor support with vasopressin and Tripp-Synephrine -currently on levophed, wean at tolerated -MAP goal greater than 65 -low dose BB IV for arrthymia -Echocardiogram shows EF 40% -Cardiology 09/2019 echocardiogram with EF of 55 to 60% Respiratory: Acute hypoxic respiratory failure -Intubated in the emergency department with 8.00 ETT at 24 the lips on 02/17 -CCM consulted, appreciate recommendations -A.m. vent settings: Assist-control/PRVC rate 25, tidal volume 500, PEEP 8, FiO2 45% -See RT notes for titration -A.m. ABG and CXR noted -VAP bundle -SPO2 monitoring GI: Protein calorie malnutrition -PPI -Ntr consult for TF -24-hour +2507 mL -02/23 HD removed 2L -BR: senakot (on hold d/t multiple stools) : Acute kidney injury secondary to acute tubular necrosis, rhabdomyolysis, metabolic acidosis, uremia, h/o CKD stage III per family -Nephrology consulted, appreciate recommendations -Family would like to proceed with hemodialysis -Vascath placed 02/22 -HD 02/22 with removal of 2L -HD per Nephro -Strict intake and output -Renally dose medications -Avoid nephrotoxic medications -Daily weights -FeNa 0.35% indicating prerenal cause for renal failure -Renal ultrasound shows complex cyst in the mid to lower left kidney, additional bilateral renal cysts, hyperechogenic appearance of kidneys which may reflect sequelae of medical renal disease -Trend BMP -s/p D5 sodium bicarb gtt -s/p 2L fluid bolus ID: Possible postobstructive pneumonia, Sepsis (POA), MSSA PNA -Antibiotic therapy with changed to ancef (02/21) -Changed back to cefepime d/t fever, loose stools, increase in WBC on 02/23 -MRSA PCR negative -s/p Stress dose steroids -COVID-19 PCR negative -f/u blood culture -Monitor WBC and temperature curve Endo: NAD -Avoid hypoglycemia -SSI -Accu-Cheks q6 hr Heme: NAD -Trend CBC -Transfuse hemoglobin less than 7 -Monitor for signs of bleeding -heparin subq -restart 2.5 eliqius BID for afib -SCDs to BLE while in bed Oncology: Stage IV adenocarcinoma of the lung with mets to spine -Per family patient recently suffered a stress fracture to T7-T8 and was currently in rehab to get stronger to withstand palliative treatment -Continue supportive care The high probability of a clinically significant, sudden or life threatening deterioration of the [multi] system(s) required my full and direct attention, intervention and personal management. The aggregate critical care time was [60] minutes. 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 fib, HTN, CABG x2, hyperlipidemia, CKD stage III who presented to the hospital on 02/08 with altered mental status and acute respiratory failure via EMS. Upon arrival to the emergency department patient was having agonal breathing and hypotension his airway and required bag valve mask ventilation and was intubated by ED physician. After intubation patient went into cardiac arrest with ROSC achievement in 2 minutes. Patient was admitted to the hospitalist service with consults to [facility], cardiology and nephrology. Hospital course to date: 02/18: Patient was sedated on fentanyl on arrival to ICU which was weaned off, patient was able to follow simple commands. This morning patient was on Levophed and vasopressin and bicarbonate drip. Phenyl epinephrine was added lat er this afternoon. This evening patient received an roya and was persistently hypotensive. He received 1 L bolus this morning however given persistent hypotension with decreased urine output patient was given additional 1 L of LR. COVID-19 PCR negative. Patient's CODE STATUS changed to AND. 02/19: Patient has been weaned off of the norepinephrine and remains on vasopressin and Levophed. Renal function worsened. Bicarbonate drip discontinued and nephrology discontinued IVF. Hemodialysis discussed with nephrology. Dr. Fry also had a discussion with family, prognosis of care and goals of care. Patient family will let us know about dialysis. Corrected Ca 7.8 02/20: Family would like to proceed with hemodialysis however renal will need to assess for 1 more day. Still remains on vasopressors however they are being weaned. Patient is edematous. Weaning FiO2 as tolerated. Possible PSV in the a.m. And will continue cefepime for 7 days. Discontinue vancomycin as MRSA is negative 02/21: Eliquis on hold for pending procedure, metoprolol 5 mg IV every 6 started due to brief period of V. tach. Will hold off extubation and Precedex ordered for tachypnea. Cefepime changed to Ancef for MSSA and will stop stress dose steroids. Awaiting family decision regarding hemodialysis. 02/22: Reviewed patient remains sedated on Precedex, no further episodes of arrhythmia noted, increasing FiO2 repeat ABG, patient is febrile today 202.6 and tracheal aspirate is growing strep various but he is on antibiotics. We will send blood cultures due to spike. Received 1 g of calcium overnight. Renal function worsening. Will change CVL over wire or place Vas-Cath today. 02/23: Patient still is spiking fevers, antibiotics changed to cefepime. Patient received dialysis yesterday with removal of 2 L. This morning he is on Levophed. Left radial pulse not palpable or dopplerable however pulsating vessels seen with ultrasound. Patient still remains uremic. Bilateral fingers/toes dusky however cap refill less than 3 seconds and extremities are cold. RN instructed to place warm compresses on extremities. Hospitalist Physical - Constitutional Vitals: Temp Pulse Resp BP Pulse Ox 102.7 F H 98 H 28 H 132/65 100 02/23/22 08:00 02/23/22 09:00 02/23/22 09:00 02/23/22 09:00 02/23/22 09:00 General appearance: Present: obese - EENT Eyes: Absent: PERRL (glass eye) ENT: dentition normal - Neck Neck: Absent: masses or JVD, cervical LAD - Respiratory Respiratory effort: normal Respiratory: bilateral: diminished - Cardiovascular Rhythm: regular Heart Sounds: Present: S1 & S2. Absent: systolic murmur, diastolic murmur - Extremities Extremity abnormal: edema, cyanosis, cold, pulses diminished, other (left radial pulse not palpable or dopplarable) - Peripheral Assessment Scrotal Edema Type: Non-pitting Skin Temperature: Cool Generalized Edema Type: Pitting Edema Degree: 2+ Capillary Refill: < 3 seconds Skin Temperature: Cool Peripheral Pulses: abnormal - Peripheral pulses radial pulse Pulse Strength: Absent (left radial) posterial tibial Pulse Strength: 1+ (Doppler) dorsalis pedis Pulse Strength: 1+ (Doppler) - Abdominal General gastrointestinal: soft, non-tender, hypoactive bowel sounds - Integumentary Integumentary: Present: warm, dry - Psychiatric Psychiatric: other - Neurologic Neurologic: other (intact cough/gag, right pupil reactive to light) - Allied Health Allied health notes reviewed: nursing, RT HEART Score - HEART Score Troponin: Troponin T 0.076 ng/mL (0.00-0.029) H 02/18/22 09:21 Results - Labs CBC & Chem 7: 02/23/22 07:00 02/23/22 07:00 Labs: Laboratory Last Values WBC 15.3 K/mm3 (4.5-11.0) H 02/23/22 07:00 RBC 3.13 M/mm3 (3.65-5.03) L 02/23/22 07:00 Hgb 8.6 gm/dl (11.8-15.2) L 02/23/22 07:00 Hct 27.0 % (35.5-45.6) L 02/23/22 07:00 MCV 86 fl (84-94) 02/23/22 07:00 MCH 27 pg (28-32) L 02/23/22 07:00 MCHC 32 % (32-34) 02/23/22 07:00 RDW 19.8 % (13.2-15.2) H 02/23/22 07:00 Plt Count 287 K/mm3 (140-440) 02/23/22 07:00 Lymph % (Auto) 19.8 % (13.4-35.0) 02/18/22 00:21 [place] % (Auto) 5.3 % (0.0-7.3) 02/18/22 00:21 Eos % (Auto) 2.0 % (0.0-4.3) 02/18/22 00:21 Baso % (Auto) 1.1 % (0.0-1.8) 02/18/22 00:21 Lymph # (Auto) 1.2 K/mm3 (1.2-5.4) 02/18/22 00:21 [place] # (Auto) 0.3 K/mm3 (0.0-0.8) 02/18/22 00:21 Eos # (Auto) 0.1 K/mm3 (0.0-0.4) 02/18/22 00:21 Baso # (Auto) 0.1 K/mm3 (0.0-0.1) 02/18/22 00:21 Add Manual Diff Complete 02/23/22 07:00 Total Counted 100 02/23/22 07:00 Seg Neutrophils % H[employer] Sales Representative 02/21/22 06:45 Seg Neuts % (Manual) 90.0 % (40.0-70.0) H 02/23/22 07:00 Band Neutrophils % 4.0 % 02/23/22 07:00 Lymphocytes % (Manual) 5.0 % (13.4-35.0) L 02/23/22 07:00 Reactive Lymphs % (Man) 0 % 02/23/22 07:00 Monocytes % (Manual) 1.0 % (0.0-7.3) 02/23/22 07:00 Eosinophils % (Manual) 0 % (0.0-4.3) 02/23/22 07:00 Basophils % (Manual) 0 % (0.0-1.8) 02/23/22 07:00 Metamyelocytes % 0 % 02/23/22 07:00 Myelocytes % 0 % 02/23/22 07:00 Promyelocytes % 0 % 02/23/22 07:00 Blast Cells % 0 % 02/23/22 07:00 Nucleated RBC % Not Reportable 02/23/22 07:00 Seg Neutrophils # 4.5 K/mm3 (1.8-7.7) 02/18/22 00:21 Seg Neutrophils # Man 13.8 K/mm3 (1.8-7.7) H 02/23/22 07:00 Band Neutrophils # 0.6 K/mm3 02/23/22 07:00 Lymphocytes # (Manual) 0.8 K/mm3 (1.2-5.4) L 02/23/22 07:00 Abs React Lymphs (Man) 0.0 K/mm3 02/23/22 07:00 Monocytes # (Manual) 0.2 K/mm3 (0.0-0.8) 02/23/22 07:00 Eosinophils # (Manual) 0.0 K/mm3 (0.0-0.4) 02/23/22 07:00 Basophils # (Manual) 0.0 K/mm3 (0.0-0.1) 02/23/22 07:00 Metamyelocytes # 0.0 K/mm3 02/23/22 07:00 Myelocytes # 0.0 K/mm3 02/23/22 07:00 Promyelocytes # 0.0 K/mm3 02/23/22 07:00 Blast Cells # 0.0 K/mm3 02/23/22 07:00 WBC Morphology Not Reportable 02/23/22 07:00 Hypersegmented Neuts Not Reportable 02/23/22 07:00 Hyposegmented Neuts Not Reportable 02/23/22 07:00 Hypogranular Neuts Not Reportable 02/23/22 07:00 Smudge Cells 1+ 02/23/22 07:00 Toxic Granulation Not Reportable 02/23/22 07:00 Toxic Vacuolation Not Reportable 02/23/22 07:00 Dohle Bodies Not Reportable 02/23/22 07:00 Pelger-Huet Anomaly Not Reportable 02/23/22 07:00 Jensen Rods Not Reportable 02/23/22 07:00 Platelet Estimate Consistent w auto 02/23/22 07:00 Clumped Platelets Not Reportable 02/23/22 07:00 Plt Clumps, EDTA Not Reportable 02/23/22 07:00 Large Platelets Few 02/23/22 07:00 Giant Platelets Not Reportable 02/23/22 07:00 Platelet Satelliting Not Reportable 02/23/22 07:00 Plt Morphology Comment Not Reportable 02/23/22 07:00 RBC Morphology Not Reportable 02/23/22 07:00 Dimorphic RBCs Not Reportable 02/23/22 07:00 Polychromasia Few 02/23/22 07:00 Hypochromasia Few 02/23/22 07:00 Poikilocytosis Not Reportable 02/23/22 07:00 Anisocytosis 1+ 02/23/22 07:00 Microcytosis Not Reportable 02/23/22 07:00 Macrocytosis Not Reportable 02/23/22 07:00 Spherocytes Not Reportable 02/23/22 07:00 Pappenheimer Bodies Not Reportable 02/23/22 07:00 Sickle Cells Not Reportable 02/23/22 07:00 Target Cells Not Reportable 02/23/22 07:00 Tear Drop Cells Not Reportable 02/23/22 07:00 Ovalocytes Not Reportable 02/23/22 07:00 Helmet Cells Not Reportable 02/23/22 07:00 [place] Bodies Not Reportable 02/23/22 07:00 Palmer Rings Not Reportable 02/23/22 07:00 Alysha Cells Not Reportable 02/23/22 07:00 Bite Cells Not Reportable 02/23/22 07:00 Crenated Cell Not Reportable 02/23/22 07:00 Elliptocytes Not Reportable 02/23/22 07:00 Acanthocytes (Spur) Not Reportable 02/23/22 07:00 Rouleaux Not Reportable 02/23/22 07:00 Hemoglobin C Crystals Not Reportable 02/23/22 07:00 Schistocytes Not Reportable 02/23/22 07:00 Malaria parasites Not Reportable 02/23/22 07:00 Cameron Bodies Not Reportable 02/23/22 07:00 Hem Pathologist Commnt No 02/23/22 07:00 PT 19.8 Sec. (12.2-14.9) H 02/22/22 16:22 INR 1.49 (0.87-1.13) H 02/22/22 16:22 APTT 34.3 Sec. (24.2-36.6) 02/22/22 16:22 ABG pH 7.387 pH Units (7.350-7.450) 02/23/22 05:00 POC ABG pCO2 60.4 mmHg (32.0-48.0) H 02/18/22 00:20 ABG pCO2 34.7 mm Hg 02/23/22 05:00 POC ABG pO2 93.0 mmHg (83-108) 02/18/22 00:20 ABG pO2 80.2 mm Hg (80.0-90.0) 02/23/22 05:00 POC ABG HCO3 20.5 02/18/22 00:20 ABG HCO3 20.4 mmol/L (20.0-26.0) 02/23/22 05:00 ABG O2 Saturation 96.7 % (95.0-99.0) 02/23/22 05:00 ABG O2 Content 11.5 (0.0-44) 02/23/22 05:00 POC ABG Base Excess -8.2 02/18/22 00:20 ABG Base Excess -4.1 mmol/L (-2.0-3.0) L 02/23/22 05:00 ABG Hemoglobin 8.5 gm/dl (14.0-18.0) L 02/23/22 05:00 ABG Oxyhemoglobin 93.7 (94-98) L 02/18/22 00:20 ABG Carboxyhemoglobin 1.4 % (0.0-5.0) 02/23/22 05:00 ABG Methemoglobin 0.5 % (0.0-1.5) 02/23/22 05:00 Oxyhemoglobin 94.8 % (95.0-99.0) L 02/23/22 05:00 Carboxyhemoglobin 2.1 (0.5-1.5) H 02/18/22 00:20 FiO2 45 % 02/23/22 05:00 FiO2 % 100 02/18/22 00:20 Sodium 134 mmol/L (137-145) L 02/23/22 07:00 Potassium 5.0 mmol/L (3.6-5.0) 02/23/22 07:00 Chloride 96.5 mmol/L (98-107) L 02/23/22 07:00 Carbon Dioxide 20 mmol/L (22-30) L 02/23/22 07:00 Anion Gap 23 mmol/L 02/23/22 07:00 BUN 87 mg/dL (9-20) H 02/23/22 07:00 Creatinine 5.0 mg/dL (0.8-1.3) H 02/23/22 07:00 Estimated GFR 11 ml/min 02/23/22 07:00 BUN/Creatinine Ratio 17 % 02/23/22 07:00 Glucose 133 mg/dL (75-100) H 02/23/22 07:00 POC Glucose 90 mg/dL (70-105) 02/22/22 16:57 Lactic Acid 0.90 mmol/L (0.7-2.0) 02/18/22 02:18 Calcium 6.1 mg/dL (8.4-10.2) L D 02/23/22 07:00 Phosphorus 4.60 mg/dL (2.5-4.5) H 02/23/22 07:00 Magnesium 1.90 mg/dL (1.7-2.3) 02/23/22 07:00 Total Bilirubin 0.80 mg/dL (0.1-1.2) 02/18/22 00:21 AST 56 units/L (5-40) H 02/18/22 00:21 ALT 45 units/L (7-56) 02/18/22 00:21 Alkaline Phosphatase 268 units/L (35-129) H 02/18/22 00:21 Ammonia 38.0 umol/L (25-60) 02/18/22 00:21 Total Creatine Kinase 233 units/L (55-170) H 02/18/22 00:21 Troponin T 0.076 ng/mL (0.00-0.029) H 02/18/22 09:21 Total Protein 6.5 g/dL (6.3-8.2) 02/18/22 00:21 Albumin 2.2 g/dL (3.9-5) L 02/18/22 00:21 Albumin/Globulin Ratio 0.5 % 02/18/22 00:21 Triglycerides 107 mg/dL (2-149) 02/18/22 00:21 Cholesterol 71 mg/dL (50-199) 02/18/22 00:21 LDL Cholesterol Direct 30 mg/dL (50-130) L 02/18/22 00:21 HDL Cholesterol 19 mg/dL (40-59) L 02/18/22 00:21 Cholesterol/HDL Ratio 3.73 % 02/18/22 00:21 Procalcitonin 2.73 ng/mL (<0.15) 02/18/22 12:48 TSH 5.100 mlU/mL (0.270-4.200) H 02/18/22 00:21 Urine Color Heidi (Yellow) 02/22/22 17:30 Urine Turbidity Cloudy (Clear) 02/22/22 17:30 Urine pH 5.0 (5.0-7.0) 02/22/22 17:30 Ur Specific [place] 1.025 (1.003-1.030) 02/22/22 17:30 Urine Protein >500 mg/dL (Negative) 02/22/22 17:30 Urine Glucose (UA) 50 mg/dL (Negative) 02/22/22 17:30 Urine Ketones Tr mg/dL (Negative) 02/22/22 17:30 Urine Blood Lg (Negative) 02/22/22 17:30 Urine Nitrite Neg (Negative) 02/22/22 17:30 Urine Bilirubin Neg (Negative) 02/22/22 17:30 Urine Urobilinogen < 2.0 mg/dL (<2.0) 02/22/22 17:30 Ur Leukocyte Esterase Tr (Negative) 02/22/22 17:30 Urine WBC (Auto) 57.0 /HPF (0.0-6.0) H 02/22/22 17:30 Urine RBC (Auto) 164.0 /HPF (0.0-6.0) 02/22/22 17:30 U Epithel Cells (Auto) 5.0 /HPF (0-13.0) 02/22/22 17:30 Urine Bacteria (Auto) 1+ /HPF (Negative) 02/22/22 17:30 Granular Casts 11 /LPF 02/22/22 17:30 Urine Mucus Few /HPF 02/22/22 17:30 Urine Yeast (Budding) 1+ /HPF 02/18/22 00:54 Urine Creatinine 180.0 mg/dL (0.1-20.0) H 02/18/22 23:44 Urine Creatinine 180.9 mg/dL (0.1-20.0) H 02/18/22 23:44 Protein/Creatinin Ratio 2.53 02/18/22 23:44 Urine Sodium 30 mmol/L 02/18/22 23:44 Urine Total Protein 457 mg/dL (5-11.8) H 02/18/22 23:44 Nasal Screen MRSA (PCR) Negative (Negative) 04/19/22 11:05 Random Vancomycin 10.6 ug/mL (0-40.0) 02/20/22 07:51 Salicylates < 0.3 mg/dL (2.8-20.0) L 02/18/22 00:21 Acetaminophen 5.0 ug/mL (10.0-30.0) L 02/18/22 00:21 Plasma/Serum Alcohol < 0.01 % (0-0.07) 02/18/22 00:21 SARS-CoV-2 (PCR) Negative (Negative) 02/18/22 11:33 Hepatitis A IgM Ab Non-reactive (NonReactive) 02/20/22 04:30 Hep Bs Antigen Non-reactive (Negative) 02/20/22 04:30 Hep B Core IgM Ab Non-reactive (NonReactive) 02/20/22 04:30 Hepatitis C Antibody Non-reactive (NonReactive) 02/20/22 04:30 Blood Type A POSITIVE 02/18/22 00:21 Antibody Screen Negative 02/18/22 00:21 Microbiology: Microbiology 02/18/22 00:42 Peripheral/Venous Blood Culture - Final NO GROWTH AFTER 5 DAYS 02/18/22 00:21 Peripheral/Venous Blood Culture - Final NO GROWTH AFTER 5 DAYS 02/22/22 17:27 Peripheral/Venous Blood Culture - Preliminary Culture in Progress 02/22/22 17:27 Peripheral/Venous Blood Culture - Preliminary Culture in Progress Cabezas/IV: Voiding Method Indwelling Catheter Active Medications - Current Medications Current Medications: Generic Name Dose Route Start Last Admin Trade Name Freq PRN Reason Stop Dose Admin Acetaminophen 650 mg 02/18/22 03:18 02/23/22 07:43 Acetaminophen 325 Mg Tab PO 650 mg Q4H PRN Administration Pain MILD(1-3)/Fever >100.5/NICOLE Albuterol 2.5 mg 02/18/22 03:18 Albuterol 2.5 Mg/3 Ml Nebu IH Q3HRT PRN Shortness Of Breath Albuterol/Ipratropium 1 ampul 02/18/22 20:00 02/23/22 07:38 Ipratropium/Albuterol Sulfate 3 Ml Ampul.Neb IH 1 ampul TIDRT KARAN Administration Apixaban 2.5 mg 02/22/22 22:00 02/23/22 09:11 Apixaban 2.5 Mg Tab FEEDTUBE 2.5 mg Q12HR KARAN Administration Protocol Aspirin 325 mg 02/18/22 10:00 02/23/22 09:11 Aspirin 325 Mg Tab FEEDTUBE 325 mg QDAY KARAN Administration Atorvastatin Calcium 40 mg 02/18/22 22:00 02/22/22 22:55 Atorvastatin 40 Mg Tab PO 40 mg QHS KARAN Administration Famotidine 20 mg 02/21/22 10:00 02/23/22 09:12 Famotidine 20 Mg Tab FEEDTUBE 20 mg DAILY KARAN Administration Hydralazine HCl 10 mg 02/18/22 03:33 Hydralazine 20 Mg/1 Ml Inj IV Q6H PRN SBP >/=160; DBP >/=100 Hydrophilic Ointment 1 applic 02/17/22 23:25 Lip Therapy Vaseline TP Q2HR PRN Dry Lips Dexmedetomidine HCl 200 mcg/ 50 mls @ 6.99 mls/hr 02/21/22 11:00 02/23/22 10:16 Sodium Chloride IV 1.2 mcg/kg/hr TITRATE KARAN 41.94 mls/hr Administration Protocol 0.2 MCG/KG/HR NORepinephrine/NS 8 MG-250 ML 8 mg in 250 mls @ 3.75 mls/hr 02/22/22 15:00 02/23/22 10:17 Norepinephrine/Ns 8 Mg-250 Ml (Double Conc) IV 14 mcg/min TITRATE KARAN 26.25 mls/hr Administration Protocol 2 MCG/MIN Vasopressin 20 unit/ Sodium 101 mls @ 9.09 mls/hr 02/22/22 16:00 Chloride IV TITR KARAN Protocol 0.03 UNITS/MIN Ceftriaxone Sodium 2 gm in 100 mls @ 200 mls/hr 02/23/22 09:00 02/23/22 09:12 Rocephin/Ns 2 Gm/100 Ml IV 02/27/22 09:29 200 mls/hr Q24H [facility] Administration Protocol Insulin Human Lispro 0 unit 02/19/22 12:00 02/23/22 09:37 Insulin Lispro 100 Unit/Ml SUB-Q Not Given Q6HR [facility] Protocol Metoprolol Tartrate 5 mg 02/21/22 12:00 02/23/22 09:37 Metoprolol Tartrate 5 Mg/5 Ml Inj IV Not Given Q6HR [facility] Multi-Ingred Cream/Lotion/Oil/Oint 1 applic 02/17/22 23:25 Mineral Oil/Petrolatum, White Ophth Oint 3.5 Gm OU Q4HR PRN Dry Eye(s) Nitroglycerin 0.4 mg 02/18/22 03:18 Nitroglycerin 0.4 Mg Tab Subl SL Q5M PRN Chest Pain Ondansetron HCl 4 mg 02/18/22 03:18 Ondansetron 4 Mg/2 Ml Inj IV Q8H PRN Nausea And Vomiting Sodium Chloride 10 ml 02/18/22 10:00 02/23/22 09:30 Sodium Chloride 0.9% 10 Ml Flush Syringe IV 10 ml BID KARAN Administration Sodium Chloride 10 ml 02/18/22 03:18 Sodium Chloride 0.9% 10 Ml Flush Syringe IV PRN PRN LINE FLUSH Nutrition/Malnutrition Assess - Dietary Evaluation Nutrition/Malnutrition Findings: Nutrition Notes Start: 02/18/22 11:48 Freq: Status: Active Protocol: Document 02/21/22 14:31 ADITYA (Rec: 02/21/22 15:27 ADITYA [id number]) Nutrition Notes Initial or Follow up Reassessment Current Diagnosis Hypertension,Respiratory Failure,Hyperlipidemia Other Pertinent Diagnosis s/p cardiac arrest, metastatic lung CA, afib Current Diet TF - Nepro at 50ml/hr Labs/Tests BUN 89 Cr 5.4 BG 164 Ca 5.7 Phos 5.7 Pertinent Medications Solu-Cortef, D5 1/2NS at 5ml/ hr Height 5 ft 11 in Weight 139.8 kg [place] Body Weight (kg) 78.18 BMI 43.0 Weight Status Morbidly Obese Subjective/Other Information Pt tolerating TF at goal rate. Pt no longer on pressor support, but remains on vent support. Pt with worsening renal function and anemia. Possible VasCath placement today; HD to start afterwards. Percent of energy/protein needs met: 83% energy 74% pro Burn Absent Trauma Absent Minimum of two criteria No #1 Nutrition Diagnosis Inadequate oral intake Diagnosis Progress(for reassessment Continues documentation) Is patient on ventilator? Yes Is Patient Ambulatory and/or Out of Bed No REE-([facility]-confined to bed) 2597.580 Kcal/Kg value to use for calculation 13 Approximate Energy Requirements Using 1817 kcal/Kg Additional Notes Pro needs >1.2g/kg adjBW: > 131g/day Fluid needs 1-1.5L/day Nutrition Intervention Nutrition Support: Continue Nepro at 50ml/hr with 200ml water flush q4h. Kcal 2,160 Protein (gm) 97 Carbohydrates (gm) 193 Fat (gm) 115 Fluid (mL) 872 Fiber (gm) 15 Goal #1 TF tolerance Goal #2 TF to meet at least 75% energy and pro needs Follow-Up By: 02/28/22 Additional Comments F/U: stable TF, vent status, renal function, wt
--- NOTE | 2022-02-23 11:10 | Progress Note ---
Assessment and Plan Assessment and Plan Acute Renal Failure on Chronic Kidney Disease Hypotension Afib Cardiac Arrest Acute Respiratory failure Acidosis Hyperkalemia, Mild Anemia Lung cancer with stage IV metastasis Plan: remains to have worsening kidney function and anuria Initiated on HD yesterday after vascath by ICU. HD#2 today. Replace Ca Acute Renal Failure likely 2/2 ATN Patient has history of CKD but no baseline serum creatinine available CXR- shows decreasing left Pleural Effusion Intubated on Vent, on levophed. In ICU Avoid nephrotoxic agents Renally dose medications Strict I&O's daily Obtain daily weights Monitor renal function closely Critical Care time: 36 minutes Subjective Date of service: 02/23/22 Principal diagnosis: ARF Interval history: Intubated. On Levophed. In ICU. Objective - Exam Narrative Exam: l appearance: Present: no acute distress - EENT Eyes: Absent: PERRL, EOM intact (missing left eye) ENT: dentition normal - Neck Neck: Present: normal ROM - Respiratory Respiratory effort: normal Respiratory: bilateral: diminished, rhonchi - Cardiovascular Rhythm: regular Heart Sounds: Present: S1 & S2. Absent: systolic murmur, diastolic murmur - Extremities Extremities: no ischemia, pulses intact, pulses symmetrical, normal temperature, normal color Extremity abnormal: edema Peripheral Pulses: within normal limits - Abdominal General gastrointestinal: soft, non-tender, non-distended, normal bowel sounds - Integumentary Integumentary: Present: warm, dry - Neurologic Neurologic: focal deficits, other (not following commands today, intact cough/ga g) - Allied Health Allied health notes reviewed: nursing, RT - Vital Signs Vital signs: Vital Signs - 12hr 02/22/22 02/22/22 02/23/22 23:29 23:57 00:00 Temperature 100.9 F H Pulse Rate 86 79 Pulse Rate [ Anterior Bilateral Throughout] Pulse Rate [ 68 From Monitor] Respiratory 19 27 H Rate Respiratory Rate [Anterior Bilateral Throughout] Blood Pressure 128/70 111/72 128/55 O2 Sat by Pulse 90 88 Oximetry 02/23/22 02/23/22 02/23/22 01:00 02:00 03:00 Temperature Pulse Rate 80 83 89 Pulse Rate [ Anterior Bilateral Throughout] Pulse Rate [ From Monitor] Respiratory 28 H 28 H 31 H Rate Respiratory Rate [Anterior Bilateral Throughout] Blood Pressure 160/78 144/50 118/59 O2 Sat by Pulse 97 98 99 Oximetry 02/23/22 02/23/22 02/23/22 04:00 04:13 05:00 Temperature 100.8 F H Pulse Rate 83 84 86 Pulse Rate [ Anterior Bilateral Throughout] Pulse Rate [ 68 From Monitor] Respiratory 31 H 22 Rate Respiratory Rate [Anterior Bilateral Throughout] Blood Pressure 126/72 142/72 145/70 O2 Sat by Pulse 99 98 98 Oximetry 02/23/22 02/23/22 02/23/22 06:00 07:00 07:38 Temperature Pulse Rate 91 H 88 95 H Pulse Rate [ 86 Anterior Bilateral Throughout] Pulse Rate [ From Monitor] Respiratory 30 H 22 Rate Respiratory 30 H Rate [Anterior Bilateral Throughout] Blood Pressure 142/74 124/68 145/69 O2 Sat by Pulse 99 100 99 Oximetry 02/23/22 02/23/22 02/23/22 08:00 09:00 10:00 Temperature 102.7 F H Pulse Rate 91 H 98 H 93 H Pulse Rate [ Anterior Bilateral Throughout] Pulse Rate [ 91 H From Monitor] Respiratory 16 28 H 30 H Rate Respiratory Rate [Anterior Bilateral Throughout] Blood Pressure 120/72 132/65 114/57 O2 Sat by Pulse 100 100 98 Oximetry 02/23/22 11:00 Temperature Pulse Rate 99 H Pulse Rate [ Anterior Bilateral Throughout] Pulse Rate [ From Monitor] Respiratory 24 Rate Respiratory Rate [Anterior Bilateral Throughout] Blood Pressure 136/64 O2 Sat by Pulse 98 Oximetry - Lab 02/23/22 07:00 02/23/22 07:00 Most recent lab results ABG pH 7.387 pH Units (7.350-7.450) 02/23/22 05:00 ABG pCO2 34.7 mm Hg 02/23/22 05:00 ABG pO2 80.2 mm Hg (80.0-90.0) 02/23/22 05:00 ABG HCO3 20.4 mmol/L (20.0-26.0) 02/23/22 05:00 ABG O2 Saturation 96.7 % (95.0-99.0) 02/23/22 05:00 Calcium 6.1 mg/dL (8.4-10.2) L D 02/23/22 07:00 Phosphorus 4.60 mg/dL (2.5-4.5) H 02/23/22 07:00 Magnesium 1.90 mg/dL (1.7-2.3) 02/23/22 07:00 Urine Creatinine 180.0 mg/dL (0.1-20.0) H 02/18/22 23:44 Urine Creatinine 180.9 mg/dL (0.1-20.0) H 02/18/22 23:44 Urine Sodium 30 mmol/L 02/18/22 23:44 Urine Total Protein 457 mg/dL (5-11.8) H 02/18/22 23:44 Medications & Allergies - Medications Allergies/Adverse Reactions: Allergies No Known Allergies Allergy (Verified 02/17/22 23:39) Home Medications: Home Medications Medication Instructions Recorded Confirmed Last Taken Type Apixaban [Eliquis] 5 mg PO BID 02/18/22 02/18/22 Unknown History Crestor 40 mg PO DAILY 02/18/22 02/18/22 Unknown History Irbesartan/Hydrochlorothiazide 1 each PO HS 02/18/22 02/18/22 Unknown History [Irbesartan-Hctz 150-12.5 mg Tb] Loratadine [Claritin] 10 mg PO DAILY 02/18/22 02/18/22 Unknown History Oxycodone HCl [oxyCODONE] 10 mg PO BID 02/18/22 02/18/22 Unknown History Pantoprazole [Protonix] 40 mg PO QDAY 02/18/22 02/18/22 Unknown History Pramipexole [Mirapex] 0.5 mg PO TID 02/18/22 02/18/22 Unknown History Tamsulosin [Flomax] 0.4 mg PO DAILY 02/18/22 02/18/22 Unknown History Torsemide [Demadex] 20 mg PO BID 02/18/22 02/18/22 Unknown History allopurinoL [Zyloprim] 100 mg PO QDAY 02/18/22 02/18/22 Unknown History carvediloL [Coreg] 12.5 mg PO BID 02/18/22 02/18/22 Unknown History Active Medications: Generic Name Dose Route Start Last Admin Trade Name Freq PRN Reason Stop Dose Admin Acetaminophen 650 mg 02/18/22 03:18 02/23/22 07:43 Acetaminophen 325 Mg Tab PO 650 mg Q4H PRN Administration Pain MILD(1-3)/Fever >100.5/NICOLE Albuterol 2.5 mg 02/18/22 03:18 Albuterol 2.5 Mg/3 Ml Nebu IH Q3HRT PRN Shortness Of Breath Albuterol/Ipratropium 1 ampul 02/18/22 20:00 02/23/22 07:38 Ipratropium/Albuterol Sulfate 3 Ml Ampul.Neb IH 1 ampul TIDRT KARAN Administration Apixaban 2.5 mg 02/22/22 22:00 02/23/22 09:11 Apixaban 2.5 Mg Tab FEEDTUBE 2.5 mg Q12HR KARAN Administration Protocol Aspirin 325 mg 02/18/22 10:00 02/23/22 09:11 Aspirin 325 Mg Tab FEEDTUBE 325 mg QDAY KARAN Administration Atorvastatin Calcium 40 mg 02/18/22 22:00 02/22/22 22:55 Atorvastatin 40 Mg Tab PO 40 mg QHS KARAN Administration Famotidine 20 mg 02/21/22 10:00 02/23/22 09:12 Famotidine 20 Mg Tab FEEDTUBE 20 mg DAILY KARAN Administration Hydralazine HCl 10 mg 02/18/22 03:33 Hydralazine 20 Mg/1 Ml Inj IV Q6H PRN SBP >/=160; DBP >/=100 Hydrophilic Ointment 1 applic 02/17/22 23:25 Lip Therapy Vaseline TP Q2HR PRN Dry Lips Dexmedetomidine HCl 200 mcg/ 50 mls @ 6.99 mls/hr 02/21/22 11:00 02/23/22 10 :16 Sodium Chloride IV 1.2 mcg/kg/hr TITRATE KARAN 41.94 mls/hr Administration Protocol 0.2 MCG/KG/HR NORepinephrine/NS 8 MG-250 ML 8 mg in 250 mls @ 3.75 mls/hr 02/22/22 15:00 02/23/22 10:17 Norepinephrine/Ns 8 Mg-250 Ml (Double Conc) IV 14 mcg/min TITRATE KARAN 26.25 mls/hr Administration Protocol 2 MCG/MIN Vasopressin 20 unit/ Sodium 101 mls @ 9.09 mls/hr 02/22/22 16:00 Chloride IV TITR KARAN Protocol 0.03 UNITS/MIN Ceftriaxone Sodium 2 gm in 100 mls @ 200 mls/hr 02/23/22 09:00 02/23/22 09:12 Rocephin/Ns 2 Gm/100 Ml IV 02/27/22 09:29 200 mls/hr Q24H REPLACED BY [facility] Administration Protocol Insulin Human Lispro 0 unit 02/19/22 12:00 02/23/22 09:37 Insulin Lispro 100 Unit/Ml SUB-Q Not Given Q6HR REPLACED BY [facility] Protocol Metoprolol Tartrate 5 mg 02/21/22 12:00 02/23/22 09:37 Metoprolol Tartrate 5 Mg/5 Ml Inj IV Not Given Q6HR REPLACED BY [facility] Multi-Ingred Cream/Lotion/Oil/Oint 1 applic 02/17/22 23:25 Mineral Oil/Petrolatum, White Ophth Oint 3.5 Gm OU Q4HR PRN Dry Eye(s) Nitroglycerin 0.4 mg 02/18/22 03:18 Nitroglycerin 0.4 Mg Tab Subl SL Q5M PRN Chest Pain Ondansetron HCl 4 mg 02/18/22 03:18 Ondansetron 4 Mg/2 Ml Inj IV Q8H PRN Nausea And Vomiting Sodium Chloride 10 ml 02/18/22 10:00 02/23/22 09:30 Sodium Chloride 0.9% 10 Ml Flush Syringe IV 10 ml BID KARAN Administration Sodium Chloride 10 ml 02/18/22 03:18 Sodium Chloride 0.9% 10 Ml Flush Syringe IV PRN PRN LINE FLUSH
[2022-02-23 14:08] LABS: ANA Screen, IFA Negative (Negative)
[2022-02-23] MEDS ORDERED: CALCIUM GLUCONATE 2,000 MG in SODIUM CHLORIDE 0.9% 100 ML IV ONE (17:07)
[2022-02-23] MEDS ORDERED: SODIUM CHLORIDE 0.9% IV ONE (18:00)
[2022-02-23] MEDS ORDERED: CALCIUM GLUCONATE IV ONE (18:00)
[2022-02-23 18:22] LABS: Myeloperoxidase Antibody <1.0 AI (<1.0)
[2022-02-24] MEDS: ACETAMINOPHEN 325 MG TAB PO PRN ×4 (00:23→21:44)
--- NOTE | 2022-02-24 02:50 | XRay Report ---
CHEST 1 VIEW 02/24/2022 2:09 AM INDICATION / CLINICAL INFORMATION: follow up respiratory failure. COMPARISON: One view of the chest from 02/23/2022 FINDINGS: SUPPORT DEVICES: Unchanged. HEART / MEDIASTINUM: Stable. LUNGS / PLEURA: Left pulmonary opacities are overall unchanged. Right basilar opacities have slightly increased. No significant pleural effusion. No pneumothorax. ADDITIONAL FINDINGS: No significant additional findings. IMPRESSION: 1. Slightly increased right basilar opacities without other significant interval changes. Signer Name: David Ruiz MD Signed: 02/24/2022 2:46 AM Workstation Name: [id number]
[2022-02-24] MEDS: INSULIN LISPRO 100 UNIT/ML SUB-Q SCH ×4 (06:45→23:27)
[2022-02-24] MEDS: METOPROLOL TARTRATE 5 MG/5 ML INJ IV SCH ×5 (06:46→23:27)
[2022-02-24] MEDS: NORepinephrine/NS 8 MG-250 ML 8 MG/250 ML INFUS..BTL IV SCH (06:46)
[2022-02-24] MEDS: IPRATROPIUM/ALBUTEROL SULFATE 3 ML AMPUL.NEB IH SCH ×3 (08:58→20:47)
[2022-02-24 09:00] LABS: ABG Base Excess -2.6 mmol/L (-2.0-3.0); ABG HCO3 22.3 mmol/L (20.0-26.0); ABG Methemoglobin 0.5 % (0.0-1.5); ABG Oxygen Saturation 98.6 % (95.0-99.0); ABG PCO2 38.5 mm Hg; ABG PH 7.38 pH Units (7.350-7.450); ABG PO2 135.9 mm Hg (80.0-90.0)
[2022-02-24] MEDS: FAMOTIDINE 20 MG TAB FEEDTUBE SCH (09:32)
[2022-02-24] MEDS: ASPIRIN 325 MG TAB FEEDTUBE SCH (09:32)
[2022-02-24] MEDS: APIXABAN 2.5 MG TAB FEEDTUBE SCH ×2 (09:32→21:21)
[2022-02-24] MEDS: cefTRIAXone/NS 2 GM/100 ML 2 GM/100 ML BAG IV SCH (09:34)
--- NOTE | 2022-02-24 10:56 | Progress Note ---
Assessment and Plan This is a 76-year-old male, unknown to our practice, but does follow with Dr. 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 fib, CKD stage III, who was brought to [facility] emergency room in severe respiratory distress and altered mental status 02/18/22. S/p cardiac arrest. Assessment S/p Cardiopulmonary arrest - unclear etiology. 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 fib (on Eliquis) Hyperlipidemia History of CABG x2 History venous insufficiency Sleep apnea Cardiographics EKG-atrial fibrillation rate 71, nonspecific ST- t wave changes. No acute ischemia Chest x-ray 02/17/22-bilateral lung opacities differential considerations to include sequelae of infection and/or possibly asymmetric pulmonary edema. Small dependent left pleural effusion Echocardiogram-02/18/2022: LVEF 40 to 45%. RV SF mildly decreased. RV SF mildly reduced. Right ventricle is dilated. Left atrium moderately dilated. Right atrium dilated. Moderate MR. Moderate TR. RVSP 48 mmHg. Recommendations/plan Patient back on levophed. Continues to have worsening kidney function today; now on HD- Nephrology Following Continue Eliquis for A. fib Up-titrate GDMT as tolerated by kidney function and hemodynamic status. Continue aspirin, statin On Metoprolol 5mg IV Q6h. No ALEXEY/ARB in setting of IGGY. Fluid status optimzation via HD. Prognosis is poor to very guarded. Patient is AND/DNR Patient seen in conjunction with Dr. Paula who agrees with the assessment and management of this patient. - Patient Problems (1) H/O two vessel coronary artery bypass graft Current Visit: Yes Status: Acute (2) Sleep apnea Current Visit: Yes Status: Acute (3) Acute encephalopathy Current Visit: Yes Status: Acute (4) Acute respiratory failure Current Visit: Yes Status: Acute (5) Atrial fibrillation Current Visit: Yes Status: Acute (6) Cardiac arrest Current Visit: Yes Status: Acute (7) Renal insufficiency Current Visit: Yes Status: Acute (8) Malignant neoplasm Current Visit: Yes Status: Acute Subjective Date of service: 02/24/22 Principal diagnosis: ARF Interval history: Patient seen and examined today in the intensive care unit. Patient is back on pressor support and remains intubated. He has cool extremities, bilateral fingertips dusky. He remains critically ill with extremely guarded prognosis. Telemetry: Afib 80's; occ PVCs Intake & Output 02/23/22 02/24/22 02/24/22 23:59 07:59 15:59 Intake Total 9039.816 5328.437 65.419 Output Total 20 100 Balance 7983.902 2739.437 65.419 Objective Vital Signs Temp Pulse Pulse Pulse Resp Resp BP 02/24/22 10:15 88 33 H 120/54 02/24/22 10:00 86 32 H 115/60 02/24/22 09:45 86 34 H 113/63 02/24/22 09:30 88 33 H 124/62 02/24/22 09:15 83 33 H 116/53 02/24/22 09:12 79 106/59 02/24/22 09:00 90 29 H 106/56 02/24/22 08:58 85 28 H 02/24/22 08:45 79 31 H 120/57 02/24/22 08:30 91 H 32 H 130/67 02/24/22 08:15 84 31 H 121/59 02/24/22 08:00 84 28 H 122/56 02/24/22 07:45 84 25 H 126/61 02/24/22 07:30 81 27 H 121/52 02/24/22 07:15 84 31 H 137/51 02/24/22 07:00 91 H 30 H 125/63 02/24/22 06:46 82 120/62 02/24/22 06:45 78 29 H 120/62 02/24/22 06:31 81 32 H 115/56 02/24/22 06:15 83 29 H 134/59 02/24/22 06:00 86 29 H 129/57 02/24/22 05:45 90 29 H 132/74 02/24/22 05:30 80 33 H 128/64 02/24/22 05:15 79 31 H 121/74 02/24/22 05:00 78 28 H 122/54 02/24/22 04:45 87 28 H 123/68 02/24/22 04:30 80 30 H 129/63 02/24/22 04:15 82 29 H 121/54 02/24/22 04:07 126 H 114/89 02/24/22 04:00 99.5 F 86 85 16 123/60 02/24/22 03:45 86 29 H 123/60 02/24/22 03:30 79 29 H 115/64 02/24/22 03:15 77 28 H 127/63 02/24/22 03:00 84 28 H 129/69 02/24/22 02:45 88 29 H 118/60 02/24/22 02:30 82 30 H 132/63 02/24/22 02:15 88 28 H 131/71 02/24/22 02:00 86 28 H 125/65 02/24/22 01:45 90 27 H 126/63 02/24/22 01:30 86 29 H 119/59 02/24/22 01:15 80 28 H 126/60 02/24/22 01:00 79 28 H 115/68 02/24/22 00:45 85 28 H 129/72 02/24/22 00:30 84 28 H 136/70 02/24/22 00:15 78 28 H 139/73 02/24/22 00:00 100.4 F H 77 85 26 H 140/68 02/23/22 23:45 81 28 H 138/68 02/23/22 23:30 82 28 H 135/81 02/23/22 23:15 82 28 H 131/71 02/23/22 23:10 83 28 H 152/74 02/23/22 23:09 100 F H 02/23/22 23:00 99.7 F H 84 18 148/74 02/23/22 22:46 79 28 H 117/63 02/23/22 22:45 81 117/63 02/23/22 22:30 88 29 H 106/62 02/23/22 22:15 88 28 H 105/60 02/23/22 22:00 88 28 H 112/61 02/23/22 21:59 99.9 F H 02/23/22 21:45 88 103/59 02/23/22 21:30 90 116/57 02/23/22 21:18 100.2 F H 02/23/22 21:15 90 106/65 02/23/22 21:00 81 28 H 106/55 04/24/22 20:45 91 H 114/65 02/23/22 20:30 88 107/56 02/23/22 20:25 85 31 H 02/23/22 20:21 100.8 F H 02/23/22 20:20 82 105/56 02/23/22 20:15 86 105/56 02/23/22 20:00 89 85 30 H 101/50 02/23/22 19:45 100.1 F H 84 18 98/52 02/23/22 19:00 84 26 H 118/68 02/23/22 18:00 78 37 H 103/46 02/23/22 17:30 90 112/52 02/23/22 17:00 88 40 H 110/45 02/23/22 16:00 102.7 F H 79 79 33 H 92/37 02/23/22 15:16 89 133/52 02/23/22 15:00 88 29 H 133/52 02/23/22 14:00 85 24 111/52 02/23/22 13:20 92 H 30 H 02/23/22 13:00 76 40 H 111/60 02/23/22 12:34 87 100/51 02/23/22 12:00 102.7 F H 93 H 93 H 27 H 123/63 02/23/22 11:47 90 121/65 02/23/22 11:00 99 H 24 136/64 Pulse Ox Pulse Ox 02/24/22 10:15 98 02/24/22 10:00 98 02/24/22 09:45 98 02/24/22 09:30 99 02/24/22 09:15 100 02/24/22 09:12 100 02/24/22 09:00 100 02/24/22 08:58 02/24/22 08:45 100 02/24/22 08:30 100 02/24/22 08:15 100 02/24/22 08:00 100 02/24/22 07:45 100 02/24/22 07:30 100 02/24/22 07:15 100 02/24/22 07:00 100 02/24/22 06:46 02/24/22 06:45 100 02/24/22 06:31 100 02/24/22 06:15 100 02/24/22 06:00 100 02/24/22 05:45 100 02/24/22 05:30 100 02/24/22 05:15 100 02/24/22 05:00 100 02/24/22 04:45 99 02/24/22 04:30 99 02/24/22 04:15 99 02/24/22 04:07 97 02/24/22 04:00 94 02/24/22 03:45 100 02/24/22 03:30 100 02/24/22 03:15 100 02/24/22 03:00 100 02/24/22 02:45 100 02/24/22 02:30 100 02/24/22 02:15 100 02/24/22 02:00 99 02/24/22 01:45 98 02/24/22 01:30 99 02/24/22 01:15 98 02/24/22 01:00 100 02/24/22 00:45 99 02/24/22 00:30 98 02/24/22 00:15 97 02/24/22 00:00 96 02/23/22 23:45 97 02/23/22 23:30 97 02/23/22 23:15 96 02/23/22 23:10 97 02/23/22 23:09 02/23/22 23:00 99 98 02/23/22 22:46 98 02/23/22 22:45 02/23/22 22:30 100 02/23/22 22:15 99 02/23/22 22:00 98 02/23/22 21:59 02/23/22 21:45 02/23/22 21:30 02/23/22 21:18 02/23/22 21:15 02/23/22 21:00 100 02/23/22 20:45 02/23/22 20:30 02/23/22 20:25 02/23/22 20:21 02/23/22 20:20 99 02/23/22 20:15 02/23/22 20:00 100 02/23/22 19:45 98 02/23/22 19:00 98 02/23/22 18:00 98 02/23/22 17:30 02/23/22 17:00 99 02/23/22 16:00 100 02/23/22 15:16 99 02/23/22 15:00 99 02/23/22 14:00 99 02/23/22 13:20 02/23/22 13:00 99 02/23/22 12:34 02/23/22 12:00 99 02/23/22 11:47 99 02/23/22 11:00 98 - Physical Examination General: Other (Intubated) HEENT: Positive: Normocephaly, Mucus Membranes Dry Neck: Positive: trachea midline Cardiac: Positive: irregularly irregular, S1/S2 Lungs: Positive: Rhonchi, Ventilated Respirations Neuro: Positive: Other (patient somnolent; unable to assess neuro status today) Abdomen: Positive: Active Bowel Sounds Skin: Negative: Rash Extremities: Present: +2 Edema (BLE edema), Cool (BUE/BLE), Other (dusky fingertips bilaterally ) - Labs and Meds Comprehensive Metabolic Panel 02/23/22 Range/Units 09:42 Albumin 2.1 L (3.9-5) g/dL - Imaging and Cardiology EKG: image reviewed Echo: report reviewed (Echocardiogram 02/18/2022: LVEF 40 to 45%. RV SF mildly decreased. RV SF mildly reduced. Right ventricle is dilated. Left atrium moderately dilated. Right atrium dilated. Moderate MR. Moderate TR. RVSP 48 mmHg.) - Telemetry EKG Rhythm: Atrial Fibrillation - EKG Ventricular dysrhythmias: ventricular premature com
--- NOTE | 2022-02-24 11:47 | Progress Note ---
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 fib, CKD stage III admitted with acute hypoxic respiratory failure s/p cardiac arrest. Hospital course to date: 02/18: Patient was sedated on fentanyl on arrival to ICU which was weaned off, patient was able to follow simple commands. This morning patient was on Levophed and vasopressin and bicarbonate drip. Phenyl epinephrine was added later this afternoon. This evening patient received an roya and was persistently hypotensive. He received 1 L bolus this morning however given persistent hypotension with decreased urine output patient was given additional 1 L of LR. COVID-19 PCR negative. Patient's CODE STATUS changed to AND. 02/19: Patient has been weaned off of the norepinephrine and remains on vasopres sin and Levophed. Renal function worsened. Bicarbonate drip discontinued and nephrology discontinued IVF. Hemodialysis discussed with nephrology. Dr. Fry also had a discussion with family, prognosis of care and goals of care. Patient family will let us know about dialysis. Corrected Ca 7.8 02/20: Family would like to proceed with hemodialysis however renal will need to assess for 1 more day. Still remains on vasopressors however they are being weaned. Patient is edematous. Weaning FiO2 as tolerated. Possible PSV in the a.m. And will continue cefepime for 7 days. Discontinue vancomycin as MRSA is negative 02/21: Eliquis on hold for pending procedure, metoprolol 5 mg IV every 6 started due to brief period of V. tach. Will hold off extubation and Precedex ordered for tachypnea. Cefepime changed to Ancef for MSSA and will stop stress dose steroids. Awaiting family decision regarding hemodialysis. 02/22: Reviewed patient remains sedated on Precedex, no further episodes of a rrhythmia noted, increasing FiO2 repeat ABG, patient is febrile today 202.6 and tracheal aspirate is growing strep various but he is on antibiotics. We will send blood cultures due to spike. Received 1 g of calcium overnight. Renal function worsening. Will change CVL over wire or place Vas-Cath today. 02/23: Patient still is spiking fevers, antibiotics changed to cefepime. Patient received dialysis yesterday with removal of 2 L. This morning he is on Levophed. Left radial pulse not palpable or dopplerable however pulsating vessels seen with ultrasound. Patient still remains uremic. Bilateral fingers/toes dusky however cap refill less than 3 seconds and extremities are cold. RN instructed to place warm compresses on extremities. 02/24: Patient remains unresponsive on precedex gtt. Right pupil is round and reactive with +gag/cough reflexes. Plan to wean precedex off as tolerated to better assess mental status. Still with persistent fevers despite IV Abx with persistent leukocytosis, repeat blood cultures with NGTD. Will check BLE doppler to r/o DVT, continue IV abx for now. Patient remains on Levophed drip this . Bilateral hand blisters and dusky digits noted this am, most likely due to high vasoppressors. Radial pulses appreciated with a doppler with good capillary refills, continue to wean pressor for MAP above 65. Tolerated HD overnight, 1L removed. Continue HD per Nephro. Neuro: Acute metabolic encephalopathy -IV push fentanyl prn, precedex gtt -Avoid delirium -Reorientation as needed -Maintain sleep-wake cycle -As needed analgesia -CT head with no acute intracranial abnormality -Plan to wean off precedex gtt to better assess mentation Cardiac: S/p cardiac arrest, h/o HTN, chronic afib, CABG x2, venous insufficiency -Cardiology consulted, appreciate recommendations -Blood pressure monitoring per protocol -s/p Vasopressor support with vasopressin and Tripp-Synephrine -currently on levophed, wean at tolerated -MAP goal greater than 65 -low dose BB IV for arrthymia -Echocardiogram shows EF 40% -Cardiology 09/2019 echocardiogram with EF of 55 to 60% Respiratory: Acute hypoxic respiratory failure -Intubated in the emergency department with 8.00 ETT at 24 the lips on 02/17 -CCM consulted, appreciate recommendations -Am vent setting: PRVC-45%,8,28,500 -A.m. ABG and CXR noted -VAP bundle -SPO2 monitoring GI: Protein calorie malnutrition -PPI -Ntr consult for TF -BR: senakot (on hold d/t multiple stools) : Acute kidney injury secondary to acute tubular necrosis, rhabdomyolysis, metabolic acidosis, uremia, h/o CKD stage III per family -Nephrology consulted, appreciate recommendations -Family would like to proceed with hemodialysis -Vascath placed 02/22 -HD 02/22 with removal of 2L -HD per Nephro -Strict intake and output -Renally dose medications -Avoid nephrotoxic medications -Daily weights -FeNa 0.35% indicating prerenal cause for renal failure -Renal ultrasound shows complex cyst in the mid to lower left kidney, additional bilateral renal cysts, hyperechogenic appearance of kidneys which may reflect sequelae of medical renal disease -Trend BMP ID: Possible postobstructive pneumonia, Sepsis (POA), MSSA PNA -Antibiotic therapy with changed to ancef (02/21) -Changed back to cefepime d/t fever, loose stools, increase in WBC on 02/23 -MRSA PCR negative -s/p Stress dose steroids -COVID-19 PCR negative -f/u blood culture -Monitor WBC and temperature curve Endo: NAD -Avoid hypoglycemia -SSI -Accu-Cheks q6 hr Heme: NAD -Trend CBC -Transfuse hemoglobin less than 7 -Monitor for signs of bleeding -heparin subq -restart 2.5 eliqius BID for afib -SCDs to BLE while in bed Oncology: Stage IV adenocarcinoma of the lung with mets to spine -Per family patient recently suffered a stress fracture to T7-T8 and was currently in rehab to get stronger to withstand palliative treatment -Continue supportive care The high probability of a clinically significant, sudden or life threatening deterioration of the [multi] system(s) required my full and direct attention, intervention and personal management. The aggregate critical care time was [60] minutes. This time is in addition to time spent performing reported procedures but includes the following: [x] Data Review and interpretation [x] Patient assessment and monitoring of vital signs [x] Documentation [x] Medication orders and management Disposition Plan: ICU Total Time Spent with Patient (Minutes): 60 History Interval history: Patient seen and examined at the bedside. Remains unresponsive on precedex gtt. Dressing present over left eye, right pupil is round and reactive with +gag/cough. Patient remains on Levophed gtt. Bilateral hand blisters and dusky digits noted upon assess, radial pulses appreciated with a doppler. Patient remains with persistent fevers. Per RN patient tolerated HD overnight, 1L removed Hospitalist Physical - Constitutional Vitals: Temp Pulse Resp BP Pulse Ox 99.5 F 95 H 27 H 115/59 100 02/24/22 04:00 02/24/22 11:15 02/24/22 11:15 02/24/22 11:15 02/24/22 11:15 General appearance: Present: obese HEART Score - HEART Score Troponin: Troponin T 0.076 ng/mL (0.00-0.029) H 02/18/22 09:21 Results - Labs CBC & Chem 7: 02/23/22 07:00 02/23/22 07:00 Labs: Laboratory Last Values WBC 15.3 K/mm3 (4.5-11.0) H 02/23/22 07:00 RBC 3.13 M/mm3 (3.65-5.03) L 02/23/22 07:00 Hgb 8.6 gm/dl (11.8-15.2) L 02/23/22 07:00 Hct 27.0 % (35.5-45.6) L 02/23/22 07:00 MCV 86 fl (84-94) 02/23/22 07:00 MCH 27 pg (28-32) L 02/23/22 07:00 MCHC 32 % (32-34) 02/23/22 07:00 RDW 19.8 % (13.2-15.2) H 02/23/22 07:00 Plt Count 287 K/mm3 (140-440) 02/23/22 07:00 Lymph % (Auto) 19.8 % (13.4-35.0) 02/18/22 00:21 [place] % (Auto) 5.3 % (0.0-7.3) 02/18/22 00:21 Eos % (Auto) 2.0 % (0.0-4.3) 02/18/22 00:21 Baso % (Auto) 1.1 % (0.0-1.8) 02/18/22 00:21 Lymph # (Auto) 1.2 K/mm3 (1.2-5.4) 02/18/22 00:21 [place] # (Auto) 0.3 K/mm3 (0.0-0.8) 02/18/22 00:21 Eos # (Auto) 0.1 K/mm3 (0.0-0.4) 02/18/22 00:21 Baso # (Auto) 0.1 K/mm3 (0.0-0.1) 02/18/22 00:21 Add Manual Diff Complete 02/23/22 07:00 Total Counted 100 02/23/22 07:00 Seg Neutrophils % Dual Rate Dealer 02/21/22 06:45 Seg Neuts % (Manual) 90.0 % (40.0-70.0) H 02/23/22 07:00 Band Neutrophils % 4.0 % 02/23/22 07:00 Lymphocytes % (Manual) 5.0 % (13.4-35.0) L 02/23/22 07:00 Reactive Lymphs % (Man) 0 % 02/23/22 07:00 Monocytes % (Manual) 1.0 % (0.0-7.3) 02/23/22 07:00 Eosinophils % (Manual) 0 % (0.0-4.3) 02/23/22 07:00 Basophils % (Manual) 0 % (0.0-1.8) 02/23/22 07:00 Metamyelocytes % 0 % 02/23/22 07:00 Myelocytes % 0 % 02/23/22 07:00 Promyelocytes % 0 % 02/23/22 07:00 Blast Cells % 0 % 02/23/22 07:00 Nucleated RBC % Not Reportable 02/23/22 07:00 Seg Neutrophils # 4.5 K/mm3 (1.8-7.7) 02/18/22 00:21 Seg Neutrophils # Man 13.8 K/mm3 (1.8-7.7) H 02/23/22 07:00 Band Neutrophils # 0.6 K/mm3 02/23/22 07:00 Lymphocytes # (Manual) 0.8 K/mm3 (1.2-5.4) L 02/23/22 07:00 Abs React Lymphs (Man) 0.0 K/mm3 02/23/22 07:00 Monocytes # (Manual) 0.2 K/mm3 (0.0-0.8) 02/23/22 07:00 Eosinophils # (Manual) 0.0 K/mm3 (0.0-0.4) 02/23/22 07:00 Basophils # (Manual) 0.0 K/mm3 (0.0-0.1) 02/23/22 07:00 Metamyelocytes # 0.0 K/mm3 02/23/22 07:00 Myelocytes # 0.0 K/mm3 02/23/22 07:00 Promyelocytes # 0.0 K/mm3 02/23/22 07:00 Blast Cells # 0.0 K/mm3 02/23/22 07:00 WBC Morphology Not Reportable 02/23/22 07:00 Hypersegmented Neuts Not Reportable 02/23/22 07:00 Hyposegmented Neuts Not Reportable 02/23/22 07:00 Hypogranular Neuts Not Reportable 02/23/22 07:00 Smudge Cells 1+ 02/23/22 07:00 Toxic Granulation Not Reportable 02/23/22 07:00 Toxic Vacuolation Not Reportable 02/23/22 07:00 Dohle Bodies Not Reportable 02/23/22 07:00 Pelger-Huet Anomaly Not Reportable 02/23/22 07:00 Jensen Rods Not Reportable 02/23/22 07:00 Platelet Estimate Consistent w auto 02/23/22 07:00 Clumped Platelets Not Reportable 02/23/22 07:00 Plt Clumps, EDTA Not Reportable 02/23/22 07:00 Large Platelets Few 02/23/22 07:00 Giant Platelets Not Reportable 02/23/22 07:00 Platelet Satelliting Not Reportable 02/23/22 07:00 Plt Morphology Comment Not Reportable 02/23/22 07:00 RBC Morphology Not Reportable 02/23/22 07:00 Dimorphic RBCs Not Reportable 02/23/22 07:00 Polychromasia Few 02/23/22 07:00 Hypochromasia Few 02/23/22 07:00 Poikilocytosis Not Reportable 02/23/22 07:00 Anisocytosis 1+ 02/23/22 07:00 Microcytosis Not Reportable 02/23/22 07:00 Macrocytosis Not Reportable 02/23/22 07:00 Spherocytes Not Reportable 02/23/22 07:00 Pappenheimer Bodies Not Reportable 02/23/22 07:00 Sickle Cells Not Reportable 02/23/22 07:00 Target Cells Not Reportable 02/23/22 07:00 Tear Drop Cells Not Reportable 02/23/22 07:00 Ovalocytes Not Reportable 02/23/22 07:00 Helmet Cells Not Reportable 02/23/22 07:00 [place] Bodies Not Reportable 02/23/22 07:00 [place] Rings Not Reportable 02/23/22 07:00 [place] Cells Not Reportable 02/23/22 07:00 Bite Cells Not Reportable 02/23/22 07:00 Crenated Cell Not Reportable 02/23/22 07:00 Elliptocytes Not Reportable 02/23/22 07:00 Acanthocytes (Spur) Not Reportable 02/23/22 07:00 Rouleaux Not Reportable 02/23/22 07:00 Hemoglobin C Crystals Not Reportable 02/23/22 07:00 Schistocytes Not Reportable 02/23/22 07:00 Malaria parasites Not Reportable 02/23/22 07:00 [place] Bodies Not Reportable 02/23/22 07:00 Hem Pathologist Commnt No 02/23/22 07:00 PT 19.8 Sec. (12.2-14.9) H 02/22/22 16:22 INR 1.49 (0.87-1.13) H 02/22/22 16:22 APTT 34.3 Sec. (24.2-36.6) 02/22/22 16:22 ABG pH 7.380 pH Units (7.350-7.450) 02/24/22 08:44 POC ABG pCO2 60.4 mmHg (32.0-48.0) H 02/18/22 00:20 ABG pCO2 38.5 mm Hg 02/24/22 08:44 POC ABG pO2 93.0 mmHg (83-108) 02/18/22 00:20 ABG pO2 135.9 mm Hg (80.0-90.0) H 02/24/22 08:44 POC ABG HCO3 20.5 02/18/22 00:20 ABG HCO3 22.3 mmol/L (20.0-26.0) 02/24/22 08:44 ABG O2 Saturation 98.6 % (95.0-99.0) 02/24/22 08:44 ABG O2 Content 12.3 (0.0-44) 02/24/22 08:44 POC ABG Base Excess -8.2 02/18/22 00:20 ABG Base Excess -2.6 mmol/L (-2.0-3.0) L 02/24/22 08:44 ABG Hemoglobin 8.8 gm/dl (14.0-18.0) L 02/24/22 08:44 ABG Oxyhemoglobin 93.7 (94-98) L 02/18/22 00:20 ABG Carboxyhemoglobin 1.4 % (0.0-5.0) 02/24/22 08:44 ABG Methemoglobin 0.5 % (0.0-1.5) 02/24/22 08:44 Oxyhemoglobin 96.7 % (95.0-99.0) 02/24/22 08:44 Carboxyhemoglobin 2.1 (0.5-1.5) H 02/18/22 00:20 FiO2 45 % 02/24/22 08:44 FiO2 % 100 02/18/22 00:20 Sodium 134 mmol/L (137-145) L 02/23/22 07:00 Potassium 5.0 mmol/L (3.6-5.0) 02/23/22 07:00 Chloride 96.5 mmol/L (98-107) L 02/23/22 07:00 Carbon Dioxide 20 mmol/L (22-30) L 02/23/22 07:00 Anion Gap 23 mmol/L 02/23/22 07:00 BUN 87 mg/dL (9-20) H 02/23/22 07:00 Creatinine 5.0 mg/dL (0.8-1.3) H 02/23/22 07:00 Estimated GFR 11 ml/min 02/23/22 07:00 BUN/Creatinine Ratio 17 % 02/23/22 07:00 Glucose 133 mg/dL (75-100) H 02/23/22 07:00 POC Glucose 105 mg/dL (70-105) 02/24/22 06:03 Lactic Acid 0.90 mmol/L (0.7-2.0) 02/18/22 02:18 Calcium 6.1 mg/dL (8.4-10.2) L D 02/23/22 07:00 Phosphorus 4.60 mg/dL (2.5-4.5) H 02/23/22 07:00 Magnesium 1.90 mg/dL (1.7-2.3) 02/23/22 07:00 Total Bilirubin 0.80 mg/dL (0.1-1.2) 02/18/22 00:21 AST 56 units/L (5-40) H 02/18/22 00:21 ALT 45 units/L (7-56) 02/18/22 00:21 Alkaline Phosphatase 268 units/L (35-129) H 02/18/22 00:21 Ammonia 38.0 umol/L (25-60) 02/18/22 00:21 Total Creatine Kinase 233 units/L (55-170) H 02/18/22 00:21 Troponin T 0.076 ng/mL (0.00-0.029) H 02/18/22 09:21 Total Protein 6.5 g/dL (6.3-8.2) 02/18/22 00:21 Albumin 2.1 g/dL (3.9-5) L 02/23/22 09:42 Albumin/Globulin Ratio 0.5 % 02/18/22 00:21 Triglycerides 107 mg/dL (2-149) 02/18/22 00:21 Cholesterol 71 mg/dL (50-199) 02/18/22 00:21 LDL Cholesterol Direct 30 mg/dL (50-130) L 02/18/22 00:21 HDL Cholesterol 19 mg/dL (40-59) L 02/18/22 00:21 Cholesterol/HDL Ratio 3.73 % 02/18/22 00:21 Procalcitonin 2.73 ng/mL (<0.15) 02/18/22 12:48 TSH 5.100 mlU/mL (0.270-4.200) H 02/18/22 00:21 Urine Color Heidi (Yellow) 02/22/22 17:30 Urine Turbidity Cloudy (Clear) 02/22/22 17:30 Urine pH 5.0 (5.0-7.0) 02/22/22 17:30 Ur Specific [place] 1.025 (1.003-1.030) 02/22/22 17:30 Urine Protein >500 mg/dL (Negative) 02/22/22 17:30 Urine Glucose (UA) 50 mg/dL (Negative) 02/22/22 17:30 Urine Ketones Tr mg/dL (Negative) 02/22/22 17:30 Urine Blood Lg (Negative) 02/22/22 17:30 Urine Nitrite Neg (Negative) 02/22/22 17:30 Urine Bilirubin Neg (Negative) 02/22/22 17:30 Urine Urobilinogen < 2.0 mg/dL (<2.0) 02/22/22 17:30 Ur Leukocyte Esterase Tr (Negative) 02/22/22 17:30 Urine WBC (Auto) 57.0 /HPF (0.0-6.0) H 02/22/22 17:30 Urine RBC (Auto) 164.0 /HPF (0.0-6.0) 02/22/22 17:30 U Epithel Cells (Auto) 5.0 /HPF (0-13.0) 02/22/22 17:30 Urine Bacteria (Auto) 1+ /HPF (Negative) 02/22/22 17:30 Granular Casts 11 /LPF 02/22/22 17:30 Urine Mucus Few /HPF 02/22/22 17:30 Urine Yeast (Budding) 1+ /HPF 02/18/22 00:54 Urine Creatinine 180.0 mg/dL (0.1-20.0) H 02/18/22 23:44 Urine Creatinine 180.9 mg/dL (0.1-20.0) H 02/18/22 23:44 Protein/Creatinin Ratio 2.53 02/18/22 23:44 Urine Sodium 30 mmol/L 02/18/22 23:44 Urine Total Protein 457 mg/dL (5-11.8) H 02/18/22 23:44 Nasal Screen MRSA (PCR) Negative (Negative) 02/18/22 11:05 Random Vancomycin 10.6 ug/mL (0-40.0) 02/20/22 07:51 Salicylates < 0.3 mg/dL (2.8-20.0) L 02/18/22 00:21 Acetaminophen 5.0 ug/mL (10.0-30.0) L 02/18/22 00:21 Plasma/Serum Alcohol < 0.01 % (0-0.07) 02/18/22 00:21 SYMONE Screen Negative (Negative) 02/20/22 04:30 Proteinase 3 (PR3) Ab 2.3 AI (<1.0) H 02/20/22 04:30 Myeloperoxidase Ab <1.0 AI (<1.0) 02/20/22 04:30 Complement C3 145 mg/dL (82-185) 02/20/22 04:30 Complement C4 39 mg/dL (15-53) 02/20/22 04:30 SARS-CoV-2 (PCR) Negative (Negative) 02/18/22 11:33 Hepatitis A IgM Ab Non-reactive (NonReactive) 02/20/22 04:30 Hep Bs Antigen Non-reactive (Negative) 02/20/22 04:30 Hep B Core IgM Ab Non-reactive (NonReactive) 02/20/22 04:30 Hepatitis C Antibody Non-reactive (NonReactive) 02/20/22 04:30 Blood Type A POSITIVE 02/18/22 00:21 Antibody Screen Negative 02/18/22 00:21 Microbiology: Microbiology 02/22/22 17:27 Peripheral/Venous Blood Culture - Preliminary NO GROWTH AFTER 24 HOURS 02/22/22 17:27 Peripheral/Venous Blood Culture - Preliminary NO GROWTH AFTER 24 HOURS Cabezas/IV: Voiding Method Indwelling Catheter Active Medications - Current Medications Current Medications: Generic Name Dose Route Start Last Admin Trade Name Freq PRN Reason Stop Dose Admin Acetaminophen 650 mg 02/18/22 03:18 02/24/22 09:32 Acetaminophen 325 Mg Tab PO 650 mg Q4H PRN Administration Pain MILD(1-3)/Fever >100.5/NICOLE Albuterol 2.5 mg 02/18/22 03:18 Albuterol 2.5 Mg/3 Ml Nebu IH Q3HRT PRN Shortness Of Breath Albuterol/Ipratropium 1 ampul 02/18/22 20:00 02/24/22 08:58 Ipratropium/Albuterol Sulfate 3 Ml Ampul.Neb IH 1 ampul TIDRT KARAN Administration Apixaban 2.5 mg 02/22/22 22:00 02/24/22 09:32 Apixaban 2.5 Mg Tab FEEDTUBE 2.5 mg Q12HR KARAN Administration Protocol Aspirin 325 mg 02/18/22 10:00 02/24/22 09:32 Aspirin 325 Mg Tab FEEDTUBE 325 mg QDAY KARAN Administration Atorvastatin Calcium 40 mg 02/18/22 22:00 02/23/22 21:16 Atorvastatin 40 Mg Tab PO 40 mg QHS KARAN Administration Famotidine 20 mg 02/21/22 10:00 02/24/22 09:32 Famotidine 20 Mg Tab FEEDTUBE 20 mg DAILY KARAN Administration Hydralazine HCl 10 mg 02/18/22 03:33 Hydralazine 20 Mg/1 Ml Inj IV Q6H PRN SBP >/=160; DBP >/=100 Hydrophilic Ointment 1 applic 02/17/22 23:25 Lip Therapy Vaseline TP Q2HR PRN Dry Lips Dexmedetomidine HCl 200 mcg/ 50 mls @ 6.99 mls/hr 02/21/22 11:00 02/24/22 09:31 Sodium Chloride IV 0.3 mcg/kg/hr TITRATE KARAN 10.485 mls/hr Titration Protocol 0.2 MCG/KG/HR NORepinephrine/NS 8 MG-250 ML 8 mg in 250 mls @ 3.75 mls/hr 02/22/22 15:00 02/24/22 09:00 Norepinephrine/Ns 8 Mg-250 Ml (Double Conc) IV 6 mcg/min TITRATE KARAN 11.25 mls/hr Titration Protocol 2 MCG/MIN Vasopressin 20 unit/ Sodium 101 mls @ 9.09 mls/hr 02/22/22 16:00 Chloride IV TITR KARAN Protocol 0.03 UNITS/MIN Ceftriaxone Sodium 2 gm in 100 mls @ 200 mls/hr 02/23/22 09:00 02/24/22 09:34 Rocephin/Ns 2 Gm/100 Ml IV 02/27/22 09:29 200 mls/hr Q24H KARAN Administration Protocol Insulin Human Lispro 0 unit 02/19/22 12:00 02/24/22 06:45 Insulin Lispro 100 Unit/Ml SUB-Q Not Given Q6HR [facility] Protocol Metoprolol Tartrate 5 mg 02/21/22 12:00 02/24/22 06:46 Metoprolol Tartrate 5 Mg/5 Ml Inj IV 5 mg Q6HR KARAN Administration Multi-Ingred Cream/Lotion/Oil/Oint 1 applic 02/17/22 23:25 Mineral Oil/Petrolatum, White Ophth Oint 3.5 Gm OU Q4HR PRN Dry Eye(s) Nitroglycerin 0.4 mg 02/18/22 03:18 Nitroglycerin 0.4 Mg Tab Subl SL Q5M PRN Chest Pain Ondansetron HCl 4 mg 02/18/22 03:18 Ondansetron 4 Mg/2 Ml Inj IV Q8H PRN Nausea And Vomiting Sodium Chloride 10 ml 02/18/22 10:00 02/24/22 09:33 Sodium Chloride 0.9% 10 Ml Flush Syringe IV 10 ml BID KARAN Administration Sodium Chloride 10 ml 02/18/22 03:18 Sodium Chloride 0.9% 10 Ml Flush Syringe IV PRN PRN LINE FLUSH Nutrition/Malnutrition Assess - Dietary Evaluation Nutrition/Malnutrition Findings: Nutrition Notes Start: 02/18/22 11:48 Freq: Status: Active Protocol: Document 02/21/22 14:31 ADITYA (Rec: 02/21/22 15:27 NHJENNA [id number]) Nutrition Notes Initial or Follow up Reassessment Current Diagnosis Hypertension,Respiratory Failure,Hyperlipidemia Other Pertinent Diagnosis s/p cardiac arrest, metastatic lung CA, afib Current Diet TF - Nepro at 50ml/hr Labs/Tests BUN 89 Cr 5.4 BG 164 Ca 5.7 Phos 5.7 Pertinent Medications Solu-Cortef, D5 1/2NS at 5ml/ hr Height 5 ft 11 in Weight 139.8 kg [place] Body Weight (kg) 78.18 BMI 43.0 Weight Status Morbidly Obese Subjective/Other Information Pt tolerating TF at goal rate. Pt no longer on pressor support, but remains on vent support. Pt with worsening renal function and anemia. Possible VasCath placement today; HD to start afterwards. Percent of energy/protein needs met: 83% energy 74% pro Burn Absent Trauma Absent Minimum of two criteria No #1 Nutrition Diagnosis Inadequate oral intake Diagnosis Progress(for reassessment Continues documentation) Is patient on ventilator? Yes Is Patient Ambulatory and/or Out of Bed No REE-([facility]-confined to bed) 2597.580 Kcal/Kg value to use for calculation 13 Approximate Energy Requirements Using 1817 kcal/Kg Additional Notes Pro needs >1.2g/kg adjBW: > 131g/day Fluid needs 1-1.5L/day Nutrition Intervention Nutrition Support: Continue Nepro at 50ml/hr with 200ml water flush q4h. Kcal 2,160 Protein (gm) 97 Carbohydrates (gm) 193 Fat (gm) 115 Fluid (mL) 872 Fiber (gm) 15 Goal #1 TF tolerance Goal #2 TF to meet at least 75% energy and pro needs Follow-Up By: 02/28/22 Additional Comments F/U: stable TF, vent status, renal function, wt
--- NOTE | 2022-02-24 12:04 | Progress Note ---
Assessment and Plan Acute Renal Failure on Chronic Kidney Disease Hypotension Afib Cardiac Arrest Acute Respiratory failure Acidosis Hyperkalemia, Mild Anemia Lung cancer with stage IV metastasis Plan: HD again today for clearance and volume removal Acute Renal Failure likely 2/2 ATN Patient has history of CKD but no baseline serum creatinine available CXR- shows decreasing left Pleural Effusion Intubated on Vent, on levophed. In ICU Avoid nephrotoxic agents Renally dose medications Strict I&O's daily Obtain daily weights Monitor renal function closely Subjective Date of service: 02/24/22 Principal diagnosis: ARF Interval history: intubated, no family at bedside Objective - Vital Signs Vital signs: Vital Signs - 12hr 02/24/22 02/24/22 02/24/22 00:15 00:30 00:45 Temperature Pulse Rate 78 84 85 Pulse Rate [ Anterior Bilateral Throughout] Pulse Rate [ From Monitor] Respiratory 28 H 28 H 28 H Rate Respiratory Rate [Anterior Bilateral Throughout] Blood Pressure 139/73 136/70 129/72 O2 Sat by Pulse 97 98 99 Oximetry 02/24/22 02/24/22 02/24/22 01:00 01:15 01:30 Temperature Pulse Rate 79 80 86 Pulse Rate [ Anterior Bilateral Throughout] Pulse Rate [ From Monitor] Respiratory 28 H 28 H 29 H Rate Respiratory Rate [Anterior Bilateral Throughout] Blood Pressure 115/68 126/60 119/59 O2 Sat by Pulse 100 98 99 Oximetry 02/24/22 02/24/22 02/24/22 01:45 02:00 02:15 Temperature Pulse Rate 90 86 88 Pulse Rate [ Anterior Bilateral Throughout] Pulse Rate [ From Monitor] Respiratory 27 H 28 H 28 H Rate Respiratory Rate [Anterior Bilateral Throughout] Blood Pressure 126/63 125/65 131/71 O2 Sat by Pulse 98 99 100 Oximetry 02/24/22 02/24/22 02/24/22 02:30 02:45 03:00 Temperature Pulse Rate 82 88 84 Pulse Rate [ Anterior Bilateral Throughout] Pulse Rate [ From Monitor] Respiratory 30 H 29 H 28 H Rate Respiratory Rate [Anterior Bilateral Throughout] Blood Pressure 132/63 118/60 129/69 O2 Sat by Pulse 100 100 100 Oximetry 02/24/22 02/24/22 02/24/22 03:15 03:30 03:45 Temperature Pulse Rate 77 79 86 Pulse Rate [ Anterior Bilateral Throughout] Pulse Rate [ From Monitor] Respiratory 28 H 29 H 29 H Rate Respiratory Rate [Anterior Bilateral Throughout] Blood Pressure 127/63 115/64 123/60 O2 Sat by Pulse 100 100 100 Oximetry 02/24/22 02/24/22 02/24/22 04:00 04:07 04:15 Temperature 99.5 F Pulse Rate 86 126 H 82 Pulse Rate [ Anterior Bilateral Throughout] Pulse Rate [ 85 From Monitor] Respiratory 16 29 H Rate Respiratory Rate [Anterior Bilateral Throughout] Blood Pressure 123/60 114/89 121/54 O2 Sat by Pulse 94 97 99 Oximetry 02/24/22 02/24/22 02/24/22 04:30 04:45 05:00 Temperature Pulse Rate 80 87 78 Pulse Rate [ Anterior Bilateral Throughout] Pulse Rate [ From Monitor] Respiratory 30 H 28 H 28 H Rate Respiratory Rate [Anterior Bilateral Throughout] Blood Pressure 129/63 123/68 122/54 O2 Sat by Pulse 99 99 100 Oximetry 02/24/22 02/24/22 02/24/22 05:15 05:30 05:45 Temperature Pulse Rate 79 80 90 Pulse Rate [ Anterior Bilateral Throughout] Pulse Rate [ From Monitor] Respiratory 31 H 33 H 29 H Rate Respiratory Rate [Anterior Bilateral Throughout] Blood Pressure 121/74 128/64 132/74 O2 Sat by Pulse 100 100 100 Oximetry 02/24/22 02/24/22 02/24/22 06:00 06:15 06:31 Temperature Pulse Rate 86 83 81 Pulse Rate [ Anterior Bilateral Throughout] Pulse Rate [ From Monitor] Respiratory 29 H 29 H 32 H Rate Respiratory Rate [Anterior Bilateral Throughout] Blood Pressure 129/57 134/59 115/56 O2 Sat by Pulse 100 100 100 Oximetry 02/24/22 02/24/22 02/24/22 06:45 06:46 07:00 Temperature Pulse Rate 78 82 91 H Pulse Rate [ Anterior Bilateral Throughout] Pulse Rate [ From Monitor] Respiratory 29 H 30 H Rate Respiratory Rate [Anterior Bilateral Throughout] Blood Pressure 120/62 120/62 125/63 O2 Sat by Pulse 100 100 Oximetry 02/24/22 02/24/22 02/24/22 07:15 07:30 07:45 Temperature Pulse Rate 84 81 84 Pulse Rate [ Anterior Bilateral Throughout] Pulse Rate [ From Monitor] Respiratory 31 H 27 H 25 H Rate Respiratory Rate [Anterior Bilateral Throughout] Blood Pressure 137/51 121/52 126/61 O2 Sat by Pulse 100 100 100 Oximetry 02/24/22 02/24/22 02/24/22 08:00 08:15 08:30 Temperature 102.2 F H Pulse Rate 84 84 91 H Pulse Rate [ Anterior Bilateral Throughout] Pulse Rate [ 84 From Monitor] Respiratory 28 H 31 H 32 H Rate Respiratory Rate [Anterior Bilateral Throughout] Blood Pressure 122/56 121/59 130/67 O2 Sat by Pulse 100 100 100 Oximetry 02/24/22 02/24/22 02/24/22 08:45 08:58 09:00 Temperature Pulse Rate 79 90 Pulse Rate [ 85 Anterior Bilateral Throughout] Pulse Rate [ From Monitor] Respiratory 31 H 29 H Rate Respiratory 28 H Rate [Anterior Bilateral Throughout] Blood Pressure 120/57 106/56 O2 Sat by Pulse 100 100 Oximetry 02/24/22 02/24/22 02/24/22 09:12 09:15 09:30 Temperature Pulse Rate 79 83 88 Pulse Rate [ Anterior Bilateral Throughout] Pulse Rate [ From Monitor] Respiratory 33 H 33 H Rate Respiratory Rate [Anterior Bilateral Throughout] Blood Pressure 106/59 116/53 124/62 O2 Sat by Pulse 100 100 99 Oximetry 02/24/22 02/24/22 02/24/22 09:45 10:00 10:15 Temperature Pulse Rate 86 86 88 Pulse Rate [ Anterior Bilateral Throughout] Pulse Rate [ From Monitor] Respiratory 34 H 32 H 33 H Rate Respiratory Rate [Anterior Bilateral Throughout] Blood Pressure 113/63 115/60 120/54 O2 Sat by Pulse 98 98 98 Oximetry 02/24/22 02/24/22 02/24/22 10:30 10:45 11:00 Temperature Pulse Rate 87 89 92 H Pulse Rate [ Anterior Bilateral Throughout] Pulse Rate [ From Monitor] Respiratory 34 H 33 H 30 H Rate Respiratory Rate [Anterior Bilateral Throughout] Blood Pressure 115/58 107/67 115/70 O2 Sat by Pulse 99 99 99 Oximetry 02/24/22 02/24/22 11:05 11:15 Temperature Pulse Rate 88 95 H Pulse Rate [ Anterior Bilateral Throughout] Pulse Rate [ From Monitor] Respiratory 27 H Rate Respiratory Rate [Anterior Bilateral Throughout] Blood Pressure 115/70 115/59 O2 Sat by Pulse 98 100 Oximetry - General Appearance General appearance: sedated on ventilator, intubated EENT: ATNC, PERRL, mucous membranes dry Neck: no JVD, no carotid bruit Respiratory: Present: Decreased Breath Sounds Cardiology: tachycardia Gastrointestinal: normoactive bowel sounds, no tenderness, no distended, no masses Integumentary: no rash, warm and dry Musculoskeletal: other (trace pitting edema in BLE) - Lab 02/23/22 07:00 02/23/22 07:00 Most recent lab results ABG pH 7.380 pH Units (7.350-7.450) 02/24/22 08:44 ABG pCO2 38.5 mm Hg 02/24/22 08:44 ABG pO2 135.9 mm Hg (80.0-90.0) H 02/24/22 08:44 ABG HCO3 22.3 mmol/L (20.0-26.0) 02/24/22 08:44 ABG O2 Saturation 98.6 % (95.0-99.0) 02/24/22 08:44 Calcium 6.1 mg/dL (8.4-10.2) L D 02/23/22 07:00 Phosphorus 4.60 mg/dL (2.5-4.5) H 02/23/22 07:00 Magnesium 1.90 mg/dL (1.7-2.3) 02/23/22 07:00 Urine Creatinine 180.0 mg/dL (0.1-20.0) H 02/18/22 23:44 Urine Creatinine 180.9 mg/dL (0.1-20.0) H 02/18/22 23:44 Urine Sodium 30 mmol/L 02/18/22 23:44 Urine Total Protein 457 mg/dL (5-11.8) H 02/18/22 23:44 Medications & Allergies - Medications Allergies/Adverse Reactions: Allergies No Known Allergies Allergy (Verified 02/17/22 23:39) Home Medications: Home Medications Medication Instructions Recorded Confirmed Last Taken Type Apixaban [Eliquis] 5 mg PO BID 02/18/22 02/18/22 Unknown History Crestor 40 mg PO DAILY 02/18/22 02/18/22 Unknown History Irbesartan/Hydrochlorothiazide 1 each PO HS 02/18/22 02/18/22 Unknown History [Irbesartan-Hctz 150-12.5 mg Tb] Loratadine [Claritin] 10 mg PO DAILY 02/18/22 02/18/22 Unknown History Oxycodone HCl [oxyCODONE] 10 mg PO BID 02/18/22 02/18/22 Unknown History Pantoprazole [Protonix] 40 mg PO QDAY 02/18/22 02/18/22 Unknown History Pramipexole [Mirapex] 0.5 mg PO TID 02/18/22 02/18/22 Unknown History Tamsulosin [Flomax] 0.4 mg PO DAILY 02/18/22 02/18/22 Unknown History Torsemide [Demadex] 20 mg PO BID 02/18/22 02/18/22 Unknown History allopurinoL [Zyloprim] 100 mg PO QDAY 02/18/22 02/18/22 Unknown History carvediloL [Coreg] 12.5 mg PO BID 02/18/22 02/18/22 Unknown History Active Medications: Generic Name Dose Route Start Last Admin Trade Name Freq PRN Reason Stop Dose Admin Acetaminophen 650 mg 02/18/22 03:18 02/24/22 09:32 Acetaminophen 325 Mg Tab PO 650 mg Q4H PRN Administration Pain MILD(1-3)/Fever >100.5/NICOLE Albuterol 2.5 mg 02/18/22 03:18 Albuterol 2.5 Mg/3 Ml Nebu IH Q3HRT PRN Shortness Of Breath Albuterol/Ipratropium 1 ampul 02/18/22 20:00 02/24/22 08:58 Ipratropium/Albuterol Sulfate 3 Ml Ampul.Neb IH 1 ampul TIDRT KARAN Administration Apixaban 2.5 mg 02/22/22 22:00 02/24/22 09:32 Apixaban 2.5 Mg Tab FEEDTUBE 2.5 mg Q12HR KARAN Administration Protocol Aspirin 325 mg 02/18/22 10:00 02/24/22 09:32 Aspirin 325 Mg Tab FEEDTUBE 325 mg QDAY KARAN Administration Atorvastatin Calcium 40 mg 02/18/22 22:00 02/23/22 21:16 Atorvastatin 40 Mg Tab PO 40 mg QHS KARAN Administration Famotidine 20 mg 02/21/22 10:00 02/24/22 09:32 Famotidine 20 Mg Tab FEEDTUBE 20 mg DAILY KARAN Administration Hydralazine HCl 10 mg 02/18/22 03:33 Hydralazine 20 Mg/1 Ml Inj IV Q6H PRN SBP >/=160; DBP >/=100 Hydrophilic Ointment 1 applic 02/17/22 23:25 Lip Therapy Vaseline TP Q2HR PRN Dry Lips Dexmedetomidine HCl 200 mcg/ 50 mls @ 6.99 mls/hr 02/21/22 11:00 02/24/22 11:50 Sodium Chloride IV 0.2 mcg/kg/hr TITRATE KARAN 6.99 mls/hr Titration Protocol 0.2 MCG/KG/HR NORepinephrine/NS 8 MG-250 ML 8 mg in 250 mls @ 3.75 mls/hr 02/22/22 15:00 02/24/22 11:52 Norepinephrine/Ns 8 Mg-250 Ml (Double Conc) IV 4 mcg/min TITRATE KARAN 7.5 mls/hr Titration Protocol 2 MCG/MIN Vasopressin 20 unit/ Sodium 101 mls @ 9.09 mls/hr 02/22/22 16:00 Chloride IV TITR KARAN Protocol 0.03 UNITS/MIN Ceftriaxone Sodium 2 gm in 100 mls @ 200 mls/hr 02/23/22 09:00 02/24/22 09:34 Rocephin/Ns 2 Gm/100 Ml IV 02/27/22 09:29 200 mls/hr Q24H KARAN Administration Protocol Insulin Human Lispro 0 unit 02/19/22 12:00 02/24/22 06:45 Insulin Lispro 100 Unit/Ml SUB-Q Not Given Q6HR [facility] Protocol Metoprolol Tartrate 5 mg 02/21/22 12:00 02/24/22 06:46 Metoprolol Tartrate 5 Mg/5 Ml Inj IV 5 mg Q6HR KARAN Administration Multi-Ingred Cream/Lotion/Oil/Oint 1 applic 02/17/22 23:25 Mineral Oil/Petrolatum, White Ophth Oint 3.5 Gm OU Q4HR PRN Dry Eye(s) Nitroglycerin 0.4 mg 02/18/22 03:18 Nitroglycerin 0.4 Mg Tab Subl SL Q5M PRN Chest Pain Ondansetron HCl 4 mg 02/18/22 03:18 Ondansetron 4 Mg/2 Ml Inj IV Q8H PRN Nausea And Vomiting Sodium Chloride 10 ml 02/18/22 10:00 02/24/22 09:33 Sodium Chloride 0.9% 10 Ml Flush Syringe IV 10 ml BID KARAN Administration Sodium Chloride 10 ml 02/18/22 03:18 Sodium Chloride 0.9% 10 Ml Flush Syringe IV PRN PRN LINE FLUSH
--- NOTE | 2022-02-24 13:06 | Progress Note ---
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 02/24/22: HD per renal. ABG is improved, continue vent support. Prognosis is very very poor. Continues to have fever. Will stop abx and if no improvement after that, doppler upper and lower Ext to eval for DVT. 02/23/22: Overall prognosis remains extremely poor. Not sure when HD will occur again, most likely tomorrow but did not make a large difference in mentation however BUN is still elevated. Remains on pressors and will attempt to wean for MAPs 65 and greater. Fever remains, will discuss with pharmacy but this has happened since changing cefepime to ancef, may need to go back. Follow up blood cultures. 02/22/22: Clinically, status is worsening. Spoke with family again today. They are still agreement about HD but wanted to know how many treatments to do, or how many treatments would it take to see improvement. Unfortunately, I am not able to answer a question like that. Plan is to do HD today, not sure if he will get it again on Thursday. Will add vasopressors as BP is lower today. May not tolerate HD. Guarded prognosis, now with persistent fevers. 02/21/22: Unable to extubate today. Worsening renal function. stopped oral anticoagulation in preparation for placement of vascath. 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 Precedex for the times when he does become uncomfortable and tachypnic but hold on narcs. Very very guarded to poor prognosis. This has been discussed with the family. Changed Cefepime to Ancef given MSSA. Stopping steroids. 02/20/22: Continue to wean Vasopression for MAPs 65 and greater. Wean FiO2 for sats >88%. Hopeful PSV and possible extubation soon. Will continue cefepime for 7 days. Await speciation of Staph. Random vanc level checked. Guarded to poor prognosis as urine output continues to dwindle. Family has not made a decision about HD yet. 02/19/22: Another discussion with , sister and daughter over the phone again today. Explained that he has not improved since admission and has actually gotten worse. Now dealing with multisystem organ failure. Family is now debating on how long to continue and they are going to discuss if they want to pursue dialysis. Will continue supportive measures. Guarded to poor prognosis now with multisystem failure. Long discussion at bedside with and sister and daughter over the phone. Very good questions asked by them. Daughter mentions patient may have been in contact with COVID 19. Also concerns about code status now. Discussed with them the clinical situation and they will make decisions. 1. Wean fIo2 for sats >88% 2. Leave off continuous sedation, ok with PRN pushes if needed 3. OG tube placement 4. Wean Vasopressors for MAPS >88% 5. broaden abx therapy given immunocompromised state and last place of residence. 6. Family wishes to try to treat through this to see if patient can be extubated which is not unreasonable. However he is an AND and they want to stick with this. 7. Guarded to poor prognosis. Patient was in rehab attempting to get stronger to get Palliative chemo therapy. CCT 31 minutes. Subjective Date of service: 02/24/22 Principal diagnosis: ARF Interval history: Had HD again on last night. mental status is unchanged. No labs this am with the exception of an ABG. Objective Vital Signs - 12hr 02/24/22 02/24/22 02/24/22 01:15 01:30 01:45 Temperature Pulse Rate 80 86 90 Pulse Rate [ Anterior Bilateral Throughout] Pulse Rate [ From Monitor] Respiratory 28 H 29 H 27 H Rate Respiratory Rate [Anterior Bilateral Throughout] Blood Pressure 126/60 119/59 126/63 O2 Sat by Pulse 98 99 98 Oximetry 02/24/22 02/24/22 02/24/22 02:00 02:15 02:30 Temperature Pulse Rate 86 88 82 Pulse Rate [ Anterior Bilateral Throughout] Pulse Rate [ From Monitor] Respiratory 28 H 28 H 30 H Rate Respiratory Rate [Anterior Bilateral Throughout] Blood Pressure 125/65 131/71 132/63 O2 Sat by Pulse 99 100 100 Oximetry 02/24/22 02/24/22 02/24/22 02:45 03:00 03:15 Temperature Pulse Rate 88 84 77 Pulse Rate [ Anterior Bilateral Throughout] Pulse Rate [ From Monitor] Respiratory 29 H 28 H 28 H Rate Respiratory Rate [Anterior Bilateral Throughout] Blood Pressure 118/60 129/69 127/63 O2 Sat by Pulse 100 100 100 Oximetry 02/24/22 02/24/2222 03:30 03:45 04:00 Temperature 99.5 F Pulse Rate 79 86 86 Pulse Rate [ Anterior Bilateral Throughout] Pulse Rate [ 85 From Monitor] Respiratory 29 H 29 H 16 Rate Respiratory Rate [Anterior Bilateral Throughout] Blood Pressure 115/64 123/60 123/60 O2 Sat by Pulse 100 100 94 Oximetry 02/24/22 02/24/22 02/24/22 04:07 04:15 04:30 Temperature Pulse Rate 126 H 82 80 Pulse Rate [ Anterior Bilateral Throughout] Pulse Rate [ From Monitor] Respiratory 29 H 30 H Rate Respiratory Rate [Anterior Bilateral Throughout] Blood Pressure 114/89 121/54 129/63 O2 Sat by Pulse 97 99 99 Oximetry 02/24/22 02/24/22 02/24/22 04:45 05:00 05:15 Temperature Pulse Rate 87 78 79 Pulse Rate [ Anterior Bilateral Throughout] Pulse Rate [ From Monitor] Respiratory 28 H 28 H 31 H Rate Respiratory Rate [Anterior Bilateral Throughout] Blood Pressure 123/68 122/54 121/74 O2 Sat by Pulse 99 100 100 Oximetry 02/24/22 02/24/22 02/24/22 05:30 05:45 06:00 Temperature Pulse Rate 80 90 86 Pulse Rate [ Anterior Bilateral Throughout] Pulse Rate [ From Monitor] Respiratory 33 H 29 H 29 H Rate Respiratory Rate [Anterior Bilateral Throughout] Blood Pressure 128/64 132/74 129/57 O2 Sat by Pulse 100 100 100 Oximetry 02/24/22 02/24/22 02/24/22 06:15 06:31 06:45 Temperature Pulse Rate 83 81 78 Pulse Rate [ Anterior Bilateral Throughout] Pulse Rate [ From Monitor] Respiratory 29 H 32 H 29 H Rate Respiratory Rate [Anterior Bilateral Throughout] Blood Pressure 134/59 115/56 120/62 O2 Sat by Pulse 100 100 100 Oximetry 02/24/22 02/24/22 02/24/22 06:46 07:00 07:15 Temperature Pulse Rate 82 91 H 84 Pulse Rate [ Anterior Bilateral Throughout] Pulse Rate [ From Monitor] Respiratory 30 H 31 H Rate Respiratory Rate [Anterior Bilateral Throughout] Blood Pressure 120/62 125/63 137/51 O2 Sat by Pulse 100 100 Oximetry 02/24/22 02/24/22 02/24/22 07:30 07:45 08:00 Temperature 102.2 F H Pulse Rate 81 84 84 Pulse Rate [ Anterior Bilateral Throughout] Pulse Rate [ 84 From Monitor] Respiratory 27 H 25 H 28 H Rate Respiratory Rate [Anterior Bilateral Throughout] Blood Pressure 121/52 126/61 122/56 O2 Sat by Pulse 100 100 100 Oximetry 02/24/22 02/24/22 02/24/22 08:15 08:30 08:45 Temperature Pulse Rate 84 91 H 79 Pulse Rate [ Anterior Bilateral Throughout] Pulse Rate [ From Monitor] Respiratory 31 H 32 H 31 H Rate Respiratory Rate [Anterior Bilateral Throughout] Blood Pressure 121/59 130/67 120/57 O2 Sat by Pulse 100 100 100 Oximetry 02/24/22 02/24/22 02/24/22 08:58 09:00 09:12 Temperature Pulse Rate 90 79 Pulse Rate [ 85 Anterior Bilateral Throughout] Pulse Rate [ From Monitor] Respiratory 29 H Rate Respiratory 28 H Rate [Anterior Bilateral Throughout] Blood Pressure 106/56 106/59 O2 Sat by Pulse 100 100 Oximetry 02/24/22 02/24/22 02/24/22 09:15 09:30 09:45 Temperature Pulse Rate 83 88 86 Pulse Rate [ Anterior Bilateral Throughout] Pulse Rate [ From Monitor] Respiratory 33 H 33 H 34 H Rate Respiratory Rate [Anterior Bilateral Throughout] Blood Pressure 116/53 124/62 113/63 O2 Sat by Pulse 100 99 98 Oximetry 02/24/22 02/24/22 02/24/22 10:00 10:15 10:30 Temperature Pulse Rate 86 88 87 Pulse Rate [ Anterior Bilateral Throughout] Pulse Rate [ From Monitor] Respiratory 32 H 33 H 34 H Rate Respiratory Rate [Anterior Bilateral Throughout] Blood Pressure 115/60 120/54 115/58 O2 Sat by Pulse 98 98 99 Oximetry 02/24/22 02/24/22 02/24/22 10:45 11:00 11:05 Temperature Pulse Rate 89 92 H 88 Pulse Rate [ Anterior Bilateral Throughout] Pulse Rate [ From Monitor] Respiratory 33 H 30 H Rate Respiratory Rate [Anterior Bilateral Throughout] Blood Pressure 107/67 115/70 115/70 O2 Sat by Pulse 99 99 98 Oximetry 02/24/22 02/24/22 02/24/22 11:15 11:30 11:45 Temperature Pulse Rate 95 H 87 89 Pulse Rate [ Anterior Bilateral Throughout] Pulse Rate [ From Monitor] Respiratory 27 H 33 H 33 H Rate Respiratory Rate [Anterior Bilateral Throughout] Blood Pressure 115/59 111/57 102/59 O2 Sat by Pulse 100 96 96 Oximetry 02/24/22 02/24/22 12:00 12:46 Temperature 102.9 F H Pulse Rate 88 91 H Pulse Rate [ Anterior Bilateral Throughout] Pulse Rate [ 88 From Monitor] Respiratory 29 H Rate Respiratory Rate [Anterior Bilateral Throughout] Blood Pressure 117/57 114/53 O2 Sat by Pulse 95 Oximetry Constitutional: alert, appears uncomfortable Eyes: other (has only one eye, right eye) ENT: other (orally intubated, not on sedation) Neck: supple Effort: mildly labored Ascultation: Bilateral: rhonchi Percussion: Bilateral: not dull Cardiovascular: regular rate and rhythm Gastrointestinal: normoactive bowel sounds, soft CBC and BMP: 02/23/22 07:00 02/23/22 07:00 ABG, PT/INR, D-dimer: ABG ABG pH 7.380 pH Units (7.350-7.450) 02/24/22 08:44 POC ABG pCO2 60.4 mmHg (32.0-48.0) H 02/18/22 00:20 ABG pCO2 38.5 mm Hg 02/24/22 08:44 POC ABG pO2 93.0 mmHg (83-108) 02/18/22 00:20 ABG pO2 135.9 mm Hg (80.0-90.0) H 02/24/22 08:44 POC ABG HCO3 20.5 02/18/22 00:20 ABG O2 Saturation 98.6 % (95.0-99.0) 02/24/22 08:44 PT/INR, D-dimer PT 19.8 Sec. (12.2-14.9) H 02/22/22 16:22 INR 1.49 (0.87-1.13) H 02/22/22 16:22 Abnormal lab findings: Abnormal Labs 02/18/22 02/18/22 02/18/22 00:20 00:21 00:21 WBC RBC 3.15 L Hgb 9.0 L Hct 28.0 L MCH MCHC RDW 20.4 H Seg Neutrophils % 71.8 H Seg Neuts % (Manual) Lymphocytes % (Manual) Nucleated RBC % Seg Neutrophils # Man Lymphocytes # (Manual) PT 29.4 H INR 2.41 H APTT 38.3 H ABG pH 7.148 L POC ABG pCO2 60.4 H ABG pO2 ABG HCO3 ABG O2 Saturation ABG Base Excess ABG Hemoglobin 8.69 L ABG Oxyhemoglobin 93.7 L Oxyhemoglobin Carboxyhemoglobin 2.1 H Sodium Potassium Chloride Carbon Dioxide BUN Creatinine Glucose POC Glucose Calcium Phosphorus AST Alkaline Phosphatase Total Creatine Kinase Troponin T Albumin LDL Cholesterol Direct HDL Cholesterol TSH Urine WBC (Auto) Urine Creatinine Urine Total Protein Salicylates Acetaminophen Proteinase 3 (PR3) Ab 02/18/22 02/18/22 02/18/22 00:21 00:21 00:21 WBC RBC Hgb Hct MCH MCHC RDW Seg Neutrophils % Seg Neuts % (Manual) Lymphocytes % (Manual) Nucleated RBC % Seg Neutrophils # Man Lymphocytes # (Manual) PT INR APTT ABG pH POC ABG pCO2 ABG pO2 ABG HCO3 ABG O2 Saturation ABG Base Excess ABG Hemoglobin ABG Oxyhemoglobin Oxyhemoglobin Carboxyhemoglobin Sodium Potassium Chloride 112.6 H Carbon Dioxide 19 L BUN 55 H Creatinine 3.0 H Glucose 152 H POC Glucose Calcium 7.4 L Phosphorus AST 56 H Alkaline Phosphatase 268 H Total Creatine Kinase 233 H Troponin T 0.073 H Albumin 2.2 L LDL Cholesterol Direct 30 L HDL Cholesterol 19 L TSH 5.100 H Urine WBC (Auto) Urine Creatinine Urine Total Protein Salicylates < 0.3 L Acetaminophen Proteinase 3 (PR3) Ab 02/18/22 02/18/22 02/18/22 00:21 05:02 06:22 WBC RBC Hgb Hct MCH MCHC RDW Seg Neutrophils % Seg Neuts % (Manual) Lymphocytes % (Manual) Nucleated RBC % Seg Neutrophils # Man Lymphocytes # (Manual) PT INR APTT ABG pH 7.131 L* POC ABG pCO2 ABG pO2 93.2 H ABG HCO3 17.6 L ABG O2 Saturation ABG Base Excess -11.2 L ABG Hemoglobin 9.1 L ABG Oxyhemoglobin Oxyhemoglobin 94.6 L Carboxyhemoglobin Sodium Potassium Chloride Carbon Dioxide BUN Creatinine Glucose POC Glucose 125 H Calcium Phosphorus AST Alkaline Phosphatase Total Creatine Kinase Troponin T Albumin LDL Cholesterol Direct HDL Cholesterol TSH Urine WBC (Auto) Urine Creatinine Urine Total Protein Salicylates Acetaminophen 5.0 L Proteinase 3 (PR3) Ab 02/18/22 02/18/22 02/18/22 09:21 11:30 17:14 WBC RBC Hgb Hct MCH MCHC RDW Seg Neutrophils % Seg Neuts % (Manual) Lymphocytes % (Manual) Nucleated RBC % Seg Neutrophils # Man Lymphocytes # (Manual) PT INR APTT ABG pH POC ABG pCO2 ABG pO2 ABG HCO3 ABG O2 Saturation ABG Base Excess ABG Hemoglobin ABG Oxyhemoglobin Oxyhemoglobin Carboxyhemoglobin Sodium Potassium Chloride Carbon Dioxide BUN Creatinine Glucose POC Glucose 127 H 126 H Calcium Phosphorus AST Alkaline Phosphatase Total Creatine Kinase Troponin T 0.076 H Albumin LDL Cholesterol Direct HDL Cholesterol TSH Urine WBC (Auto) Urine Creatinine Urine Total Protein Salicylates Acetaminophen Proteinase 3 (PR3) Ab 02/18/22 02/18/22 02/19/22 23:44 23:44 04:00 WBC RBC Hgb Hct MCH MCHC RDW Seg Neutrophils % Seg Neuts % (Manual) Lymphocytes % (Manual) Nucleated RBC % Seg Neutrophils # Man Lymphocytes # (Manual) PT INR APTT ABG pH POC ABG pCO2 ABG pO2 ABG HCO3 ABG O2 Saturation ABG Base Excess ABG Hemoglobin ABG Oxyhemoglobin Oxyhemoglobin Carboxyhemoglobin Sodium Potassium Chloride Carbon Dioxide 21 L BUN 56 H Creatinine 3.5 H Glucose 224 H POC Glucose Calcium 6.1 L D Phosphorus AST Alkaline Phosphatase Total Creatine Kinase Troponin T Albumin LDL Cholesterol Direct HDL Cholesterol TSH Urine WBC (Auto) Urine Creatinine 180.0 H 180.9 H Urine Total Protein 457 H Salicylates Acetaminophen Proteinase 3 (PR3) Ab 02/19/22 02/19/22 02/19/22 04:12 04:20 11:46 WBC RBC 3.14 L Hgb 8.9 L Hct 27.6 L MCH MCHC RDW 19.6 H Seg Neutrophils % Seg Neuts % (Manual) 96.0 H Lymphocytes % (Manual) 2.0 L Nucleated RBC % Seg Neutrophils # Man 9.5 H Lymphocytes # (Manual) 0.2 L PT INR APTT ABG pH 7.199 L* POC ABG pCO2 ABG pO2 147.0 H ABG HCO3 ABG O2 Saturation ABG Base Excess -6.2 L ABG Hemoglobin 9.1 L ABG Oxyhemoglobin Oxyhemoglobin Carboxyhemoglobin Sodium Potassium Chloride Carbon Dioxide BUN Creatinine Glucose POC Glucose 152 H Calcium Phosphorus AST Alkaline Phosphatase Total Creatine Kinase Troponin T Albumin LDL Cholesterol Direct HDL Cholesterol TSH Urine WBC (Auto) Urine Creatinine Urine Total Protein Salicylates Acetaminophen Proteinase 3 (PR3) Ab 02/19/22 02/19/22 02/19/22 12:48 18:29 Unknown WBC RBC 2.97 L Hgb 8.4 L Hct 25.9 L MCH MCHC RDW 19.7 H Seg Neutrophils % Seg Neuts % (Manual) Lymphocytes % (Manual) Nucleated RBC % Seg Neutrophils # Man Lymphocytes # (Manual) PT INR APTT ABG pH POC ABG pCO2 ABG pO2 ABG HCO3 ABG O2 Saturation ABG Base Excess ABG Hemoglobin ABG Oxyhemoglobin Oxyhemoglobin Carboxyhemoglobin Sodium Potassium 5.1 H Chloride Carbon Dioxide 20 L BUN 55 H Creatinine 3.5 H Glucose 221 H POC Glucose 126 H Calcium 6.0 L Phosphorus 6.70 H AST Alkaline Phosphatase Total Creatine Kinase Troponin T Albumin LDL Cholesterol Direct HDL Cholesterol TSH Urine WBC (Auto) Urine Creatinine Urine Total Protein Salicylates Acetaminophen Proteinase 3 (PR3) Ab 02/19/22 02/19/22 02/20/22 Unknown Unknown 00:29 WBC RBC Hgb Hct MCH MCHC RDW Seg Neutrophils % Seg Neuts % (Manual) Lymphocytes % (Manual) Nucleated RBC % Seg Neutrophils # Man Lymphocytes # (Manual) PT 27.7 H INR 2.24 H APTT 46.4 H ABG pH POC ABG pCO2 ABG pO2 ABG HCO3 ABG O2 Saturation ABG Base Excess ABG Hemoglobin ABG Oxyhemoglobin Oxyhemoglobin Carboxyhemoglobin Sodium Potassium Chloride Carbon Dioxide BUN Creatinine 4.0 H Glucose POC Glucose 129 H Calcium Phosphorus AST Alkaline Phosphatase Total Creatine Kinase Troponin T Albumin LDL Cholesterol Direct HDL Cholesterol TSH Urine WBC (Auto) Urine Creatinine Urine Total Protein Salicylates Acetaminophen Proteinase 3 (PR3) Ab 02/20/22 02/20/22 02/20/22 04:30 04:30 04:30 WBC RBC 2.62 L Hgb 7.5 L Hct 22.8 L MCH MCHC RDW 19.9 H Seg Neutrophils % Seg Neuts % (Manual) 79.0 H Lymphocytes % (Manual) 5.0 L Nucleated RBC % 1.0 H Seg Neutrophils # Man Lymphocytes # (Manual) 0.4 L PT INR APTT ABG pH POC ABG pCO2 ABG pO2 ABG HCO3 ABG O2 Saturation ABG Base Excess ABG Hemoglobin ABG Oxyhemoglobin Oxyhemoglobin Carboxyhemoglobin Sodium 136 L Potassium Chloride Carbon Dioxide 19 L BUN 70 H Creatinine 4.4 H Glucose 148 H POC Glucose Calcium 5.9 L* Phosphorus AST Alkaline Phosphatase Total Creatine Kinase Troponin T Albumin LDL Cholesterol Direct HDL Cholesterol TSH Urine WBC (Auto) Urine Creatinine Urine Total Protein Salicylates Acetaminophen Proteinase 3 (PR3) Ab 2.3 H 02/20/22 02/20/22 02/20/22 05:03 13:03 17:31 WBC RBC Hgb Hct MCH MCHC RDW Seg Neutrophils % Seg Neuts % (Manual) Lymphocytes % (Manual) Nucleated RBC % Seg Neutrophils # Man Lymphocytes # (Manual) PT INR APTT ABG pH 7.319 L POC ABG pCO2 ABG pO2 149.9 H ABG HCO3 19.8 L ABG O2 Saturation ABG Base Excess -5.8 L ABG Hemoglobin 7.3 L ABG Oxyhemoglobin Oxyhemoglobin Carboxyhemoglobin Sodium Potassium Chloride Carbon Dioxide BUN Creatinine Glucose POC Glucose 151 H 138 H Calcium Phosphorus AST Alkaline Phosphatase Total Creatine Kinase Troponin T Albumin LDL Cholesterol Direct HDL Cholesterol TSH Urine WBC (Auto) Urine Creatinine Urine Total Protein Salicylates Acetaminophen Proteinase 3 (PR3) Ab 02/20/22 02/21/22 02/21/22 23:18 04:20 05:44 WBC RBC Hgb Hct MCH MCHC RDW Seg Neutrophils % Seg Neuts % (Manual) Lymphocytes % (Manual) Nucleated RBC % Seg Neutrophils # Man Lymphocytes # (Manual) PT INR APTT ABG pH 7.293 L POC ABG pCO2 ABG pO2 180.1 H ABG HCO3 18.0 L ABG O2 Saturation 99.1 H ABG Base Excess -7.9 L ABG Hemoglobin 7.0 L ABG Oxyhemoglobin Oxyhemoglobin Carboxyhemoglobin Sodium Potassium Chloride Carbon Dioxide BUN Creatinine Glucose POC Glucose 144 H 164 H Calcium Phosphorus AST Alkaline Phosphatase Total Creatine Kinase Troponin T Albumin LDL Cholesterol Direct HDL Cholesterol TSH Urine WBC (Auto) Urine Creatinine Urine Total Protein Salicylates Acetaminophen Proteinase 3 (PR3) Ab 02/21/22 02/21/22 02/21/22 06:45 06:45 11:19 WBC RBC 2.64 L Hgb 7.5 L Hct 23.1 L MCH MCHC RDW 20.3 H Seg Neutrophils % Seg Neuts % (Manual) 89.0 H Lymphocytes % (Manual) 7.0 L Nucleated RBC % Seg Neutrophils # Man 9.7 H Lymphocytes # (Manual) 0.8 L PT INR APTT ABG pH POC ABG pCO2 ABG pO2 ABG HCO3 ABG O2 Saturation ABG Base Excess ABG Hemoglobin ABG Oxyhemoglobin Oxyhemoglobin Carboxyhemoglobin Sodium Potassium Chloride Carbon Dioxide 17 L BUN 89 H Creatinine 5.4 H Glucose 164 H POC Glucose 165 H Calcium 5.7 L* Phosphorus 5.70 H AST Alkaline Phosphatase Total Creatine Kinase Troponin T Albumin LDL Cholesterol Direct HDL Cholesterol TSH Urine WBC (Auto) Urine Creatinine Urine Total Protein Salicylates Acetaminophen Proteinase 3 (PR3) Ab 02/21/22 02/22/22 02/22/22 17:18 04:20 04:20 WBC 12.9 H RBC 2.69 L Hgb 7.4 L Hct 23.6 L MCH MCHC 31 L RDW 20.5 H Seg Neutrophils % Seg Neuts % (Manual) 89.0 H Lymphocytes % (Manual) 6.0 L Nucleated RBC % Seg Neutrophils # Man 11.5 H Lymphocytes # (Manual) 0.8 L PT INR APTT ABG pH POC ABG pCO2 ABG pO2 ABG HCO3 ABG O2 Saturation ABG Base Excess ABG Hemoglobin ABG Oxyhemoglobin Oxyhemoglobin Carboxyhemoglobin Sodium 134 L Potassium Chloride Carbon Dioxide 15 L BUN 109 H Creatinine 6.1 H Glucose 142 H POC Glucose 129 H Calcium 5.3 L* Phosphorus AST Alkaline Phosphatase Total Creatine Kinase Troponin T Albumin LDL Cholesterol Direct HDL Cholesterol TSH Urine WBC (Auto) Urine Creatinine Urine Total Protein Salicylates Acetaminophen Proteinase 3 (PR3) Ab 02/22/22 02/22/22 02/22/22 04:40 05:27 05:30 WBC RBC Hgb Hct MCH MCHC RDW Seg Neutrophils % Seg Neuts % (Manual) Lymphocytes % (Manual) Nucleated RBC % Seg Neutrophils # Man Lymphocytes # (Manual) PT INR APTT ABG pH 7.261 L 7.268 L POC ABG pCO2 ABG pO2 51.1 L 54.8 L ABG HCO3 15.9 L 15.5 L ABG O2 Saturation 80.6 L 87.4 L ABG Base Excess -10.3 L -10.5 L ABG Hemoglobin 8.3 L 7.4 L ABG Oxyhemoglobin Oxyhemoglobin 79.1 L 85.7 L Carboxyhemoglobin Sodium Potassium Chloride Carbon Dioxide BUN Creatinine Glucose POC Glucose 134 H Calcium Phosphorus AST Alkaline Phosphatase Total Creatine Kinase Troponin T Albumin LDL Cholesterol Direct HDL Cholesterol TSH Urine WBC (Auto) Urine Creatinine Urine Total Protein Salicylates Acetaminophen Proteinase 3 (PR3) Ab 02/22/22 02/22/22 02/22/22 09:21 11:42 11:47 WBC RBC Hgb Hct MCH MCHC RDW Seg Neutrophils % Seg Neuts % (Manual) Lymphocytes % (Manual) Nucleated RBC % Seg Neutrophils # Man Lymphocytes # (Manual) PT INR APTT ABG pH POC ABG pCO2 ABG pO2 ABG HCO3 ABG O2 Saturation ABG Base Excess ABG Hemoglobin ABG Oxyhemoglobin Oxyhemoglobin Carboxyhemoglobin Sodium Potassium Chloride Carbon Dioxide BUN Creatinine Glucose POC Glucose 120 H 34 L 110 H Calcium Phosphorus AST Alkaline Phosphatase Total Creatine Kinase Troponin T Albumin LDL Cholesterol Direct HDL Cholesterol TSH Urine WBC (Auto) Urine Creatinine Urine Total Protein Salicylates Acetaminophen Proteinase 3 (PR3) Ab 02/22/22 02/22/22 02/22/22 16:22 16:22 16:22 WBC 14.0 H RBC 2.84 L Hgb 8.1 L Hct 24.5 L MCH MCHC RDW 20.0 H Seg Neutrophils % Seg Neuts % (Manual) Lymphocytes % (Manual) Nucleated RBC % Seg Neutrophils # Man Lymphocytes # (Manual) PT 19.8 H INR 1.49 H APTT ABG pH POC ABG pCO2 ABG pO2 ABG HCO3 ABG O2 Saturation ABG Base Excess ABG Hemoglobin ABG Oxyhemoglobin Oxyhemoglobin Carboxyhemoglobin Sodium Potassium Chloride Carbon Dioxide BUN Creatinine 4.1 H Glucose POC Glucose Calcium Phosphorus AST Alkaline Phosphatase Total Creatine Kinase Troponin T Albumin LDL Cholesterol Direct HDL Cholesterol TSH Urine WBC (Auto) Urine Creatinine Urine Total Protein Salicylates Acetaminophen Proteinase 3 (PR3) Ab 02/22/22 02/22/22 02/23/22 17:30 23:07 05:00 WBC RBC Hgb Hct MCH MCHC RDW Seg Neutrophils % Seg Neuts % (Manual) Lymphocytes % (Manual) Nucleated RBC % Seg Neutrophils # Man Lymphocytes # (Manual) PT INR APTT ABG pH POC ABG pCO2 ABG pO2 73.5 L ABG HCO3 ABG O2 Saturation ABG Base Excess -3.3 L -4.1 L ABG Hemoglobin 8.5 L 8.5 L ABG Oxyhemoglobin Oxyhemoglobin 93.9 L 94.8 L Carboxyhemoglobin Sodium Potassium Chloride Carbon Dioxide BUN Creatinine Glucose POC Glucose Calcium Phosphorus AST Alkaline Phosphatase Total Creatine Kinase Troponin T Albumin LDL Cholesterol Direct HDL Cholesterol TSH Urine WBC (Auto) 57.0 H Urine Creatinine Urine Total Protein Salicylates Acetaminophen Proteinase 3 (PR3) Ab 02/23/22 02/23/22 02/23/22 07:00 07:00 09:42 WBC 15.3 H RBC 3.13 L Hgb 8.6 L Hct 27.0 L MCH 27 L MCHC RDW 19.8 H Seg Neutrophils % Seg Neuts % (Manual) 90.0 H Lymphocytes % (Manual) 5.0 L Nucleated RBC % Seg Neutrophils # Man 13.8 H Lymphocytes # (Manual) 0.8 L PT INR APTT ABG pH POC ABG pCO2 ABG pO2 ABG HCO3 ABG O2 Saturation ABG Base Excess ABG Hemoglobin ABG Oxyhemoglobin Oxyhemoglobin Carboxyhemoglobin Sodium 134 L Potassium Chloride 96.5 L Carbon Dioxide 20 L BUN 87 H Creatinine 5.0 H Glucose 133 H POC Glucose Calcium 6.1 L D Phosphorus 4.60 H AST Alkaline Phosphatase Total Creatine Kinase Troponin T Albumin 2.1 L LDL Cholesterol Direct HDL Cholesterol TSH Urine WBC (Auto) Urine Creatinine Urine Total Protein Salicylates Acetaminophen Proteinase 3 (PR3) Ab 02/23/22 02/23/22 02/23/22 11:08 17:27 22:55 WBC RBC Hgb Hct MCH MCHC RDW Seg Neutrophils % Seg Neuts % (Manual) Lymphocytes % (Manual) Nucleated RBC % Seg Neutrophils # Man Lymphocytes # (Manual) PT INR APTT ABG pH POC ABG pCO2 ABG pO2 ABG HCO3 ABG O2 Saturation ABG Base Excess ABG Hemoglobin ABG Oxyhemoglobin Oxyhemoglobin Carboxyhemoglobin Sodium Potassium Chloride Carbon Dioxide BUN Creatinine Glucose POC Glucose 117 H 160 H 163 H Calcium Phosphorus AST Alkaline Phosphatase Total Creatine Kinase Troponin T Albumin LDL Cholesterol Direct HDL Cholesterol TSH Urine WBC (Auto) Urine Creatinine Urine Total Protein Salicylates Acetaminophen Proteinase 3 (PR3) Ab 02/24/22 08:44 WBC RBC Hgb Hct MCH MCHC RDW Seg Neutrophils % Seg Neuts % (Manual) Lymphocytes % (Manual) Nucleated RBC % Seg Neutrophils # Man Lymphocytes # (Manual) PT INR APTT ABG pH POC ABG pCO2 ABG pO2 135.9 H ABG HCO3 ABG O2 Saturation ABG Base Excess -2.6 L ABG Hemoglobin 8.8 L ABG Oxyhemoglobin Oxyhemoglobin Carboxyhemoglobin Sodium Potassium Chloride Carbon Dioxide BUN Creatinine Glucose POC Glucose Calcium Phosphorus AST Alkaline Phosphatase Total Creatine Kinase Troponin T Albumin LDL Cholesterol Direct HDL Cholesterol TSH Urine WBC (Auto) Urine Creatinine Urine Total Protein Salicylates Acetaminophen Proteinase 3 (PR3) Ab
--- NOTE | 2022-02-24 16:31 | Vascular Lab Report ---
DUPLEX DOPPLER LOWER EXTREMITY VEINS, BILATERAL INDICATION / CLINICAL INFORMATION: R/O DVT. TECHNIQUE: Duplex doppler imaging was performed through the veins of both lower extremities using victoriano ous compression and other maneuvers. COMPARISON: None available. FINDINGS: RIGHT COMMON FEMORAL VEIN: Negative. RIGHT FEMORAL VEIN: Negative. RIGHT POPLITEAL VEIN: Negative. RIGHT CALF VEINS: Negative. LEFT COMMON FEMORAL VEIN: Negative. LEFT FEMORAL VEIN: Negative. LEFT POPLITEAL VEIN: Negative. LEFT CALF VEINS: Negative. ADDITIONAL FINDINGS: None. IMPRESSION: 1. No sonographic evidence for DVT in either lower extremity. Scribed by: Zelda Stevenson RDMS, KAILYN, PRANAY Scribed: 02/24/2022 2:46 PM I have reviewed the images, agree with this report, and edited this report as needed. Signer Name: Gómez Silva MD Signed: 02/24/2022 4:27 PM Workstation Name: [id number]
--- NOTE | 2022-02-24 16:31 | Vascular Lab Report ---
DUPLEX DOPPLER UPPER EXTREMITY VENOUS, BILATERAL INDICATION / CLINICAL INFORMATION: R/O DVT. TECHNIQUE: Duplex doppler imaging was performed through the veins of the right and left upper extremi ty using venous compression and other maneuvers. COMPARISON: None available. FINDINGS: RIGHT INTERNAL JUGULAR VEIN: Negative. RIGHT SUBCLAVIAN VEIN: Negative. RIGHT AXILLARY VEIN: Negative. RIGHT BRACHIAL VEIN: Negative. RIGHT FOREARM VEINS: Negative. RIGHT BASILIC VEIN (SUPERFICIAL): Negative. LEFT INTERNAL JUGULAR VEIN: Negative. LEFT SUBCLAVIAN VEIN: Negative. LEFT AXILLARY VEIN: Negative. LEFT BRACHIAL VEIN: Negative. LEFT FOREARM VEINS: Negative. LEFT BASILIC VEIN (SUPERFICIAL): Negative. ADDITIONAL FINDINGS: None. IMPRESSION: 1. No sonographic evidence for DVT in the right or left upper extremity. Scribed by: Zelda Stevenson RDMS, KAILYN, PRANAY Scribed: 02/24/2022 2:45 PM I have reviewed the images, agree with this report, and edited this report as needed. Signer Name: Gómez Silva MD Signed: 02/24/2022 4:26 PM Workstation Name: [id number]
[2022-02-24 18:14] LABS: Albumin 1.6 g/dL (3.8-4.8); Gamma Globulin 1.1 g/dL (0.8-1.7)
[2022-02-25] MEDS: NORepinephrine/NS 8 MG-250 ML 8 MG/250 ML INFUS..BTL IV SCH (00:34)
[2022-02-25 04:46] LABS: Basophils # (Auto) 0.1 K/mm3 (0.0-0.1); Basophils % (Auto) 0.4 % (0.0-1.8); Eosinophils % (Auto) 0.1 % (0.0-4.3); Hematocrit 22.4 % (35.5-45.6); Hemoglobin 7.2 gm/dl (11.8-15.2); Lymphocytes # (Auto) 1.4 K/mm3 (1.2-5.4); Lymphocytes % (Auto) 7.8 % (13.4-35.0); Mean Corpuscular HGB Conc 32 % (32-34); Mean Corpuscular Volume 86 fl (84-94); Monocytes # (Auto) 0.5 K/mm3 (0.0-0.8); Monocytes % (Auto) 3.1 % (0.0-7.3); Platelet Count 166 K/mm3 (140-440); Red Blood Count 2.62 M/mm3 (3.65-5.03); Red Cell Distribution Width 19.8 % (13.2-15.2)
[2022-02-25 05:06] LABS: Calcium 7.5 mg/dL (8.4-10.2)
[2022-02-25] MEDS: INSULIN LISPRO 100 UNIT/ML SUB-Q SCH ×2 (05:15→12:46)
[2022-02-25 05:18] LABS: ABG Base Excess -1.7 mmol/L (-2.0-3.0); ABG HCO3 23.2 mmol/L (20.0-26.0); ABG Methemoglobin 0.5 % (0.0-1.5); ABG Oxygen Saturation 93.9 % (95.0-99.0); ABG PCO2 39.7 mm Hg; ABG PH 7.384 pH Units (7.350-7.450); ABG PO2 60.7 mm Hg (80.0-90.0)
[2022-02-25] MEDS: METOPROLOL TARTRATE 5 MG/5 ML INJ IV SCH ×2 (05:39→12:45)
[2022-02-25] MEDS: IPRATROPIUM/ALBUTEROL SULFATE 3 ML AMPUL.NEB IH SCH ×2 (08:40→14:59)
[2022-02-25] MEDS: ASPIRIN 325 MG TAB FEEDTUBE SCH (09:01)
[2022-02-25] MEDS: APIXABAN 2.5 MG TAB FEEDTUBE SCH (09:01)
[2022-02-25] MEDS: FAMOTIDINE 20 MG TAB FEEDTUBE SCH (09:01)
[2022-02-25] MEDS: ACETAMINOPHEN 325 MG TAB PO PRN (09:09)
--- NOTE | 2022-02-25 09:29 | Progress Note ---
Assessment and Plan Acute Renal Failure on Chronic Kidney Disease Hypotension Afib Cardiac Arrest Acute Respiratory failure Acidosis Hyperkalemia, Mild Anemia Lung cancer with stage IV metastasis Plan: HD today for clearance and volume removal, will assess dialysis needs daily, no signs of recovery so far Acute Renal Failure likely 2/2 ATN Patient has history of CKD but no baseline serum creatinine available CXR- shows decreasing left Pleural Effusion Avoid nephrotoxic agents Renally dose medications Strict I&O's daily Obtain daily weights Monitor renal function closely Subjective Date of service: 02/25/22 Principal diagnosis: ARF Interval history: remains febrile Objective - Vital Signs Vital signs: Vital Signs - 12hr 02/24/22 02/24/22 02/24/22 21:31 21:44 21:45 Temperature 101.3 F H Pulse Rate 101 H 108 H Pulse Rate [ Anterior Bilateral Throughout] Pulse Rate [ From Monitor] Respiratory 25 H 29 H Rate Respiratory Rate [Anterior Bilateral Throughout] Blood Pressure 125/61 132/69 O2 Sat by Pulse 98 99 Oximetry 02/24/22 02/24/22 02/24/22 22:01 22:15 22:30 Temperature Pulse Rate 100 H 102 H 104 H Pulse Rate [ Anterior Bilateral Throughout] Pulse Rate [ From Monitor] Respiratory 32 H 35 H 34 H Rate Respiratory Rate [Anterior Bilateral Throughout] Blood Pressure 130/65 145/67 145/58 O2 Sat by Pulse 99 100 Oximetry 02/24/22 02/24/22 02/24/22 22:45 22:52 23:01 Temperature 101.2 F H Pulse Rate 99 H 99 H Pulse Rate [ Anterior Bilateral Throughout] Pulse Rate [ From Monitor] Respiratory 29 H 29 H Rate Respiratory Rate [Anterior Bilateral Throughout] Blood Pressure 131/67 116/57 O2 Sat by Pulse 99 Oximetry 02/24/22 02/24/22 02/24/22 23:11 23:15 23:27 Temperature Pulse Rate 102 H 93 H 90 Pulse Rate [ Anterior Bilateral Throughout] Pulse Rate [ From Monitor] Respiratory 31 H 31 H Rate Respiratory Rate [Anterior Bilateral Throughout] Blood Pressure 118/62 117/59 110/67 O2 Sat by Pulse 97 98 98 Oximetry 02/24/22 02/24/22 02/25/22 23:30 23:45 00:00 Temperature Pulse Rate 100 H 94 H 93 H Pulse Rate [ Anterior Bilateral Throughout] Pulse Rate [ 103 H From Monitor] Respiratory 28 H 28 H 30 H Rate Respiratory Rate [Anterior Bilateral Throughout] Blood Pressure 126/63 134/69 118/65 O2 Sat by Pulse 98 99 Oximetry 02/25/22 02/25/22 02/25/22 00:15 00:31 00:45 Temperature Pulse Rate 101 H 93 H 97 H Pulse Rate [ Anterior Bilateral Throughout] Pulse Rate [ From Monitor] Respiratory 29 H 30 H 30 H Rate Respiratory Rate [Anterior Bilateral Throughout] Blood Pressure 121/67 125/51 124/61 O2 Sat by Pulse 99 98 98 Oximetry 02/25/22 02/25/22 02/25/22 00:50 00:51 01:00 Temperature 101.8 F H Pulse Rate 103 H 100 H Pulse Rate [ Anterior Bilateral Throughout] Pulse Rate [ From Monitor] Respiratory 29 H Rate Respiratory Rate [Anterior Bilateral Throughout] Blood Pressure 128/70 O2 Sat by Pulse 98 Oximetry 02/25/22 02/25/22 02/25/22 01:15 01:30 01:45 Temperature Pulse Rate 97 H 99 H 98 H Pulse Rate [ Anterior Bilateral Throughout] Pulse Rate [ From Monitor] Respiratory 29 H 28 H 31 H Rate Respiratory Rate [Anterior Bilateral Throughout] Blood Pressure 126/71 138/60 128/70 O2 Sat by Pulse 99 98 98 Oximetry 02/25/22 02/25/22 02/25/22 01:58 02:01 02:15 Temperature 102 F H Pulse Rate 108 H 103 H Pulse Rate [ Anterior Bilateral Throughout] Pulse Rate [ From Monitor] Respiratory 30 H 29 H Rate Respiratory Rate [Anterior Bilateral Throughout] Blood Pressure 135/52 125/62 O2 Sat by Pulse 98 98 Oximetry 02/25/22 02/25/22 02/25/22 02:30 02:45 03:00 Temperature 101.3 F H Pulse Rate 96 H 104 H 105 H Pulse Rate [ Anterior Bilateral Throughout] Pulse Rate [ From Monitor] Respiratory 30 H 30 H 29 H Rate Respiratory Rate [Anterior Bilateral Throughout] Blood Pressure 113/62 126/60 118/61 O2 Sat by Pulse 97 99 99 Oximetry 02/25/22 02/25/22 02/25/22 03:15 03:30 03:45 Temperature Pulse Rate 94 H 101 H 101 H Pulse Rate [ Anterior Bilateral Throughout] Pulse Rate [ From Monitor] Respiratory 29 H 29 H 29 H Rate Respiratory Rate [Anterior Bilateral Throughout] Blood Pressure 124/60 115/57 114/61 O2 Sat by Pulse 100 97 99 Oximetry 02/25/22 02/25/22 02/25/22 04:00 04:07 04:09 Temperature 101.5 F H Pulse Rate 99 H 87 Pulse Rate [ Anterior Bilateral Throughout] Pulse Rate [ 103 H From Monitor] Respiratory 29 H Rate Respiratory Rate [Anterior Bilateral Throughout] Blood Pressure 116/61 O2 Sat by Pulse 99 Oximetry 02/25/22 02/25/22 02/25/22 04:15 04:30 04:45 Temperature Pulse Rate 92 H 96 H 97 H Pulse Rate [ Anterior Bilateral Throughout] Pulse Rate [ From Monitor] Respiratory 29 H 29 H 29 H Rate Respiratory Rate [Anterior Bilateral Throughout] Blood Pressure 95/50 108/48 106/46 O2 Sat by Pulse 98 98 Oximetry 02/25/22 02/25/22 02/25/22 05:00 05:15 05:30 Temperature Pulse Rate 98 H 92 H 96 H Pulse Rate [ Anterior Bilateral Throughout] Pulse Rate [ From Monitor] Respiratory 29 H 28 H 30 H Rate Respiratory Rate [Anterior Bilateral Throughout] Blood Pressure 117/51 95/52 107/58 O2 Sat by Pulse 99 97 Oximetry 02/25/22 02/25/22 02/25/22 05:40 05:45 06:01 Temperature 101.7 F H Pulse Rate 85 87 Pulse Rate [ Anterior Bilateral Throughout] Pulse Rate [ From Monitor] Respiratory 29 H 29 H Rate Respiratory Rate [Anterior Bilateral Throughout] Blood Pressure 110/47 114/64 O2 Sat by Pulse 96 84 Oximetry 02/25/22 02/25/22 02/25/22 06:15 06:30 06:45 Temperature Pulse Rate 86 88 93 H Pulse Rate [ Anterior Bilateral Throughout] Pulse Rate [ From Monitor] Respiratory 28 H 30 H 29 H Rate Respiratory Rate [Anterior Bilateral Throughout] Blood Pressure 113/60 112/55 129/51 O2 Sat by Pulse 91 94 90 Oximetry 02/25/22 02/25/22 02/25/22 07:01 07:15 07:30 Temperature Pulse Rate 93 H 87 94 H Pulse Rate [ Anterior Bilateral Throughout] Pulse Rate [ From Monitor] Respiratory 29 H 29 H 28 H Rate Respiratory Rate [Anterior Bilateral Throughout] Blood Pressure 132/99 123/51 123/67 O2 Sat by Pulse 97 95 91 Oximetry 02/25/22 02/25/22 02/25/22 07:45 08:00 08:15 Temperature 102 F H Pulse Rate 92 H 91 H 98 H Pulse Rate [ Anterior Bilateral Throughout] Pulse Rate [ From Monitor] Respiratory 29 H 28 H 30 H Rate Respiratory Rate [Anterior Bilateral Throughout] Blood Pressure 102/31 107/50 104/47 O2 Sat by Pulse 95 84 92 Oximetry 02/25/22 02/25/22 02/25/22 08:30 08:35 08:40 Temperature Pulse Rate 93 H 96 H Pulse Rate [ 98 H Anterior Bilateral Throughout] Pulse Rate [ From Monitor] Respiratory 29 H Rate Respiratory 29 H Rate [Anterior Bilateral Throughout] Blood Pressure 125/50 102/54 O2 Sat by Pulse 98 Oximetry 02/25/22 08:45 Temperature Pulse Rate 90 Pulse Rate [ Anterior Bilateral Throughout] Pulse Rate [ From Monitor] Respiratory 28 H Rate Respiratory Rate [Anterior Bilateral Throughout] Blood Pressure 102/54 O2 Sat by Pulse 97 Oximetry - Lab 02/25/22 04:30 02/25/22 05:00 Most recent lab results ABG pH 7.384 pH Units (7.350-7.450) 02/25/22 04:32 ABG pCO2 39.7 mm Hg 02/25/22 04:32 ABG pO2 60.7 mm Hg (80.0-90.0) L 02/25/22 04:32 ABG HCO3 23.2 mmol/L (20.0-26.0) 02/25/22 04:32 ABG O2 Saturation 93.9 % (95.0-99.0) L 02/25/22 04:32 Calcium 7.5 mg/dL (8.4-10.2) L D 02/25/22 05:00 Phosphorus 4.60 mg/dL (2.5-4.5) H 02/23/22 07:00 Magnesium 1.80 mg/dL (1.7-2.3) 02/25/22 05:17 Urine Creatinine 180.0 mg/dL (0.1-20.0) H 02/18/22 23:44 Urine Creatinine 180.9 mg/dL (0.1-20.0) H 02/18/22 23:44 Urine Sodium 30 mmol/L 02/18/22 23:44 Urine Total Protein 457 mg/dL (5-11.8) H 02/18/22 23:44 Medications & Allergies - Medications Allergies/Adverse Reactions: Allergies No Known Allergies Allergy (Verified 02/17/22 23:39) Home Medications: Home Medications Medication Instructions Recorded Confirmed Last Taken Type Apixaban [Eliquis] 5 mg PO BID 02/18/22 02/18/22 Unknown History Crestor 40 mg PO DAILY 02/18/22 02/18/22 Unknown History Irbesartan/Hydrochlorothiazide 1 each PO HS 02/18/22 02/18/22 Unknown History [Irbesartan-Hctz 150-12.5 mg Tb] Loratadine [Claritin] 10 mg PO DAILY 02/18/22 02/18/22 Unknown History Oxycodone HCl [oxyCODONE] 10 mg PO BID 02/18/22 02/18/22 Unknown History Pantoprazole [Protonix] 40 mg PO QDAY 02/18/22 02/18/22 Unknown History Pramipexole [Mirapex] 0.5 mg PO TID 02/18/22 02/18/22 Unknown History Tamsulosin [Flomax] 0.4 mg PO DAILY 02/18/22 02/18/22 Unknown History Torsemide [Demadex] 20 mg PO BID 02/18/22 02/18/22 Unknown History allopurinoL [Zyloprim] 100 mg PO QDAY 02/18/22 02/18/22 Unknown History carvediloL [Coreg] 12.5 mg PO BID 02/18/22 02/18/22 Unknown History Active Medications: Generic Name Dose Route Start Last Admin Trade Name Freq PRN Reason Stop Dose Admin Acetaminophen 650 mg 02/18/22 03:18 02/25/22 09:09 Acetaminophen 325 Mg Tab PO 650 mg Q4H PRN Administration Pain MILD(1-3)/Fever >100.5/NICOLE Albuterol 2.5 mg 02/18/22 03:18 Albuterol 2.5 Mg/3 Ml Nebu IH Q3HRT PRN Shortness Of Breath Albuterol/Ipratropium 1 ampul 02/18/22 20:00 02/25/22 08:40 Ipratropium/Albuterol Sulfate 3 Ml Ampul.Neb IH 1 ampul TIDRT KARAN Administration Apixaban 2.5 mg 02/22/22 22:00 02/25/22 09:01 Apixaban 2.5 Mg Tab FEEDTUBE 2.5 mg Q12HR KARAN Administration Protocol Aspirin 325 mg 02/18/22 10:00 02/25/22 09:01 Aspirin 325 Mg Tab FEEDTUBE 325 mg QDAY KARAN Administration Atorvastatin Calcium 40 mg 02/18/22 22:00 02/24/22 21:22 Atorvastatin 40 Mg Tab PO 40 mg QHS KARAN Administration Famotidine 20 mg 02/21/22 10:00 02/25/22 09:01 Famotidine 20 Mg Tab FEEDTUBE 20 mg DAILY KARAN Administration Hydralazine HCl 10 mg 02/18/22 03:33 Hydralazine 20 Mg/1 Ml Inj IV Q6H PRN SBP >/=160; DBP >/=100 Hydrophilic Ointment 1 applic 02/17/22 23:25 Lip Therapy Vaseline TP Q2HR PRN Dry Lips Dexmedetomidine HCl 200 mcg/ 50 mls @ 6.99 mls/hr 02/21/22 11:00 02/25/22 07:35 Sodium Chloride IV 0.4 mcg/kg/hr TITRATE KARAN 13.98 mls/hr Administration Protocol 0.2 MCG/KG/HR NORepinephrine/NS 8 MG-250 ML 8 mg in 250 mls @ 3.75 mls/hr 02/22/22 15:00 02/25/22 09:03 Norepinephrine/Ns 8 Mg-250 Ml (Double Conc) IV 2 mcg/min TITRATE KARAN 3.75 mls/hr Titration Protocol 2 MCG/MIN Vasopressin 20 unit/ Sodium 101 mls @ 9.09 mls/hr 02/22/22 16:00 Chloride IV TITR [facility] Protocol 0.03 UNITS/MIN Insulin Human Lispro 0 unit 02/19/22 12:00 02/25/22 05:15 Insulin Lispro 100 Unit/Ml SUB-Q Not Given Q6HR [facility] Protocol Metoprolol Tartrate 5 mg 02/21/22 12:00 02/25/22 05:39 Metoprolol Tartrate 5 Mg/5 Ml Inj IV 5 mg Q6HR [facility] Administration Multi-Ingred Cream/Lotion/Oil/Oint 1 applic 02/17/22 23:25 Mineral Oil/Petrolatum, White Ophth Oint 3.5 Gm OU Q4HR PRN Dry Eye(s) Nitroglycerin 0.4 mg 02/18/22 03:18 Nitroglycerin 0.4 Mg Tab Subl SL Q5M PRN Chest Pain Ondansetron HCl 4 mg 02/18/22 03:18 Ondansetron 4 Mg/2 Ml Inj IV Q8H PRN Nausea And Vomiting Sodium Chloride 10 ml 02/18/22 10:00 02/25/22 09:04 Sodium Chloride 0.9% 10 Ml Flush Syringe IV 10 ml BID KARAN Administration Sodium Chloride 10 ml 02/18/22 03:18 Sodium Chloride 0.9% 10 Ml Flush Syringe IV PRN PRN LINE FLUSH
--- NOTE | 2022-02-25 10:16 | Progress Note ---
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 02/25/22: Will ask nursing to turn of Precedex. Discussed the possibility of restarting abx but not exactly sure what we would be treating. Cultures from 2 days prior are negative. Could be a met causing neuro fevers? Per staff, family to make a decision today about further care given lack of improvement. Very poor prognosis. 02/24/22: HD per renal. ABG is improved, continue vent support. Prognosis is very very poor. Continues to have fever. Will stop abx and if no improvement after that, doppler upper and lower Ext to eval for DVT. 02/23/22: Overall prognosis remains extremely poor. Not sure when HD will occur again, most likely tomorrow but did not make a large difference in mentation however BUN is still elevated. Remains on pressors and will attempt to wean for MAPs 65 and greater. Fever remains, will discuss with pharmacy but this has happened since changing cefepime to ancef, may need to go back. Follow up blood cultures. 02/22/22: Clinically, status is worsening. Spoke with family again today. They are still agreement about HD but wanted to know how many treatments to do, or how many treatments would it take to see improvement. Unfortunately, I am not able to answer a question like that. Plan is to do HD today, not sure if he will get it again on Thursday. Will add vasopressors as BP is lower today. May not tolerate HD. Guarded prognosis, now with persistent fevers. 02/21/22: Unable to extubate today. Worsening renal function. stopped oral anticoagulation in preparation for placement of vascath. has right IJ so could change room attendant wire. Precedex for the times when he does become uncomfortable and tachypnic but hold on narcs. Very very guarded to poor prognosis. This has been discussed with the family. Changed Cefepime to Ancef given MSSA. Stopping steroids. 02/20/22: Continue to wean Vasopression for MAPs 65 and greater. Wean FiO2 for sats >88%. Hopeful PSV and possible extubation soon. Will continue cefepime for 7 days. Await speciation of Staph. Random vanc level checked. Guarded to poor prognosis as urine output continues to dwindle. Family has not made a decision about HD yet. 02/19/22: Another discussion with , sister and daughter over the phone again today. Explained that he has not improved since admission and has actually gotten worse. Now dealing with multisystem organ failure. Family is now debating on how long to continue and they are going to discuss if they want to pursue dialysis. Will continue supportive measures. Guarded to poor prognosis now with multisystem failure. Long discussion at bedside with and sister and daughter over the phone. Very good questions asked by them. Daughter mentions patient may have been in contact with COVID 19. Also concerns about code status now. Discussed with them the clinical situation and they will make decisions. 1. Wean fIo2 for sats >88% 2. Leave off continuous sedation, ok with PRN pushes if needed 3. OG tube placement 4. Wean Vasopressors for MAPS >88% 5. broaden abx therapy given immunocompromised state and last place of residence. 6. Family wishes to try to treat through this to see if patient can be extubated which is not unreasonable. However he is an AND and they want to stick with this. 7. Guarded to poor prognosis. Patient was in rehab attempting to get stronger to get Palliative chemo therapy. CCT 31 minutes. Subjective Date of service: 02/25/22 Principal diagnosis: ARF Interval history: continues to be febrile despite stopping abx. Dopplers are negative. Mental status is not better. Still on Levophed but only at 2 Objective Vital Signs - 12hr 02/24/22 02/24/22 02/24/22 22:15 22:30 22:45 Temperature Pulse Rate 102 H 104 H 99 H Pulse Rate [ Anterior Bilateral Throughout] Pulse Rate [ From Monitor] Respiratory 35 H 34 H 29 H Rate Respiratory Rate [Anterior Bilateral Throughout] Blood Pressure 145/67 145/58 131/67 O2 Sat by Pulse 100 Oximetry 02/24/22 02/24/22 02/24/22 22:52 23:01 23:11 Temperature 101.2 F H Pulse Rate 99 H 102 H Pulse Rate [ Anterior Bilateral Throughout] Pulse Rate [ From Monitor] Respiratory 29 H Rate Respiratory Rate [Anterior Bilateral Throughout] Blood Pressure 116/57 118/62 O2 Sat by Pulse 99 97 Oximetry 02/24/22 02/24/22 02/24/22 23:15 23:27 23:30 Temperature Pulse Rate 93 H 90 100 H Pulse Rate [ Anterior Bilateral Throughout] Pulse Rate [ From Monitor] Respiratory 31 H 31 H 28 H Rate Respiratory Rate [Anterior Bilateral Throughout] Blood Pressure 117/59 110/67 126/63 O2 Sat by Pulse 98 98 Oximetry 02/24/22 02/25/22 02/25/22 23:45 00:00 00:15 Temperature Pulse Rate 94 H 93 H 101 H Pulse Rate [ Anterior Bilateral Throughout] Pulse Rate [ 103 H From Monitor] Respiratory 28 H 30 H 29 H Rate Respiratory Rate [Anterior Bilateral Throughout] Blood Pressure 134/69 118/65 121/67 O2 Sat by Pulse 98 99 99 Oximetry 02/25/22 02/25/22 02/25/22 00:31 00:45 00:50 Temperature 101.8 F H Pulse Rate 93 H 97 H Pulse Rate [ Anterior Bilateral Throughout] Pulse Rate [ From Monitor] Respiratory 30 H 30 H Rate Respiratory Rate [Anterior Bilateral Throughout] Blood Pressure 125/51 124/61 O2 Sat by Pulse 98 98 Oximetry 02/25/22 02/25/22 02/25/22 00:51 01:00 01:15 Temperature Pulse Rate 103 H 100 H 97 H Pulse Rate [ Anterior Bilateral Throughout] Pulse Rate [ From Monitor] Respiratory 29 H 29 H Rate Respiratory Rate [Anterior Bilateral Throughout] Blood Pressure 128/70 126/71 O2 Sat by Pulse 98 99 Oximetry 02/25/22 02/25/22 02/25/22 01:30 01:45 01:58 Temperature 102 F H Pulse Rate 99 H 98 H Pulse Rate [ Anterior Bilateral Throughout] Pulse Rate [ From Monitor] Respiratory 28 H 31 H Rate Respiratory Rate [Anterior Bilateral Throughout] Blood Pressure 138/60 128/70 O2 Sat by Pulse 98 98 Oximetry 02/25/22 02/25/22 02/25/22 02:01 02:15 02:30 Temperature Pulse Rate 108 H 103 H 96 H Pulse Rate [ Anterior Bilateral Throughout] Pulse Rate [ From Monitor] Respiratory 30 H 29 H 30 H Rate Respiratory Rate [Anterior Bilateral Throughout] Blood Pressure 135/52 125/62 113/62 O2 Sat by Pulse 98 98 97 Oximetry 02/25/22 02/25/22 02/25/22 02:45 03:00 03:15 Temperature 101.3 F H Pulse Rate 104 H 105 H 94 H Pulse Rate [ Anterior Bilateral Throughout] Pulse Rate [ From Monitor] Respiratory 30 H 29 H 29 H Rate Respiratory Rate [Anterior Bilateral Throughout] Blood Pressure 126/60 118/61 124/60 O2 Sat by Pulse 99 99 100 Oximetry 02/25/22 02/25/22 02/25/22 03:30 03:45 04:00 Temperature Pulse Rate 101 H 101 H 99 H Pulse Rate [ Anterior Bilateral Throughout] Pulse Rate [ 103 H From Monitor] Respiratory 29 H 29 H 29 H Rate Respiratory Rate [Anterior Bilateral Throughout] Blood Pressure 115/57 114/61 116/61 O2 Sat by Pulse 97 99 99 Oximetry 02/25/22 02/25/22 02/25/22 04:07 04:09 04:15 Temperature 101.5 F H Pulse Rate 87 92 H Pulse Rate [ Anterior Bilateral Throughout] Pulse Rate [ From Monitor] Respiratory 29 H Rate Respiratory Rate [Anterior Bilateral Throughout] Blood Pressure 95/50 O2 Sat by Pulse 98 Oximetry 02/25/22 02/25/22 02/25/22 04:30 04:45 05:00 Temperature Pulse Rate 96 H 97 H 98 H Pulse Rate [ Anterior Bilateral Throughout] Pulse Rate [ From Monitor] Respiratory 29 H 29 H 29 H Rate Respiratory Rate [Anterior Bilateral Throughout] Blood Pressure 108/48 106/46 117/51 O2 Sat by Pulse 98 Oximetry 02/25/22 02/25/22 02/25/22 05:15 05:30 05:40 Temperature 101.7 F H Pulse Rate 92 H 96 H Pulse Rate [ Anterior Bilateral Throughout] Pulse Rate [ From Monitor] Respiratory 28 H 30 H Rate Respiratory Rate [Anterior Bilateral Throughout] Blood Pressure 95/52 107/58 O2 Sat by Pulse 99 97 Oximetry 02/25/22 02/25/22 02/25/22 05:45 06:01 06:15 Temperature Pulse Rate 85 87 86 Pulse Rate [ Anterior Bilateral Throughout] Pulse Rate [ From Monitor] Respiratory 29 H 29 H 28 H Rate Respiratory Rate [Anterior Bilateral Throughout] Blood Pressure 110/47 114/64 113/60 O2 Sat by Pulse 96 84 91 Oximetry 02/25/22 02/25/22 02/25/22 06:30 06:45 07:01 Temperature Pulse Rate 88 93 H 93 H Pulse Rate [ Anterior Bilateral Throughout] Pulse Rate [ From Monitor] Respiratory 30 H 29 H 29 H Rate Respiratory Rate [Anterior Bilateral Throughout] Blood Pressure 112/55 129/51 132/99 O2 Sat by Pulse 94 90 97 Oximetry 02/25/22 02/25/22 02/25/22 07:15 07:30 07:45 Temperature Pulse Rate 87 94 H 92 H Pulse Rate [ Anterior Bilateral Throughout] Pulse Rate [ From Monitor] Respiratory 29 H 28 H 29 H Rate Respiratory Rate [Anterior Bilateral Throughout] Blood Pressure 123/51 123/67 102/31 O2 Sat by Pulse 95 91 95 Oximetry 02/25/22 02/25/22 02/25/22 08:00 08:15 08:30 Temperature 102 F H Pulse Rate 91 H 98 H 93 H Pulse Rate [ Anterior Bilateral Throughout] Pulse Rate [ From Monitor] Respiratory 28 H 30 H 29 H Rate Respiratory Rate [Anterior Bilateral Throughout] Blood Pressure 107/50 104/47 125/50 O2 Sat by Pulse 84 92 Oximetry 02/25/22 02/25/22 02/25/22 08:35 08:40 08:45 Temperature Pulse Rate 96 H 90 Pulse Rate [ 98 H Anterior Bilateral Throughout] Pulse Rate [ From Monitor] Respiratory 28 H Rate Respiratory 29 H Rate [Anterior Bilateral Throughout] Blood Pressure 102/54 102/54 O2 Sat by Pulse 98 97 Oximetry Constitutional: alert, appears uncomfortable Eyes: other (has only one eye, right eye) ENT: other (orally intubated, not on sedation) Neck: supple Effort: mildly labored Ascultation: Bilateral: rhonchi Percussion: Bilateral: not dull Cardiovascular: regular rate and rhythm Gastrointestinal: normoactive bowel sounds, soft CBC and BMP: 02/25/22 04:30 02/25/22 05:00 ABG, PT/INR, D-dimer: ABG ABG pH 7.384 pH Units (7.350-7.450) 02/25/22 04:32 POC ABG pCO2 60.4 mmHg (32.0-48.0) H 02/18/22 00:20 ABG pCO2 39.7 mm Hg 02/25/22 04:32 POC ABG pO2 93.0 mmHg (83-108) 02/18/22 00:20 ABG pO2 60.7 mm Hg (80.0-90.0) L 02/25/22 04:32 POC ABG HCO3 20.5 02/18/22 00:20 ABG O2 Saturation 93.9 % (95.0-99.0) L 02/25/22 04:32 PT/INR, D-dimer PT 19.8 Sec. (12.2-14.9) H 02/22/22 16:22 INR 1.49 (0.87-1.13) H 02/22/22 16:22 Abnormal lab findings: Abnormal Labs 02/18/22 02/18/22 02/18/22 00:20 00:21 00:21 WBC RBC 3.15 L Hgb 9.0 L Hct 28.0 L MCH MCHC RDW 20.4 H Lymph % (Auto) Seg Neutrophils % 71.8 H Seg Neuts % (Manual) Lymphocytes % (Manual) Nucleated RBC % Seg Neutrophils # Seg Neutrophils # Man Lymphocytes # (Manual) PT 29.4 H INR 2.41 H APTT 38.3 H ABG pH 7.148 L POC ABG pCO2 60.4 H ABG pO2 ABG HCO3 ABG O2 Saturation ABG Base Excess ABG Hemoglobin 8.69 L ABG Oxyhemoglobin 93.7 L Oxyhemoglobin Carboxyhemoglobin 2.1 H Sodium Potassium Chloride Carbon Dioxide BUN Creatinine Glucose POC Glucose Calcium Phosphorus AST Alkaline Phosphatase Total Creatine Kinase Troponin T Serum Total Protein Albumin Cxqck-2-Skadrsjur PEP Interpretation LDL Cholesterol Direct HDL Cholesterol TSH Urine WBC (Auto) Urine Creatinine Urine Total Protein Salicylates Acetaminophen Proteinase 3 (PR3) Ab 02/18/22 02/18/22 02/18/22 00:21 00:21 00:21 WBC RBC Hgb Hct MCH MCHC RDW Lymph % (Auto) Seg Neutrophils % Seg Neuts % (Manual) Lymphocytes % (Manual) Nucleated RBC % Seg Neutrophils # Seg Neutrophils # Man Lymphocytes # (Manual) PT INR APTT ABG pH POC ABG pCO2 ABG pO2 ABG HCO3 ABG O2 Saturation ABG Base Excess ABG Hemoglobin ABG Oxyhemoglobin Oxyhemoglobin Carboxyhemoglobin Sodium Potassium Chloride 112.6 H Carbon Dioxide 19 L BUN 55 H Creatinine 3.0 H Glucose 152 H POC Glucose Calcium 7.4 L Phosphorus AST 56 H Alkaline Phosphatase 268 H Total Creatine Kinase 233 H Troponin T 0.073 H Serum Total Protein Albumin 2.2 L Iaqnu-2-Dlmhakmxg PEP Interpretation LDL Cholesterol Direct 30 L HDL Cholesterol 19 L TSH 5.100 H Urine WBC (Auto) Urine Creatinine Urine Total Protein Salicylates < 0.3 L Acetaminophen Proteinase 3 (PR3) Ab 02/18/22 02/18/22 02/18/22 00:21 05:02 06:22 WBC RBC Hgb Hct MCH MCHC RDW Lymph % (Auto) Seg Neutrophils % Seg Neuts % (Manual) Lymphocytes % (Manual) Nucleated RBC % Seg Neutrophils # Seg Neutrophils # Man Lymphocytes # (Manual) PT INR APTT ABG pH 7.131 L* POC ABG pCO2 ABG pO2 93.2 H ABG HCO3 17.6 L ABG O2 Saturation ABG Base Excess -11.2 L ABG Hemoglobin 9.1 L ABG Oxyhemoglobin Oxyhemoglobin 94.6 L Carboxyhemoglobin Sodium Potassium Chloride Carbon Dioxide BUN Creatinine Glucose POC Glucose 125 H Calcium Phosphorus AST Alkaline Phosphatase Total Creatine Kinase Troponin T Serum Total Protein Albumin Avrpl-4-Iahnkxksv PEP Interpretation LDL Cholesterol Direct HDL Cholesterol TSH Urine WBC (Auto) Urine Creatinine Urine Total Protein Salicylates Acetaminophen 5.0 L Proteinase 3 (PR3) Ab 02/18/22 02/18/22 02/18/22 09:21 11:30 17:14 WBC RBC Hgb Hct MCH MCHC RDW Lymph % (Auto) Seg Neutrophils % Seg Neuts % (Manual) Lymphocytes % (Manual) Nucleated RBC % Seg Neutrophils # Seg Neutrophils # Man Lymphocytes # (Manual) PT INR APTT ABG pH POC ABG pCO2 ABG pO2 ABG HCO3 ABG O2 Saturation ABG Base Excess ABG Hemoglobin ABG Oxyhemoglobin Oxyhemoglobin Carboxyhemoglobin Sodium Potassium Chloride Carbon Dioxide BUN Creatinine Glucose POC Glucose 127 H 126 H Calcium Phosphorus AST Alkaline Phosphatase Total Creatine Kinase Troponin T 0.076 H Serum Total Protein Albumin Fmqei-4-Aeokytfbv PEP Interpretation LDL Cholesterol Direct HDL Cholesterol TSH Urine WBC (Auto) Urine Creatinine Urine Total Protein Salicylates Acetaminophen Proteinase 3 (PR3) Ab 02/18/22 02/18/22 02/19/22 23:44 23:44 04:00 WBC RBC Hgb Hct MCH MCHC RDW Lymph % (Auto) Seg Neutrophils % Seg Neuts % (Manual) Lymphocytes % (Manual) Nucleated RBC % Seg Neutrophils # Seg Neutrophils # Man Lymphocytes # (Manual) PT INR APTT ABG pH POC ABG pCO2 ABG pO2 ABG HCO3 ABG O2 Saturation ABG Base Excess ABG Hemoglobin ABG Oxyhemoglobin Oxyhemoglobin Carboxyhemoglobin Sodium Potassium Chloride Carbon Dioxide 21 L BUN 56 H Creatinine 3.5 H Glucose 224 H POC Glucose Calcium 6.1 L D Phosphorus AST Alkaline Phosphatase Total Creatine Kinase Troponin T Serum Total Protein Albumin Wwwsn-9-Cnxuwjbmc PEP Interpretation LDL Cholesterol Direct HDL Cholesterol TSH Urine WBC (Auto) Urine Creatinine 180.0 H 180.9 H Urine Total Protein 457 H Salicylates Acetaminophen Proteinase 3 (PR3) Ab 02/19/22 02/19/22 02/19/22 04:12 04:20 11:46 WBC RBC 3.14 L Hgb 8.9 L Hct 27.6 L MCH MCHC RDW 19.6 H Lymph % (Auto) Seg Neutrophils % Seg Neuts % (Manual) 96.0 H Lymphocytes % (Manual) 2.0 L Nucleated RBC % Seg Neutrophils # Seg Neutrophils # Man 9.5 H Lymphocytes # (Manual) 0.2 L PT INR APTT ABG pH 7.199 L* POC ABG pCO2 ABG pO2 147.0 H ABG HCO3 ABG O2 Saturation ABG Base Excess -6.2 L ABG Hemoglobin 9.1 L ABG Oxyhemoglobin Oxyhemoglobin Carboxyhemoglobin Sodium Potassium Chloride Carbon Dioxide BUN Creatinine Glucose POC Glucose 152 H Calcium Phosphorus AST Alkaline Phosphatase Total Creatine Kinase Troponin T Serum Total Protein Albumin Hobic-3-Bxgjayhms PEP Interpretation LDL Cholesterol Direct HDL Cholesterol TSH Urine WBC (Auto) Urine Creatinine Urine Total Protein Salicylates Acetaminophen Proteinase 3 (PR3) Ab 02/19/22 02/19/22 02/19/22 12:48 18:29 Unknown WBC RBC 2.97 L Hgb 8.4 L Hct 25.9 L MCH MCHC RDW 19.7 H Lymph % (Auto) Seg Neutrophils % Seg Neuts % (Manual) Lymphocytes % (Manual) Nucleated RBC % Seg Neutrophils # Seg Neutrophils # Man Lymphocytes # (Manual) PT INR APTT ABG pH POC ABG pCO2 ABG pO2 ABG HCO3 ABG O2 Saturation ABG Base Excess ABG Hemoglobin ABG Oxyhemoglobin Oxyhemoglobin Carboxyhemoglobin Sodium Potassium 5.1 H Chloride Carbon Dioxide 20 L BUN 55 H Creatinine 3.5 H Glucose 221 H POC Glucose 126 H Calcium 6.0 L Phosphorus 6.70 H AST Alkaline Phosphatase Total Creatine Kinase Troponin T Serum Total Protein Albumin Lnqpl-9-Vaemtlhfs PEP Interpretation LDL Cholesterol Direct HDL Cholesterol TSH Urine WBC (Auto) Urine Creatinine Urine Total Protein Salicylates Acetaminophen Proteinase 3 (PR3) Ab 02/19/22 02/19/22 02/20/22 Unknown Unknown 00:29 WBC RBC Hgb Hct MCH MCHC RDW Lymph % (Auto) Seg Neutrophils % Seg Neuts % (Manual) Lymphocytes % (Manual) Nucleated RBC % Seg Neutrophils # Seg Neutrophils # Man Lymphocytes # (Manual) PT 27.7 H INR 2.24 H APTT 46.4 H ABG pH POC ABG pCO2 ABG pO2 ABG HCO3 ABG O2 Saturation ABG Base Excess ABG Hemoglobin ABG Oxyhemoglobin Oxyhemoglobin Carboxyhemoglobin Sodium Potassium Chloride Carbon Dioxide BUN Creatinine 4.0 H Glucose POC Glucose 129 H Calcium Phosphorus AST Alkaline Phosphatase Total Creatine Kinase Troponin T Serum Total Protein Albumin Axctb-0-Oncftkvmx PEP Interpretation LDL Cholesterol Direct HDL Cholesterol TSH Urine WBC (Auto) Urine Creatinine Urine Total Protein Salicylates Acetaminophen Proteinase 3 (PR3) Ab 02/20/22 02/20/22 02/20/22 04:30 04:30 04:30 WBC RBC 2.62 L Hgb 7.5 L Hct 22.8 L MCH MCHC RDW 19.9 H Lymph % (Auto) Seg Neutrophils % Seg Neuts % (Manual) 79.0 H Lymphocytes % (Manual) 5.0 L Nucleated RBC % 1.0 H Seg Neutrophils # Seg Neutrophils # Man Lymphocytes # (Manual) 0.4 L PT INR APTT ABG pH POC ABG pCO2 ABG pO2 ABG HCO3 ABG O2 Saturation ABG Base Excess ABG Hemoglobin ABG Oxyhemoglobin Oxyhemoglobin Carboxyhemoglobin Sodium 136 L Potassium Chloride Carbon Dioxide 19 L BUN 70 H Creatinine 4.4 H Glucose 148 H POC Glucose Calcium 5.9 L* Phosphorus AST Alkaline Phosphatase Total Creatine Kinase Troponin T Serum Total Protein Albumin Urcpx-5-Vlwosdycq PEP Interpretation LDL Cholesterol Direct HDL Cholesterol TSH Urine WBC (Auto) Urine Creatinine Urine Total Protein Salicylates Acetaminophen Proteinase 3 (PR3) Ab 2.3 H 02/20/22 02/20/22 02/20/22 04:30 05:03 13:03 WBC RBC Hgb Hct MCH MCHC RDW Lymph % (Auto) Seg Neutrophils % Seg Neuts % (Manual) Lymphocytes % (Manual) Nucleated RBC % Seg Neutrophils # Seg Neutrophils # Man Lymphocytes # (Manual) PT INR APTT ABG pH 7.319 L POC ABG pCO2 ABG pO2 149.9 H ABG HCO3 19.8 L ABG O2 Saturation ABG Base Excess -5.8 L ABG Hemoglobin 7.3 L ABG Oxyhemoglobin Oxyhemoglobin Carboxyhemoglobin Sodium Potassium Chloride Carbon Dioxide BUN Creatinine Glucose POC Glucose 151 H Calcium Phosphorus AST Alkaline Phosphatase Total Creatine Kinase Troponin T Serum Total Protein 5.2 L Albumin 1.6 L Wnvhy-6-Azhkewmdq 0.8 H PEP Interpretation see below H LDL Cholesterol Direct HDL Cholesterol TSH Urine WBC (Auto) Urine Creatinine Urine Total Protein Salicylates Acetaminophen Proteinase 3 (PR3) Ab 02/20/22 02/20/22 02/21/22 17:31 23:18 04:20 WBC RBC Hgb Hct MCH MCHC RDW Lymph % (Auto) Seg Neutrophils % Seg Neuts % (Manual) Lymphocytes % (Manual) Nucleated RBC % Seg Neutrophils # Seg Neutrophils # Man Lymphocytes # (Manual) PT INR APTT ABG pH 7.293 L POC ABG pCO2 ABG pO2 180.1 H ABG HCO3 18.0 L ABG O2 Saturation 99.1 H ABG Base Excess -7.9 L ABG Hemoglobin 7.0 L ABG Oxyhemoglobin Oxyhemoglobin Carboxyhemoglobin Sodium Potassium Chloride Carbon Dioxide BUN Creatinine Glucose POC Glucose 138 H 144 H Calcium Phosphorus AST Alkaline Phosphatase Total Creatine Kinase Troponin T Serum Total Protein Albumin Ggdko-9-Omkdlrjno PEP Interpretation LDL Cholesterol Direct HDL Cholesterol TSH Urine WBC (Auto) Urine Creatinine Urine Total Protein Salicylates Acetaminophen Proteinase 3 (PR3) Ab 02/21/22 02/21/22 02/21/22 05:44 06:45 06:45 WBC RBC 2.64 L Hgb 7.5 L Hct 23.1 L MCH MCHC RDW 20.3 H Lymph % (Auto) Seg Neutrophils % Seg Neuts % (Manual) 89.0 H Lymphocytes % (Manual) 7.0 L Nucleated RBC % Seg Neutrophils # Seg Neutrophils # Man 9.7 H Lymphocytes # (Manual) 0.8 L PT INR APTT ABG pH POC ABG pCO2 ABG pO2 ABG HCO3 ABG O2 Saturation ABG Base Excess ABG Hemoglobin ABG Oxyhemoglobin Oxyhemoglobin Carboxyhemoglobin Sodium Potassium Chloride Carbon Dioxide 17 L BUN 89 H Creatinine 5.4 H Glucose 164 H POC Glucose 164 H Calcium 5.7 L* Phosphorus 5.70 H AST Alkaline Phosphatase Total Creatine Kinase Troponin T Serum Total Protein Albumin Fdhtl-2-Mmvruhhny PEP Interpretation LDL Cholesterol Direct HDL Cholesterol TSH Urine WBC (Auto) Urine Creatinine Urine Total Protein Salicylates Acetaminophen Proteinase 3 (PR3) Ab 02/21/22 02/21/22 02/22/22 11:19 17:18 04:20 WBC 12.9 H RBC 2.69 L Hgb 7.4 L Hct 23.6 L MCH MCHC 31 L RDW 20.5 H Lymph % (Auto) Seg Neutrophils % Seg Neuts % (Manual) 89.0 H Lymphocytes % (Manual) 6.0 L Nucleated RBC % Seg Neutrophils # Seg Neutrophils # Man 11.5 H Lymphocytes # (Manual) 0.8 L PT INR APTT ABG pH POC ABG pCO2 ABG pO2 ABG HCO3 ABG O2 Saturation ABG Base Excess ABG Hemoglobin ABG Oxyhemoglobin Oxyhemoglobin Carboxyhemoglobin Sodium Potassium Chloride Carbon Dioxide BUN Creatinine Glucose POC Glucose 165 H 129 H Calcium Phosphorus AST Alkaline Phosphatase Total Creatine Kinase Troponin T Serum Total Protein Albumin Qymmd-7-Fmjwevjlb PEP Interpretation LDL Cholesterol Direct HDL Cholesterol TSH Urine WBC (Auto) Urine Creatinine Urine Total Protein Salicylates Acetaminophen Proteinase 3 (PR3) Ab 02/22/22 02/22/22 02/22/22 04:20 04:40 05:27 WBC RBC Hgb Hct MCH MCHC RDW Lymph % (Auto) Seg Neutrophils % Seg Neuts % (Manual) Lymphocytes % (Manual) Nucleated RBC % Seg Neutrophils # Seg Neutrophils # Man Lymphocytes # (Manual) PT INR APTT ABG pH 7.261 L 7.268 L POC ABG pCO2 ABG pO2 51.1 L 54.8 L ABG HCO3 15.9 L 15.5 L ABG O2 Saturation 80.6 L 87.4 L ABG Base Excess -10.3 L -10.5 L ABG Hemoglobin 8.3 L 7.4 L ABG Oxyhemoglobin Oxyhemoglobin 79.1 L 85.7 L Carboxyhemoglobin Sodium 134 L Potassium Chloride Carbon Dioxide 15 L BUN 109 H Creatinine 6.1 H Glucose 142 H POC Glucose Calcium 5.3 L* Phosphorus AST Alkaline Phosphatase Total Creatine Kinase Troponin T Serum Total Protein Albumin Vfbis-4-Njrfcseoq PEP Interpretation LDL Cholesterol Direct HDL Cholesterol TSH Urine WBC (Auto) Urine Creatinine Urine Total Protein Salicylates Acetaminophen Proteinase 3 (PR3) Ab 02/22/22 02/22/22 02/22/22 05:30 09:21 11:42 WBC RBC Hgb Hct MCH MCHC RDW Lymph % (Auto) Seg Neutrophils % Seg Neuts % (Manual) Lymphocytes % (Manual) Nucleated RBC % Seg Neutrophils # Seg Neutrophils # Man Lymphocytes # (Manual) PT INR APTT ABG pH POC ABG pCO2 ABG pO2 ABG HCO3 ABG O2 Saturation ABG Base Excess ABG Hemoglobin ABG Oxyhemoglobin Oxyhemoglobin Carboxyhemoglobin Sodium Potassium Chloride Carbon Dioxide BUN Creatinine Glucose POC Glucose 134 H 120 H 34 L Calcium Phosphorus AST Alkaline Phosphatase Total Creatine Kinase Troponin T Serum Total Protein Albumin [place]-1-Emvaqlsgf PEP Interpretation LDL Cholesterol Direct HDL Cholesterol TSH Urine WBC (Auto) Urine Creatinine Urine Total Protein Salicylates Acetaminophen Proteinase 3 (PR3) Ab 02/22/22 02/22/22 02/22/22 11:47 16:22 16:22 WBC 14.0 H RBC 2.84 L Hgb 8.1 L Hct 24.5 L MCH MCHC RDW 20.0 H Lymph % (Auto) Seg Neutrophils % Seg Neuts % (Manual) Lymphocytes % (Manual) Nucleated RBC % Seg Neutrophils # Seg Neutrophils # Man Lymphocytes # (Manual) PT 19.8 H INR 1.49 H APTT ABG pH POC ABG pCO2 ABG pO2 ABG HCO3 ABG O2 Saturation ABG Base Excess ABG Hemoglobin ABG Oxyhemoglobin Oxyhemoglobin Carboxyhemoglobin Sodium Potassium Chloride Carbon Dioxide BUN Creatinine Glucose POC Glucose 110 H Calcium Phosphorus AST Alkaline Phosphatase Total Creatine Kinase Troponin T Serum Total Protein Albumin [place]-1-Weyifbhkj PEP Interpretation LDL Cholesterol Direct HDL Cholesterol TSH Urine WBC (Auto) Urine Creatinine Urine Total Protein Salicylates Acetaminophen Proteinase 3 (PR3) Ab 02/22/22 02/22/22 02/22/22 16:22 17:30 23:07 WBC RBC Hgb Hct MCH MCHC RDW Lymph % (Auto) Seg Neutrophils % Seg Neuts % (Manual) Lymphocytes % (Manual) Nucleated RBC % Seg Neutrophils # Seg Neutrophils # Man Lymphocytes # (Manual) PT INR APTT ABG pH POC ABG pCO2 ABG pO2 73.5 L ABG HCO3 ABG O2 Saturation ABG Base Excess -3.3 L ABG Hemoglobin 8.5 L ABG Oxyhemoglobin Oxyhemoglobin 93.9 L Carboxyhemoglobin Sodium Potassium Chloride Carbon Dioxide BUN Creatinine 4.1 H Glucose POC Glucose Calcium Phosphorus AST Alkaline Phosphatase Total Creatine Kinase Troponin T Serum Total Protein Albumin Yzszf-4-Olnekggso PEP Interpretation LDL Cholesterol Direct HDL Cholesterol TSH Urine WBC (Auto) 57.0 H Urine Creatinine Urine Total Protein Salicylates Acetaminophen Proteinase 3 (PR3) Ab 02/23/22 02/23/22 02/23/22 05:00 07:00 07:00 WBC 15.3 H RBC 3.13 L Hgb 8.6 L Hct 27.0 L MCH 27 L MCHC RDW 19.8 H Lymph % (Auto) Seg Neutrophils % Seg Neuts % (Manual) 90.0 H Lymphocytes % (Manual) 5.0 L Nucleated RBC % Seg Neutrophils # Seg Neutrophils # Man 13.8 H Lymphocytes # (Manual) 0.8 L PT INR APTT ABG pH POC ABG pCO2 ABG pO2 ABG HCO3 ABG O2 Saturation ABG Base Excess -4.1 L ABG Hemoglobin 8.5 L ABG Oxyhemoglobin Oxyhemoglobin 94.8 L Carboxyhemoglobin Sodium 134 L Potassium Chloride 96.5 L Carbon Dioxide 20 L BUN 87 H Creatinine 5.0 H Glucose 133 H POC Glucose Calcium 6.1 L D Phosphorus 4.60 H AST Alkaline Phosphatase Total Creatine Kinase Troponin T Serum Total Protein Albumin [id number]-[id number] PEP Interpretation LDL Cholesterol Direct HDL Cholesterol TSH Urine WBC (Auto) Urine Creatinine Urine Total Protein Salicylates Acetaminophen Proteinase 3 (PR3) Ab 02/23/22 02/23/22 02/23/22 09:42 11:08 17:27 WBC RBC Hgb Hct MCH MCHC RDW Lymph % (Auto) Seg Neutrophils % Seg Neuts % (Manual) Lymphocytes % (Manual) Nucleated RBC % Seg Neutrophils # Seg Neutrophils # Man Lymphocytes # (Manual) PT INR APTT ABG pH POC ABG pCO2 ABG pO2 ABG HCO3 ABG O2 Saturation ABG Base Excess ABG Hemoglobin ABG Oxyhemoglobin Oxyhemoglobin Carboxyhemoglobin Sodium Potassium Chloride Carbon Dioxide BUN Creatinine Glucose POC Glucose 117 H 160 H Calcium Phosphorus AST Alkaline Phosphatase Total Creatine Kinase Troponin T Serum Total Protein Albumin 2.1 L [id number] PEP Interpretation LDL Cholesterol Direct HDL Cholesterol TSH Urine WBC (Auto) Urine Creatinine Urine Total Protein Salicylates Acetaminophen Proteinase 3 (PR3) Ab 02/23/22 02/24/22 02/24/22 22:55 08:44 18:20 WBC RBC Hgb Hct MCH MCHC RDW Lymph % (Auto) Seg Neutrophils % Seg Neuts % (Manual) Lymphocytes % (Manual) Nucleated RBC % Seg Neutrophils # Seg Neutrophils # Man Lymphocytes # (Manual) PT INR APTT ABG pH POC ABG pCO2 ABG pO2 135.9 H ABG HCO3 ABG O2 Saturation ABG Base Excess -2.6 L ABG Hemoglobin 8.8 L ABG Oxyhemoglobin Oxyhemoglobin Carboxyhemoglobin Sodium Potassium Chloride Carbon Dioxide BUN Creatinine Glucose POC Glucose 163 H 123 H Calcium Phosphorus AST Alkaline Phosphatase Total Creatine Kinase Troponin T Serum Total Protein Albumin [id number] PEP Interpretation LDL Cholesterol Direct HDL Cholesterol TSH Urine WBC (Auto) Urine Creatinine Urine Total Protein Salicylates Acetaminophen Proteinase 3 (PR3) Ab 02/24/22 02/25/22 02/25/22 22:54 04:30 04:32 WBC 17.4 H RBC 2.62 L Hgb 7.2 L Hct 22.4 L MCH 27 L MCHC RDW 19.8 H Lymph % (Auto) 7.8 L Seg Neutrophils % 88.6 H Seg Neuts % (Manual) Lymphocytes % (Manual) Nucleated RBC % Seg Neutrophils # 15.4 H Seg Neutrophils # Man Lymphocytes # (Manual) PT INR APTT ABG pH POC ABG pCO2 ABG pO2 60.7 L ABG HCO3 ABG O2 Saturation 93.9 L ABG Base Excess ABG Hemoglobin 6.8 L ABG Oxyhemoglobin Oxyhemoglobin 91.7 L Carboxyhemoglobin Sodium Potassium Chloride Carbon Dioxide BUN Creatinine Glucose POC Glucose 121 H Calcium Phosphorus AST Alkaline Phosphatase Total Creatine Kinase Troponin T Serum Total Protein Albumin Skenq-7-Iprthsaxy PEP Interpretation LDL Cholesterol Direct HDL Cholesterol TSH Urine WBC (Auto) Urine Creatinine Urine Total Protein Salicylates Acetaminophen Proteinase 3 (PR3) Ab 02/25/22 05:00 WBC RBC Hgb Hct MCH MCHC RDW Lymph % (Auto) Seg Neutrophils % Seg Neuts % (Manual) Lymphocytes % (Manual) Nucleated RBC % Seg Neutrophils # Seg Neutrophils # Man Lymphocytes # (Manual) PT INR APTT ABG pH POC ABG pCO2 ABG pO2 ABG HCO3 ABG O2 Saturation ABG Base Excess ABG Hemoglobin ABG Oxyhemoglobin Oxyhemoglobin Carboxyhemoglobin Sodium Potassium Chloride Carbon Dioxide BUN 74 H Creatinine 3.7 H Glucose 142 H POC Glucose Calcium 7.5 L D Phosphorus AST Alkaline Phosphatase Total Creatine Kinase Troponin T Serum Total Protein Albumin Usetq-0-Hgzrtpexh PEP Interpretation LDL Cholesterol Direct HDL Cholesterol TSH Urine WBC (Auto) Urine Creatinine Urine Total Protein Salicylates Acetaminophen Proteinase 3 (PR3) Ab
--- NOTE | 2022-02-25 10:40 | Progress Note ---
Assessment and Plan This is a 76-year-old male, unknown to our practice, but does follow with Dr. 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 fib, CKD stage III, who was brought to [facility] emergency room in severe respiratory distress and altered mental status 02/18/22. S/p cardiac arrest. Assessment S/p Cardiopulmonary arrest - unclear etiology. 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 fib (on Eliquis) Hyperlipidemia History of CABG x2 History venous insufficiency Sleep apnea Cardiographics EKG-atrial fibrillation rate 71, nonspecific ST- t wave changes. No acute ischemia Chest x-ray 02/17/22-bilateral lung opacities differential considerations to include sequelae of infection and/or possibly asymmetric pulmonary edema. Small dependent left pleural effusion Echocardiogram-02/18/2022: LVEF 40 to 45%. RV SF mildly decreased. RV SF mildly reduced. Right ventricle is dilated. Left atrium moderately dilated. Right atrium dilated. Moderate MR. Moderate TR. RVSP 48 mmHg. Recommendations/plan Patient remains on levophed. Patient with worsening leukocytosis. - Pulm/critical care following S/p HD yeserday. Fluid status optimization per HD/renal. - Nephrology Following Continue Eliquis for A. fib Up-titrate GDMT as tolerated by kidney function and hemodynamic status. Continue aspirin, statin On Metoprolol 5mg IV Q6h. No ALEXEY/ARB in setting of IGGY Per staff, family to make a decision today regarding goals of care, given patient lack of improvement. Prognosis is poor to very guarded. Patient is AND/DNR Patient seen in conjunction with Dr. Paula who agrees with the assessment and management of this patient. - Patient Problems (1) H/O two vessel coronary artery bypass graft Current Visit: Yes Status: Acute (2) Sleep apnea Current Visit: Yes Status: Acute (3) Acute encephalopathy Current Visit: Yes Status: Acute (4) Acute respiratory failure Current Visit: Yes Status: Acute (5) Atrial fibrillation Current Visit: Yes Status: Acute (6) Cardiac arrest Current Visit: Yes Status: Acute (7) Renal insufficiency Current Visit: Yes Status: Acute (8) Malignant neoplasm Current Visit: Yes Status: Acute Subjective Date of service: 02/25/22 Principal diagnosis: ARF Interval history: Patient seen and examined today in the intensive care unit. Patient is back on pressor support and remains intubated. Again, febrile. He remains critically ill with extremely guarded prognosis. Telemetry: Afib 90's occ PVCs Intake & Output 02/24/22 02/25/22 02/25/22 23:59 07:59 15:59 Intake Total 571.707 992.887 405.375 Output Total 0 75 Balance 571.707 917.887 405.375 Objective Vital Signs Temp Pulse Pulse Pulse Resp Resp BP 02/25/22 10:15 95 H 35 H 110/61 02/25/22 10:00 102 H 35 H 113/52 02/25/22 09:45 98 H 36 H 112/50 02/25/22 09:30 90 33 H 95/62 02/25/22 09:15 100 H 34 H 106/42 02/25/22 09:01 85 21 95/39 02/25/22 08:45 90 28 H 102/54 02/25/22 08:40 98 H 29 H 02/25/22 08:35 96 H 102/54 02/25/22 08:30 93 H 29 H 125/50 02/25/22 08:15 98 H 30 H 104/47 02/25/22 08:00 102 F H 91 H 28 H 107/50 02/25/22 07:45 92 H 29 H 102/31 02/25/22 07:30 94 H 28 H 123/67 02/25/22 07:15 87 29 H 123/51 02/25/22 07:01 93 H 29 H 132/99 02/25/22 06:45 93 H 29 H 129/51 02/25/22 06:30 88 30 H 112/55 02/25/22 06:15 86 28 H 113/60 02/25/22 06:01 87 29 H 114/64 02/25/22 05:45 85 29 H 110/47 02/25/22 05:40 101.7 F H 02/25/22 05:30 96 H 30 H 107/58 02/25/22 05:15 92 H 28 H 95/52 02/25/22 05:00 98 H 29 H 117/51 02/25/22 04:45 97 H 29 H 106/46 02/25/22 04:30 96 H 29 H 108/48 02/25/22 04:15 92 H 29 H 95/50 02/25/22 04:09 101.5 F H 02/25/22 04:07 87 02/25/22 04:00 99 H 103 H 29 H 116/61 02/25/22 03:45 101 H 29 H 114/61 02/25/22 03:30 101 H 29 H 115/57 02/25/22 03:15 94 H 29 H 124/60 02/25/22 03:00 101.3 F H 105 H 29 H 118/61 02/25/22 02:45 104 H 30 H 126/60 02/25/22 02:30 96 H 30 H 113/62 02/25/22 02:15 103 H 29 H 125/62 02/25/22 02:01 108 H 30 H 135/52 02/25/22 01:58 102 F H 02/25/22 01:45 98 H 31 H 128/70 02/25/22 01:30 99 H 28 H 138/60 02/25/22 01:15 97 H 29 H 126/71 02/25/22 01:00 100 H 29 H 128/70 02/25/22 00:51 103 H 02/25/22 00:50 101.8 F H 02/25/22 00:45 97 H 30 H 124/61 02/25/22 00:31 93 H 30 H 125/51 02/25/22 00:15 101 H 29 H 121/67 02/25/22 00:00 93 H 103 H 30 H 118/65 02/24/22 23:45 94 H 28 H 134/69 02/24/22 23:30 100 H 28 H 126/63 02/24/22 23:27 90 31 H 110/67 02/24/22 23:15 93 H 31 H 117/59 02/24/22 23:11 102 H 118/62 02/24/22 23:01 99 H 29 H 116/57 02/24/22 22:52 101.2 F H 02/24/22 22:45 99 H 29 H 131/67 02/24/22 22:30 104 H 34 H 145/58 02/24/22 22:15 102 H 35 H 145/67 02/24/22 22:01 100 H 32 H 130/65 02/24/22 21:45 108 H 29 H 132/69 02/24/22 21:44 101.3 F H 02/24/22 21:31 101 H 25 H 125/61 02/24/22 21:15 96 H 28 H 117/63 02/24/22 21:00 96 H 31 H 119/62 02/24/22 20:45 109 H 25 H 110/63 02/24/22 20:30 94 H 28 H 103/46 02/24/22 20:15 102 H 28 H 101/50 02/24/22 20:04 99.9 F H 02/24/22 20:01 96 H 28 H 135/66 02/24/22 20:00 99.9 F H 86 102 H 27 H 28 H 135/66 02/24/22 19:56 100.4 F H 02/24/22 19:50 99 H 93/42 02/24/22 19:45 97 H 25 H 93/42 02/24/22 19:30 101 H 28 H 90/48 02/24/22 19:15 96 H 28 H 92/50 02/24/22 19:03 102 H 29 H 02/24/22 19:02 102 H 02/24/22 19:00 118 H 29 H 111/56 02/24/22 18:57 101.1 F H 02/24/22 18:45 111 H 31 H 100/53 02/24/22 18:31 111 H 29 H 92/44 02/24/22 18:30 103 H 92/44 02/24/22 18:15 107 H 34 H 109/58 02/24/22 18:00 96 H 31 H 96/56 02/24/22 17:45 108 H 32 H 105/43 02/24/22 17:30 103 H 22 117/48 02/24/22 17:29 102 H 117/48 02/24/22 17:15 100 H 28 H 114/57 02/24/22 17:00 96 H 28 H 106/61 02/24/22 16:50 83 107/57 02/24/22 16:45 104 F H 100 H 27 H 105/60 04/22 16:30 96 H 28 H 130/58 02/24/22 16:15 105 H 29 H 121/58 02/24/22 16:00 102.8 F H 106 H 106 H 21 114/60 02/24/22 15:45 93 H 25 H 117/57 02/24/22 15:30 95 H 29 H 121/55 02/24/22 15:15 101 H 29 H 114/52 02/24/22 15:06 95 H 29 H 02/24/22 15:00 92 H 18 118/54 02/24/22 14:57 95 H 118/54 02/24/22 14:45 95 H 22 118/57 02/24/22 14:30 91 H 36 H 137/59 02/24/22 14:15 100 H 11 L 118/59 02/24/22 14:00 98 H 39 H 118/59 02/24/22 13:45 102 H 38 H 118/65 02/24/22 13:30 82 40 H 122/57 02/24/22 13:15 92 H 38 H 118/64 02/24/22 13:00 85 39 H 121/56 02/24/22 12:46 91 H 114/53 02/24/22 12:45 85 34 H 114/53 02/24/22 12:30 98 H 35 H 121/52 02/24/22 12:15 91 H 34 H 110/60 02/24/22 12:00 102.9 F H 89 88 29 H 117/57 02/24/22 11:45 89 33 H 102/59 02/24/22 11:30 87 33 H 111/57 02/24/22 11:15 95 H 27 H 115/59 02/24/22 11:05 88 115/70 02/24/22 11:00 92 H 30 H 115/70 02/24/22 10:45 89 33 H 107/67 Pulse Ox Pulse Ox 02/25/22 10:15 93 02/25/22 10:00 94 02/25/22 09:45 95 02/25/22 09:30 97 02/25/22 09:15 98 02/25/22 09:01 100 02/25/22 08:45 97 02/25/22 08:40 02/25/22 08:35 98 02/25/22 08:30 02/25/22 08:15 92 02/25/22 08:00 84 02/25/22 07:45 95 02/25/22 07:30 91 02/25/22 07:15 95 02/25/22 07:01 97 02/25/22 06:45 90 02/25/22 06:30 94 02/25/22 06:15 91 02/25/22 06:01 84 02/25/22 05:45 96 02/25/22 05:40 02/25/22 05:30 97 02/25/22 05:15 99 02/25/22 05:00 02/25/22 04:45 02/25/22 04:30 98 02/25/22 04:15 98 02/25/22 04:09 02/25/22 04:07 02/25/22 04:00 99 02/25/22 03:45 99 02/25/22 03:30 97 02/25/22 03:15 100 02/25/22 03:00 99 02/25/22 02:45 99 02/25/22 02:30 97 02/25/22 02:15 98 02/25/22 02:01 98 02/25/22 01:58 02/25/22 01:45 98 02/25/22 01:30 98 02/25/22 01:15 99 02/25/22 01:00 98 02/25/22 00:51 02/25/22 00:50 02/25/22 00:45 98 02/25/22 00:31 98 02/25/22 00:15 99 02/25/22 00:00 99 02/24/22 23:45 98 02/24/22 23:30 02/24/22 23:27 98 02/24/22 23:15 98 02/24/22 23:11 97 02/24/22 23:01 99 02/24/22 22:52 02/24/22 22:45 02/24/22 22:30 02/24/22 22:15 100 02/24/22 22:01 99 02/24/22 21:45 99 02/24/22 21:44 02/24/22 21:31 98 02/24/22 21:15 95 02/24/22 21:00 98 02/24/22 20:45 98 02/24/22 20:30 98 02/24/22 20:15 99 02/24/22 20:04 02/24/22 20:01 97 02/24/22 20:00 96 99 02/24/22 19:56 02/24/22 19:50 02/24/22 19:45 99 02/24/22 19:30 98 02/24/22 19:15 100 02/24/22 19:03 99 02/24/22 19:02 02/24/22 19:00 98 02/24/22 18:57 02/24/22 18:45 97 02/24/22 18:31 98 02/24/22 18:30 02/24/22 18:15 97 02/24/22 18:00 98 02/24/22 17:45 98 02/24/22 17:30 94 02/24/22 17:29 96 02/24/22 17:15 93 02/24/22 17:00 95 02/24/22 16:50 02/24/22 16:45 94 94 02/24/22 16:30 94 02/24/22 16:15 94 02/24/22 16:00 95 02/24/22 15:45 95 02/24/22 15:30 98 02/24/22 15:15 96 02/24/22 15:06 02/24/22 15:00 93 02/24/22 14:57 96 02/24/22 14:45 90 02/24/22 14:30 88 02/24/22 14:15 93 02/24/22 14:00 95 02/24/22 13:45 96 02/24/22 13:30 96 02/24/22 13:15 97 02/24/22 13:00 96 02/24/22 12:46 02/24/22 12:45 96 02/24/22 12:30 97 02/24/22 12:15 96 02/24/22 12:00 95 02/24/22 11:45 96 02/24/22 11:30 96 02/24/22 11:15 100 02/24/22 11:05 98 02/24/22 11:00 99 02/24/22 10:45 99 - Physical Examination General: Other (Intubated) HEENT: Positive: Normocephaly, Mucus Membranes Dry Neck: Positive: trachea midline Cardiac: Positive: irregularly irregular, S1/S2 Lungs: Positive: Rhonchi, Ventilated Respirations Neuro: Positive: Other (unable to assess neuro status today; on precedex) Abdomen: Positive: Active Bowel Sounds Skin: Negative: Rash Extremities: Present: +3 Edema (BUE, BLE), Other (dusky fingertips bilaterally ) - Labs and Meds CBC 02/25/22 Range/Units 04:30 WBC 17.4 H (4.5-11.0) K/mm3 RBC 2.62 L (3.65-5.03) M/mm3 Hgb 7.2 L (11.8-15.2) gm/dl Hct 22.4 L (35.5-45.6) % Plt Count 166 (140-440) K/mm3 Lymph # (Auto) 1.4 (1.2-5.4) K/mm3 [place] # (Auto) 0.5 (0.0-0.8) K/mm3 Eos # (Auto) 0.0 (0.0-0.4) K/mm3 Baso # (Auto) 0.1 (0.0-0.1) K/mm3 Comprehensive Metabolic Panel 02/20/22 02/25/22 Range/Units 04:30 05:00 Sodium 138 (137-145) mmol/L Potassium 4.7 (3.6-5.0) mmol/L Chloride 101.4 (98-107) mmol/L Carbon Dioxide 23 (22-30) mmol/L BUN 74 H (9-20) mg/dL Creatinine 3.7 H (0.8-1.3) mg/dL Glucose 142 H (75-100) mg/dL Calcium 7.5 L D (8.4-10.2) mg/dL Albumin 1.6 L (3.8-4.8) g/dL - Imaging and Cardiology EKG: image reviewed Echo: report reviewed (Echocardiogram 02/18/2022: LVEF 40 to 45%. RV SF mildly decreased. RV SF mildly reduced. Right ventricle is dilated. Left atrium moderately dilated. Right atrium dilated. Moderate MR. Moderate TR. RVSP 48 mmHg.) - Telemetry EKG Rhythm: Atrial Fibrillation - EKG Ventricular dysrhythmias: ventricular premature com
--- NOTE | 2022-02-25 15:56 | Progress Note ---
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 fib, CKD stage III admitted with acute hypoxic respiratory failure s/p cardiac arrest. Hospital course to date: 02/18: Patient was sedated on fentanyl on arrival to ICU which was weaned off, patient was able to follow simple commands. This morning patient was on Levophed and vasopressin and bicarbonate drip. Phenyl epinephrine was added later this afternoon. This evening patient received an roya and was persistently hypotensive. He received 1 L bolus this morning however given persistent hypotension with decreased urine output patient was given additional 1 L of LR. COVID-19 PCR negative. Patient's CODE STATUS changed to AND. 02/19: Patient has been weaned off of the norepinephrine and remains on vasopressin and Levophed. Renal function worsened. Bicarbonate drip discontinued and nephrology discontinued IVF. Hemodialysis discussed with nephrology. Dr. Fry also had a discussion with family, prognosis of care and goals of care. Patient family will let us know about dialysis. Corrected Ca 7.8 02/20: Family would like to proceed with hemodialysis however renal will need to assess for 1 more day. Still remains on vasopressors however they are being weaned. Patient is edematous. Weaning FiO2 as tolerated. Possible PSV in the a.m. And will continue cefepime for 7 days. Discontinue vancomycin as MRSA is negative 02/21: Eliquis on hold for pending procedure, metoprolol 5 mg IV every 6 started due to brief period of V. tach. Will hold off extubation and Precedex ordered for tachypnea. Cefepime changed to Ancef for MSSA and will stop stress dose steroids. Awaiting family decision regarding hemodialysis. 02/22: Reviewed patient remains sedated on Precedex, no further episodes of arrhythmia noted, increasing FiO2 repeat ABG, patient is febrile today 202.6 and tracheal aspirate is growing strep various but he is on antibiotics. We will send blood cultures due to spike. Received 1 g of calcium overnight. Renal function worsening. Will change CVL over wire or place Vas-Cath today. 02/23: Patient still is spiking fevers, antibiotics changed to cefepime. Patient received dialysis yesterday with removal of 2 L. This morning he is on Levophed. Left radial pulse not palpable or dopplerable however pulsating vessels seen with ultrasound. Patient still remains uremic. Bilateral fingers/toes dusky however cap refill less than 3 seconds and extremities are cold. RN instructed to place warm compresses on extremities. 02/24: Patient remains unresponsive on precedex gtt. Right pupil is round and reactive with +gag/cough reflexes. Plan to wean precedex off as tolerated to better assess mental status. Still with persistent fevers despite IV Abx with persistent leukocytosis, repeat blood cultures with NGTD. Will check BLE doppler to r/o DVT, continue IV abx for now. Patient remains on Levophed drip this . Bilateral hand blisters and dusky digits noted this am, most likely due to high vasoppressors. Radial pulses appreciated with a doppler with good capillary refills, continue to wean pressor for MAP above 65. Tolerated HD overnight, 1L removed. Continue HD per Nephro. 02/25: Off precedex gtt this am, remains unresponsive. Still with persistent fevers, bilateral upper and lower extremities doppler with no evidence of DVT, probably neuro fevers. Patient family at the bedside, had thorough discursion with the attending in regards to patient's condition and poor prognosis. All questions and concerns were addressed at this time. Patient's family opted for inpatient hospice, case management to arrange. Neuro: Acute metabolic encephalopathy -IV push fentanyl prn -Avoid delirium -Reorientation as needed -Maintain sleep-wake cycle -As needed analgesia -CT head with no acute intracranial abnormality -Plan to wean off precedex gtt to better assess mentation Cardiac: S/p cardiac arrest, h/o HTN, chronic afib, CABG x2, venous insufficiency -Cardiology consulted, appreciate recommendations -Blood pressure monitoring per protocol -s/p Vasopressor support with vasopressin and Tripp-Synephrine -currently on levophed, wean at tolerated -MAP goal greater than 65 -low dose BB IV for arrthymia -Echocardiogram shows EF 40% -Cardiology 09/2019 echocardiogram with EF of 55 to 60% Respiratory: Acute hypoxic respiratory failure -Intubated in the emergency department with 8.00 ETT at 24 the lips on 02/17 -CCM consulted, appreciate recommendations -Am vent setting: PRVC-45%,8,28,500 -A.m. ABG and CXR noted -VAP bundle -SPO2 monitoring GI: Protein calorie malnutrition -PPI -Ntr consult for TF -BR: senakot (on hold d/t multiple stools) : Acute kidney injury secondary to acute tubular necrosis, rhabdomyolysis, metabolic acidosis, uremia, h/o CKD stage III per family -Nephrology consulted, appreciate recommendations -Family would like to proceed with hemodialysis -Vascath placed 02/22 -HD 02/22 with removal of 2L -HD per Nephro -Strict intake and output -Renally dose medications -Avoid nephrotoxic medications -Daily weights -FeNa 0.35% indicating prerenal cause for renal failure -Renal ultrasound shows complex cyst in the mid to lower left kidney, additional bilateral renal cysts, hyperechogenic appearance of kidneys which may reflect sequelae of medical renal disease -Trend BMP ID: Possible postobstructive pneumonia, Sepsis (POA), MSSA PNA -Antibiotic therapy with changed to ancef (02/21) -Changed back to cefepime d/t fever, loose stools, increase in WBC on 02/23 -MRSA PCR negative -s/p Stress dose steroids -COVID-19 PCR negative -f/u blood culture -Monitor WBC and temperature curve Endo: NAD -Avoid hypoglycemia -SSI -Accu-Cheks q6 hr Heme: NAD -Trend CBC -Transfuse hemoglobin less than 7 -Monitor for signs of bleeding -heparin subq -restart 2.5 eliqius BID for afib -SCDs to BLE while in bed Oncology: Stage IV adenocarcinoma of the lung with mets to spine -Per family patient recently suffered a stress fracture to T7-T8 and was cu rrently in rehab to get stronger to withstand palliative treatment -Continue supportive care The high probability of a clinically significant, sudden or life threatening deterioration of the [multi] system(s) required my full and direct attention, intervention and personal management. The aggregate critical care time was [60] minutes. This time is in addition to time spent performing reported procedures but includes the following: [x] Data Review and interpretation [x] Patient assessment and monitoring of vital signs [x] Documentation [x] Medication orders and management Disposition Plan: ICU Total Time Spent with Patient (Minutes): 60 History Interval history: Patient seen and examined at the bedside. Remains unresponsive, precedex gtt has been off since this morning. Remains with persistent fevers, off levophed this am, VSS. Hospitalist Physical - Constitutional Vitals: Temp Pulse Resp BP Pulse Ox 102 F H 111 H 23 93/55 95 02/25/22 08:00 02/25/22 15:30 02/25/22 15:30 02/25/22 15:30 02/25/22 15:30 General appearance: Present: obese, other (Intubated and unresponsive) - EENT Eyes: Present: PERRL - Respiratory Respiratory effort: normal Respiratory: bilateral: rhonchi - Cardiovascular Rhythm: irregularly irregular Heart Sounds: Present: S1 & S2 - Extremities Extremities: no ischemia, pulses intact, pulses symmetrical Extremity abnormal: edema - Peripheral Assessment Generalized Edema Type: Pitting Edema Degree: 3+ Capillary Refill: < 3 seconds Skin Temperature: Warm Peripheral Pulses: within normal limits - Abdominal General gastrointestinal: soft, non-distended, hypoactive bowel sounds - Integumentary Integumentary: Present: warm, dry - Psychiatric Psychiatric: other (Intubated and unresponsive) - Neurologic Neurologic: other (Intubated and unresponsive) - Allied Health Allied health notes reviewed: nursing HEART Score - HEART Score Troponin: Troponin T 0.076 ng/mL (0.00-0.029) H 02/18/22 09:21 Results - Labs CBC & Chem 7: 02/25/22 04:30 02/25/22 05:00 Labs: Laboratory Last Values WBC 17.4 K/mm3 (4.5-11.0) H 02/25/22 04:30 RBC 2.62 M/mm3 (3.65-5.03) L 02/25/22 04:30 Hgb 7.2 gm/dl (11.8-15.2) L 02/25/22 04:30 Hct 22.4 % (35.5-45.6) L 02/25/22 04:30 MCV 86 fl (84-94) 02/25/22 04:30 MCH 27 pg (28-32) L 02/25/22 04:30 MCHC 32 % (32-34) 02/25/22 04:30 RDW 19.8 % (13.2-15.2) H 02/25/22 04:30 Plt Count 166 K/mm3 (140-440) 02/25/22 04:30 Lymph % (Auto) 7.8 % (13.4-35.0) L 02/25/22 04:30 [place] % (Auto) 3.1 % (0.0-7.3) 02/25/22 04:30 Eos % (Auto) 0.1 % (0.0-4.3) 02/25/22 04:30 Baso % (Auto) 0.4 % (0.0-1.8) 02/25/22 04:30 Lymph # (Auto) 1.4 K/mm3 (1.2-5.4) 02/25/22 04:30 [place] # (Auto) 0.5 K/mm3 (0.0-0.8) 02/25/22 04:30 Eos # (Auto) 0.0 K/mm3 (0.0-0.4) 02/25/22 04:30 Baso # (Auto) 0.1 K/mm3 (0.0-0.1) 02/25/22 04:30 Add Manual Diff Complete 02/23/22 07:00 Total Counted 100 02/23/22 07:00 Seg Neutrophils % 88.6 % (40.0-70.0) H 02/25/22 04:30 Seg Neuts % (Manual) 90.0 % (40.0-70.0) H 02/23/22 07:00 Band Neutrophils % 4.0 % 02/23/22 07:00 Lymphocytes % (Manual) 5.0 % (13.4-35.0) L 02/23/22 07:00 Reactive Lymphs % (Man) 0 % 02/23/22 07:00 Monocytes % (Manual) 1.0 % (0.0-7.3) 02/23/22 07:00 Eosinophils % (Manual) 0 % (0.0-4.3) 02/23/22 07:00 Basophils % (Manual) 0 % (0.0-1.8) 02/23/22 07:00 Metamyelocytes % 0 % 02/23/22 07:00 Myelocytes % 0 % 02/23/22 07:00 Promyelocytes % 0 % 02/23/22 07:00 Blast Cells % 0 % 02/23/22 07:00 Nucleated RBC % Not Reportable 02/23/22 07:00 Seg Neutrophils # 15.4 K/mm3 (1.8-7.7) H 02/25/22 04:30 Seg Neutrophils # Man 13.8 K/mm3 (1.8-7.7) H 02/23/22 07:00 Band Neutrophils # 0.6 K/mm3 02/23/22 07:00 Lymphocytes # (Manual) 0.8 K/mm3 (1.2-5.4) L 02/23/22 07:00 Abs React Lymphs (Man) 0.0 K/mm3 02/23/22 07:00 Monocytes # (Manual) 0.2 K/mm3 (0.0-0.8) 02/23/22 07:00 Eosinophils # (Manual) 0.0 K/mm3 (0.0-0.4) 02/23/22 07:00 Basophils # (Manual) 0.0 K/mm3 (0.0-0.1) 02/23/22 07:00 Metamyelocytes # 0.0 K/mm3 02/23/22 07:00 Myelocytes # 0.0 K/mm3 02/23/22 07:00 Promyelocytes # 0.0 K/mm3 02/23/22 07:00 Blast Cells # 0.0 K/mm3 02/23/22 07:00 WBC Morphology Not Reportable 02/23/22 07:00 Hypersegmented Neuts Not Reportable 02/23/22 07:00 Hyposegmented Neuts Not Reportable 02/23/22 07:00 Hypogranular Neuts Not Reportable 02/23/22 07:00 Smudge Cells 1+ 02/23/22 07:00 Toxic Granulation Not Reportable 02/23/22 07:00 Toxic Vacuolation Not Reportable 02/23/22 07:00 Dohle Bodies Not Reportable 02/23/22 07:00 Pelger-Huet Anomaly Not Reportable 02/23/22 07:00 Jensen Rods Not Reportable 02/23/22 07:00 Platelet Estimate Consistent w auto 02/23/22 07:00 Clumped Platelets Not Reportable 02/23/22 07:00 Plt Clumps, EDTA Not Reportable 02/23/22 07:00 Large Platelets Few 02/23/22 07:00 Giant Platelets Not Reportable 02/23/22 07:00 Platelet Satelliting Not Reportable 02/23/22 07:00 Plt Morphology Comment Not Reportable 02/23/22 07:00 RBC Morphology Not Reportable 02/23/22 07:00 Dimorphic RBCs Not Reportable 02/23/22 07:00 Polychromasia Few 02/23/22 07:00 Hypochromasia Few 02/23/22 07:00 Poikilocytosis Not Reportable 02/23/22 07:00 Anisocytosis 1+ 02/23/22 07:00 Microcytosis Not Reportable 02/23/22 07:00 Macrocytosis Not Reportable 02/23/22 07:00 Spherocytes Not Reportable 02/23/22 07:00 Pappenheimer Bodies Not Reportable 02/23/22 07:00 Sickle Cells Not Reportable 02/23/22 07:00 Target Cells Not Reportable 02/23/22 07:00 Tear Drop Cells Not Reportable 02/23/22 07:00 Ovalocytes Not Reportable 02/23/22 07:00 Helmet Cells Not Reportable 02/23/22 07:00 [place] Bodies Not Reportable 02/23/22 07:00 [place] Rings Not Reportable 02/23/22 07:00 Alysha Cells Not Reportable 02/23/22 07:00 Bite Cells Not Reportable 02/23/22 07:00 Crenated Cell Not Reportable 02/23/22 07:00 Elliptocytes Not Reportable 02/23/22 07:00 Acanthocytes (Spur) Not Reportable 02/23/22 07:00 Rouleaux Not Reportable 02/23/22 07:00 Hemoglobin C Crystals Not Reportable 02/23/22 07:00 Schistocytes Not Reportable 02/23/22 07:00 Malaria parasites Not Reportable 02/23/22 07:00 [place] Bodies Not Reportable 02/23/22 07:00 Hem Pathologist Commnt No 02/23/22 07:00 PT 19.8 Sec. (12.2-14.9) H 02/22/22 16:22 INR 1.49 (0.87-1.13) H 02/22/22 16:22 APTT 34.3 Sec. (24.2-36.6) 02/22/22 16:22 ABG pH 7.384 pH Units (7.350-7.450) 02/25/22 04:32 POC ABG pCO2 60.4 mmHg (32.0-48.0) H 02/18/22 00:20 ABG pCO2 39.7 mm Hg 02/25/22 04:32 POC ABG pO2 93.0 mmHg (83-108) 02/18/22 00:20 ABG pO2 60.7 mm Hg (80.0-90.0) L 02/25/22 04:32 POC ABG HCO3 20.5 02/18/22 00:20 ABG HCO3 23.2 mmol/L (20.0-26.0) 02/25/22 04:32 ABG O2 Saturation 93.9 % (95.0-99.0) L 02/25/22 04:32 ABG O2 Content 8.9 (0.0-44) 02/25/22 04:32 POC ABG Base Excess -8.2 02/18/22 00:20 ABG Base Excess -1.7 mmol/L (-2.0-3.0) 02/25/22 04:32 ABG Hemoglobin 6.8 gm/dl (14.0-18.0) L 02/25/22 04:32 ABG Oxyhemoglobin 93.7 (94-98) L 02/18/22 00:20 ABG Carboxyhemoglobin 1.8 % (0.0-5.0) 02/25/22 04:32 ABG Methemoglobin 0.5 % (0.0-1.5) 02/25/22 04:32 Oxyhemoglobin 91.7 % (95.0-99.0) L 02/25/22 04:32 Carboxyhemoglobin 2.1 (0.5-1.5) H 02/18/22 00:20 FiO2 35 % 02/25/22 04:32 FiO2 % 100 02/18/22 00:20 Sodium 138 mmol/L (137-145) 02/25/22 05:00 Potassium 4.7 mmol/L (3.6-5.0) 02/25/22 05:00 Chloride 101.4 mmol/L (98-107) 02/25/22 05:00 Carbon Dioxide 23 mmol/L (22-30) 02/25/22 05:00 Anion Gap 18 mmol/L 02/25/22 05:00 BUN 74 mg/dL (9-20) H 02/25/22 05:00 Creatinine 3.7 mg/dL (0.8-1.3) H 02/25/22 05:00 Estimated GFR 16 ml/min 02/25/22 05:00 BUN/Creatinine Ratio 20 % 02/25/22 05:00 Glucose 142 mg/dL (75-100) H 02/25/22 05:00 POC Glucose 138 mg/dL (70-105) H 02/25/22 12:33 Lactic Acid 0.90 mmol/L (0.7-2.0) 02/18/22 02:18 Calcium 7.5 mg/dL (8.4-10.2) L D 02/25/22 05:00 Phosphorus 4.60 mg/dL (2.5-4.5) H 02/23/22 07:00 Magnesium 1.80 mg/dL (1.7-2.3) 02/25/22 05:17 Total Bilirubin 0.80 mg/dL (0.1-1.2) 02/18/22 00:21 AST 56 units/L (5-40) H 02/18/22 00:21 ALT 45 units/L (7-56) 02/18/22 00:21 Alkaline Phosphatase 268 units/L (35-129) H 02/18/22 00:21 Ammonia 38.0 umol/L (25-60) 02/18/22 00:21 Total Creatine Kinase 233 units/L (55-170) H 02/18/22 00:21 Troponin T 0.076 ng/mL (0.00-0.029) H 02/18/22 09:21 Serum Total Protein 5.2 g/dL (6.1-8.1) L 02/20/22 04:30 Total Protein 6.5 g/dL (6.3-8.2) 02/18/22 00:21 Albumin 2.1 g/dL (3.9-5) L 02/23/22 09:42 Albumin/Globulin Ratio 0.5 % 02/18/22 00:21 Xcgsj-9-Vhagcsbiu 0.8 g/dL (0.2-0.3) H 02/20/22 04:30 Tzbfj-3-Taygeqteh 0.8 g/dL (0.5-0.9) 02/20/22 04:30 Beta Globulins 0.5 g/dL (0.2-0.5) 02/20/22 04:30 Gamma Globulins 1.1 g/dL (0.8-1.7) 02/20/22 04:30 Abnorm Protein Band 1 see below 02/20/22 04:30 PEP Interpretation see below H 02/20/22 04:30 Triglycerides 107 mg/dL (2-149) 02/18/22 00:21 Cholesterol 71 mg/dL (50-199) 02/18/22 00:21 LDL Cholesterol Direct 30 mg/dL (50-130) L 02/18/22 00:21 HDL Cholesterol 19 mg/dL (40-59) L 02/18/22 00:21 Cholesterol/HDL Ratio 3.73 % 02/18/22 00:21 Procalcitonin 2.73 ng/mL (<0.15) 02/18/22 12:48 TSH 5.100 mlU/mL (0.270-4.200) H 02/18/22 00:21 Urine Color Heidi (Yellow) 02/22/22 17:30 Urine Turbidity Cloudy (Clear) 02/22/22 17:30 Urine pH 5.0 (5.0-7.0) 02/22/22 17:30 Ur Specific [place] 1.025 (1.003-1.030) 02/22/22 17:30 Urine Protein >500 mg/dL (Negative) 02/22/22 17:30 Urine Glucose (UA) 50 mg/dL (Negative) 02/22/22 17:30 Urine Ketones Tr mg/dL (Negative) 02/22/22 17:30 Urine Blood Lg (Negative) 02/22/22 17:30 Urine Nitrite Neg (Negative) 02/22/22 17:30 Urine Bilirubin Neg (Negative) 02/22/22 17:30 Urine Urobilinogen < 2.0 mg/dL (<2.0) 02/22/22 17:30 Ur Leukocyte Esterase Tr (Negative) 02/22/22 17:30 Urine WBC (Auto) 57.0 /HPF (0.0-6.0) H 02/22/22 17:30 Urine RBC (Auto) 164.0 /HPF (0.0-6.0) 02/22/22 17:30 U Epithel Cells (Auto) 5.0 /HPF (0-13.0) 02/22/22 17:30 Urine Bacteria (Auto) 1+ /HPF (Negative) 02/22/22 17:30 Granular Casts 11 /LPF 02/22/22 17:30 Urine Mucus Few /HPF 02/22/22 17:30 Urine Yeast (Budding) 1+ /HPF 02/18/22 00:54 Urine Creatinine 180.0 mg/dL (0.1-20.0) H 02/18/22 23:44 Urine Creatinine 180.9 mg/dL (0.1-20.0) H 02/18/22 23:44 Protein/Creatinin Ratio 2.53 02/18/22 23:44 Urine Sodium 30 mmol/L 02/18/22 23:44 Urine Total Protein 457 mg/dL (5-11.8) H 02/18/22 23:44 Nasal Screen MRSA (PCR) Negative (Negative) 02/18/22 11:05 Random Vancomycin 10.6 ug/mL (0-40.0) 02/20/22 07:51 Salicylates < 0.3 mg/dL (2.8-20.0) L 02/18/22 00:21 Acetaminophen 5.0 ug/mL (10.0-30.0) L 02/18/22 00:21 Plasma/Serum Alcohol < 0.01 % (0-0.07) 02/18/22 00:21 SYMONE Screen Negative (Negative) 02/20/22 04:30 Proteinase 3 (PR3) Ab 2.3 AI (<1.0) H 02/20/22 04:30 Myeloperoxidase Ab <1.0 AI (<1.0) 02/20/22 04:30 Complement C3 145 mg/dL (82-185) 02/20/22 04:30 Complement C4 39 mg/dL (15-53) 02/20/22 04:30 SARS-CoV-2 (PCR) Negative (Negative) 02/18/22 11:33 Hepatitis A IgM Ab Non-reactive (NonReactive) 02/20/22 04:30 Hep Bs Antigen Non-reactive (Negative) 02/20/22 04:30 Hep B Core IgM Ab Non-reactive (NonReactive) 02/20/22 04:30 Hepatitis C Antibody Non-reactive (NonReactive) 02/20/22 04:30 Blood Type A POSITIVE 02/18/22 00:21 Antibody Screen Negative 02/18/22 00:21 Microbiology: Microbiology 02/22/22 17:30 Urine,Clean Catch Urine Culture - Preliminary NO GROWTH AFTER 24 HOURS 02/22/22 17:27 Peripheral/Venous Blood Culture - Preliminary NO GROWTH AFTER 48 HOURS 02/22/22 17:27 Peripheral/Venous Blood Culture - Preliminary NO GROWTH AFTER 48 HOURS Cabezas/IV: Voiding Method Indwelling Catheter Active Medications - Current Medications Current Medications: Generic Name Dose Route Start Last Admin Trade Name Freq PRN Reason Stop Dose Admin Acetaminophen 650 mg 02/18/22 03:18 02/25/22 09:09 Acetaminophen 325 Mg Tab PO 650 mg Q4H PRN Administration Pain MILD(1-3)/Fever >100.5/NICOLE Albuterol 2.5 mg 02/18/22 03:18 Albuterol 2.5 Mg/3 Ml Nebu IH Q3HRT PRN Shortness Of Breath Albuterol/Ipratropium 1 ampul 02/18/22 20:00 02/25/22 14:59 Ipratropium/Albuterol Sulfate 3 Ml Ampul.Neb IH Not Given TIDRT KARAN Apixaban 2.5 mg 02/22/22 22:00 02/25/22 09:01 Apixaban 2.5 Mg Tab FEEDTUBE 2.5 mg Q12HR KARAN Administration Protocol Aspirin 325 mg 02/18/22 10:00 02/25/22 09:01 Aspirin 325 Mg Tab FEEDTUBE 325 mg QDAY KARAN Administration Atorvastatin Calcium 40 mg 02/18/22 22:00 02/24/22 21:22 Atorvastatin 40 Mg Tab PO 40 mg QHS KARAN Administration Famotidine 20 mg 02/21/22 10:00 02/25/22 09:01 Famotidine 20 Mg Tab FEEDTUBE 20 mg DAILY KARAN Administration Hydralazine HCl 10 mg 02/18/22 03:33 Hydralazine 20 Mg/1 Ml Inj IV Q6H PRN SBP >/=160; DBP >/=100 Hydrophilic Ointment 1 applic 02/17/22 23:25 Lip Therapy Vaseline TP Q2HR PRN Dry Lips Dexmedetomidine HCl 200 mcg/ 50 mls @ 6.99 mls/hr 02/21/22 11:00 02/25/22 12:25 Sodium Chloride IV Infused TITRATE KARAN Titration Protocol 0.2 MCG/KG/HR NORepinephrine/NS 8 MG-250 ML 8 mg in 250 mls @ 3.75 mls/hr 02/22/22 15:00 02/25/22 10:29 Norepinephrine/Ns 8 Mg-250 Ml (Double Conc) IV 0 mcg/min TITRATE KARAN 0 mls/hr Titration Protocol 2 MCG/MIN Vasopressin 20 unit/ Sodium 101 mls @ 9.09 mls/hr 02/22/22 16:00 Chloride IV TITR KARAN Protocol 0.03 UNITS/MIN Insulin Human Lispro 0 unit 02/19/22 12:00 02/25/22 12:46 Insulin Lispro 100 Unit/Ml SUB-Q Not Given Q6HR KARAN Protocol Metoprolol Tartrate 5 mg 02/21/22 12:00 02/25/22 12:45 Metoprolol Tartrate 5 Mg/5 Ml Inj IV 5 mg Q6HR KARAN Administration Multi-Ingred Cream/Lotion/Oil/Oint 1 applic 02/17/22 23:25 Mineral Oil/Petrolatum, White Ophth Oint 3.5 Gm OU Q4HR PRN Dry Eye(s) Nitroglycerin 0.4 mg 02/18/22 03:18 Nitroglycerin 0.4 Mg Tab Subl SL Q5M PRN Chest Pain Ondansetron HCl 4 mg 02/18/22 03:18 Ondansetron 4 Mg/2 Ml Inj IV Q8H PRN Nausea And Vomiting Sodium Chloride 10 ml 02/18/22 10:00 02/25/22 09:04 Sodium Chloride 0.9% 10 Ml Flush Syringe IV 10 ml BID KARAN Administration Sodium Chloride 10 ml 02/18/22 03:18 Sodium Chloride 0.9% 10 Ml Flush Syringe IV PRN PRN LINE FLUSH Nutrition/Malnutrition Assess - Dietary Evaluation Nutrition/Malnutrition Findings: Nutrition Notes Start: 02/18/22 11:48 Freq: Status: Active Protocol: Document 02/21/22 14:31 ADITYA (Rec: 02/21/22 15:27 ADTIYA [id number]) Nutrition Notes Initial or Follow up Reassessment Current Diagnosis Hypertension,Respiratory Failure,Hyperlipidemia Other Pertinent Diagnosis s/p cardiac arrest, metastatic lung CA, afib Current Diet TF - Nepro at 50ml/hr Labs/Tests BUN 89 Cr 5.4 BG 164 Ca 5.7 Phos 5.7 Pertinent Medications Solu-Cortef, D5 1/2NS at 5ml/ hr Height 5 ft 11 in Weight 139.8 kg [place] Body Weight (kg) 78.18 BMI 43.0 Weight Status Morbidly Obese Subjective/Other Information Pt tolerating TF at goal rate. Pt no longer on pressor support, but remains on vent support. Pt with worsening renal function and anemia. Possible VasCath placement today; HD to start afterwards. Percent of energy/protein needs met: 83% energy 74% pro Burn Absent Trauma Absent Minimum of two criteria No #1 Nutrition Diagnosis Inadequate oral intake Diagnosis Progress(for reassessment Continues documentation) Is patient on ventilator? Yes Is Patient Ambulatory and/or Out of Bed No [facility] 2597.580 Kcal/Kg value to use for calculation 13 Approximate Energy Requirements Using 1817 kcal/Kg Additional Notes Pro needs >1.2g/kg adjBW: > 131g/day Fluid needs 1-1.5L/day Nutrition Intervention Nutrition Support: Continue Nepro at 50ml/hr with 200ml water flush q4h. Kcal 2,160 Protein (gm) 97 Carbohydrates (gm) 193 Fat (gm) 115 Fluid (mL) 872 Fiber (gm) 15 Goal #1 TF tolerance Goal #2 TF to meet at least 75% energy and pro needs Follow-Up By: 02/28/22 Additional Comments F/U: stable TF, vent status, renal function, wt <PAUL GONZALEZ - Last Filed: 02/26/22 07:26> Assessment and Plan Assessment and plan: I saw and evaluated the patient. I agree with the findings and the plan of care as documented in the Nurse Practitioner's~note, with the following corrections and additions. 35 mins advance care planning Family including spouse at bedside. Extensive discussion had. Opted for hospice although later wanted terminal wean at the hospital Hospitalist Physical - Constitutional Vitals: Temp Pulse Resp BP Pulse Ox 102 F H 67 16 61/34 94 02/25/22 16:00 02/25/22 18:00 02/25/22 18:15 02/25/22 18:15 02/25/22 17:46 HEART Score - HEART Score Troponin: Troponin T 0.076 ng/mL (0.00-0.029) H 02/18/22 09:21 Results - Labs CBC & Chem 7: 02/25/22 04:30 02/25/22 05:00 Labs: Laboratory Last Values WBC 17.4 K/mm3 (4.5-11.0) H 02/25/22 04:30 RBC 2.62 M/mm3 (3.65-5.03) L 02/25/22 04:30 Hgb 7.2 gm/dl (11.8-15.2) L 02/25/22 04:30 Hct 22.4 % (35.5-45.6) L 02/25/22 04:30 MCV 86 fl (84-94) 02/25/22 04:30 MCH 27 pg (28-32) L 02/25/22 04:30 MCHC 32 % (32-34) 02/25/22 04:30 RDW 19.8 % (13.2-15.2) H 02/25/22 04:30 Plt Count 166 K/mm3 (140-440) 02/25/22 04:30 Lymph % (Auto) 7.8 % (13.4-35.0) L 02/25/22 04:30 [place] % (Auto) 3.1 % (0.0-7.3) 02/25/22 04:30 Eos % (Auto) 0.1 % (0.0-4.3) 02/25/22 04:30 Baso % (Auto) 0.4 % (0.0-1.8) 02/25/22 04:30 Lymph # (Auto) 1.4 K/mm3 (1.2-5.4) 02/25/22 04:30 [place] # (Auto) 0.5 K/mm3 (0.0-0.8) 02/25/22 04:30 Eos # (Auto) 0.0 K/mm3 (0.0-0.4) 02/25/22 04:30 Baso # (Auto) 0.1 K/mm3 (0.0-0.1) 02/25/22 04:30 Add Manual Diff Complete 02/23/22 07:00 Total Counted 100 02/23/22 07:00 Seg Neutrophils % 88.6 % (40.0-70.0) H 02/25/22 04:30 Seg Neuts % (Manual) 90.0 % (40.0-70.0) H 02/23/22 07:00 Band Neutrophils % 4.0 % 02/23/22 07:00 Lymphocytes % (Manual) 5.0 % (13.4-35.0) L 02/23/22 07:00 Reactive Lymphs % (Man) 0 % 02/23/22 07:00 Monocytes % (Manual) 1.0 % (0.0-7.3) 02/23/22 07:00 Eosinophils % (Manual) 0 % (0.0-4.3) 02/23/22 07:00 Basophils % (Manual) 0 % (0.0-1.8) 02/23/22 07:00 Metamyelocytes % 0 % 02/23/22 07:00 Myelocytes % 0 % 02/23/22 07:00 Promyelocytes % 0 % 02/23/22 07:00 Blast Cells % 0 % 02/23/22 07:00 Nucleated RBC % Not Reportable 02/23/22 07:00 Seg Neutrophils # 15.4 K/mm3 (1.8-7.7) H 02/25/22 04:30 Seg Neutrophils # Man 13.8 K/mm3 (1.8-7.7) H 02/23/22 07:00 Band Neutrophils # 0.6 K/mm3 02/23/22 07:00 Lymphocytes # (Manual) 0.8 K/mm3 (1.2-5.4) L 02/23/22 07:00 Abs React Lymphs (Man) 0.0 K/mm3 02/23/22 07:00 Monocytes # (Manual) 0.2 K/mm3 (0.0-0.8) 02/23/22 07:00 Eosinophils # (Manual) 0.0 K/mm3 (0.0-0.4) 02/23/22 07:00 Basophils # (Manual) 0.0 K/mm3 (0.0-0.1) 02/23/22 07:00 Metamyelocytes # 0.0 K/mm3 02/23/22 07:00 Myelocytes # 0.0 K/mm3 02/23/22 07:00 Promyelocytes # 0.0 K/mm3 02/23/22 07:00 Blast Cells # 0.0 K/mm3 02/23/22 07:00 WBC Morphology Not Reportable 02/23/22 07:00 Hypersegmented Neuts Not Reportable 02/23/22 07:00 Hyposegmented Neuts Not Reportable 02/23/22 07:00 Hypogranular Neuts Not Reportable 02/23/22 07:00 Smudge Cells 1+ 02/23/22 07:00 Toxic Granulation Not Reportable 02/23/22 07:00 Toxic Vacuolation Not Reportable 02/23/22 07:00 Dohle Bodies Not Reportable 02/23/22 07:00 Pelger-Huet Anomaly Not Reportable 02/23/22 07:00 Jensen Rods Not Reportable 02/23/22 07:00 Platelet Estimate Consistent w auto 02/23/22 07:00 Clumped Platelets Not Reportable 02/23/22 07:00 Plt Clumps, EDTA Not Reportable 02/23/22 07:00 Large Platelets Few 02/23/22 07:00 Giant Platelets Not Reportable 02/23/22 07:00 Platelet Satelliting Not Reportable 02/23/22 07:00 Plt Morphology Comment Not Reportable 02/23/22 07:00 RBC Morphology Not Reportable 02/23/22 07:00 Dimorphic RBCs Not Reportable 02/23/22 07:00 Polychromasia Few 02/23/22 07:00 Hypochromasia Few 02/23/22 07:00 Poikilocytosis Not Reportable 02/23/22 07:00 Anisocytosis 1+ 02/23/22 07:00 Microcytosis Not Reportable 02/23/22 07:00 Macrocytosis Not Reportable 02/23/22 07:00 Spherocytes Not Reportable 02/23/22 07:00 Pappenheimer Bodies Not Reportable 02/23/22 07:00 Sickle Cells Not Reportable 02/23/22 07:00 Target Cells Not Reportable 02/23/22 07:00 Tear Drop Cells Not Reportable 02/23/22 07:00 Ovalocytes Not Reportable 02/23/22 07:00 Helmet Cells Not Reportable 02/23/22 07:00 [place] Bodies Not Reportable 02/23/22 07:00 [place] Rings Not Reportable 02/23/22 07:00 [place] Cells Not Reportable 02/23/22 07:00 Bite Cells Not Reportable 02/23/22 07:00 Crenated Cell Not Reportable 02/23/22 07:00 Elliptocytes Not Reportable 02/23/22 07:00 Acanthocytes (Spur) Not Reportable 02/23/22 07:00 Rouleaux Not Reportable 02/23/22 07:00 Hemoglobin C Crystals Not Reportable 02/23/22 07:00 Schistocytes Not Reportable 02/23/22 07:00 Malaria parasites Not Reportable 02/23/22 07:00 [place] Bodies Not Reportable 02/23/22 07:00 Hem Pathologist Commnt No 02/23/22 07:00 PT 19.8 Sec. (12.2-14.9) H 02/22/22 16:22 INR 1.49 (0.87-1.13) H 02/22/22 16:22 APTT 34.3 Sec. (24.2-36.6) 02/22/22 16:22 ABG pH 7.384 pH Units (7.350-7.450) 02/25/22 04:32 POC ABG pCO2 60.4 mmHg (32.0-48.0) H 02/18/22 00:20 ABG pCO2 39.7 mm Hg 02/25/22 04:32 POC ABG pO2 93.0 mmHg (83-108) 02/18/22 00:20 ABG pO2 60.7 mm Hg (80.0-90.0) L 02/25/22 04:32 POC ABG HCO3 20.5 02/18/22 00:20 ABG HCO3 23.2 mmol/L (20.0-26.0) 02/25/22 04:32 ABG O2 Saturation 93.9 % (95.0-99.0) L 02/25/22 04:32 ABG O2 Content 8.9 (0.0-44) 02/25/22 04:32 POC ABG Base Excess -8.2 02/18/22 00:20 ABG Base Excess -1.7 mmol/L (-2.0-3.0) 02/25/22 04:32 ABG Hemoglobin 6.8 gm/dl (14.0-18.0) L 02/25/22 04:32 ABG Oxyhemoglobin 93.7 (94-98) L 02/18/22 00:20 ABG Carboxyhemoglobin 1.8 % (0.0-5.0) 02/25/22 04:32 ABG Methemoglobin 0.5 % (0.0-1.5) 02/25/22 04:32 Oxyhemoglobin 91.7 % (95.0-99.0) L 02/25/22 04:32 Carboxyhemoglobin 2.1 (0.5-1.5) H 02/18/22 00:20 FiO2 35 % 02/25/22 04:32 FiO2 % 100 02/18/22 00:20 Sodium 138 mmol/L (137-145) 02/25/22 05:00 Potassium 4.7 mmol/L (3.6-5.0) 02/25/22 05:00 Chloride 101.4 mmol/L (98-107) 02/25/22 05:00 Carbon Dioxide 23 mmol/L (22-30) 02/25/22 05:00 Anion Gap 18 mmol/L 02/25/22 05:00 BUN 74 mg/dL (9-20) H 02/25/22 05:00 Creatinine 3.7 mg/dL (0.8-1.3) H 02/25/22 05:00 Estimated GFR 16 ml/min 02/25/22 05:00 BUN/Creatinine Ratio 20 % 02/25/22 05:00 Glucose 142 mg/dL (75-100) H 02/25/22 05:00 POC Glucose 138 mg/dL (70-105) H 02/25/22 12:33 Lactic Acid 0.90 mmol/L (0.7-2.0) 02/18/22 02:18 Calcium 7.5 mg/dL (8.4-10.2) L D 02/25/22 05:00 Phosphorus 4.60 mg/dL (2.5-4.5) H 02/23/22 07:00 Magnesium 1.80 mg/dL (1.7-2.3) 02/25/22 05:17 Total Bilirubin 0.80 mg/dL (0.1-1.2) 02/18/22 00:21 AST 56 units/L (5-40) H 02/18/22 00:21 ALT 45 units/L (7-56) 02/18/22 00:21 Alkaline Phosphatase 268 units/L (35-129) H 02/18/22 00:21 Ammonia 38.0 umol/L (25-60) 02/18/22 00:21 Total Creatine Kinase 233 units/L (55-170) H 02/18/22 00:21 Troponin T 0.076 ng/mL (0.00-0.029) H 02/18/22 09:21 Serum Total Protein 5.2 g/dL (6.1-8.1) L 02/20/22 04:30 Total Protein 6.5 g/dL (6.3-8.2) 02/18/22 00:21 Albumin 2.1 g/dL (3.9-5) L 02/23/22 09:42 Albumin/Globulin Ratio 0.5 % 02/18/22 00:21 Bhpoo-6-Glqwzwcpi 0.8 g/dL (0.2-0.3) H 02/20/22 04:30 Ajhou-4-Tmgbvjkdw 0.8 g/dL (0.5-0.9) 02/20/22 04:30 Beta Globulins 0.5 g/dL (0.2-0.5) 02/20/22 04:30 Gamma Globulins 1.1 g/dL (0.8-1.7) 02/20/22 04:30 Abnorm Protein Band 1 see below 02/20/22 04:30 PEP Interpretation see below H 02/20/22 04:30 Triglycerides 107 mg/dL (2-149) 02/18/22 00:21 Cholesterol 71 mg/dL (50-199) 02/18/22 00:21 LDL Cholesterol Direct 30 mg/dL (50-130) L 02/18/22 00:21 HDL Cholesterol 19 mg/dL (40-59) L 02/18/22 00:21 Cholesterol/HDL Ratio 3.73 % 02/18/22 00:21 Procalcitonin 2.73 ng/mL (<0.15) 02/18/22 12:48 TSH 5.100 mlU/mL (0.270-4.200) H 02/18/22 00:21 Urine Color Heidi (Yellow) 02/22/22 17:30 Urine Turbidity Cloudy (Clear) 02/22/22 17:30 Urine pH 5.0 (5.0-7.0) 02/22/22 17:30 Ur Specific [place] 1.025 (1.003-1.030) 02/22/22 17:30 Urine Protein >500 mg/dL (Negative) 02/22/22 17:30 Urine Glucose (UA) 50 mg/dL (Negative) 02/22/22 17:30 Urine Ketones Tr mg/dL (Negative) 02/22/22 17:30 Urine Blood Lg (Negative) 02/22/22 17:30 Urine Nitrite Neg (Negative) 02/22/22 17:30 Urine Bilirubin Neg (Negative) 02/22/22 17:30 Urine Urobilinogen < 2.0 mg/dL (<2.0) 02/22/22 17:30 Ur Leukocyte Esterase Tr (Negative) 02/22/22 17:30 Urine WBC (Auto) 57.0 /HPF (0.0-6.0) H 02/22/22 17:30 Urine RBC (Auto) 164.0 /HPF (0.0-6.0) 02/22/22 17:30 U Epithel Cells (Auto) 5.0 /HPF (0-13.0) 02/22/22 17:30 Urine Bacteria (Auto) 1+ /HPF (Negative) 02/22/22 17:30 Granular Casts 11 /LPF 02/22/22 17:30 Urine Mucus Few /HPF 02/22/22 17:30 Urine Yeast (Budding) 1+ /HPF 02/18/22 00:54 Urine Creatinine 180.0 mg/dL (0.1-20.0) H 02/18/22 23:44 Urine Creatinine 180.9 mg/dL (0.1-20.0) H 02/18/22 23:44 Protein/Creatinin Ratio 2.53 02/18/22 23:44 Urine Sodium 30 mmol/L 02/18/22 23:44 Urine Total Protein 457 mg/dL (5-11.8) H 02/18/22 23:44 Nasal Screen MRSA (PCR) Negative (Negative) 02/18/22 11:05 Random Vancomycin 10.6 ug/mL (0-40.0) 02/20/22 07:51 Salicylates < 0.3 mg/dL (2.8-20.0) L 02/18/22 00:21 Acetaminophen 5.0 ug/mL (10.0-30.0) L 02/18/22 00:21 Plasma/Serum Alcohol < 0.01 % (0-0.07) 02/18/22 00:21 SYMONE Screen Negative (Negative) 02/20/22 04:30 Proteinase 3 (PR3) Ab 2.3 AI (<1.0) H 02/20/22 04:30 Myeloperoxidase Ab <1.0 AI (<1.0) 02/20/22 04:30 Complement C3 145 mg/dL (82-185) 02/20/22 04:30 Complement C4 39 mg/dL (15-53) 02/20/22 04:30 SARS-CoV-2 (PCR) Negative (Negative) 02/18/22 11:33 Hepatitis A IgM Ab Non-reactive (NonReactive) 02/20/22 04:30 Hep Bs Antigen Non-reactive (Negative) 02/20/22 04:30 Hep B Core IgM Ab Non-reactive (NonReactive) 02/20/22 04:30 Hepatitis C Antibody Non-reactive (NonReactive) 02/20/22 04:30 Blood Type A POSITIVE 02/18/22 00:21 Antibody Screen Negative 02/18/22 00:21 Microbiology: Microbiology 02/22/22 17:27 Peripheral/Venous Blood Culture - Preliminary NO GROWTH AFTER 72 HOURS 02/22/22 17:27 Peripheral/Venous Blood Culture - Preliminary NO GROWTH AFTER 72 HOURS 02/22/22 17:30 Urine,Clean Catch Urine Culture - Preliminary NO GROWTH AFTER 24 HOURS Cabezas/IV: Voiding Method Indwelling Catheter Nutrition/Malnutrition Assess - Dietary Evaluation Nutrition/Malnutrition Findings: Nutrition Notes Start: 02/18/22 11:48 Freq: Status: Discharge Protocol: Document 02/21/22 14:31 [facility] (Rec: 02/21/22 15:27 [facility] [id number]) Nutrition Notes Initial or Follow up Reassessment Current Diagnosis Hypertension,Respiratory Failure,Hyperlipidemia Other Pertinent Diagnosis s/p cardiac arrest, metastatic lung CA, afib Current Diet TF - Nepro at 50ml/hr Labs/Tests BUN 89 Cr 5.4 BG 164 Ca 5.7 Phos 5.7 Pertinent Medications Solu-Cortef, D5 1/2NS at 5ml/ hr Height 5 ft 11 in Weight 139.8 kg [place] Body Weight (kg) 78.18 BMI 43.0 Weight Status Morbidly Obese Subjective/Other Information Pt tolerating TF at goal rate. Pt no longer on pressor support, but remains on vent support. Pt with worsening renal function and anemia. Possible VasCath placement today; HD to start afterwards. Percent of energy/protein needs met: 83% energy 74% pro Burn Absent Trauma Absent Minimum of two criteria No #1 Nutrition Diagnosis Inadequate oral intake Diagnosis Progress(for reassessment Continues documentation) Is patient on ventilator? Yes Is Patient Ambulatory and/or Out of Bed No REE-([facility]-confined to bed) 2597.580 Kcal/Kg value to use for calculation 13 Approximate Energy Requirements Using 1817 kcal/Kg Additional Notes Pro needs >1.2g/kg adjBW: > 131g/day Fluid needs 1-1.5L/day Nutrition Intervention Nutrition Support: Continue Nepro at 50ml/hr with 200ml water flush q4h. Kcal 2,160 Protein (gm) 97 Carbohydrates (gm) 193 Fat (gm) 115 Fluid (mL) 872 Fiber (gm) 15 Goal #1 TF tolerance Goal #2 TF to meet at least 75% energy and pro needs Follow-Up By: 02/28/22 Additional Comments F/U: stable TF, vent status, renal function, wt
[2022-02-25] MEDS ORDERED: MORPHINE 2 MG/1 ML INJ IV PRN (17:00)
[2022-02-25] MEDS ORDERED: LORazepam 2 MG/ML VIAL IV PRN (17:00)
[2022-02-25] MEDS ORDERED: GLYCOPYRROLATE 0.4 MG/2 ML INJ IV PRN (17:00)
[2022-02-25 18:46] VITALS: BP 61/34
--- NOTE | 2022-02-25 21:48 | Event Note ---
Date: 02/25/22 Patient pronounced at 1809 hrs. Family at bedside Counseled the family
--- NOTE | 2022-02-26 15:53 | Death Summary ---
Summary - Providers Date of service: 02/26/22 Consults: 02/17/22 23:25 Consult to Physician [CONS] Stat Comment: Consulting Provider: SARIKA PULIDO Physician Instructions: Reason For Exam: Respiratory failure, cardiac arrest 02/18/22 Consult to Cardiac Rehabilitation [CONS] Routine Reason For Exam: Phase I 02/18/22 03:18 Consult to Physician [CONS] Routine Comment: Consulting Provider: WAYNE FREY Physician Instructions: Reason For Exam: Cardiac arrest 02/18/22 03:33 Consult to Physician [CONS] Routine Comment: Consulting Provider: SANDY CAIN Physician Instructions: Reason For Exam: tres 02/19/22 10:30 Consult to Dietitian/Nutrition [CONS] Routine Physician Instructions: Reason For Exam: Reason for Consult: Write/Manage Tube Feeding 02/22/22 13:05 Midline [Consult to PICC Line RN] [CONS] Stat Reason For Exam: no IV access Type Line:: Midline Attending: PAUL GONZALEZ MD - summary Date of admission: 02/18/22 03:18 Date of : 02/25/22 Reason for admission: S/p Cardiac Arrest Disposition: This is a 76-year-old male with 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 fib, CKD stage III brought to the hospital by emergency medical services, as an [id number] respiratory distress with altered mental status. Per EMS patient was initially found altered and obtunded then patient subsequently became on unresponsive. Upon arrival to the ED, patient was in agonal breathing, unable to protect his airway, patient was emergently intubated for acute hypoxic respiratory failure. Shortly after intubation the patient lost pulses, a code MARTELL was called and patient was treated per ACLS protocol for approximately 2 minutes then ROSC was achieved. Post cardiac arrest, patient was severely acidotic and hypotensive requiring multiple pressors and a bicarbonate drip. Initial Chest X-ray was compatible with pneumonia, sepsis protocol and empiric IV antiobiotics were initiated, then critical care management was consulted and patient was transferred to the ICU for further management. While in the ICU, patient remains unresponsive, and his hospitalization was further complicated with acute kidney injury, nephrology was consulted who recommended SURVEILLANCE DIRECTOR. Patient's family, and daughter, were thorough informed of patient's conditions and overall poor prognosis by the meeting specialist. They verbalized understanding and opted for AND/DNR status, however they opted for SURVEILLANCE DIRECTOR to see if patient mentation would improved. Patient received X3days of HD treatment, all sedatives agents were discontinued and patient remained unresponsive. On 02/25/22 after a thorough discussion with the attending discussing patient condition and alternatives, patient's spouse, son, daughter & son-in-law decided to terminally wean patient from mechanical ventilation. Appropriate form signed and placed in the medical record. Spouse stated that should patient survive the night, she wants him to transfer to [facility] in [place], [place]. On 02/25/2022 @1716 Patient was extubated Morphine and Robunol were given as per order. Comfort measure provided. Family members were at the bedside. Patient was pronounced on 02/25/2022 at 1809. Acute metabolic encephalopathy S/p cardiac arrest Acute hypoxic respiratory failure Acute kidney injury secondary to acute tubular necrosis metabolic acidosis uremia Possible postobstructive pneumonia Sepsis MSSA PNA Stage IV adenocarcinoma of the lung with mets to spine
== END 2022-02-25 20:30 | DRG 870 ==
LOC: ED 22:56 → CC1 02-18 03:18
PROVIDERS: ADMIT Hospitalist; ATTEND Internal Medicine
PROC: 5A1955Z Respiratory Ventilation, Greater than 96 Consecutive Hours (ICD-10-PCS; principal; 2022-02-17)
PROC: 0BH17EZ Insertion of Endotracheal Airway into Trachea, Via Natural or Artificial Opening (ICD-10-PCS; 2022-02-17)
PROC: 4A033R1 Measurement of Arterial Saturation, Peripheral, Percutaneous Approach (ICD-10-PCS; 2022-02-18)
PROC: 5A12012 Performance of Cardiac Output, Single, Manual (ICD-10-PCS; 2022-02-18)
PROC: 03HY32Z Insertion of Monitoring Device into Upper Artery, Percutaneous Approach (ICD-10-PCS; 2022-02-18)
PROC: 05HY33Z Insertion of Infusion Device into Upper Vein, Percutaneous Approach (ICD-10-PCS; 2022-02-18)
PROC: B543ZZA Ultrasonography of Right Jugular Veins, Guidance (ICD-10-PCS; 2022-02-18)
PROC: 5A1D70Z Performance of Urinary Filtration, Intermittent, Less than 6 Hours Per Day (ICD-10-PCS; 2022-02-22)
PROC: 06HY33Z Insertion of Infusion Device into Lower Vein, Percutaneous Approach (ICD-10-PCS; 2022-02-22)
PROC: B54BZZA Ultrasonography of Right Lower Extremity Veins, Guidance (ICD-10-PCS; 2022-02-22)
PROC: 02HV33Z Insertion of Infusion Device into Superior Vena Cava, Percutaneous Approach (ICD-10-PCS; 2022-02-22)
PROC: B548ZZA Ultrasonography of Superior Vena Cava, Guidance (ICD-10-PCS; 2022-02-22)
PROC: 5A1D70Z Performance of Urinary Filtration, Intermittent, Less than 6 Hours Per Day (ICD-10-PCS; 2022-02-23)
PROC: 5A1D70Z Performance of Urinary Filtration, Intermittent, Less than 6 Hours Per Day (ICD-10-PCS; 2022-02-24)
DX: A41.01 Sepsis due to Methicillin susceptible Staphylococcus aureus (principal); G93.41 Metabolic encephalopathy; N17.0 Acute kidney failure with tubular necrosis; J18.9 Pneumonia, unspecified organism; J96.01 Acute respiratory failure with hypoxia; I48.20 Chronic atrial fibrillation, unspecified; C34.90 Malignant neoplasm of unspecified part of unspecified bronchus or lung; C79.51 Secondary malignant neoplasm of bone; E46 Unspecified protein-calorie malnutrition; M62.82 Rhabdomyolysis; I50.20 Unspecified systolic (congestive) heart failure; I13.0 Hypertensive heart and chronic kidney disease with heart failure and stage 1 through stage 4 chronic kidney disease, or unspecified chronic kidney disease; Z68.41 Body mass index [BMI] 40.0-44.9, adult; Z66 Do not resuscitate; I46.9 Cardiac arrest, cause unspecified; Z20.822 Contact with and (suspected) exposure to COVID-19; N18.30 Chronic kidney disease, stage 3 unspecified; G47.30 Sleep apnea, unspecified; E78.5 Hyperlipidemia, unspecified; Z95.1 Presence of aortocoronary bypass graft; E87.5 Hyperkalemia; D64.9 Anemia, unspecified; E83.39 Other disorders of phosphorus metabolism
CPT/HCPCS: 36415; 36600; 70450; 71045; 74018; 76770; 80048; 80053; 80061; 80074; 80202; 80320; 81001; 82040; 82140; 82330; 82550; 82565; 82570; 82803; 82805; 82962; 83520; 83735; 84100; 84145; 84156; 84165; 84300; 84443; 84484; 85007; 85025; 85027; 85610; 85730; 86021; 86038; 86160; 86850; 86900; 86901; 87040; 87070; 87076; 87086; 87186; 87205; 87641; 93005; 93306; 93970; 94002; 94003; 94640; G0378; J1815; J2354; J3490; J7070; J7121; Q9967; C8929; G0480; J0610; J0690; J0692; J0696; J1644; J1720; J1940; J2060; J2270; J2370; J3010; J3370; J7030; J7040; J7120; U0003